=== PATIENT | male | born 1970 | race Caucasian/White ===

== ENCOUNTER 2016-11-06 16:02 | Emergency (ER) | payer SELFPAY ==
[2016-11-06 16:10] VITALS: BP 161/68
--- NOTE | 2016-11-06 16:13 | ER Document Report ---
ED Medical Screen (RME) - General Stated Complaint: EAR PAIN Time seen by provider: 16:07 Notes: Patient complains of congestion for 3 weeks. Ear pain since last week, but states right eardrum rupture on Monday producing yellowish, blood-tinged drainage. Now feels pain into right upper teeth, No fever. I have greeted and performed a rapid initial assessment of this patient. A comprehensive ED assessment and evaluation of the patient, analysis of test results and completion of the medical decision making process will be conducted by additional ED providers. TRAVEL OUTSIDE OF THE [place] IN LAST 30 DAYS: No - Related Data Allergies/Adverse Reactions: No Known Allergies Allergy (Verified 11/06/16 16:08) Past Medical History - Past Medical History Cardiac Medical History: Reports: Hx Hypertension, Hx Heart Murmur - Mitral regurgitation on recent echocardiogram Denies: Hx Congestive Heart Failure, Hx Coronary Artery Disease Pulmonary Medical History: Reports: Hx Pneumonia, Hx Respiratory Failure, Hx Sleep Apnea Psychiatric Medical History: Reports: Hx Depression Past Surgical History: Reports: Hx Abdominal Surgery, Hx Gastric Bypass Surgery , Hx Nose Surgery, Hx Orthopedic Surgery, Hx Tonsillectomy - Immunizations Immunizations up to date: Yes Hx Diphtheria, Pertussis, Tetanus Vaccination: No Physical Exam - HEENT Notes: No purulent drainage noted from the right ear. Patient does report some pain with movement of the auricle.
--- NOTE | 2016-11-06 17:14 | ER Document Report ---
ED ENT - General Chief Complaint: Ear Pain Stated Complaint: EAR PAIN Notes: 46 yo male c/o right ear pain and drainage x 2 days. reports cold s/s x 3 weeks. no fever TRAVEL OUTSIDE OF THE [place] IN LAST 30 DAYS: No - HPI Onset/Duration: Persistent Quality of pain: Sharp Pain Level: 3 Location of pain: Ears - right Associated symptoms: Dental pain, Ear pain, Face swelling Similar symptoms previously: No Recently seen / treated by doctor: No - Related Data Allergies/Adverse Reactions: No Known Allergies Allergy (Verified 11/06/16 16:08) Past Medical History - General Information source: Patient - Social History Smoking Status: Unknown if Ever Smoked Chew tobacco use (# tins/day): No Frequency of alcohol use: None Drug Abuse: None Lives with: Family Family History: Reviewed & Not Pertinent Patient has suicidal ideation: No Patient has homicidal ideation: No - Past Medical History Cardiac Medical History: Reports: Hx Hypertension, Hx Heart Murmur - Mitral regurgitation on recent echocardiogram Denies: Hx Congestive Heart Failure, Hx Coronary Artery Disease Pulmonary Medical History: Reports: Hx Pneumonia, Hx Respiratory Failure, Hx Sleep Apnea Renal/ Medical History: Denies: Hx Peritoneal Dialysis Psychiatric Medical History: Reports: Hx Depression Past Surgical History: Reports: Hx Abdominal Surgery, Hx Gastric Bypass Surgery , Hx Nose Surgery, Hx Orthopedic Surgery, Hx Tonsillectomy - Immunizations Immunizations up to date: Yes Hx Diphtheria, Pertussis, Tetanus Vaccination: No Review of Systems - Review of Systems Constitutional: No symptoms reported EENT: See HPI, Ear pain, Ear discharge Cardiovascular: No symptoms reported Respiratory: No symptoms reported Gastrointestinal: No symptoms reported Genitourinary: No symptoms reported Male Genitourinary: No symptoms reported Musculoskeletal: No symptoms reported Skin: No symptoms reported Hematologic/Lymphatic: No symptoms reported Neurological/Psychological: No symptoms reported Physical Exam - Vital signs Vitals: Temp Pulse Resp BP Pulse Ox 98.1 F 96 18 161/68 H 95 11/06/16 16:09 11/06/16 16:09 11/06/16 16:09 11/06/16 16:09 11/06/16 16:09 Interpretation: Normal - General General appearance: Appears well, Alert - HEENT Head: Normocephalic, Atraumatic Eyes: Normal Conjunctiva: Normal Pupils: PERRL External canal: Normal Tympanic membrane: Perforation - right TM with perf at 10 oclock. left TM normal Sinus: Normal Nasal: Normal Mouth/Lips: Normal Mucous membranes: Normal Neck: Normal, Supple - Respiratory Respiratory status: No respiratory distress Chest status: Nontender Breath sounds: Normal Chest palpation: Normal - Cardiovascular Rhythm: Regular Heart sounds: Normal auscultation Murmur: No - Abdominal Inspection: Normal Distension: No distension Bowel sounds: Normal Tenderness: Nontender Organomegaly: No organomegaly - Back Back: Normal, Nontender - Extremities General upper extremity: Normal inspection, Nontender, Normal color, Normal ROM , Normal temperature General lower extremity: Normal inspection, Nontender, Normal color, Normal ROM , Normal temperature, Normal weight bearing. No: Zev's sign - Neurological Neuro grossly intact: Yes Cognition: Normal Orientation: AAOx4 Sullivan Coma Scale Eye Opening: Spontaneous Sullivan Coma Scale Verbal: Oriented Ketty Coma Scale Motor: Obeys Commands Sullivan Coma Scale Total: 15 Speech: Normal Motor strength normal: LUE, RUE, LLE, RLE Sensory: Normal - Psychological Associated symptoms: Normal affect, Normal mood - Skin Skin Temperature: Warm Skin Moisture: Dry Skin Color: Normal Course - Vital Signs Vital signs: Temp Pulse Resp BP Pulse Ox 98.1 F 96 18 161/68 H 95 11/06/16 16:09 11/06/16 16:09 11/06/16 16:09 11/06/16 16:09 11/06/16 16:09 Discharge - Discharge Clinical Impression: Rupture of right tympanic membrane, Elevated blood pressure reading Condition: Stable Disposition: HOME, SELF-CARE Instructions: Antibiotic Therapy ([facility]), Oral Narcotic Medication ([facility]) Additional Instructions: please keep your ear completely dry x 10 days take medications as prescribed follow up with primary care if pain persists your blood pressure is elevated today please follow up with your primary care for further evaluation and treatment Prescriptions: Amoxicillin Trihydrate [Amoxil 875 mg Tablet] 1 tab PO BID #20 tablet Hydrocodone/Acetaminophen [[place] 5-325 Tablet] 1 each PO Q4H #15 tablet Forms: Elevated Blood Pressure
== END 2016-11-06 17:40 | disposition home or self-care (01) ==
LOC: ER 16:02
DX: H72.91 Unspecified perforation of tympanic membrane, right ear (principal); I10 Essential (primary) hypertension; H92.01 Otalgia, right ear; K08.89 Other specified disorders of teeth and supporting structures; R22.0 Localized swelling, mass and lump, head; Z98.84 Bariatric surgery status
CPT/HCPCS: 99282

== ENCOUNTER 2017-08-22 03:16 | Inpatient (IN) | payer SELFPAY ==
[2017-08-22] MEDS ORDERED: NORMAL SALINE 1000 ML 1,000 ML IV ONE (03:29)
--- NOTE | 2017-08-22 03:33 | ER Document Report ---
ED General - General Stated Complaint: DIFFICULTY BREATHING WITH HEART PROBLEMS Time Seen by Provider: 08/22/17 03:28 Notes: Patient is a 46-year-old male presents with complaint of difficulty breathing. He says been sick for approximately a week. He has a history of recurrent pneumonia. He has been hospitalized in the past. I saw him in May and was hospitalized at that time for pneumonia. Is unsure if she has had actual fevers at home. Patient says he has been vomiting last several days and has had a hard time keeping things down for the last 2-3 days. He says he feels dehydrated. Breathing got worse tonight and therefore called the ambulance. When he was arrived he was noted to be very tachycardic. They did an EKG which shows an A. fib with RVR. He has no previous history of A. fib with RVR. He was given 20 mg of Cardizem IV and placed on a Cardizem drip. He denies any chest pain. He denies any cardiac history other than a chronic heart murmur. He denies history of diabetes or high blood pressure. He denies a history of asthma. He is a non-smoker. TRAVEL OUTSIDE OF THE [place] IN LAST 30 DAYS: No - Related Data Allergies/Adverse Reactions: No Known Allergies Allergy (Verified 11/06/16 16:08) Past Medical History - Social History Smoking Status: Never Smoker Frequency of alcohol use: None Drug Abuse: None Family History: Reviewed & Not Pertinent - Past Medical History Cardiac Medical History: Reports: Hx Hypertension, Hx Heart Murmur - Mitral regurgitation on recent echocardiogram Denies: Hx Congestive Heart Failure, Hx Coronary Artery Disease Pulmonary Medical History: Reports: Hx Pneumonia, Hx Respiratory Failure, Hx Sleep Apnea Renal/ Medical History: Denies: Hx Peritoneal Dialysis Psychiatric Medical History: Reports: Hx Depression Past Surgical History: Reports: Hx Abdominal Surgery, Hx Gastric Bypass Surgery , Hx Nose Surgery, Hx Orthopedic Surgery, Hx Tonsillectomy - Immunizations Immunizations up to date: Yes Hx Diphtheria, Pertussis, Tetanus Vaccination: No Review of Systems - Review of Systems Notes: My Normal Review Basic REVIEW OF SYSTEMS: CONSTITUTIONAL : Unclear if has had fevers over last several days. EENT: Some congestion CARDIOVASCULAR: Denies chest pain. RESPIRATORY: Coughing and difficulty breathing GASTROINTESTINAL: Denies abdominal pain. Denies nausea, vomiting, or diarrhea. Denies constipation. Last BM: MUSCULOSKELETAL: Denies neck or back pain or joint pain or swelling. SKIN: Denies rash or skin lesions. NEUROLOGICAL: Denies altered mental status or loss of consciousness. Denies headache. Denies weakness or paralysis or loss of use of either side. Denies problems with gait or speech. Denies sensory or motor loss. ALL OTHER SYSTEMS REVIEWED AND NEGATIVE. Physical Exam - Vital signs Vitals: Pulse Ox 86 L 08/22/17 03:18 - Notes Notes: General Appearance: Well nourished, alert, cooperative, mild acute distress, no obvious discomfort. Vitals: reviewed, See vital signs table. Head: no swelling or tenderness to the head Eyes: PERRL, EOMI, Conjuctiva clear Mouth: No decreasd moisture Throat: No tonsillar inflammation, No airway obstruction Lungs: No wheezing, No rales, No rhonci, No accessory muscle use, good air exchange bilaterally. Heart: Tachycardic rate, irregular rythm, systolic murmur, no rub Abdomen: Normal BS, soft, No rigidity, No abdominal tenderness, No guarding, no rebound, no abdominal masses, no organomegaly Extremities: strength 5/5 in all extremities, good pulses in all extremities, no swelling or tenderness in the extremities, no edema. Skin: warm, dry, appropriate color, no rash Neuro: speech clear, oriented x 3, normal affect, responds appropriately to questions. Course - Re-evaluation Re-evalutation: 08/22/17 04:37 Cardizem drip has been started. I did order Lopressor X patient's heart rate is still fast. Lopressor is being given. My concern this patient has a elevated troponin without chest pain and has difficulty breathing with hypoxemia and tachycardia. I feel the CT angios necessary to rule out PE. CT angios been ordered. I did discuss this with the patient and he is agreeable to it. His lung katz remain clear. His chest x-ray does not show pneumonia. Shows possible small amount of edema. 08/22/17 06:01 CT angio is pending official read. I do not see obvious PE on my evaluation of it. He does have multiple infiltrative processes bilaterally. Suspect his elevated troponin is most likely is related to him being tachycardic with some hypoxemia for a long period of time as he says he has been feeling bad for at least 3 days. His heart rate is now improved. His heart rate is down to the upper 90s. This is much improved from the 140s and 150s he was when he first arrived. Concern is that he has his recurrent atypical pneumonias. I did discuss the case with the hospitalist, Dr. Niño, who recommends transfer because of the patient's elevated troponin because of these recurrent atypical pneumonias. I think this is appropriate. I did speak with the patient about this. Patient currently refuses transport. I did explain to him our reasoning for transport based on his elevated heart enzymes and the recurrent atypical infectious process he gets in his lungs. I informed him that it is hard to determine whether he has something more going on with his heart or if this is more of a typical infectious process that is being caused by something different. Patient says he understands this but says he still prefers to stay the hospital here. He says his insurance is not going effect till September. He says he wants to just to be treated at this facility and does not want be transferred due to the extra cost and said September comes around he will see the needed specialist as that is when his insurance kicks in. I informed him that he could potentially worsen. Patient says he does worsen he would will reconsider transfer at that time. I did discuss case with Dr. Niño informed her that the patient does refuse transport. She agrees with the patient here with the understanding that the patient does understand that transferred to a facility with different cardiology specialty and potential infectious disease would be of more benefit. Patient does understand this and does recognize this and still wants to stay at our facility. Dictation of this chart was performed using voice recognition software; therefore, there may be some unintended grammatical errors. - Vital Signs Vital signs: Temp Pulse Resp BP Pulse Ox 35 H 104/65 94 08/22/17 05:01 08/22/17 05:00 08/22/17 05:01 - Laboratory Result Diagrams: 08/22/17 03:30 08/22/17 03:30 Laboratory results interpreted by me: 08/22/17 08/22/17 03:30 03:30 WBC 11.8 H Hgb 9.9 L Hct 31.3 L MCV 70 L MCH 21.9 L MCHC 31.5 L RDW 17.6 H Seg Neutrophils % 85.3 H Lymphocytes % 6.2 L Absolute Neutrophils 10.1 H Sodium 136.8 L Carbon Dioxide 21 L BUN 39 H Creatinine 1.35 H Est GFR (Non-Af Amer) 57 L Calcium 8.3 L Creatine Kinase 210 H Total Protein 5.8 L - EKG Interpretation by Me Additional EKG results interpreted by me: 08/22/17 03:36 EKG is reviewed and interpreted by me. EKG shows atrial fibrillation with a rate of [address] segment elevation or depression. No ischemic T-wave inversions. QRS duration and QTc intervals are within normal range. No old EKG available for comparison. Discharge - Discharge Clinical Impression: Atrial fibrillation with rapid ventricular response Dyspnea Qualifiers: Dyspnea type: unspecified Qualified Code(s): R06.00 - Dyspnea, unspecified Pneumonia Qualifiers: Pneumonia type: due to unspecified organism Laterality: bilateral Lung location : unspecified part of lung Qualified Code(s): J18.9 - Pneumonia, unspecified organism Condition: Stable Disposition: ADMITTED INPATIENT
[2017-08-22 03:44] LABS: ABSOLUTE LYMPHOCYTES (AUTO) 0.7 10^3/uL (0.5-4.7); ABSOLUTE NEUT (AUTO) 10.1 10^3/uL (1.7-8.2); BASOPHILS % (AUTO) 0.1 % (0-2); HEMATOCRIT 31.3 % (37.9-51.0); HEMOGLOBIN 9.9 g/dL (13.5-17.0); HGB HCT DIFFERENCE -1.6; LYMPHOCYTES % (AUTO) 6.2 % (13-45); MEAN CORPUSCULAR HEMOGLOBIN 21.9 pg (27.0-33.4); MEAN CORPUSCULAR HGB CONC 31.5 g/dL (32.0-36.0); MEAN CORPUSCULAR VOLUME 70 fl (80-97); MONOCYTES % (AUTO) 8.4 % (3-13); RED CELL DISTRIBUTION WIDTH 17.6 % (11.5-14.0); SEGMENTED NEUTROPHILS % (AUTO) 85.3 % (42-78); WHITE BLOOD COUNT 11.8 10^3/uL (4.0-10.5)
--- NOTE | 2017-08-22 03:59 | RADIOLOGY REPORT (SQ) ---
EXAM DESCRIPTION: CHEST SINGLE VIEW CLINICAL HISTORY: 46 years, Male, dyspnea COMPARISON: None. NUMBER OF VIEWS: 1 FINDINGS: Pulmonary vascular congestion, normal cardiac silhouette, and intact bony thorax. IMPRESSION: Pulmonary vascular congestion. 2011 [employer]- All Rights Reserved
[2017-08-22 04:00] LABS: ALANINE AMINOTRANSFERASE 30 U/L (21-72); ALBUMIN 3.5 g/dL (3.5-5.0); ALKALINE PHOSPHATASE 73 U/L (38-126); ANION GAP 14 (5-19); ASPARTATE AMINO TRANSFERASE 25 U/L (17-59); BILIRUBIN,DIRECT 0.3 mg/dL (0.0-0.4); BILIRUBIN,TOTAL 0.9 mg/dL (0.2-1.3); BLOOD UREA NITROGEN 39 mg/dL (7-20); CALCIUM 8.3 mg/dL (8.4-10.2); CARBON DIOXIDE 21 mmol/L (22-30); CHLORIDE 102 mmol/L (98-107); CREATINE KINASE 210 U/L (55-170); CREATININE RESULT 1.35 mg/dL (0.52-1.25); GLUCOSE 106 mg/dL (75-110); MAGNESIUM 1.8 mg/dL (1.6-2.3); SODIUM 136.8 mmol/L (137-145); TOTAL PROTEIN 5.8 g/dL (6.3-8.2)
[2017-08-22 04:14] LABS: CREATINE KINASE MB 1.77 ng/mL (<4.55)
[2017-08-22 04:19] LABS: TROPONIN I 0.316 ng/mL
[2017-08-22] MEDS ORDERED: DILTIAZEM HCL/D5W 125 MG/125 ML RTUINJ IV PRN (04:19)
[2017-08-22] MEDS ORDERED: METOPROLOL TARTRATE PF/INJ 5 MG/5 ML SDV IV ONE (04:19)
[2017-08-22 04:34] LABS: THYROID STIMULATING HORMONE 1.36 uIU/mL (0.47-4.68)
[2017-08-22] MEDS ORDERED: DILTIAZEM HCL INJ 25 MG/5 ML VIAL IV ONE (05:40)
[2017-08-22] MEDS ORDERED: AZITHROMYCIN INJ 500 MG VIAL IV ONE (06:00)
[2017-08-22] MEDS ORDERED: CEFTRIAXONE INJ 1000 MG VIAL IV ONE (06:00)
--- NOTE | 2017-08-22 06:09 | RADIOLOGY REPORT (SQ) ---
EXAM DESCRIPTION: CTA CHEST CLINICAL HISTORY: 46 years Male, dyspnea COMPARISON: January 05, 2016, images only. TECHNIQUE: 100 mL Isovue-370, coronal and sagittal reformat. This exam was performed according to our departmental dose-optimization program, which includes automated exposure control, adjustment of the mA and/or kV according to patient size and/or use of iterative reconstruction technique. FINDINGS: Moderate scattered mixed groundglass and airspace opacities of both lung katz increased compared with prior exam from January 05, 2016. CTA of the pulmonary arterial system appears normal. No evidence of embolus. No right ventricular strain. Moderate left atrial enlargement. Gastric suture material. Minimal bilateral perinephric fat stranding. Likely benign exophytic cyst of the right kidney measures 1.5 cm. Cholecystectomy clips. Moderate to kyphosis at the thoracolumbar junctional levels with the [id number] anterior vertebral compression deformity, moderate bony demineralization, and moderate partially bridging anterior osteophytes without significant interval change compared with prior exam, January 05, 2016. Inferior neck, mediastinum, and upper abdomen appear otherwise grossly intact. IMPRESSION: Worsened/recurrent scattered groundglass and airspace opacities of both lung katz. Differential diagnosis includes pulmonary edema, multifocal pneumonia, and other infectious, inflammatory, and neoplastic processes.
[2017-08-22] MEDS ORDERED: ACETAMINOPHEN 325 MG TABLET PO PRN (06:22)
[2017-08-22] MEDS ORDERED: NORMAL SALINE 1000 ML 2,000 ML IV ONE (06:27)
[2017-08-22] MEDS ORDERED: HEPARIN SODIUM,PORCINE/D5W 25,000 UNIT/250 ML RTUINJ IV PRN (06:28)
[2017-08-22] MEDS ORDERED: HEPARIN SOD (PORCINE) 1,000 UNIT/ML 10 ML VIAL IV ONE (06:28)
[2017-08-22] MEDS ORDERED: VANCOMYCIN HCL 0 MG in DEXTROSE 5%-WATER 250 ML IV NR (06:30)
[2017-08-22] MEDS ORDERED: BENZONATATE 100 MG CAPSULE PO PRN (06:31)
[2017-08-22] MEDS: NORMAL SALINE 1000 ML 1,000 ML IV PRN ×2 (06:49→10:38)
[2017-08-22 06:53] LABS: APPEARANCE,URINE SLIGHTLY-CLOUDY; BILIRUBIN,URINE NEGATIVE (NEGATIVE); GLUCOSE, URINE NEGATIVE (NEGATIVE); KETONES,URINE NEGATIVE (NEGATIVE); LEUKOCYTE ESTERASE,URINE NEGATIVE (NEGATIVE); NITRITE,URINE NEGATIVE (NEGATIVE); PROTEIN,URINE 30 mg/dL (NEGATIVE); URINE SPECIFIC GRAVITY 1.036
[2017-08-22] MEDS ORDERED: METHYLPREDNISOLONE INJ 40 MG/1 ML SDV IV SCH (07:00)
[2017-08-22] MEDS ORDERED: POTASSIUM CHLORIDE 10 MEQ TABLET.SA PO ONE (07:01)
[2017-08-22 07:07] LABS: PROTHROMBIN TIME 14.1 SEC (11.4-15.4)
[2017-08-22 07:08] LABS: PARTIAL THROMBOPLASTIN TIME 40.8 SEC (23.5-35.8)
--- NOTE | 2017-08-22 07:24 | PDOC H&P ---
History of Present Illness Admission Date/PCP: 08/22/17 [facility] History of Present Illness: CHARY HUSTON is a 46 year old male with past medical history of heart murmur, hypertension, depression, anxiety, anemia who presents to the emergency department with complaints of shortness of breath. Patient reports that he was hospitalized in May for pneumonia in [place]. He reports that he started getting sick this past Monday when he was in [place]. He reports cough, subsequent wheezing and gurgling in his chest as well as inability to breathe while laying flat to sleep. He reports that his cough was productive of a bloody white gummy sputum, tightness in his chest, rhinorrhea, nausea, vomiting, fever, chills. Patient reports he was taking [place], Mucinex DM, and use his rescue inhaler 3 times. He reports when he took all of them together it did make him feel dizzy. Upon presentation to the emergency department patient is found to be in atrial fibrillation with rapid ventricular response and CTA of the chest reveals a multifocal multilobar pneumonia. He is referred to the hospital service for sepsis, pneumonia, and A. fib with RVR. Past Medical History Cardiac Medical History: Reports: Hypertension, Heart Murmur - Mitral regurgitation on recent echocardiogram Denies: Congestive Heart Failure, Coronary Artery Disease Pulmonary Medical History: Reports: Pneumonia, Respiratory Failure, Sleep Apnea Endocrine Medical History: Reports: Obesity Psychiatric Medical History: Reports: Depression Past Surgical History Past Surgical History: Reports: Gastric Bypass Surgery, Orthopedic Surgery, Tonsillectomy Social History Smoking Status: Never Smoker Frequency of Alcohol Use: None Hx Recreational Drug Use: No Drugs: None Hx Prescription Drug Abuse: No - Advance Directive Resuscitation Status: Full Code Surrogate healthcare decision maker:: Mariel De La Cruz, mother Family History Family History: DM, Hypertension, Malignancy Parental Family History Reviewed: Yes Children Family History Reviewed: Yes Sibling(s) Family History Reviewed.: Yes Medication/Allergy Home Medications: Aspirin [Aspirin 325 mg Tablet] 325 mg PO DAILY 08/22/17 Citalopram Hydrobromide [Celexa 40 mg Tablet] 1 tab PO DAILY 08/22/17 Lisinopril 40 mg PO DAILY 08/22/17 Allergies/Adverse Reactions: No Known Allergies Allergy (Verified 11/06/16 16:08) Review of Systems Constitutional: PRESENT: as per HPI, anorexia, chills, fatigue, fever(s). ABSENT: headache(s), weight gain, weight loss Eyes: ABSENT: visual disturbances Ears: ABSENT: hearing changes Cardiovascular: PRESENT: chest pain, orthropnea, palpitations. ABSENT: dyspnea on exertion, edema Respiratory: PRESENT: cough, dyspnea, hemoptysis, sputum Gastrointestinal: PRESENT: nausea, vomiting. ABSENT: abdominal pain, constipation, diarrhea, hematemesis, hematochezia, melena Genitourinary: ABSENT: dysuria, hematuria Musculoskeletal: ABSENT: joint swelling Integumentary: ABSENT: rash, wounds Neurological: ABSENT: abnormal gait, abnormal speech, confusion, dizziness, focal weakness, syncope Psychiatric: ABSENT: anxiety, depression, homidical ideation, suicidal ideation Endocrine: ABSENT: cold intolerance, heat intolerance, polydipsia, polyuria Hematologic/Lymphatic: ABSENT: easy bleeding, easy bruising Physical Exam Vital Signs: Temp Pulse Resp BP Pulse Ox 22 H 109/68 96 08/22/17 06:01 08/22/17 06:00 08/22/17 06:01 General appearance: PRESENT: mild distress, obese, well-developed, well- nourished Head exam: PRESENT: atraumatic, normocephalic Eye exam: PRESENT: conjunctiva pink, EOMI, PERRLA. ABSENT: scleral icterus Ear exam: PRESENT: normal external ear exam Mouth exam: PRESENT: dry mucosa, tongue midline Neck exam: PRESENT: lymphadenopathy. ABSENT: JVD, thyromegaly, tracheal deviation Respiratory exam: PRESENT: prolonged expiratory phas, rhonchi, symmetrical, tachypnea, unlabored, wheezes. ABSENT: accessory muscle use, rales Cardiovascular exam: PRESENT: irregular rhythm, +S1, +S2, systolic murmur. ABSENT: diastolic murmur, rubs Pulses: PRESENT: normal dorsalis pedis pul Vascular exam: PRESENT: normal capillary refill GI/Abdominal exam: PRESENT: normal bowel sounds, soft. ABSENT: distended, guarding, hernia, mass, organolmegaly, rebound, tenderness Rectal exam: PRESENT: deferred Extremities exam: PRESENT: full ROM. ABSENT: calf tenderness, clubbing, pedal edema Neurological exam: PRESENT: alert, awake, oriented to person, oriented to place , oriented to time, oriented to situation, CN II-XII grossly intact. ABSENT: motor sensory deficit Psychiatric exam: PRESENT: appropriate affect, normal mood. ABSENT: homicidal ideation, suicidal ideation Skin exam: PRESENT: dry, intact, warm. ABSENT: cyanosis, rash Results Laboratory Results: 08/22/17 03:30 08/22/17 03:30 08/22/17 08/22/17 08/22/17 03:30 03:30 03:30 WBC 11.8 H RBC 4.50 Hgb 9.9 L Hct 31.3 L MCV 70 L MCH 21.9 L MCHC 31.5 L RDW 17.6 H Plt Count 230 Seg Neutrophils % 85.3 H Lymphocytes % 6.2 L Monocytes % 8.4 Eosinophils % 0.0 Basophils % 0.1 Absolute Neutrophils 10.1 H Absolute Lymphocytes 0.7 Absolute Monocytes 1.0 Absolute Eosinophils 0.0 Absolute Basophils 0.0 Sodium 136.8 L Potassium 5.0 Chloride 102 Carbon Dioxide 21 L Anion Gap 14 BUN 39 H Creatinine 1.35 H Est GFR ( Amer) > 60 Est GFR (Non-Af Amer) 57 L Glucose 106 Calcium 8.3 L Magnesium 1.8 Total Bilirubin 0.9 AST 25 ALT 30 Alkaline Phosphatase 73 Total Protein 5.8 L Albumin 3.5 TSH 1.36 Free T4 1.86 08/22/17 08/22/17 03:30 03:30 Creatine Kinase 210 H CK-MB (CK-2) 1.77 Troponin I 0.316 Impressions: Chest X-Ray 08/22/17 03:28 IMPRESSION: Pulmonary vascular congestion. 2010 [employer]- All Rights Reserved Chest/Abdomen CTA 08/22/17 04:25 IMPRESSION: Worsened/recurrent scattered groundglass and airspace opacities of both lung katz. Differential diagnosis includes pulmonary edema, multifocal pneumonia, and other infectious, inflammatory, and neoplastic processes. Status: Imported from PACS Assessment & Plan - Diagnosis (1) Sepsis Qualifiers: Sepsis type: sepsis due to unspecified organism Qualified Code(s): A41.9 - Sepsis, unspecified organism Is this a current diagnosis for this admission?: Yes Plan: Will bolus patient and treat for pneumonia (2) Acute respiratory failure with hypoxemia Is this a current diagnosis for this admission?: Yes Plan: Oxygen as needed to maintain saturation greater than 95% (3) Elevated troponin I level Is this a current diagnosis for this admission?: Yes Plan: Continue to plot out troponins. The type II non-STEMI secondary to sepsis, A. fib with RVR, and mild renal insufficiency Have consulted cardiology (4) Atrial fibrillation with rapid ventricular response Is this a current diagnosis for this admission?: Yes Plan: Concerned that this is related to his underlying valvular dysfunction. Repeat echo On Cardizem drip For pulmonary embolus Likely secondary to his underlying sepsis and pneumonia (5) Pneumonia Qualifiers: Pneumonia type: due to unspecified organism Laterality: bilateral Lung location: unspecified part of lung Qualified Code(s): J18.9 - Pneumonia, unspecified organism Is this a current diagnosis for this admission?: Yes Plan: Concern that this is patient's fourth presentation for pneumonia in the last 12 months. Will obtain an HIV and LDH. Place patient on scheduled nebulized treatments and re-evaluate for improvement. PRN Xopenex Place patient on IV Solu-Medrol Place patient on vancomycin and Zosyn as patient has been hospitalized within the last 3 months. Obtain sputum culture (8) Kyphosis Qualifiers: Kyphosis type: unspecified Spinal region: thoracic Qualified Code(s): M40.204 - Unspecified kyphosis, thoracic region Is this a current diagnosis for this admission?: Yes (9) Hyponatremia Is this a current diagnosis for this admission?: Yes Plan: Secondary to intravascular volume depletion (10) Status post gastric bypass for obesity Is this a current diagnosis for this admission?: Yes
[2017-08-22 07:58] LABS: ADD HIVPANEL? NO; HIV (1 AND 2) ANTIBODY NEGATIVE (NEGATIVE)
--- NOTE | 2017-08-22 08:06 | EKG REPORT ---
SEVERITY:- ABNORMAL ECG - ATRIAL FIBRILLATION, V-RATE 108-[address]-T CHANGES LATERAL LEADS. : Confirmed by: Rashaun Negron MD 22-Aug-2017 08:06:07
[2017-08-22 08:21] LABS: ABSOLUTE MONOCYTES (AUTO) 0.7 10^3/uL (0.1-1.4); ABSOLUTE NEUT (AUTO) 9.9 10^3/uL (1.7-8.2); BASOPHILS % (AUTO) 0.1 % (0-2); HEMATOCRIT 27.9 % (37.9-51.0); HEMOGLOBIN 8.9 g/dL (13.5-17.0); HGB HCT DIFFERENCE -1.2; LYMPHOCYTES % (AUTO) 8.6 % (13-45); MEAN CORPUSCULAR HGB CONC 31.7 g/dL (32.0-36.0); MEAN CORPUSCULAR VOLUME 69 fl (80-97); RED BLOOD COUNT 4.04 10^6/uL (4.35-5.55); RED CELL DISTRIBUTION WIDTH 17.3 % (11.5-14.0); SEGMENTED NEUTROPHILS % (AUTO) 85.3 % (42-78); WHITE BLOOD COUNT 11.6 10^3/uL (4.0-10.5)
[2017-08-22] MEDS: LEVALBUTEROL HCL NEB 1.25 MG/3 ML AMPUL NEB SCH ×3 (08:25→19:45)
[2017-08-22] MEDS ORDERED: METHYLPREDNISOLONE INJ 125 MG/2 ML SDV IV ONE (08:30)
[2017-08-22] MEDS: CALCIUM CARBONATE 500 MG TAB.CHEW PO SCH ×4 (08:56→21:24)
[2017-08-22] MEDS: MAGNESIUM SULFATE/D5W 1 GM/100 ML RTUPB IV SCH ×2 (08:57→11:59)
[2017-08-22] MEDS ORDERED: HEPARIN SOD (PORCINE) 1,000 UNIT/ML 10 ML VIAL IV PRN (09:31)
[2017-08-22] MEDS ORDERED: INFLUENZA ADLT QUAD (36MOS+) 2017-18 VAC 0.5 ML SYR IM PRN (09:58)
[2017-08-22] MEDS ORDERED: (PENDING PHARMACY ID) (Citalopram Hydrobromide [Celexa 40 Mg Tablet] 1 TAB) PO SCH (10:00)
[2017-08-22] MEDS: VANCOMYCIN HCL 1,250 MG in DEXTROSE 5%-WATER 250 ML IV SCH ×2 (10:36→21:36)
[2017-08-22] MEDS ORDERED: DIGOXIN INJ 0.5 MG/2 ML AMPULE IV ONE ×2 (11:55→21:15)
[2017-08-22] MEDS: ASPIRIN 325 MG TABLET PO SCH (11:57)
[2017-08-22] MEDS: CITALOPRAM HYDROBROMIDE 20 MG TABLET PO SCH (11:58)
[2017-08-22] MEDS: GUAIFENESIN 600 MG TABLET.SA PO SCH ×2 (11:58→21:23)
[2017-08-22] MEDS ORDERED: PIPERACILLIN SODIUM/TAZOBACTAM 4.5 GM in NORMAL SALINE 100 ML IV ONE (12:00)
[2017-08-22] MEDS: BENZONATATE 100 MG CAPSULE PO PRN (14:34)
[2017-08-22] MEDS: METHYLPREDNISOLONE INJ 125 MG/2 ML SDV IV SCH ×2 (14:35→21:21)
[2017-08-22] MEDS: DILTIAZEM HCL/D5W 125 MG/125 ML RTUINJ IV PRN (14:39)
--- NOTE | 2017-08-22 16:33 | PDOC PROGRESS REPORT ---
Subjective Progress Note for:: 08/22/17 Subjective:: The patient is seen as a follow-up on sepsis secondary to pneumonia with atrial fibrillation with a rapid ventricular response. Is found resting in bed comfortably while wearing BiPAP. He reports that his pain has improved with the scheduled nebulizer treatments. He reports a continued productive cough of thick, gamino-yellow sputum. He states that, overall, he is feeling better He denies a history of A. fib, DE, and CHF. He has no new questions or concerns at this time. Reason For Visit: SEPSIS,PNEUMONIA Physical Exam Vital Signs: Temp Pulse Resp BP Pulse Ox 98.3 F 105 H 30 H 124/72 98 08/22/17 15:39 08/22/17 16:00 08/22/17 15:39 08/22/17 16:00 08/22/17 15:39 Intake & Output 08/21/17 08/22/17 08/23/17 06:59 06:59 06:59 Intake Total 504 Output Total 160 Balance 344 Weight 120 kg General appearance: PRESENT: no acute distress, morbidly obese, well-developed, well-nourished, other - Acutely ill-appearing Head exam: PRESENT: atraumatic, normocephalic Eye exam: PRESENT: conjunctiva pink, EOMI, PERRLA. ABSENT: scleral icterus Ear exam: PRESENT: normal external ear exam Mouth exam: PRESENT: moist, tongue midline Neck exam: ABSENT: carotid bruit, JVD, lymphadenopathy, thyromegaly Respiratory exam: PRESENT: crackles - Bibasilar, prolonged expiratory phas, rhonchi, tachypnea, other - Currently on BiPAP. ABSENT: rales, wheezes Cardiovascular exam: PRESENT: irregular rhythm, +S1, +S2, systolic murmur. ABSENT: diastolic murmur, rubs Pulses: PRESENT: normal dorsalis pedis pul Vascular exam: PRESENT: normal capillary refill GI/Abdominal exam: PRESENT: normal bowel sounds, soft. ABSENT: distended, guarding, mass, organolmegaly, rebound, tenderness Rectal exam: PRESENT: deferred Extremities exam: PRESENT: full ROM. ABSENT: calf tenderness, clubbing, pedal edema Neurological exam: PRESENT: alert, awake, oriented to person, oriented to place , oriented to time, oriented to situation, CN II-XII grossly intact. ABSENT: motor sensory deficit Psychiatric exam: PRESENT: appropriate affect, normal mood. ABSENT: homicidal ideation, suicidal ideation Skin exam: PRESENT: intact, warm. ABSENT: cyanosis, dry - Diaphoretic, rash Results Laboratory Results: 08/22/17 08:04 08/22/17 08/22/17 06:30 08:04 WBC 11.6 H RBC 4.04 L Hgb 8.9 L Hct 27.9 L MCV 69 L MCH 22.0 L MCHC 31.7 L RDW 17.3 H Plt Count 201 Seg Neutrophils % 85.3 H Lymphocytes % 8.6 L Monocytes % 6.0 Eosinophils % 0.0 Basophils % 0.1 Absolute Neutrophils 9.9 H Absolute Lymphocytes 1.0 Absolute Monocytes 0.7 Absolute Eosinophils 0.0 Absolute Basophils 0.0 Urine Color YELLOW Urine Appearance SLIGHTLY-CLOUDY Urine pH 5.0 Ur Specific [place] 1.036 Urine Protein 30 H Urine Glucose (UA) NEGATIVE Urine Ketones NEGATIVE Urine Blood NEGATIVE Urine Nitrite NEGATIVE Ur Leukocyte Esterase NEGATIVE Urine WBC (Auto) 7 Urine RBC (Auto) 1 08/22/17 08/22/17 08:04 12:18 Troponin I 0.284 0.203 Impressions: Chest X-Ray 08/22/17 03:28 IMPRESSION: Pulmonary vascular congestion. 2011 [employer]- All Rights Reserved Chest/Abdomen CTA 08/22/17 04:25 IMPRESSION: Worsened/recurrent scattered groundglass and airspace opacities of both lung katz. Differential diagnosis includes pulmonary edema, multifocal pneumonia, and other infectious, inflammatory, and neoplastic processes. Assessment & Plan - Diagnosis (1) Atrial fibrillation with rapid ventricular response Is this a current diagnosis for this admission?: Yes Plan: Likely secondary to his underlying sepsis with pneumonia. The patient is currently rate controlled on a Cardizem drip; we will transition to oral Cardizem. Echocardiogram is pending. Appreciate cardiology's consultation recommendations. (2) Sepsis Qualifiers: Sepsis type: sepsis due to unspecified organism Qualified Code(s): A41.9 - Sepsis, unspecified organism Is this a current diagnosis for this admission?: Yes Plan: Secondary to pneumonia. He has received IV fluid resuscitation has been placed on antibiotics for treatment of pneumonia. Blood cultures are pending; will narrow antibiotics as cultures result. (3) Elevated troponin I level Is this a current diagnosis for this admission?: Yes Plan: Troponins are trending down (0.316--> 0.284--> 0.203). This is a type II non-STEMI secondary to sepsis, A. fib with RVR, and mild renal insufficiency. The patient is on full dose Lovenox, full dose aspirin, and statin therapy. We will obtain lipid panel in the morning. (4) Hyponatremia Is this a current diagnosis for this admission?: Yes Plan: Secondary to intravascular volume depletion related to sepsis and pneumonia. The patient is currently receiving IV fluid replacement. We will continue to monitor with serial BMPs. (5) Pneumonia Qualifiers: Pneumonia type: due to unspecified organism Laterality: bilateral Lung location: unspecified part of lung Qualified Code(s): J18.9 - Pneumonia, unspecified organism Is this a current diagnosis for this admission?: Yes Plan: The patient is receiving vancomycin and Zosyn. Blood and sputum cultures are pending; will narrow antibiotic therapy as cultures result. Schedule Xopenex nebulizer treatments every 6 hours secondary to tachycardia related to his A. fib RVR. The patient is provided IV Solu-Medrol every 8 and Mucinex twice daily. HIV screening was negative. (6) REMEDIOS (acute kidney injury) Plan: Secondary to intra-vascular volume depletion related to sepsis. The patient is receiving IV fluid resuscitation. Vancomycin to be dosed by pharmacy. Will avoid all other nephrotoxic medications. Continue to trend creatinine with serial BMPs. (7) Acute respiratory failure with hypoxemia Is this a current diagnosis for this admission?: Yes Plan: Improved. Sepsis secondary to pneumonia. CTA was obtained and did rule out pulmonary embolus. The patient is being supported with supplemental oxygen and BiPAP nightly and as needed. Will obtain a proBNP to evaluate for CHF exacerbation with pulmonary edema. Remaining plan as above. - Time Time Spent with patient: 25-34 minutes Medications reviewed and adjusted accordingly: Yes
[2017-08-22] MEDS ORDERED: FUROSEMIDE INJ/PF 20 MG/2 ML SDV IV ONE (18:00)
[2017-08-22] MEDS: PIPERACILLIN SODIUM/TAZOBACTAM 4.5 GM in NORMAL SALINE 100 ML IV SCH (18:30)
[2017-08-22] MEDS: ENOXAPARIN SODIUM INJ 120 MG/0.8 ML DISP.SYRIN SUBCUT SCH (21:23)
[2017-08-22] MEDS: ATORVASTATIN CALCIUM 20 MG TABLET PO SCH (21:24)
[2017-08-22] MEDS ORDERED: FUROSEMIDE INJ/PF 20 MG/2 ML SDV IV SCH (22:00)
--- NOTE | 2017-08-22 22:48 | CONSULTATION REPORT E ---
Consultation Report NAME: CHARY HUSTON : 1970 AGE: 46Y DATE: 08/22/2017 302 A TO: CARLYN OSHEA M.D. FROM: TRESSA NOE M.D. Requesting Physician REASON FOR CONSULTATION: Atrial fibrillation with rapid ventricular response in a patient with acute respiratory failure with hypoxia due to pneumonia and also elevated Troponin I. HISTORY OF PRESENT ILLNESS: The patient is a 46-year-old male with a history of hypertension, depression, obstructive sleep apnea and recurrent pneumonia, who states that since the past 1 week has not felt well. He has been having rhinorrhea, fevers, chills and nausea, and also cough with intermittent wheezing. He also developed orthopnea. With the cough, the patient states that he coughs up some red-colored sputum and clots and clear sputum. The patient also complains of generalized chest tightness due to his breathing problem. Although he states that he noted that his heart rate was fast, he thought it was due to his breathing difficulty. He has no leg edema. There is no dizziness or syncope. The patient denies any chest pain. The patient was seen in the emergency room with acute hypoxic respiratory failure with an O2 sat of 86% on room air. Also, the patient was found to be in atrial fibrillation with rapid ventricular response. He was started on a Cardizem drip after a bolus of Cardizem, and is still in atrial fibrillation at a rate of 110 beats per minute, although he states his breathing is slightly better with antibiotics, steroids and respiratory treatments. He denies any leg edema, dizziness or near-syncope, but complains of generalized fatigue and weakness. PAST MEDICAL HISTORY: 1. Positive for history of hypertension. 2. He also has a history of depression. 3. He states that he has a history of obstructive sleep apnea, but does not use CPAP. 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 4. The patient has a past history of morbid obesity, status post gastric bypass surgery. 5. There is no prior history of atrial fibrillation. 6. There is no history of chronic kidney disease. 7. There is no history of diabetes mellitus or thyroid disease. 8. He denies any coronary artery disease, angina or PA, and no history of congestive heart failure. 9. He has a history of recurrent pneumonia. 10. He has no history of asthma or COPD. SOCIAL HISTORY: The patient does not smoke. He has no history of ETOH abuse. SURGICAL HISTORY: History of gastric bypass surgery. He had right knee AC ligament repair. He has had trigger finger releases x2 on the right hand. He has had umbilical hernia repair and ventral hernia repair. He has also had a tonsillectomy. ADVANCE DIRECTIVE: The patient is a FULL CODE. His mother is his surrogate healthcare decision-maker. FAMILY HISTORY: Positive for diabetes mellitus, hypertension, malignancy. No history of coronary artery disease. No history of cardiac arrhythmia. ALLERGIES: He has no known allergies. MEDICATIONS: 1. Tylenol 650 mg p.o. q.4 hours p.r.n. 2. Aspirin 325 p.o. daily. 3. Atorvastatin 20 mg p.o. at bedtime. 4. Zithromax 500 mg IV x1. 5. Tessalon Perles 100 mg p.o. q.8 hours p.r.n. 6. Calcium carbonate (Tums) 1000 mg p.o. meals and at bedtime. 7. Ceftriaxone 1 gram IV piggyback. 8. Celexa 40 mg p.o. daily. 9. Digoxin; he got 1 dose of 0.125 mg IV x1. 10. Lovenox 150 mg subcutaneously q.12 hours. 11. He did receive a bolus of Cardizem 10 mg and also he is on a Cardizem drip at 10 mg per hour. 12. He did get Lasix 20 mg IV q.12 hours. 13. Mucinex 1200 mg q.12 hours. 14. Piperacillin 4.5 grams IV x1. 15. He did get a bolus of normal saline, 1000 mL and 2000 mL IV bolus in the *------*. 16. Prevacid 15 mg p.o. q. a.m. 17. Xopenex 1.25 mg potassium treatment q.6 hours. 18. Methylprednisolone 80 mg IV q.8 hours. 19. Metoprolol *------* 20. Piperacillin 4.5 grams IV q.6 hours. 21. Vancomycin 1250 mg IV q.12 hours. Pharmacy will do the trough and peak and manage the dosing. 22. Potassium 40 mEq p.o. x1. REVIEW OF SYSTEMS: CONSTITUTIONAL: Complains of fever, chills and rigors, with generalized fatigue and weakness. HEAD: No history of headaches or head injury. EYES: No history of amblyopia or diplopia. No history of amaurosis fugax. EARS: No history of tinnitus. No history of hearing loss. No history of recurrent sore throats. NOSE: History of rhinorrhea, which started about a week ago, with symptoms of URI. He has no history of nosebleeds, no history of nasal polyps. MOUTH: No altered taste sensation. No ulcers in the mouth. No bleeding from the gums. THROAT: No lymphangitis. No cervical sore throat. SKIN: No history of skin rashes. No history of psoriasis. No history of pruritus. No history of skin cancer. No history of skin lesions. NECK: No neck pain. No swelling in the neck. No goiter. LUNGS: No history of asthma or COPD. History of recurrent pneumonia on the patient. Recent symptoms suggestive of pneumonia, as evidenced by CAT scan which shows multi-lobular bilateral pneumonia. He has wheezing. There is no history of pulmonary embolism. History of sleep apnea. Does not use CPAP, but states that he gets at least 10 hours of sleep every night. History of cough productive of blood clots and also white sputum. No pleuritic chest pain. History of orthopnea present. CARDIAC: First episode of atrial fibrillation. No history of congestive heart failure. No history of PA or angina symptoms. Note that the patient's Troponin I is elevated. There is no prior history of elevation of Troponin I or an PA. No history of congestive heart failure. No history of syncope. History of orthopnea present. No history of PND. No history of leg edema. The patient did have palpitations, but he thought it was due to his lung problem and not atrial fibrillation. This is the first episode of atrial fibrillation. GASTROINTESTINAL: He does have some symptoms of GI. No history of peptic ulcer disease. History of gastric bypass surgery in the past. No history of fatty food intolerance. No history of GI bleed. No history of abdominal pain. No history of cirrhosis. No history of hepatitis or jaundice. RENAL: No history of chronic kidney disease. No history of hematuria, pyuria or dysuria. No symptoms of enlarged prostate. MUSCULOSKELETAL: Denies any arthritis or collagenous vascular disease. ENDOCRINE: No history of diabetes mellitus. No history of hyper or hypothyroidism. No history of fatty food intolerance. No history of heat or cold intolerance. No history of polydipsia or polyuria. METABOLIC: History of morbid obesity present, in spite of his having had gastric bypass surgery. History of hyperlipidemia present. CENTRAL NERVOUS SYSTEM: No history of TIA or CVA. No history of headaches, migraines or seizures. No history of gait imbalance. PSYCHIATRIC: History of depression present. The patient does appear to be anxious. No history of suicidal ideation. No history of homicidal ideation. VASCULAR: No history of calf or buttock claudication. No history of DVT. HEMATOLOGIC: No history of bleeding diathesis. No history of clotting disorders. Past history of anemia present. PHYSICAL EXAMINATION: GENERAL: Patient is morbidly obese. He is in slight distress due to shortness of breath. VITAL SIGNS: His temperature is 98.2 degrees Fahrenheit. His pulse is 110 beats per minute, irregularly irregular. Blood pressure is 114/70. The respirations are 24 per minute. O2 sats are 90% on 4 liters nasal cannula. HEAD: Atraumatic, normocephalic. EYES: Pupils equal, round, regular, reactive to light and accommodation. Extraocular movements are normal. He has no conjunctival pallor. There is no scleral icterus. EARS: Tympanic membranes are intact. External auditory canals are clear. There are no lesions on the pinnae. NOSE: There is no deviated nasal septum. There is no inflammation of the nasal mucosal membranes. MOUTH: Mucous membranes of the mouth are moist. Tongue is moist. There are no ulcers. There is no bleeding from the gums. THROAT: There is no redness of the oropharynx. There is no exudate. SKIN: There are no skin rashes or skin lesions. There is no petechiae or ecchymosis. NECK: Supple. There is no JVD. Carotids are equal. There is no bruit. There is no goiter. There is no lymphadenopathy. Trachea is central. LUNGS: Show bilateral dry crackles and also rhonchi and wheezing bilaterally. No rales of CHF. HEART: S1, S2 heard. S1 is of variable intensity. There is no S3 gallop. There is no S4 gallop. There is a systolic murmur at the left sternal border, at the apex. There is no rub. ABDOMEN: Soft, obese, nontender. There is no hepatosplenomegaly. Bowel sounds are well-heard. EXTREMITIES: Femorals are slightly diminished. The femorals are deep. There are no femoral bruits. Leg pulses are well-felt. There is no pedal edema. There is no DVT or cellulitis. There is no cyanosis or clubbing. CENTRAL NERVOUS SYSTEM: The patient is conscious, awake, alert, oriented x3, with no focal deficit. PSYCHIATRIC: The patient's judgment and insight are intact. His affect is normal, but the patient does appear to be slightly anxious. DIAGNOSTICS: The patient's EKG shows atrial fibrillation with ventricular response of 148, nonspecific ST-T changes in lateral leads, most likely rate-related. The patient's chest x-ray was reported as pulmonary vascular congestion, but I think the patient has more of a pneumonia. The patient's CTA shows worsened recurrent scattered ground-glass and air space opacities in both lung katz. Differential diagnosis includes pulmonary edema, multifocal pneumonia and other infectious, inflammatory and neoplastic diseases/processes. I think the patient has multifocal pneumonia, in my opinion. I agree with the chest x-ray and the CAT scan as mentioned and also the EKG. The patient's 24-hour intake is 2004 mL, output is 1085 mL. The patient's white count is 11,600, hemoglobin is 8.9, hematocrit is 27.9, platelet count is 201,000. The patient's d-dimer is 0.87. Note that the CTA did not show pulmonary embolism. Pro time is 14.1, INR is 1.02, PTT is 40.8, and subsequently it was 30. The patient's influenza A and influenza B rapid were both negative. His HIV 1 and 2 antibodies are negative. The patient's Troponin I initially was 0.316, subsequently came down to 0.284 and subsequently has come down to 0.203. The patient's anti-proBNP is 3410. His LDH is 617. His CPK-MB is negative. His TSH is 1.36. Free T4 is 1.86. The patient's sodium is 136.8, potassium 5.0, chloride 102, CO2 is 21. The patient's BUN is 39, creatinine is 1.35. GFR is reduced at 57, which is stage 3A, most likely due to dehydration. Calcium is 8.3. The patient's total protein is 5.8 and albumin is 3.5. IMPRESSION: 1. Acute respiratory failure with hypoxemia. Oxygen saturations much better with treatment and nasal oxygen at 4 liters. 2. Elevated Troponin I level. This is a type 2 supply/demand mismatch, secondary to patient's hypoxia, atrial fibrillation with rapid ventricular response and pneumonia/sepsis. 3. Acute renal failure, mild, most likely secondary to over-diuresis. Would recommend holding the patient's Lasix. 4. Atrial fibrillation with rapid ventricular response. Will increase the patient's Cardizem drip at 10 mg per hour to 15 mg per hour. 5. Bilateral multifocal pneumonia. 6. Hypertension by history. 7. Depression. 8. Obstructive sleep apnea on continuous positive airway pressure. 9. History of hyperlipidemia. 10. Anemia. RECOMMENDATIONS: Note that the patient was seen at 9:00 a.m. and 45 minutes spent on this patient, with more than 50% of the time spent on direct patient care. His medications have been reviewed and adjusted. I have discussed the case with the care-giving providers on the case. Medical decision-making is of high complexity. Will repeat the patient's EKG in the morning. Will also get a Troponin I to make sure that it is trending down. Later, once the pneumonia subsides, the patient will be recommended to have an IV Lexiscan Cardiolite stress test. Once the heart rate is much improved, then would get an echocardiogram for LV ejection fraction. Note, in the past months, the patient's LV ejection fraction was normal and had trace mitral regurgitation only. Will follow with you. DICTATING PHYSICIAN: CARLYN OSHEA M.D. [id number] PHY#: [id number] ID: [id number] JOB#: [id number] ACCT: [id number] cc:CARLYN OSHEA M.D. >
[2017-08-23] MEDS: DILTIAZEM HCL/D5W 125 MG/125 ML RTUINJ IV PRN ×3 (00:06→16:58)
[2017-08-23] MEDS: PIPERACILLIN SODIUM/TAZOBACTAM 4.5 GM in NORMAL SALINE 100 ML IV SCH ×4 (00:13→18:41)
[2017-08-23] MEDS: LEVALBUTEROL HCL NEB 1.25 MG/3 ML AMPUL NEB SCH ×4 (01:58→19:50)
[2017-08-23] MEDS: METHYLPREDNISOLONE INJ 125 MG/2 ML SDV IV SCH ×3 (05:09→21:21)
[2017-08-23] MEDS: LANSOPRAZOLE 15 MG TAB.RAP.DR PO SCH (05:09)
[2017-08-23 05:13] LABS: HEMATOCRIT 29.7 % (37.9-51.0); HEMOGLOBIN 9.6 g/dL (13.5-17.0); HGB HCT DIFFERENCE -0.9; MEAN CORPUSCULAR HGB CONC 32.1 g/dL (32.0-36.0); MEAN CORPUSCULAR VOLUME 68 fl (80-97); RED BLOOD COUNT 4.35 10^6/uL (4.35-5.55); RED CELL DISTRIBUTION WIDTH 17.3 % (11.5-14.0); WHITE BLOOD COUNT 13.3 10^3/uL (4.0-10.5)
[2017-08-23 05:14] LABS: ANION GAP 9 (5-19); BLOOD UREA NITROGEN 26 mg/dL (7-20); CALCIUM 8.2 mg/dL (8.4-10.2); CARBON DIOXIDE 23 mmol/L (22-30); CHLORIDE 104 mmol/L (98-107); CHOLESTEROL 92.22 mg/dL (0-200); CREATININE RESULT 0.85 mg/dL (0.52-1.25); Direct HDL 14 mg/dL (>40); GLUCOSE 199 mg/dL (75-110); MAGNESIUM 2.5 mg/dL (1.6-2.3); SODIUM 135.6 mmol/L (137-145); TRIGLYCERIDES 105 mg/dL (<150)
[2017-08-23 05:24] LABS: DIRECT LDL 60 mg/dL (<100)
[2017-08-23] MEDS: CALCIUM CARBONATE 500 MG TAB.CHEW PO SCH ×4 (07:05→21:18)
--- NOTE | 2017-08-23 08:06 | EKG REPORT ---
SEVERITY:- ABNORMAL ECG - ATRIAL FIBRILLATION, V-RATE 60-101 PROLONGED QT INTERVAL NONSPECIFIC ANTEROLATERAL ST-T CHANGES : Confirmed by: Rashaun Negron MD 23-Aug-2017 08:05:34
[2017-08-23] MEDS: ENOXAPARIN SODIUM INJ 120 MG/0.8 ML DISP.SYRIN SUBCUT SCH ×2 (09:36→21:18)
[2017-08-23] MEDS: CITALOPRAM HYDROBROMIDE 20 MG TABLET PO SCH (09:37)
[2017-08-23] MEDS: GUAIFENESIN 600 MG TABLET.SA PO SCH ×2 (09:37→21:21)
[2017-08-23] MEDS: ASPIRIN 325 MG TABLET PO SCH (09:37)
[2017-08-23] MEDS: VANCOMYCIN HCL 1,250 MG in DEXTROSE 5%-WATER 250 ML IV SCH ×2 (09:38→21:56)
--- NOTE | 2017-08-23 12:25 | PDOC PROGRESS REPORT ---
Subjective Progress Note for:: 08/23/17 Subjective:: The patient is seen as a follow-up on sepsis secondary to pneumonia with atrial fibrillation with a rapid ventricular response. He ss found resting in bed comfortably while on supplemental oxygen via nasal cannula. He reports continued improvement in his breathing. He did use the CPAP overnight and feels that he has rested well. He has no new questions or concerns. He denies fever, chills, barnes, chest pain, palpitations, orthopnea, abdominal pain , nausea and vomiting. He does endorse continued dyspnea on exertion and a productive cough. He has no new questions or concerns at this time. Reason For Visit: SEPSIS,PNEUMONIA Physical Exam Vital Signs: Temp Pulse Resp BP Pulse Ox 98.5 F 94 26 H 112/59 L 96 08/23/17 11:35 08/23/17 12:00 08/23/17 11:35 08/23/17 12:00 08/23/17 12:00 Intake & Output 08/22/17 08/23/17 08/24/17 06:59 06:59 06:59 Intake Total 3834 Output Total 1835 Balance 1999 Weight 122.9 kg General appearance: PRESENT: no acute distress, morbidly obese, well-developed, well-nourished Head exam: PRESENT: atraumatic, normocephalic Eye exam: PRESENT: conjunctiva pink, EOMI, PERRLA. ABSENT: scleral icterus Ear exam: PRESENT: normal external ear exam Mouth exam: PRESENT: moist, tongue midline Neck exam: ABSENT: carotid bruit, JVD, lymphadenopathy, thyromegaly Respiratory exam: PRESENT: rhonchi, symmetrical, unlabored. ABSENT: accessory muscle use, prolonged expiratory phas, rales, tachypnea, wheezes Cardiovascular exam: PRESENT: irregular rhythm. ABSENT: diastolic murmur, rubs , systolic murmur, tachycardia Pulses: PRESENT: normal dorsalis pedis pul Vascular exam: PRESENT: normal capillary refill GI/Abdominal exam: PRESENT: normal bowel sounds, soft. ABSENT: distended, guarding, mass, organolmegaly, rebound, tenderness Rectal exam: PRESENT: deferred Extremities exam: PRESENT: full ROM. ABSENT: calf tenderness, clubbing, pedal edema Neurological exam: PRESENT: alert, awake, oriented to person, oriented to place , oriented to time, oriented to situation, CN II-XII grossly intact. ABSENT: motor sensory deficit Psychiatric exam: PRESENT: appropriate affect, normal mood. ABSENT: homicidal ideation, suicidal ideation Skin exam: PRESENT: intact, warm. ABSENT: cyanosis, dry - diaphoretic, rash Results Laboratory Results: 08/23/17 03:57 08/23/17 03:57 08/23/17 08/23/17 03:57 03:57 WBC 13.3 H RBC 4.35 Hgb 9.6 L Hct 29.7 L MCV 68 L MCH 22.0 L MCHC 32.1 RDW 17.3 H Plt Count 198 Sodium 135.6 L Potassium 5.0 Chloride 104 Carbon Dioxide 23 Anion Gap 9 BUN 26 H Creatinine 0.85 Est GFR ( Amer) > 60 Est GFR (Non-Af Amer) > 60 Glucose 199 H Calcium 8.2 L Magnesium 2.5 H Triglycerides 105 Cholesterol 92.22 LDL Cholesterol Direct 60 VLDL Cholesterol 21.0 HDL Cholesterol 14 L 08/22/17 08/22/17 08/22/17 08:04 12:18 12:18 Troponin I 0.284 0.203 NT-Pro-B Natriuret Pep 3410 H 08/22/17 08/23/17 18:55 03:57 Troponin I 0.150 0.094 NT-Pro-B Natriuret Pep Impressions: Chest X-Ray 08/22/17 03:28 IMPRESSION: Pulmonary vascular congestion. 2010 [employer]- All Rights Reserved Chest/Abdomen CTA 08/22/17 04:25 IMPRESSION: Worsened/recurrent scattered groundglass and airspace opacities of both lung katz. Differential diagnosis includes pulmonary edema, multifocal pneumonia, and other infectious, inflammatory, and neoplastic processes. Assessment & Plan - Diagnosis (1) Atrial fibrillation with rapid ventricular response Is this a current diagnosis for this admission?: Yes Plan: Likely secondary to his underlying sepsis with pneumonia. The patient is rate controlled on diltiazem drip; plans to transition to p.o. Cardizem today. Appreciate cardiology's consultation and recommendations. [id number] score of 1; indeterminate risk. Pt w/ elevated glucose secondary to steroid use; will obtain HgA1c to evaluate for underlying diabetes. If elevated; pt would be at high risk and therefore require chronic anticoagulation. (2) Sepsis Qualifiers: Sepsis type: sepsis due to unspecified organism Qualified Code(s): A41.9 - Sepsis, unspecified organism Is this a current diagnosis for this admission?: Yes Plan: Secondary to pneumonia. He has received IV fluid resuscitation and has been placed on antibiotics for treatment of pneumonia. Blood cultures: No growth at 24 hours. Sputum and Urine cultures are pending. Will narrow antibiotics as cultures result. (3) Elevated troponin I level Is this a current diagnosis for this admission?: Yes Plan: Troponins trended down (0.316--> 0.284--> 0.203--> 0.150--> 0.094). This is a type II non-STEMI secondary to sepsis, A. fib with RVR, and mild renal insufficiency. The patient is on full dose Lovenox, full dose aspirin, and statin therapy. Lipid panel: LDL 60, HDL 14, total cholesterol 92 (4) Hyponatremia Is this a current diagnosis for this admission?: Yes Plan: Secondary to intravascular volume depletion related to sepsis and pneumonia. The patient is currently receiving IV fluid replacement. We will continue to monitor with serial BMPs. (5) Pneumonia Qualifiers: Pneumonia type: due to unspecified organism Laterality: bilateral Lung location: unspecified part of lung Qualified Code(s): J18.9 - Pneumonia, unspecified organism Is this a current diagnosis for this admission?: Yes Plan: The patient is receiving vancomycin and Zosyn. Blood cultures: No growth at 24 hours. Currently on vancomycin and Zosyn; will narrow antibiotics as cultures result. Schedule Xopenex nebulizer treatments every 6 hours secondary to tachycardia related to his A. fib RVR. We will begin weaning IV Solu-Medrol today. Mucinex twice daily. (6) REMEDIOS (acute kidney injury) Plan: Resolved. Secondary to intra-vascular volume depletion related to sepsis. The patient is receiving IV fluid resuscitation. Vancomycin to be dosed by pharmacy. Will avoid all other nephrotoxic medications. Continue to monitor. (7) Acute respiratory failure with hypoxemia Is this a current diagnosis for this admission?: Yes Plan: Improved. Sepsis secondary to pneumonia. CTA was obtained and did rule out pulmonary embolus. The patient is being supported with supplemental oxygen and BiPAP nightly and as needed. Remaining plan as above. - Time Time Spent with patient: 25-34 minutes Medications reviewed and adjusted accordingly: Yes Anticipated discharge: Home Within: within 36 hours
[2017-08-23] MEDS ORDERED: DILTIAZEM HCL 180 MG CAPSULE.CR PO ONE (12:30)
[2017-08-23 14:40] LABS: APPEARANCE,URINE CLEAR; BILIRUBIN,URINE NEGATIVE (NEGATIVE); GLUCOSE, URINE 50 mg/dL (NEGATIVE); KETONES,URINE NEGATIVE (NEGATIVE); LEUKOCYTE ESTERASE,URINE NEGATIVE (NEGATIVE); NITRITE,URINE NEGATIVE (NEGATIVE); PROTEIN,URINE 30 mg/dL (NEGATIVE); URINE SPECIFIC GRAVITY 1.041
[2017-08-23] MEDS ORDERED: LISINOPRIL 10 MG TABLET PO ONE (14:45)
[2017-08-23] MEDS: DILTIAZEM HCL 180 MG CAPSULE.CR PO SCH (21:20)
[2017-08-23] MEDS: ATORVASTATIN CALCIUM 20 MG TABLET PO SCH (21:20)
--- NOTE | 2017-08-23 21:38 | PROGRESS NOTE E ---
Progress Note NAME: CHARY HUSTON : 1970 AGE: 46Y DATE: 08/23/2017 ROOM: 302 SUBJECTIVE: Note that the patient is feeling slightly better. He still shortness of breath but much less so. His cough has also improved but still he is coughing up some bloody sputum. He denies any chest pain or discomfort. He continues to be in atrial fibrillation. He denies any PND, but does have orthopnea. There is no leg edema. There is no ventricular arrhythmia seen. There are no TIA or CVA symptoms. There is no bleeding from the full dose Lovenox. Note that the patient wore CPAP last night and slept restfully. OBJECTIVE: GENERAL: On examination the patient is morbidly obese, at present in no acute distress but still has orthopnea. VITAL SIGNS: He is afebrile with a temperature of 97.7 degrees Fahrenheit, pulse is 73 beats per minute, blood pressure 126/70, respirations are 18 per minute, O2 saturations are 96% on 4L nasal cannula. HEENT: Head is atraumatic, normocephalic. Eyes: Pupils are equal, round and regular, reactive to light and accommodation. Extraocular movements are normal. There is no conjunctival pallor. There is no scleral icterus. Ears: Tympanic membranes are intact. External auditory canals are clear. Nose: There is no deviated nasal septum. There is no inflammation of the nasal mucous membrane. Mouth: Mucous membranes of the mouth are moist. Tongue is moist. There are no ulcers. There is no bleeding from the gums. Throat: There is no redness of the oropharynx. There are no exudates in the throat. SKIN: There are no skin rashes. There is no petechiae or ecchymosis. There are no skin lesions. NECK: Supple. There is no JVD. There is no lymphadenopathy. There is no goiter. Carotids are equal. There is no bruit. Trachea is central. LUNGS: Show a few scattered rhonchi and a few wheezing and a few dry crackles bilaterally. No rales of CHF. HEART: S1 and S2 is heard. There is a variable S1 in intensity. There is no S3 gallop. There is a systolic murmur in the left sternal border and the apex. There is no rub. ABDOMEN: Soft, obese, nontender. There is no hepatosplenomegaly. Bowel sounds are well heard. There are no tender areas or masses. EXTREMITIES: Femorals are deep. Femorals are slightly diminished. There are no femoral bruits. Leg pulses are well felt. There is no pedal edema. There is no cyanosis or clubbing. There is no DVT or cellulitis. CENTRAL NERVOUS SYSTEM: The patient is conscious, awake, alert and oriented x3 with no focal deficits. PSYCHIATRIC: The patient's judgment and insight are intact. His affect is normal but the patient today does not appear to be anxious. INTAKE/OUTPUT: The patient's 24 hour intake is 3835 mL, output is 1835 mL. DIAGNOSTIC DATA: The patient's white count is 13,300; hemoglobin is 9.6; hematocrit is 29.7; platelet count is 198,000. The patient's sodium s 135.6, potassium is 5, chloride is 104, CO2 is 23. The patient's BUN is 26, creatinine 0.85, GFR is greater than 60, glucose is 199, calcium is 8.2, magnesium is 2.5. The patient's troponin I has trended down to 0.094. His HDL level is very low at 14, his LDL level is good at 60, his triglycerides are good at 105. The patient's EKG shows atrial fibrillation, prolonged QT interval, nonspecific anterolateral ST-T changes which are minor. IMPRESSION: 1. ACUTE RESPIRATORY FAILURE WITH HYPOXIA, SLIGHT IMPROVEMENT BUT STILL REQUIRING 4 LITERS OF NASAL O2 TO KEEP HIS O2 SATS UP. 2. ELEVATED TROPONIN I, WHICH IS TRENDING DOWN. THIS IS TYPE 2 MYOCARDIAL INFARCTION WHICH IS DUE TO SUPPLY/DEMAND MISMATCH AND SHOULD NOT BE TREATED NON-ST ELEVATION OR ST ELEVATION PA (OR TYPE 1 PA). The supply/demand mismatch and elevated troponin I is secondary to the patient's hypoxia, atrial fibrillation with rapid ventricular response, and the patient's pneumonia and possible sepsis. 3. MULTI FOCAL PNEUMONIA. 4. ACUTE RENAL FAILURE, RESOLVED AFTER HYDRATION. Note that the patient's Lasix has been stopped. 5. ATRIAL FIBRILLATION AT PRESENT VENTRICULAR RESPONSE CONTROL. The patient is on 15 mg/hr of Cardizem. We will start the patient on p.o. Cardizem CD at 180 mg p.o. q.12 hours and try to wean the patient off the Cardizem. We will decrease it to 5 mg/hr after the patient started and 2 hours later if the heart rate is low then we will stop the patient's Cardizem. We will continue the patient on full dose Lovenox. The patient will need chronic anticoagulation. This has been discussed with the patient. I have discussed the option of placing the patient on Coumadin or the newer oral anticoagulation. I told him that with Coumadin if he should bleed then there is always an antidote in the form of fresh frozen plasma and vitamin K. Also I discussed that with Coumadin dietary intake should be steady since increase in green leafy vegetables can cause the blood to get thick and also the most of commonly used medication and antibiotics which can interfere and interact with the Coumadin and make the patient's INR unstable. Also discussed the newer oral anticoagulation agents which do not require any dietary restrictions and usually the commonly used medications do not have any interactions with them. But, I have also told him that they are a little more costlier and also that if he should bleed on this there is no antidote and we have to give supportive care. The patient will think and let us know. 5. BILATERAL MULTIFOCAL PNEUMONIA. Slightly getting better but the patient still has hemoptysis. Would recommend that the patient have a CT scan with contrast in 3 months to make sure that there is no malignancy. 6. HYPERTENSION, WELL-CONTROLLED. 7. DEPRESSION. 8. OBSTRUCTIVE SLEEP APNEA. The patient is on CPAP, would continue the patient on CPAP empirically since the patient feels much better. 9. HISTORY OF DYSLIPIDEMIA WITH GOOD LDL LEVELS AND VERY LOW HDL LEVELS. 10. ANEMIA. We will leave the anemia workup to the attending physician on the case. TIME SPENT: Note 30 minutes spent on this with more than 50% of the time spent on direct patient care. His medications have been reviewed and medications adjusted. Discussed with the patient at length about the oral anticoagulation agents, Coumadin versus the new agents. Note medical decision making is still highly complex. Will follow with you. We will recheck the patient's EKG in the morning and we will recheck the patient's troponin I that it does indeed is trending down. Will also recheck the patient's chest x-ray in the morning. DICTATING PHYSICIAN: CARLYN OSHEA M.D. [id number] PHY#: [id number] ID: [id number] JOB#: [id number] ACCT: [id number] cc: > MILADYS
[2017-08-24] MEDS: PIPERACILLIN SODIUM/TAZOBACTAM 4.5 GM in NORMAL SALINE 100 ML IV SCH ×5 (00:26→23:53)
[2017-08-24] MEDS: LEVALBUTEROL HCL NEB 1.25 MG/3 ML AMPUL NEB SCH ×4 (01:42→19:39)
[2017-08-24 05:13] LABS: HEMATOCRIT 29.7 % (37.9-51.0); HEMOGLOBIN 9.4 g/dL (13.5-17.0); HGB HCT DIFFERENCE -1.5; MEAN CORPUSCULAR HEMOGLOBIN 21.6 pg (27.0-33.4); MEAN CORPUSCULAR HGB CONC 31.5 g/dL (32.0-36.0); MEAN CORPUSCULAR VOLUME 69 fl (80-97); RED BLOOD COUNT 4.34 10^6/uL (4.35-5.55); RED CELL DISTRIBUTION WIDTH 17.5 % (11.5-14.0); WHITE BLOOD COUNT 21.6 10^3/uL (4.0-10.5)
[2017-08-24 05:29] LABS: ANION GAP 12 (5-19); BLOOD UREA NITROGEN 33 mg/dL (7-20); CALCIUM 8.8 mg/dL (8.4-10.2); CARBON DIOXIDE 20 mmol/L (22-30); CHLORIDE 103 mmol/L (98-107); GLUCOSE 149 mg/dL (75-110); SODIUM 134.7 mmol/L (137-145)
[2017-08-24] MEDS: METHYLPREDNISOLONE INJ 125 MG/2 ML SDV IV SCH (05:44)
[2017-08-24] MEDS: LANSOPRAZOLE 15 MG TAB.RAP.DR PO SCH (05:44)
--- NOTE | 2017-08-24 07:51 | EKG REPORT ---
SEVERITY:- ABNORMAL ECG - ATRIAL FIBRILLATION, V-RATE 63-114 PROLONGED QT INTERVAL : Confirmed by: Rashaun Negron MD 24-Aug-2017 07:50:02
[2017-08-24] MEDS: CALCIUM CARBONATE 500 MG TAB.CHEW PO SCH ×4 (08:29→21:08)
[2017-08-24] MEDS: CITALOPRAM HYDROBROMIDE 20 MG TABLET PO SCH (09:04)
[2017-08-24] MEDS: DILTIAZEM HCL 180 MG CAPSULE.CR PO SCH ×2 (09:04→21:08)
[2017-08-24] MEDS: ASPIRIN 325 MG TABLET PO SCH (09:04)
[2017-08-24] MEDS: GUAIFENESIN 600 MG TABLET.SA PO SCH ×2 (09:04→21:08)
[2017-08-24] MEDS: LISINOPRIL 10 MG TABLET PO SCH (09:05)
[2017-08-24] MEDS: ENOXAPARIN SODIUM INJ 120 MG/0.8 ML DISP.SYRIN SUBCUT SCH (09:05)
[2017-08-24] MEDS: VANCOMYCIN HCL 1,500 MG in DEXTROSE 5%-WATER 250 ML IV SCH ×2 (09:50→18:01)
[2017-08-24] MEDS ORDERED: NORMAL SALINE 1000 ML 1,000 ML IV PRN (11:10)
--- NOTE | 2017-08-24 11:26 | PDOC PROGRESS REPORT ---
Subjective Progress Note for:: 08/24/17 Subjective:: The patient is seen as a follow-up on sepsis secondary to pneumonia with atrial fibrillation with a rapid ventricular response. He is found resting in bed comfortably while on supplemental oxygen via nasal cannula. He reports continued improvement in his breathing. He did use the CPAP overnight. His also reports that his cough has improved. He denies fever, chills, barnes, chest pain, palpitations, orthopnea, abdominal pain , nausea and vomiting. He does endorse continued dyspnea on exertion and a productive cough. He has no new questions or concerns at this time. Reason For Visit: SEPSIS,PNEUMONIA Physical Exam Vital Signs: Temp Pulse Resp BP Pulse Ox 98.4 F 75 16 105/68 95 08/24/17 08:17 08/24/17 08:30 08/24/17 08:30 08/24/17 08:17 08/24/17 08:30 Intake & Output 08/23/17 08/24/17 08/25/17 06:59 06:59 06:59 Intake Total 3834 3064 Output Total 1835 950 Balance 1998 2113 Weight 122.9 kg 124.2 kg General appearance: PRESENT: no acute distress, morbidly obese, well-developed, well-nourished Head exam: PRESENT: atraumatic, normocephalic Eye exam: PRESENT: conjunctiva pink, EOMI, PERRLA. ABSENT: scleral icterus Ear exam: PRESENT: normal external ear exam Mouth exam: PRESENT: moist, tongue midline Neck exam: ABSENT: carotid bruit, JVD, lymphadenopathy, thyromegaly Respiratory exam: PRESENT: rhonchi, symmetrical, unlabored. ABSENT: rales, wheezes Cardiovascular exam: PRESENT: irregular rhythm, +S1, +S2. ABSENT: diastolic murmur, rubs, systolic murmur, tachycardia Pulses: PRESENT: normal dorsalis pedis pul Vascular exam: PRESENT: normal capillary refill GI/Abdominal exam: PRESENT: normal bowel sounds, soft. ABSENT: distended, guarding, mass, organolmegaly, rebound, tenderness Rectal exam: PRESENT: deferred Extremities exam: PRESENT: full ROM. ABSENT: calf tenderness, clubbing, pedal edema Neurological exam: PRESENT: alert, awake, oriented to person, oriented to place , oriented to time, oriented to situation, CN II-XII grossly intact. ABSENT: motor sensory deficit Psychiatric exam: PRESENT: appropriate affect, normal mood. ABSENT: homicidal ideation, suicidal ideation Skin exam: PRESENT: dry, intact, warm. ABSENT: cyanosis, rash Results Laboratory Results: 08/24/17 04:04 08/24/17 04:04 08/23/17 08/24/17 08/24/17 14:10 04:04 04:04 WBC 21.6 H RBC 4.34 L Hgb 9.4 L Hct 29.7 L MCV 69 L MCH 21.6 L MCHC 31.5 L RDW 17.5 H Plt Count 254 Sodium 134.7 L Potassium 5.0 Chloride 103 Carbon Dioxide 20 L Anion Gap 12 BUN 33 H Creatinine 0.90 Est GFR ( Amer) > 60 Est GFR (Non-Af Amer) > 60 Glucose 149 H Calcium 8.8 Urine Color YELLOW Urine Appearance CLEAR Urine pH 5.0 Ur Specific Woodruff 1.041 Urine Protein 30 H Urine Glucose (UA) 50 H Urine Ketones NEGATIVE Urine Blood NEGATIVE Urine Nitrite NEGATIVE Ur Leukocyte Esterase NEGATIVE Urine WBC (Auto) 1 Urine RBC (Auto) 0 Stool Occult Blood 08/24/17 10:00 WBC RBC Hgb Hct MCV MCH MCHC RDW Plt Count Sodium Potassium Chloride Carbon Dioxide Anion Gap BUN Creatinine Est GFR ( Amer) Est GFR (Non-Af Amer) Glucose Calcium Urine Color Urine Appearance Urine pH Ur Specific Woodruff Urine Protein Urine Glucose (UA) Urine Ketones Urine Blood Urine Nitrite Ur Leukocyte Esterase Urine WBC (Auto) Urine RBC (Auto) Stool Occult Blood POSITIVE 08/22/17 06:30 Clean Catch Midstream Urine Culture - Final Urogenital Vane 08/22/17 08/22/17 08/22/17 08:04 12:18 12:18 Troponin I 0.284 0.203 NT-Pro-B Natriuret Pep 3410 H 08/22/17 08/23/17 08/24/17 18:55 03:57 04:04 Troponin I 0.150 0.094 0.073 NT-Pro-B Natriuret Pep Impressions: Chest/Abdomen CTA 08/22/17 04:25 IMPRESSION: Worsened/recurrent scattered groundglass and airspace opacities of both lung katz. Differential diagnosis includes pulmonary edema, multifocal pneumonia, and other infectious, inflammatory, and neoplastic processes. Assessment & Plan - Diagnosis (1) Atrial fibrillation with rapid ventricular response Is this a current diagnosis for this admission?: Yes Plan: Likely secondary to his underlying sepsis with pneumonia. The patient has been transitioned to p.o. Cardizem and remains rate controlled. Appreciate cardiology's consultation and recommendations. [id number] score of 1; indeterminate risk. We discussed the risks and benefits of chronic anticoagulation in the setting of atrial fibrillation. At this time the patient declines to begin anticoagulant medications. He is strongly encouraged to make lifestyle modifications including weight loss, blood glucose control, and tobacco smoke avoidance. (2) Sepsis Qualifiers: Sepsis type: sepsis due to unspecified organism Qualified Code(s): A41.9 - Sepsis, unspecified organism Is this a current diagnosis for this admission?: Yes Plan: Secondary to pneumonia. He has received IV fluid resuscitation and has been placed on antibiotics for treatment of pneumonia. Blood cultures: No growth at 48 hours. Sputum culture: Few gram positive cocci Urine culture: normal vane The patient has an increased WBC count to 21.6 and so will continue Zosyn and vancomycin. Anticipate that he will be transitioned to Augmentin at discharge. (3) Elevated troponin I level Is this a current diagnosis for this admission?: Yes Plan: Troponins trended down (0.316--> 0.284--> 0.203--> 0.150--> 0.094). This is a type II non-STEMI secondary to sepsis, A. fib with RVR, and mild renal insufficiency. Will continue full dose aspirin and statin therapy. Lipid panel: LDL 60, HDL 14, total cholesterol 92 (4) Hyponatremia Is this a current diagnosis for this admission?: Yes Plan: Persistent, mild, hyponatremia. Secondary to intravascular volume depletion related to sepsis and pneumonia. We will continue IV fluid replacement. We will continue to monitor with serial BMPs. (5) Pneumonia Qualifiers: Pneumonia type: due to unspecified organism Laterality: bilateral Lung location: unspecified part of lung Qualified Code(s): J18.9 - Pneumonia, unspecified organism Is this a current diagnosis for this admission?: Yes Plan: Sputum culture: Few gram-positive cocci Blood cultures: No growth at 48 hours. Currently on vancomycin and Zosyn; will continue as the patient has an increased white count today. Anticipate transition to oral Augmentin at discharge. Schedule Xopenex nebulizer treatments every 6 hours secondary. Transition to p.o. prednisone today. Mucinex twice daily. (6) REMEDIOS (acute kidney injury) Plan: Resolved. Secondary to intra-vascular volume depletion related to sepsis. The patient is receiving IV fluid resuscitation. Vancomycin to be dosed by pharmacy. Will avoid all other nephrotoxic medications. Continue to monitor. (7) Acute respiratory failure with hypoxemia Is this a current diagnosis for this admission?: Yes Plan: Improved. Sepsis secondary to pneumonia. Bicarb is slightly elevated today; this is likely related to less frequent use of BiPAP in setting of pneumonia and morbid obesity. CTA was obtained and did rule out pulmonary embolus. The patient is being supported with supplemental oxygen and BiPAP nightly and as needed. Remaining plan as above. - Time Time Spent with patient: 25-34 minutes Medications reviewed and adjusted accordingly: Yes Anticipated discharge: Home Within: within 48 hours
--- NOTE | 2017-08-24 11:54 | RADIOLOGY REPORT (SQ) ---
EXAM DESCRIPTION: CHEST SINGLE VIEW COMPLETED DATE/TIME: 08/24/2017 10:34 am REASON FOR STUDY: Pneumonia COMPARISON: CT chest 01/05/2016, 08/22/2017 Chest films 02/04/2016, 08/22/2017 EXAM PARAMETERS: NUMBER OF VIEWS: One view. TECHNIQUE: Single frontal radiographic view of the chest acquired. RADIATION DOSE: NA LIMITATIONS: None. FINDINGS: LUNGS AND PLEURA: Patchy airspace disease is present in the bilateral upper lobes, and rig ht mid lung likely in the superior segment lower lobe. This is worrisome for edema versus multifocal pneumonia, and is slightly decreased compared to 08/12/2017. No gross pleural effusions. No pneumothorax. MEDIASTINUM AND HILAR STRUCTURES: No masses. Contour normal. HEART AND VASCULAR STRUCTURES: Mild cardiomegaly BONES: No acute findings. HARDWARE: None in the chest. OTHER: No other significant finding. IMPRESSION: Patchy bilateral airspace disease right greater than left, edema versus pneumonia. This is slightly less prominent than on CT chest 08/22/2017 TECHNICAL DOCUMENTATION: JOB ID: [id number]- All Rights Reserved
[2017-08-24] MEDS ORDERED: DILTIAZEM HCL/D5W 125 MG/125 ML RTUINJ IV PRN (12:38)
[2017-08-24] MEDS: BENZONATATE 100 MG CAPSULE PO PRN (12:59)
--- NOTE | 2017-08-24 13:34 | EKG REPORT ---
SEVERITY:- ABNORMAL ECG - ATRIAL FIBRILLATION, V-RATE 62-155 : Confirmed by: Rashaun Negron MD 24-Aug-2017 13:34:16
[2017-08-24] MEDS ORDERED: METHYLPREDNISOLONE INJ 40 MG/1 ML SDV IV SCH (14:00)
[2017-08-24] MEDS: PREDNISONE 20 MG TABLET PO SCH (17:06)
[2017-08-24] MEDS ORDERED: DIGOXIN INJ 0.5 MG/2 ML AMPULE IV ONE (20:40)
[2017-08-24] MEDS: ATORVASTATIN CALCIUM 20 MG TABLET PO SCH (21:08)
--- NOTE | 2017-08-24 21:13 | PROGRESS NOTE E ---
Progress Note NAME: CHARY HUSTON : 1970 AGE: 46Y DATE: 08/24/2017 ROOM: 302 SUBJECTIVE: The patient states his shortness of breath has improved but when he ambulates in the room, his saturations go down to 70. He denies any wheezing but does have a cough which is much improved. He is now producing some dark brown sputum with no hemoptysis. There is no chest pain or discomfort. He remains in atrial fibrillation. There is no bleeding on full dose Lovenox. There are no symptoms of TIA or CVA. The patient does have orthopnea but no PND. No chest pain or discomfort. There is no dizziness, near dizziness or syncope. OBJECTIVE: GENERAL: On examination, the patient is morbidly obese but well groomed. At present, he is on BiPAP without any distress. VITAL SIGNS: He is afebrile with a temperature of 97.5 degrees Fahrenheit; his pulse is 118 beats per minute, irregularly irregular, blood pressure 104/60, respirations are 22 per minute, O2 saturations are 99% on BiPAP with an FiO2 of 50%. HEAD: Atraumatic, normocephalic. EYES: Pupils are equal, round, regular, and reactive to light and accommodation. Extraocular movements are normal. There is no scleral icterus. There is no conjunctival pallor. EARS, NOSE, THROAT: Negative. NECK: Supple. There is no JVD. There is no lymphadenopathy. There is no goiter. Carotids are equal. There is no bruit. Trachea central. LUNGS: Few scattered rhonchi bilaterally with dry crackles bilaterally. There are no rales of CHF. There is a systolic murmur in the left sternal border on the apex. There is no wheezing today. HEART: S1 and S2 are heard. There is a variable S1 in intensity. There is no S3 gallop. There is no S4 gallop. There is a systolic murmur in the left sternal border on the apex. There is no rub. ABDOMEN: Soft, obese, nontender. There is no hepatosplenomegaly. Bowel sounds are well heard. There are no tender areas or masses. There is no rebound, guarding or rigidity. EXTREMITIES: Femorals are deep. Femorals are slightly diminished. There are no femoral bruits. Leg pulses are well felt. There is no pedal edema. There is no cyanosis or clubbing. There is no DVT or cellulitis. CENTRAL NERVOUS SYSTEM: The patient is conscious, awake, alert, and oriented x3 with no focal deficit. PSYCHIATRIC: The patient does appear to be slightly anxious but his judgment and insight are intact. INTAKE AND OUTPUT: The patient's 24-hour intake is 3064 mL. Output is 950 mL. DIAGNOSTIC STUDIES: The patient's EKG shows normal sinus rhythm. LABORATORY DATA: The patient's white count is 21,600; hemoglobin is 9.4; hematocrit is 29.7; platelet count is 254,000. The patient's sodium is 134.7, his potassium is 5, his chloride is 103, his CO2 is 20. The patient's BUN is 33, creatinine 0.90, and his GFR is greater than 60. His glucose is 109, calcium is 8.8. His troponin I has come down to 0.073. IMPRESSION: 1. Acute respiratory failure with hypoxemia with slight improvement. Still the patient has cough and had desaturations with O2 sats going to 70 with ambulation inside the room. Continue current respiratory treatments. Continue steroids. Continue antibiotics. Continue BiPAP. 2. Elevated troponin I which is trending down, secondary to atrial fibrillation and hypoxemia. No definite evidence of non-ST elevation VA. 3. Acute renal failure, resolved after hydration. At present, renal function is normal. 4. Atrial fibrillation, at present ventricular response still high. The patient is on a Cardizem drip at 5 mg. He is also on Cardizem at 180 mg p.o. q. 12 hours. We will add digoxin to the patient's regimen. We will give 1 dose now. After discussion, the patient wants to try the new anticoagulation agents. He said he will get his insurance next month. We will see in the office if I have samples and bring them for the patient to take. As mentioned earlier, would continue the patient's Lovenox at full dose at present until I get the samples of the newer oral anticoagulation agents. Note that the patient would be recommended to have a repeat CT scan in 3 months in view of the patient's coughing up blood which can be in bronchitis/pneumonia. 5. Hypertension. 6. Depression. 7. Pneumonia. 8. Obstructive sleep apnea. 9. History of dyslipidemia with good LDL levels and very low HDL levels. 10. Anemia. We will leave the anemia workup to the attending physician. RECOMMENDATION: 1. As mentioned earlier, continue antibiotics. 2. Continue with steroids. 3. Continue respiratory treatments. 4. We will continue Cardizem for now. 5. We will give the patient a dose of digoxin 0.125 mg IV push now and daily from tomorrow. 6. We will try to get samples of newer oral anticoagulation agents. 7. Also would continue the patient's Cardizem CD at 180 mg p.o. b.i.d. TIME SPENT: Thirty-five minutes spent on this patient with more than 50% of the time spent on direct patient care. His medications have been reviewed and medications have been adjusted. Medical decision making is still of high complexity. Discussed with other caregiving providers on the case. DICTATING PHYSICIAN: CARLYN OSHEA M.D. [id number] PHY#: [id number] ID: [id number] JOB#: [id number] ACCT: [id number] cc: >
[2017-08-25] MEDS: VANCOMYCIN HCL 1,500 MG in DEXTROSE 5%-WATER 250 ML IV SCH ×3 (01:17→18:49)
[2017-08-25] MEDS: LEVALBUTEROL HCL NEB 1.25 MG/3 ML AMPUL NEB SCH ×2 (01:56→08:21)
[2017-08-25 04:58] LABS: HEMATOCRIT 29.8 % (37.9-51.0); HEMOGLOBIN 9.2 g/dL (13.5-17.0); HGB HCT DIFFERENCE -2.2; MEAN CORPUSCULAR HEMOGLOBIN 21.2 pg (27.0-33.4); MEAN CORPUSCULAR HGB CONC 30.8 g/dL (32.0-36.0); MEAN CORPUSCULAR VOLUME 69 fl (80-97); RED BLOOD COUNT 4.33 10^6/uL (4.35-5.55); RED CELL DISTRIBUTION WIDTH 17.3 % (11.5-14.0); WHITE BLOOD COUNT 21.9 10^3/uL (4.0-10.5)
[2017-08-25 05:16] LABS: ANION GAP 8 (5-19); BLOOD UREA NITROGEN 37 mg/dL (7-20); CALCIUM 8.4 mg/dL (8.4-10.2); CARBON DIOXIDE 23 mmol/L (22-30); CHLORIDE 104 mmol/L (98-107); CREATININE RESULT 1.02 mg/dL (0.52-1.25); GLUCOSE 167 mg/dL (75-110); POTASSIUM 4.8 mmol/L (3.6-5.0); SODIUM 135.4 mmol/L (137-145)
[2017-08-25] MEDS: LANSOPRAZOLE 15 MG TAB.RAP.DR PO SCH (06:01)
[2017-08-25] MEDS: PIPERACILLIN SODIUM/TAZOBACTAM 4.5 GM in NORMAL SALINE 100 ML IV SCH ×4 (06:02→23:42)
[2017-08-25] MEDS: DILTIAZEM HCL 180 MG CAPSULE.CR PO SCH ×2 (09:15→22:41)
[2017-08-25] MEDS: LISINOPRIL 10 MG TABLET PO SCH (09:15)
[2017-08-25] MEDS: CALCIUM CARBONATE 500 MG TAB.CHEW PO SCH ×4 (09:15→22:41)
[2017-08-25] MEDS: ASPIRIN 325 MG TABLET PO SCH (09:15)
[2017-08-25] MEDS: PREDNISONE 20 MG TABLET PO SCH ×2 (09:16→18:48)
[2017-08-25] MEDS: GUAIFENESIN 600 MG TABLET.SA PO SCH ×2 (09:16→22:41)
[2017-08-25] MEDS: CITALOPRAM HYDROBROMIDE 20 MG TABLET PO SCH (09:16)
[2017-08-25] MEDS: AZITHROMYCIN 500 MG in DEXTROSE 5%-WATER 250 ML IV SCH (09:17)
[2017-08-25 10:33] LABS: CREATININE RESULT 1.01 mg/dL (0.52-1.25)
[2017-08-25] MEDS ORDERED: DIGOXIN INJ 0.5 MG/2 ML AMPULE IV ONE (11:59)
[2017-08-25] MEDS: HEPARIN SOD (PORCINE) 5,000 UNIT/ML 1 ML SYRINGE SUBCUT SCH ×2 (13:11→22:41)
[2017-08-25] MEDS ORDERED: LEVALBUTEROL HCL NEB 1.25 MG/3 ML AMPUL NEB PRN (13:24)
--- NOTE | 2017-08-25 13:26 | PDOC PROGRESS REPORT ---
Subjective Progress Note for:: 08/25/17 Subjective:: The patient is seen as a follow-up on sepsis secondary to pneumonia with atrial fibrillation with a rapid ventricular response. He is found resting in bed comfortably while on supplemental oxygen via nasal cannula. He reports that he continues to feel gradual improvement in his breathing. However, he continues to require supplemental oxygen while at rest. He was noted to be hypoxic to 70% on room air well ambulating to the restroom late last night. He denies fever, chills, barnes, chest pain, palpitations, orthopnea, abdominal pain , nausea and vomiting. He does continue to endorse continued dyspnea on exertion and a productive cough. He has no new questions or concerns at this time. Reason For Visit: SEPSIS,PNEUMONIA Physical Exam Vital Signs: Temp Pulse Resp BP Pulse Ox 97.4 F 63 24 H 105/60 98 08/25/17 03:24 08/25/17 08:00 08/25/17 08:00 08/25/17 12:00 08/25/17 12:00 Intake & Output 08/24/17 08/25/17 08/26/17 06:59 06:59 06:59 Intake Total 3064 3798 413 Output Total 950 2535 450 Balance 2114 1263 -37 Weight 124.2 kg 125.6 kg General appearance: PRESENT: no acute distress, morbidly obese, well-developed, well-nourished Head exam: PRESENT: atraumatic, normocephalic Eye exam: PRESENT: conjunctiva pink, EOMI, PERRLA. ABSENT: scleral icterus Ear exam: PRESENT: normal external ear exam Mouth exam: PRESENT: moist, tongue midline Neck exam: ABSENT: carotid bruit, JVD, lymphadenopathy, thyromegaly Respiratory exam: PRESENT: clear to auscultation soo, prolonged expiratory phas , rhonchi - throughout, other - productive cough. ABSENT: rales, wheezes Cardiovascular exam: PRESENT: irregular rhythm, +S1, +S2. ABSENT: diastolic murmur, rubs, systolic murmur, tachycardia Pulses: PRESENT: normal dorsalis pedis pul Vascular exam: PRESENT: normal capillary refill GI/Abdominal exam: PRESENT: normal bowel sounds, soft. ABSENT: distended, guarding, mass, organolmegaly, rebound, tenderness Rectal exam: PRESENT: deferred Extremities exam: PRESENT: full ROM. ABSENT: calf tenderness, clubbing, pedal edema Neurological exam: PRESENT: alert, awake, oriented to person, oriented to place , oriented to time, oriented to situation, CN II-XII grossly intact. ABSENT: motor sensory deficit Psychiatric exam: PRESENT: appropriate affect, normal mood. ABSENT: homicidal ideation, suicidal ideation Skin exam: PRESENT: dry, intact, warm. ABSENT: cyanosis, rash Results Laboratory Results: 08/25/17 04:02 08/25/17 09:41 08/25/17 08/25/17 08/25/17 04:02 04:02 09:41 WBC 21.9 H RBC 4.33 L Hgb 9.2 L Hct 29.8 L MCV 69 L MCH 21.2 L MCHC 30.8 L RDW 17.3 H Plt Count 300 Sodium 135.4 L Potassium 4.8 Chloride 104 Carbon Dioxide 23 Anion Gap 8 BUN 37 H Creatinine 1.02 1.01 Est GFR ( Amer) > 60 > 60 Est GFR (Non-Af Amer) > 60 > 60 Glucose 167 H Calcium 8.4 08/22/17 08/22/17 08/22/17 08:04 12:18 12:18 Troponin I 0.284 0.203 NT-Pro-B Natriuret Pep 3410 H 08/22/17 08/23/17 08/24/17 18:55 03:57 04:04 Troponin I 0.150 0.094 0.073 NT-Pro-B Natriuret Pep Impressions: Chest/Abdomen CTA 08/22/17 04:25 IMPRESSION: Worsened/recurrent scattered groundglass and airspace opacities of both lung katz. Differential diagnosis includes pulmonary edema, multifocal pneumonia, and other infectious, inflammatory, and neoplastic processes. Chest X-Ray 08/24/17 06:00 IMPRESSION: Patchy bilateral airspace disease right greater than left, edema versus pneumonia. This is slightly less prominent than on CT chest 08/22/2017 Assessment & Plan - Diagnosis (1) Atrial fibrillation with rapid ventricular response Is this a current diagnosis for this admission?: Yes Plan: Appreciate cardiology's consultation and recommendations. Primary plan per cardiology. The patient has been transitioned to p.o. Cardizem and Digoxin. He remains rate controlled. [id number] score of 1; indeterminate risk. He is considering chronic anticoagulation, and tells me that Dr. Ruano will be bringing him a sample from the office today. He is strongly encouraged to make lifestyle modifications including weight loss , blood glucose control, and tobacco smoke avoidance. (2) Sepsis Qualifiers: Sepsis type: sepsis due to unspecified organism Qualified Code(s): A41.9 - Sepsis, unspecified organism Is this a current diagnosis for this admission?: Yes Plan: Secondary to pneumonia. He has received IV fluid resuscitation and has been placed on antibiotics for treatment of pneumonia. Blood cultures: No growth at 72 hours. Sputum culture: Normal vane Urine culture: Normal vane WBCs remain elevated at 21.9 today. Will continue Zosyn and Vancomycin. Will add Azithromycin for atypical coverage. (3) Elevated troponin I level Is this a current diagnosis for this admission?: Yes Plan: Troponins trended down (0.316--> 0.284--> 0.203--> 0.150--> 0.094--> 0.073). This is a type II non-STEMI secondary to sepsis, A. fib with RVR, and mild renal insufficiency. Will continue full dose aspirin and statin therapy. Lipid panel: LDL 60, HDL 14, total cholesterol 92 (4) Hyponatremia Is this a current diagnosis for this admission?: Yes Plan: Persistent, mild, hyponatremia. Secondary to intravascular volume depletion related to sepsis and pneumonia. We will continue IV fluid replacement. We will continue to monitor with serial BMPs. (5) Pneumonia Qualifiers: Pneumonia type: due to unspecified organism Laterality: bilateral Lung location: unspecified part of lung Qualified Code(s): J18.9 - Pneumonia, unspecified organism Is this a current diagnosis for this admission?: Yes Plan: Sputum culture: Normal vane Blood cultures: No growth at 72 hours. Currently on vancomycin and Zosyn; will continue as the patient has an increased white count today. Additionally, will add azithromycin for atypical coverage is the patient has persistent dyspnea, hypoxia, and leukocytosis. As patient is now rate controlled, will trial Duonebs. Continue p.o. prednisone today. Mucinex twice daily. (6) REMEDIOS (acute kidney injury) Plan: Resolved. Secondary to intra-vascular volume depletion related to sepsis. The patient is receiving IV fluid resuscitation. Vancomycin to be dosed by pharmacy. Will avoid all other nephrotoxic medications. Continue to monitor. (7) Acute respiratory failure with hypoxemia Is this a current diagnosis for this admission?: Yes Plan: Slow improvements. Sepsis secondary to pneumonia. Bicarb remains elevated today; this is likely related to pneumonia in the setting of morbid obesity. CTA was obtained and did rule out pulmonary embolus. The patient is being supported with supplemental oxygen and BiPAP nightly and as needed. Remaining plan as above. - Time Time Spent with patient: 25-34 minutes Medications reviewed and adjusted accordingly: Yes
[2017-08-25] MEDS: IPRATROPIUM/ALBUTEROL 0.5-2.5 MG/3 ML AMPUL NEB SCH (15:52)
[2017-08-25 20:08] LABS: ARTERIAL BLOOD BASE EXCESS -3.5 mmol/L; ARTERIAL BLOOD O2 SATURATION 94.3 % (94-98)
[2017-08-25 20:49] LABS: CREATINE KINASE MB 2.42 ng/mL (<4.55); TROPONIN I 0.047 ng/mL
--- NOTE | 2017-08-25 22:38 | PROGRESS NOTE E ---
Progress Note NAME: CHARY HUSTON : 1970 AGE: 46Y DATE: 08/25/2017 ROOM: 302 SUBJECTIVE: The patient states his shortness of breath has much better. He states he walked to the bathroom and came back and did not feel that short of breath, although he had some shortness of breath. He continues to have orthopnea. There is no chest pain or discomfort. The patient's cough is minimal now and producing some white sputum which is scanty. There is no hemoptysis. The patient still desaturates when he ambulates and sats go down into 70s. He also appears to be anxious and does hyperventilate at times. There is no PND. There is no chest pain or discomfort. There is no bleeding on full dose Lovenox. There are no TIA or CVA symptoms. There is no dizziness, syncope or near syncope. Note that the patient is on BiPAP/CPAP at night. OBJECTIVE: GENERAL: On examination, the patient is morbidly at present in bed in no acute distress except for complaints of orthopnea. VITAL SIGNS: He is afebrile with a pulse of 87 beats per minute, irregularly irregular. Blood pressure is 123/64, respirations are 20 per minute, 02 sats are 94% on 5 L nasal cannula. HEAD: Atraumatic, normocephalic. EYES: Pupils are equal, round, regular, and reactive to light and accommodation. Extraocular movements are normal. There is no scleral icterus. There is no conjunctival pallor. EARS, NOSE, THROAT: Negative. NECK: Supple. There is no JVD. There is no lymphadenopathy. There is no goiter. Carotids are equal. There is no bruit. Trachea is central. LUNGS: Show a few scattered rhonchi bilaterally with some dry crackles bilaterally. There are no rales of CHF. There is no wheezing today. HEART: S1 and S2 are heard. The S1 is of variable intensity. There is no S3 gallop. There is no S4 gallop. There is a systolic murmur in the left sternal border and the apex. There is no rub. ABDOMEN: Soft, obese, nontender. There is no hepatosplenomegaly. Bowel sounds are well heard. There are no tender areas or masses. There is no rebound, guarding or rigidity. EXTREMITIES: Femorals are deep. Femorals are slightly diminished. There are no femoral bruits. Leg pulses are well felt. There is no pedal edema. There is no cyanosis or clubbing. There is no DVT or cellulitis. There is no calf tenderness. CENTRAL NERVOUS SYSTEM: The patient is conscious, awake, alert, and oriented x3 with no focal deficit. PSYCHIATRIC: The patient does appear to be slightly anxious but his judgment and insight are intact. DIAGNOSTIC STUDIES: The patient's EKG shows atrial fibrillation with ventricular response of 105 beats per minute. LABORATORY DATA: The patient's total intake is 3790 mL; output is 2535 mL. His sodium is 135.4, his potassium is 4.8, chloride 104, CO2 is 23, his BUN is 37, creatinine 1.02, GFR is greater than 60 and his glucose is 167. His calcium is 8.4. His troponin I has further come down to 0.047. His NT-proBNP is 2630. His white count is still high at 21,900, hemoglobin is 9.2, hematocrit is 29.8 and platelet count is 300,000. IMPRESSION: 1. ACUTE RESPIRATORY FAILURE WITH HYPOXEMIA WITH SLIGHT IMPROVEMENT. Still the patient desaturates when he ambulates. Continue respiratory treatments. Continue antibiotics. Continue nasal oxygen. Continue steroids. Continue BiPAP. 2. ELEVATED TROPONIN I SECONDARY TO PNEUMONIA AND ALSO ATRIAL FIBRILLATION WITH RAPID VENTRICULAR RESPONSE. No definite evidence of non-ST elevation GA. The patient's troponin is trending down and is now 0.047. 3. ACUTE RENAL FAILURE, MOST LIKELY SECONDARY TO SEPSIS, DEHYDRATION AND PNEUMONIA. At present, renal function is back to normal. 4. ATRIAL FIBRILLATION. Continues to be in atrial fibrillation. Ventricular response is anywhere from 87-100 beats per minute. We will stop the patient's Cardizem drip. We will give him a dose of digoxin IV 0.125 mg push now x1 and also will start the patient on digoxin 0.25 mg p.o. daily from tomorrow. We will stop the patient's Cardizem drip, continue the patient on Cardizem 180 mg CD q.12 h. Continue Lovenox for now. I will check in my office to see if I have any samples of the newer anticoagulation agents. Later would recommend once the pulmonary problem resolves and the patient goes back to baseline, would recommend that the patient have an IV Lexiscan Cardiolite stress test. This has been discussed with the patient. We will also get an echocardiogram to see the etiology of the patient's systolic murmur. 5. HYPERTENSION. Blood pressure well controlled. Continue TIFFANY inhibitors, continue Cardizem. 6. DEPRESSION. 7. PNEUMONIA. 8. OBSTRUCTIVE SLEEP APNEA. 9. HISTORY OF DYSLIPIDEMIA. Good LDL levels and very low HDL levels. RECOMMENDATION: As mentioned earlier, will stop the patient's Cardizem drip and start the patient on some digoxin. Will give 0.125 mg IV push now and from tomorrow will start the patient on 0.25 mg p.o. daily. Will recheck the patient's chest x-ray in the morning. Will order an echocardiogram to assess the etiology of the systolic murmur. Continue antibiotics. Continue nasal 02 and CPAP as needed and continue steroids and antibiotics and respiratory treatments. Note: Thirty minutes spent on this patient with more than 50% of the time spent on direct patient care. His medications have been reviewed and medications adjusted as mentioned earlier. Discussed with the other caregiving providers on the case. Would strongly recommend that the patient have a Pulmonary consult. Note: Medical decision making is still of high complexity in view of the patient not progressing to his basal state quickly. Thanking you. DICTATING PHYSICIAN: CARLYN OSHEA M.D. [id number] JEEVAN#: [id number] ID: [id number] JOB#: [id number] ACCT: [id number] cc: >
[2017-08-25] MEDS: ATORVASTATIN CALCIUM 20 MG TABLET PO SCH (22:41)
[2017-08-26] MEDS: IPRATROPIUM/ALBUTEROL 0.5-2.5 MG/3 ML AMPUL NEB SCH ×2 (00:05→08:57)
[2017-08-26] MEDS: VANCOMYCIN HCL 1,500 MG in DEXTROSE 5%-WATER 250 ML IV SCH ×2 (02:48→10:30)
[2017-08-26 03:01] LABS: CREATINE KINASE MB 2.51 ng/mL (<4.55); TROPONIN I 0.055 ng/mL
[2017-08-26] MEDS: PIPERACILLIN SODIUM/TAZOBACTAM 4.5 GM in NORMAL SALINE 100 ML IV SCH ×2 (05:57→10:48)
[2017-08-26] MEDS: LANSOPRAZOLE 15 MG TAB.RAP.DR PO SCH (05:57)
[2017-08-26] MEDS: HEPARIN SOD (PORCINE) 5,000 UNIT/ML 1 ML SYRINGE SUBCUT SCH (05:57)
--- NOTE | 2017-08-26 07:54 | EKG REPORT ---
SEVERITY:- ABNORMAL ECG - ATRIAL FIBRILLATION, V-RATE 75-149 : Confirmed by: Rashaun Negron MD 26-Aug-2017 07:53:41
[2017-08-26] MEDS: CITALOPRAM HYDROBROMIDE 20 MG TABLET PO SCH (08:07)
[2017-08-26] MEDS: CALCIUM CARBONATE 500 MG TAB.CHEW PO SCH ×2 (08:07→14:29)
[2017-08-26] MEDS: LISINOPRIL 10 MG TABLET PO SCH (08:08)
[2017-08-26] MEDS: DILTIAZEM HCL 180 MG CAPSULE.CR PO SCH (08:08)
[2017-08-26] MEDS: GUAIFENESIN 600 MG TABLET.SA PO SCH (08:08)
[2017-08-26] MEDS: ASPIRIN 325 MG TABLET PO SCH (08:09)
[2017-08-26] MEDS: PREDNISONE 20 MG TABLET PO SCH (08:09)
[2017-08-26] MEDS: AZITHROMYCIN 500 MG in DEXTROSE 5%-WATER 250 ML IV SCH (08:11)
--- NOTE | 2017-08-26 08:45 | RADIOLOGY REPORT (SQ) ---
EXAM DESCRIPTION: CHEST SINGLE VIEW COMPLETED DATE/TIME: 08/26/2017 8:35 am REASON FOR STUDY: Pneumonia / SOB COMPARISON: 08/24/2017 EXAM PARAMETERS: NUMBER OF VIEWS: One view. TECHNIQUE: Single frontal radiographic view of the chest acquired. RADIATION DOSE: NA LIMITATIONS: None. FINDINGS: LUNGS AND PLEURA: Low lung volumes. Increasing multifocal airspace disease. MEDIASTINUM AND HILAR STRUCTURES: No masses. Contour normal. HEART AND VASCULAR STRUCTURES: Heart normal in size. Normal vasculature. BONES: No acute findings. HARDWARE: None in the chest. OTHER: No other significant finding. IMPRESSION: INCREASING MULTIFOCAL AIRSPACE DISEASE. TECHNICAL DOCUMENTATION: JOB ID: [id number] [employer]- All Rights Reserved
[2017-08-26 09:25] LABS: ANION GAP 10 (5-19); BLOOD UREA NITROGEN 28 mg/dL (7-20); CALCIUM 8.5 mg/dL (8.4-10.2); CARBON DIOXIDE 23 mmol/L (22-30); CHLORIDE 103 mmol/L (98-107); CREATINE KINASE 55 U/L (55-170); CREATININE RESULT 0.82 mg/dL (0.52-1.25); GLUCOSE 179 mg/dL (75-110); POTASSIUM 5.1 mmol/L (3.6-5.0); SODIUM 136.4 mmol/L (137-145)
[2017-08-26 09:29] LABS: HEMATOCRIT 31.7 % (37.9-51.0); HEMOGLOBIN 9.8 g/dL (13.5-17.0); HGB HCT DIFFERENCE -2.3; MEAN CORPUSCULAR HEMOGLOBIN 21.5 pg (27.0-33.4); MEAN CORPUSCULAR HGB CONC 30.9 g/dL (32.0-36.0); MEAN CORPUSCULAR VOLUME 70 fl (80-97); RED BLOOD COUNT 4.56 10^6/uL (4.35-5.55); RED CELL DISTRIBUTION WIDTH 17.2 % (11.5-14.0); WHITE BLOOD COUNT 21.7 10^3/uL (4.0-10.5)
[2017-08-26 09:35] LABS: CREATINE KINASE MB 2.64 ng/mL (<4.55); TROPONIN I 0.045 ng/mL
[2017-08-26] MEDS ORDERED: DIGOXIN 0.25 MG TABLET PO SCH (10:00)
[2017-08-26] MEDS ORDERED: NORMAL SALINE 1000 ML 1,000 ML IV PRN (10:36)
[2017-08-26] MEDS ORDERED: LORAZEPAM INJ 2 MG/1 ML VIAL ONE ×3 (10:46→12:34)
[2017-08-26] MEDS ORDERED: METHYLPREDNISOLONE INJ 125 MG/2 ML SDV IV ONE (11:15)
[2017-08-26] MEDS ORDERED: LORAZEPAM INJ 2 MG/1 ML VIAL IV ONE ×2 (11:15→13:48)
[2017-08-26] MEDS ORDERED: PROPOFOL 100 ML IV ONE (11:50)
--- NOTE | 2017-08-26 11:54 | RADIOLOGY REPORT (SQ) ---
EXAM DESCRIPTION: CT CHEST WITHOUT COMPLETED DATE/TIME: 08/26/2017 11:28 am REASON FOR STUDY: dyspnea, hypoxia COMPARISON: Chest radiograph from 08/26/[address] from 08/22/2015 TECHNIQUE: CT scan performed of the chest without intravenous contrast. Images reviewed with lung, soft tissue and bone windows. Reconstructed coronal and sagittal MPR images reviewed. All images st ored on PACS. All CT scanners at this facility use dose modulation, iterative reconstruction, and/or weight based d osing when appropriate to reduce radiation dose to as low as reasonably achievable (ALARA). [facility]: Dose Right [facility]: CareDose [facility]: Dose Right [facility]: Teradose 4D [facility]: BiancaMed RADIATION DOSE: CT Rad equipment meets quality standard of care and radiation dose reduction techniq ues were employed. CTDIvol: 10.6 - 21.1 mGy. DLP: 1156 mGy-cm. mGy. LIMITATIONS: No technical limitations. FINDINGS: LUNGS AND PLEURA: Severe diffuse multifocal airspace disease is seen on chest radiograph w hich is but worsened compared to prior CTA chest. Moderate bilateral pleural effusions. HILAR AND MEDIASTINAL STRUCTURES: No identified masses or abnormal nodes. No obvious aneurysm. HEART AND VASCULAR STRUCTURES: No aneurysm. No pericardial effusion. UPPER ABDOMEN: No significant findings. Limited exam. THYROID AND OTHER SOFT TISSUES: No masses. No adenopathy. BONES: No significant finding. HARDWARE: None in the chest. OTHER: No other significant findings. IMPRESSION: SEVERE DIFFUSE MULTIFOCAL AIRSPACE DISEASE WITH MODERATE BILATERAL PLEURAL EFFUSIONS. D IFFERENTIAL INCLUDES ASYMMETRIC PULMONARY EDEMA, MULTIFOCAL PNEUMONIA, AND ARDS. TECHNICAL DOCUMENTATION: JOB ID: [id number] Quality ID # [id number]: Final reports with documentation of one or more dose reduction techniques (e.g., Au tomated exposure control, adjustment of the mA and/or kV according to patient size, use of iterative reconstruction technique) 2010 [employer]- All Rights Reserved
[2017-08-26] MEDS ORDERED: VERAPAMIL HCL INJ/PF 5 MG/2 ML SDV IV ONE (12:00)
[2017-08-26 12:06] LABS: ARTERIAL BLOOD BASE EXCESS 0.7 mmol/L; ARTERIAL BLOOD O2 SATURATION 97.6 % (94-98)
[2017-08-26] MEDS ORDERED: PROPOFOL 100 ML IV PRN (12:11)
[2017-08-26] MEDS ORDERED: LORAZEPAM 24 MG/240 ML BAG IV PRN (12:19)
[2017-08-26] MEDS ORDERED: DEXTROSE 5%-WATER 250 ML with NOREPINEPHRINE BITARTRATE 4 MG IV PRN ×2 (12:59)
[2017-08-26 13:28] LABS: ARTERIAL BLOOD O2 SATURATION 94.5 % (94-98)
--- NOTE | 2017-08-26 13:29 | RADIOLOGY REPORT (SQ) ---
EXAM DESCRIPTION: CHEST SINGLE VIEW COMPLETED DATE/TIME: 08/26/2017 1:05 pm REASON FOR STUDY: intubated COMPARISON: CT FROM 08/26/2017 EXAM PARAMETERS: NUMBER OF VIEWS: One view. TECHNIQUE: Single frontal radiographic view of the chest acquired. RADIATION DOSE: NA LIMITATIONS: None. FINDINGS: LUNGS AND PLEURA: Severe diffuse multifocal airspace disease with bilateral pleural effusi ons. MEDIASTINUM AND HILAR STRUCTURES: No masses. Contour normal. HEART AND VASCULAR STRUCTURES: Heart normal in size. Normal vasculature. BONES: No acute findings. HARDWARE: Endotracheal tube and nasogastric tube with endotracheal tube terminating approximately 14 mm above the praful. OTHER: No other significant finding. IMPRESSION: ESSENTIALLY STABLE DIFFUSE MULTIFOCAL AIRSPACE DISEASE WITH PLEURAL EFFUSIONS. ENDOTRACHEAL TUBE 14 MM ABOVE THE PRAFUL. CONSIDER PULLING BACK 1 TO 2 CM. TECHNICAL DOCUMENTATION: JOB ID: [id number] [employer]- All Rights Reserved
--- NOTE | 2017-08-26 13:30 | RADIOLOGY REPORT (SQ) ---
EXAM DESCRIPTION: KUB/ABDOMEN (SINGLE VIEW) COMPLETED DATE/TIME: 08/26/2017 1:05 pm REASON FOR STUDY: NG TUBE PLACEMENT COMPARISON: None. NUMBER OF VIEWS: One view. TECHNIQUE: Supine radiographic image of the abdomen acquired. LIMITATIONS: LIMITED FIELD OF VIEW. FINDINGS: BOWEL GAS PATTERN: Normal bowel gas pattern. No dilated loops. CALCIFICATIONS: No suspicious calcifications. SOFT TISSUES: No gross mass or suggestion of organomegaly. HARDWARE: Enteric tube appears to terminate within the upper abdomen. BONES: No acute fracture. No worrisome bone lesions. OTHER: No other significant finding. IMPRESSION: LIMITED ABDOMINAL RADIOGRAPH WITH ENTERIC TUBE TERMINATING IN THE UPPER ABDOMEN PRESUMAB LY WITHIN THE STOMACH. TECHNICAL DOCUMENTATION: JOB ID: [id number] [employer]- All Rights Reserved
[2017-08-26] MEDS ORDERED: SUCCINYLCHOLINE CHLORIDE INJ 200 MG/10 ML VIAL ONE (13:34)
--- NOTE | 2017-08-26 13:37 | PDOC CONSULTATION ---
Consultation Consult Date: 08/26/17 Attending physician:: ASHLEY JONES Consult reason:: acute resp failure History of Present Illness Admission Date/PCP: 08/22/17 06:22 History of Present Illness: CHARY HUSTON is a 46 year old male with past medical history of heart murmur, hypertension, depression, anxiety, anemia who presents to the emergency department with complaints of shortness of breath. Patient reports that he was hospitalized in May for pneumonia in [place]. He reports that he started getting sick this past Monday when he was in [place]. He reports cough, subsequent wheezing and gurgling in his chest as well as inability to breathe while laying flat to sleep. He reports that his cough was productive of a bloody white gummy sputum, tightness in his chest, rhinorrhea, nausea, vomiting, fever, chills. Patient reports he was taking [place], Mucinex DM, and use his rescue inhaler 3 times. He reports when he took all of them together it did make him feel dizzy. Upon presentation to the emergency department patient is found to be in atrial fibrillation with rapid ventricular response and CTA of the chest reveals a multifocal multilobar pneumonia. He is referred to the hospital service for sepsis, pneumonia, and A. fib with RVR. Past Medical History Cardiac Medical History: Reports: Hypertension, Heart Murmur - Mitral regurgitation on recent echocardiogram Denies: Congestive Heart Failure, Coronary Artery Disease Pulmonary Medical History: Reports: Pneumonia, Respiratory Failure, Sleep Apnea Endocrine Medical History: Reports: Obesity Psychiatric Medical History: Reports: Depression Past Surgical History Past Surgical History: Reports: Gastric Bypass Surgery, Orthopedic Surgery, Tonsillectomy Social History Information Source: [facility] Records Smoking Status: Never Smoker Frequency of Alcohol Use: None Hx Recreational Drug Use: No Drugs: None Hx Prescription Drug Abuse: No - Advance Directive Resuscitation Status: Full Code Family History Family History: DM, Hypertension, Malignancy Parental Family History Reviewed: No Children Family History Reviewed: No Sibling(s) Family History Reviewed.: No Medication/Allergy Home Medications: Aspirin [Aspirin 325 mg Tablet] 325 mg PO DAILY 08/22/17 Citalopram Hydrobromide [Celexa 40 mg Tablet] 1 tab PO DAILY 08/22/17 Lisinopril [Prinivil 40 mg Tablet] 40 mg PO DAILY 08/22/17 Allergies/Adverse Reactions: No Known Allergies Allergy (Verified 11/06/16 16:08) Review of Systems ROS unobtainable: Due to endotracheal tube Physical Exam Vital Signs: Temp Pulse Resp BP Pulse Ox 97.9 F 95 35 H 112/86 H 93 08/26/17 12:00 08/26/17 12:00 08/26/17 12:00 08/26/17 12:00 08/26/17 12:00 Intake & Output 08/25/17 08/26/17 08/27/17 06:59 06:59 06:59 Intake Total 3798 4863 Output Total 2535 3179 175 Balance 1263 1684 -175 Weight 125.6 kg 123.6 kg General appearance: PRESENT: no acute distress, disheveled, obese, well- developed. ABSENT: cooperative, hard of hearing, mild distress, morbidly obese , severe distress, thin Head exam: PRESENT: atraumatic, normocephalic Eye exam: PRESENT: conjunctiva pale, EOMI. ABSENT: conjunctival injection, conjunctiva pink, nystagmus, periorbital swelling, scleral icterus Mouth exam: PRESENT: dry mucosa, neck supple, tongue midline, other - ET tube. ABSENT: laceration, moist Neck exam: ABSENT: carotid bruit, JVD, lymphadenopathy, thyromegaly, tracheal deviation, tracheostomy Respiratory exam: PRESENT: decreased breath sounds, rales, rhonchi, symmetrical , tachypnea, wheezes. ABSENT: accessory muscle use, chest wall tenderness, clear to auscultation soo, crackles, prolonged expiratory phas, retraction, stridor, unlabored Cardiovascular exam: ABSENT: irregular rhythm Pulses: PRESENT: normal radial pulses GI/Abdominal exam: PRESENT: normal bowel sounds, soft. ABSENT: distended, guarding, mass, organolmegaly, rebound, tenderness Gentrourinary exam: PRESENT: indwelling catheter Extremities exam: ABSENT: clubbing, joint swelling, pedal edema Musculoskeletal exam: ABSENT: ambulatory, deformity, dislocation Neurological exam: ABSENT: alert, altered, awake Skin exam: PRESENT: dry, warm Results Laboratory Results: 08/26/17 08:22 08/26/17 08:22 08/25/17 08/26/17 08/26/17 19:50 08:22 08:22 WBC 21.7 H RBC 4.56 Hgb 9.8 L Hct 31.7 L MCV 70 L MCH 21.5 L MCHC 30.9 L RDW 17.2 H Plt Count 348 Carbonic Acid 1.16 HCO3/H2CO3 Ratio 18:1 ABG pH 7.36 ABG pCO2 38.6 ABG pO2 73.1 L ABG HCO3 21.5 ABG O2 Saturation 94.3 ABG Base Excess -3.5 FiO2 60% Sodium 136.4 L Potassium 5.1 H Chloride 103 Carbon Dioxide 23 Anion Gap 10 BUN 28 H Creatinine 0.82 Est GFR ( Amer) > 60 Est GFR (Non-Af Amer) > 60 Glucose 179 H Calcium 8.5 08/26/17 11:38 WBC RBC Hgb Hct MCV MCH MCHC RDW Plt Count Carbonic Acid 1.18 HCO3/H2CO3 Ratio 21:1 ABG pH 7.43 ABG pCO2 39.1 ABG pO2 98.2 ABG HCO3 25.1 ABG O2 Saturation 97.6 ABG Base Excess 0.7 FiO2 100% Sodium Potassium Chloride Carbon Dioxide Anion Gap BUN Creatinine Est GFR ( Amer) Est GFR (Non-Af Amer) Glucose Calcium 08/22/17 08/22/17 08/22/17 08:04 12:18 12:18 Creatine Kinase CK-MB (CK-2) Troponin I 0.284 0.203 NT-Pro-B Natriuret Pep 3410 H 08/22/17 08/23/17 08/24/17 18:55 03:57 04:04 Creatine Kinase CK-MB (CK-2) Troponin I 0.150 0.094 0.073 NT-Pro-B Natriuret Pep 08/25/17 08/25/17 08/26/17 20:00 20:00 02:22 Creatine Kinase 63 66 CK-MB (CK-2) 2.42 Troponin I 0.047 NT-Pro-B Natriuret Pep 2630 H 08/26/17 08/26/17 08/26/17 02:22 08:22 08:22 Creatine Kinase 55 CK-MB (CK-2) 2.51 2.64 Troponin I 0.055 0.045 NT-Pro-B Natriuret Pep Impressions: Chest/Abdomen CTA 08/22/17 04:25 IMPRESSION: Worsened/recurrent scattered groundglass and airspace opacities of both lung katz. Differential diagnosis includes pulmonary edema, multifocal pneumonia, and other infectious, inflammatory, and neoplastic processes. Chest CT 08/26/17 00:00 IMPRESSION: SEVERE DIFFUSE MULTIFOCAL AIRSPACE DISEASE WITH MODERATE BILATERAL PLEURAL EFFUSIONS. DIFFERENTIAL INCLUDES ASYMMETRIC PULMONARY EDEMA, MULTIFOCAL PNEUMONIA, AND ARDS. Assessment & Plan - Diagnosis (1) Atrial fibrillation with rapid ventricular response Is this a current diagnosis for this admission?: Yes Plan: afib tachycardia appropriate for clinical state discussed with cardiology may have an outflow obstruction (2) Dyspnea Qualifiers: Dyspnea type: unspecified Qualified Code(s): R06.00 - Dyspnea, unspecified Is this a current diagnosis for this admission?: Yes Plan: progressively worse last 72 hrs;ARDS PAO2/FIO2 = 98/1.00 (3) REMEDIOS (acute kidney injury) Is this a current diagnosis for this admission?: Yes Plan: pos fluid balance recorded (4) Acute respiratory failure with hypoxemia Is this a current diagnosis for this admission?: Yes Plan: Labs- All tests 24 hr 08/26/17 11:38 ABG pH 7.43 ABG pCO2 39.1 ABG pO2 98.2 ABG O2 Saturation 97.6 FiO2 100% - Time Total Critical Time (Minutes): 60 - Plan Summary Plan Summary: discussed with pcp and cardiology agree best patient care.
[2017-08-26] MEDS ORDERED: NORMAL SALINE 1000 ML 1,000 ML IV ONE (13:49)
[2017-08-26] MEDS ORDERED: IPRATROPIUM/ALBUTEROL 0.5-2.5 MG/3 ML AMPUL NEB SCH (14:00)
[2017-08-26] MEDS ORDERED: METHYLPREDNISOLONE INJ 125 MG/2 ML SDV IV SCH (14:00)
[2017-08-26 14:16] VITALS: BP 100/80
--- NOTE | 2017-08-26 14:19 | RADIOLOGY REPORT (SQ) ---
EXAM DESCRIPTION: CHEST SINGLE VIEW COMPLETED DATE/TIME: 08/26/2017 2:06 pm REASON FOR STUDY: CENTRAL LINE PLACEMENT COMPARISON: 08/26/2017 EXAM PARAMETERS: NUMBER OF VIEWS: One view. TECHNIQUE: Single frontal radiographic view of the chest acquired. RADIATION DOSE: NA LIMITATIONS: None. FINDINGS: LUNGS AND PLEURA: Stable multifocal airspace disease with bilateral pleural effusions. MEDIASTINUM AND HILAR STRUCTURES: No masses. Contour normal. HEART AND VASCULAR STRUCTURES: Stable. BONES: No acute findings. HARDWARE: No tracheal to approximately 19 mm above the praful. Nasogastric tube terminates within th e stomach. Interval placement of right IJ venous catheter terminating within the upper right atrium. OTHER: No other significant finding. IMPRESSION: INTERVAL PLACEMENT OF RIGHT IJ VENOUS CATHETER WHICH TERMINATES IN THE RIGHT UPPER ATRIU M. OTHERWISE STABLE APPEARANCE OF THE CHEST. TECHNICAL DOCUMENTATION: JOB ID: [id number] [employer]- All Rights Reserved
--- NOTE | 2017-08-26 14:26 | XCELERA REPORT ---
[address] [address] Transthoracic Echocardiogram Report Name: CHARY HUSTON Age: 46 yrs Gender: Male : 1970 Patient Status: Inpatient Patient Location: [address] [place], [place] [address] Study Date: 08/25/2017 06:17 PM Height: 65 in Weight: 276 lb BSA: 2.3 m2 Procedure: A two-dimensional transthoracic echocardiogram with color flow and Doppler was performed. Study Quality: Technically suboptimal. The study was technically difficult with many images being suboptimal in quality. Reason For Study: NEW ONSET AFIB/SOB History: NEW ONSET AFIB / SOB. Ordering Physician: RADHA OSHEA Performed By: Shavon Nuñez Interpretation Summary Recommend Antibiotics for SBE prophylaxis ,prior to GI,,and dental surgeries / procedures. RECOMMEND FRANCES. The left ventricle is normal in size. There is mild asymmetric left ventricular hypertrophy. LV EF is 65% The left ventricular wall motion is normal. There is no thrombus. The right ventricle is not well visualized secondary to technical limitations The right atrium is normal. The left atrium is severely dilated. There is no evidence of mitral valve prolapse. There is no vegetation seen on the mitral valve. There is no mitral valve stenosis. Perhaps moderate to severe MR.(Poor doppler interogation of all valves. There is no aortic valvular vegetation. Visually no .The AV jet velocity is actually LVOT velocity.There is a modrate restin LVOT gradient of 49 mm of Hg.There probably is 'WARD'.Hence with the SHIKHA and other findings there is IHSS .(HOCM).Needs FRANCES to be syre. There is moderate LVOT obstruction. No aortic regurgitation is present. There is no tricuspid stenosis. Proably trace TR.Unable to calculate RVSP due to insufficent TR jet. There is no pulmonic valvular stenosis. There is no pulmonic valvular regurgitation. There is no pericardial effusion. Recommend Antibiotics for SBE prophylaxis ,prior to GI,,and dental surgeries / procedures. RECOMMEND FRANCES. MMode/2D Measurements & Calculations RVDd: 3.1 cm LVIDd: 3.0 cm FS: 48.6 % Ao root diam: 2.7 cm IVSd: 1.4 cm LVIDs: 1.6 cm EDV(Teich): 36.0 ml LVPWd: 1.4 cm ESV(Teich): 6.7 ml Ao root area: 5.7 cm2 EF(Teich): 81.4 % LA dimension: 5.7 cm LVOT diam: 2.2 cm LVOT area: 4.0 cm2 Doppler Measurements & Calculations MV E max dieter: MV P1/2t max dieter: Ao V2 max: LV V1 max P.3 cm/sec 211.6 cm/sec 347.5 cm/sec 46.5 mmHg MV P1/2t: 52.9 msec Ao max PG: LV V1 mean PG: MVA(P1/2t): 4.2 cm2 48.3 mmHg 23.7 mmHg MV dec slope: Ao V2 mean: LV V1 max: 1171 cm/sec2 262.8 cm/sec 340.8 cm/sec Ao mean PG: LV V1 mean: 30.5 mmHg 211.2 cm/sec Ao V2 VTI: LV V1 VTI: 56.4 cm 50.6 cm RHIANNON(I,D): 3.5 cm2 RHIANNON(V,D): 3.9 cm2 SV(LVOT): 199.9 ml PA V2 max: 130.8 cm/sec PA max P.8 mmHg Left Ventricle The left ventricle is normal in size. There is mild asymmetric left ventricular hypertrophy. LV EF is 65%. Left ventricular systolic function is normal. LV diastolic function could not be adequately assessed due to atrial fibrilation. The left ventricular wall motion is normal. There is no thrombus. Right Ventricle The right ventricle is not well visualized secondary to technical limitations. Atria The right atrium is normal. The left atrium is severely dilated. Mitral Valve There is no evidence of mitral valve prolapse. There is no vegetation seen on the mitral valve. There is no mitral valve stenosis. Perhaps moderate to severe MR.(Poor doppler interogation of all valves. Aortic Valve There is no aortic valvular vegetation. Visually no .The AV jet velocity is actually LVOT velocity.There is a modrate restin LVOT gradient of 49 mm of Hg.There probably is 'WARD'.Hence with the SHIKHA and other findings there is IHSS .(HOCM).Needs FRANCES to be syre. There is moderate LVOT obstruction. No aortic regurgitation is present. Tricuspid Valve There is no tricuspid stenosis. Proably trace TR.Unable to calculate RVSP due to insufficent TR jet. Pulmonic Valve There is no pulmonic valvular stenosis. There is no pulmonic valvular regurgitation. Great Vessels The aortic root is normal size. Effusions There is no pericardial effusion. : RADHA OSHEA > Radha Oshea
[2017-08-26] MEDS ORDERED: PHARMACY COMMUNICATION ORDER MC NR (14:41)
[2017-08-26] MEDS ORDERED: ACETAMINOPHEN 325 MG TABLET NG PRN (15:00)
--- NOTE | 2017-08-26 15:11 | PDOC TRANSFER SUMMARY ---
General Admission Date/PCP: 08/22/17 06:22 Resuscitation Status: Full Code - Transfer Diagnosis (1) ARDS (adult respiratory distress syndrome) Is this a current diagnosis for this admission?: Yes (2) Atrial fibrillation with rapid ventricular response Is this a current diagnosis for this admission?: Yes (3) Sepsis Is this a current diagnosis for this admission?: Yes (4) Elevated troponin I level Is this a current diagnosis for this admission?: Yes (5) Hyponatremia Is this a current diagnosis for this admission?: Yes (6) Pneumonia Is this a current diagnosis for this admission?: Yes (7) REMEDIOS (acute kidney injury) Is this a current diagnosis for this admission?: Yes (8) Acute respiratory failure with hypoxemia Is this a current diagnosis for this admission?: Yes - Transfer Medications Home Medications: Aspirin [Aspirin 325 mg Tablet] 325 mg PO DAILY 08/22/17 Citalopram Hydrobromide [Celexa 40 mg Tablet] 1 tab PO DAILY 08/22/17 Lisinopril [Prinivil 40 mg Tablet] 40 mg PO DAILY 08/22/17 Transfer Medications: Current Medications Acetaminophen (Tylenol 325 Mg Tablet) 650 mg NG Q4HP PRN PRN Reason: pain or temp greater than 101F Stop: 09/21/17 06:21 Albuterol/Ipratropium (Duoneb 3 Ml Ampul) 3 ml NEB RTQ6 [facility] Stop: 09/25/17 13:59 Last Admin: 08/26/17 14:20 Dose: 3 ml Aspirin (Aspirin 325 Mg Tablet) 325 mg NG DAILY [facility] Stop: 09/21/17 09:59 Atorvastatin Calcium (Lipitor 20 Mg Tablet) 20 mg NG QHS [facility] Stop: 09/21/17 21:59 Citalopram Hydrobromide (Celexa 20 Mg Tablet) 40 mg NG DAILY [facility] Stop: 09/21/17 09:59 Heparin Sodium (Porcine) (Heparin Inj 5,000 Units/Ml 1 Ml Syringe) 5,000 unit SUBCUT Q8 [facility] Stop: 09/24/17 13:59 Last Admin: 08/26/17 05:57 Dose: 5,000 unit Piperacillin Sod/Tazobactam (Sod 4.5 gm/ Sodium Chloride) 100 mls @ 200 mls/hr IV Q6 [facility] Stop: 08/29/17 17:59 Last Admin: 08/26/17 10:48 Dose: 4.5 gm Azithromycin 500 mg/ Dextrose 250 mls @ 250 mls/hr IV DAILY [facility] Stop: 09/01/17 09:59 Last Admin: 08/26/17 08:11 Dose: 500 mg Sodium Chloride (Nacl 0.9% 1000 Ml Iv Soln) 1,000 mls @ 75 mls/hr IV CONTINUOUS PRN PRN Reason: THIS MED IS NOT "PRN" Stop: 09/23/17 11:09 Linezolid (Zyvox Rtu 600 Mg/300 Ml Premixed) 300 mls @ 300 mls/hr IV Q12 [facility] Stop: 09/02/17 21:59 Propofol (Diprivan Rtu 1000 Mg/100 Ml Inf.Bottle) 100 mls @ 0 mls/hr IV CONTINUOUS PRN; Protocol; Titrate PRN Reason: THIS MED IS NOT "PRN" Stop: 09/25/17 12:10 Lorazepam (Ativan Iv Infusion 24 Mg/240 Ml Bag) 24 mg in 240 mls @ 0 mls/hr IV CONTINUOUS PRN; Protocol; Titrate PRN Reason: THIS MED IS NOT "PRN" Stop: 09/02/17 12:18 Norepinephrine Bitartrate 4 mg (/ Dextrose) 250 mls @ 0 mls/hr IV CONTINUOUS PRN; Protocol; Titrate PRN Reason: THIS MED IS NOT "PRN" Stop: 09/25/17 12:58 Last Admin: 08/26/17 14:24 Dose: 4 mg Influenza Virus Vaccine Quadrival (Fluzone Adlt Quad [id number] Vac 0.5 Ml Syr) 0.5 ml IM .DISCHARGE PRN PRN Reason: THIS MED IS NOT "PRN" Stop: 09/21/17 09:57 Lansoprazole (Prevacid 15 Mg Odt Tablet) 15 mg NG Q6AM [facility] Stop: 09/22/17 05:59 Levalbuterol HCl (Xopenex Neb 1.25 Mg/3 Ml Ampul) 1.25 mg NEB RTQ3HP PRN PRN Reason: SHORTNESS OF BREATH Stop: 09/24/17 13:22 Lisinopril (Prinivil 10 Mg Tablet) 10 mg NG DAILY [facility] Stop: 09/23/17 09:59 Methylprednisolone Sodium Succinate (Solu-Medrol Inj/Pf 125 Mg/2 Ml Sdv) 60 mg IV Q8 [facility] Stop: 09/25/17 13:59 Pharmacy Profile Note (Medication Communication Order) 1 each MC .NOTICE NR Stop: 09/25/17 14:40 Sodium Chloride (Saline Flush 2.5 Ml Monoject Prefil Syrin) 2.5 ml IV Q8 [facility] Stop: 09/21/17 13:59 Last Admin: 08/26/17 05:10 Dose: Not Given - Allergies Allergies/Adverse Reactions: No Known Allergies Allergy (Verified 11/06/16 16:08) - Diet/Activity Discharge Diet: Other (Comments) - NPO Discharge Activity: Bedrest Hospital Course Hospital Course: The patient was admitted on 08/22/17 for sepsis and acute respiratory failure with hypoxemia secondary to pneumonia with atrial fibrillation and a rapid ventricular response. The patient presented with dyspnea, productive cough, and fatigue. He reports multiple admissions for pneumonia over the last [address] imaging of the chest demonstrated possible multifocal pneumonia versus pulmonary edema. CTA on admission did rule out PE. Blood cultures were obtained and he was empirically placed on vancomycin and Zosyn. He was further supported with IV Solu-Medrol, Mucinex, and BiPAP. The patient experienced very slight improvement in his respiratory comfort, however, became really hypoxic to 70% if off supplemental oxygen for even a short period of time. He progressed to only requiring 4lpm via NC while awake and use of BiPAP at night, however, remained persistently tachypneic with a WBC count stable at 21 over the last 3 days. IV azithromycin was added yesterday for coverage of atypical pneumonia. Unfortunately, his respiratory status worsened significantly overnight. This morning, despite max BiPAP support, his respiratory rate remained in the 40-50s and his oxygen saturations were in the mid-high 80s. Portable chest xray revealed worsening multifocal airspace disease and so follow up non-contrasted Chest CT was obtained. While in radiology, the patient acutely decompensated and required intubation. Pulmonology was consulted and has recommended that the patient be transferred to a tertiary care facility that has multispecialty support; specifically, the patient has a history of gastric bypass and may benefit from GI services to assess for chronic/silent aspiration. His a. fib was managed initially with a Cardizem drip. His initial troponins were elevated; determined to be a type II non-STEMI secondary to sepsis, a fib w / rvr and mild renal insufficiency. Cardiology was consulted who obtained an echocardiogram which demonstrated asymetric left ventricular hypertrophy with an LV EF of 65%. Cardiology has expressed concerns of a possible outflow obstruction r/t IHHS. Unfortunately, the patient decompensated prior to additional follow up imaging. Additionally, FRANCES to further evaluate for outflow obstruction is unavailable at our facility. Cardiology has recommended the patient be transferred to a tertiary facility where the services are available. At present, the patient is intubated and mechanically ventilated. He is receiving propofol and lorazepam drips for sedation. He is requiring Levophed for pressor support. Dr. Castillo at [facility] was contacted and has graciously agreed to accept the patient at their facility. Physical Exam Vital Signs: Temp Pulse Resp BP Pulse Ox 97.9 F 80 30 H 100/80 96 08/26/17 14:00 08/26/17 14:23 08/26/17 14:23 08/26/17 14:00 08/26/17 14:23 Intake & Output 08/25/17 08/26/17 08/27/17 06:59 06:59 06:59 Intake Total 3798 4863 Output Total 2535 3179 235 Balance 1263 1684 -235 Weight 125.6 kg 123.6 kg General appearance: PRESENT: morbidly obese, severe distress, well-developed, well-nourished Head exam: PRESENT: atraumatic, normocephalic Eye exam: PRESENT: conjunctiva pink, EOMI, PERRLA. ABSENT: scleral icterus Ear exam: PRESENT: normal external ear exam Mouth exam: PRESENT: moist, tongue midline Neck exam: ABSENT: carotid bruit, JVD, lymphadenopathy, thyromegaly Respiratory exam: PRESENT: accessory muscle use, decreased breath sounds, tachypnea, other - Currently intubated. ABSENT: rales, rhonchi, wheezes Cardiovascular exam: PRESENT: irregular rhythm, +S1, +S2. ABSENT: diastolic murmur, rubs, systolic murmur Pulses: PRESENT: normal dorsalis pedis pul Vascular exam: PRESENT: normal capillary refill GI/Abdominal exam: PRESENT: normal bowel sounds, soft. ABSENT: distended, guarding, mass, organolmegaly, rebound, tenderness Rectal exam: PRESENT: deferred Extremities exam: PRESENT: full ROM. ABSENT: calf tenderness, clubbing, pedal edema Neurological exam: PRESENT: other - Sedated for intubation/mechanical ventilation. ABSENT: motor sensory deficit Psychiatric exam: ABSENT: homicidal ideation, suicidal ideation Skin exam: PRESENT: dry, intact, warm. ABSENT: cyanosis, rash Results Laboratory Results: 08/26/17 08:22 08/26/17 08:22 08/25/17 08/26/17 08/26/17 19:50 08:22 08:22 WBC 21.7 H RBC 4.56 Hgb 9.8 L Hct 31.7 L MCV 70 L MCH 21.5 L MCHC 30.9 L RDW 17.2 H Plt Count 348 Carbonic Acid 1.16 HCO3/H2CO3 Ratio 18:1 ABG pH 7.36 ABG pCO2 38.6 ABG pO2 73.1 L ABG HCO3 21.5 ABG O2 Saturation 94.3 ABG Base Excess -3.5 FiO2 60% Sodium 136.4 L Potassium 5.1 H Chloride 103 Carbon Dioxide 23 Anion Gap 10 BUN 28 H Creatinine 0.82 Est GFR ( Amer) > 60 Est GFR (Non-Af Amer) > 60 Glucose 179 H Calcium 8.5 08/26/17 08/26/17 11:38 13:06 WBC RBC Hgb Hct MCV MCH MCHC RDW Plt Count Carbonic Acid 1.18 1.26 HCO3/H2CO3 Ratio 21:1 18:1 ABG pH 7.43 7.36 ABG pCO2 39.1 42.0 ABG pO2 98.2 74.4 L ABG HCO3 25.1 23.2 ABG O2 Saturation 97.6 94.5 ABG Base Excess 0.7 -2.0 FiO2 100% 50% Sodium Potassium Chloride Carbon Dioxide Anion Gap BUN Creatinine Est GFR ( Amer) Est GFR (Non-Af Amer) Glucose Calcium 08/22/17 08/22/17 08/22/17 08:04 12:18 12:18 Creatine Kinase CK-MB (CK-2) Troponin I 0.284 0.203 NT-Pro-B Natriuret Pep 3410 H 08/22/17 08/23/17 08/24/17 18:55 03:57 04:04 Creatine Kinase CK-MB (CK-2) Troponin I 0.150 0.094 0.073 NT-Pro-B Natriuret Pep 08/25/17 08/25/17 08/26/17 20:00 20:00 02:22 Creatine Kinase 63 66 CK-MB (CK-2) 2.42 Troponin I 0.047 NT-Pro-B Natriuret Pep 2630 H 08/26/17 08/26/17 08/26/17 02:22 08:22 08:22 Creatine Kinase 55 CK-MB (CK-2) 2.51 2.64 Troponin I 0.055 0.045 NT-Pro-B Natriuret Pep Impressions: Chest/Abdomen CTA 08/22/17 04:25 IMPRESSION: Worsened/recurrent scattered groundglass and airspace opacities of both lung katz. Differential diagnosis includes pulmonary edema, multifocal pneumonia, and other infectious, inflammatory, and neoplastic processes. Chest CT 08/26/17 00:00 IMPRESSION: SEVERE DIFFUSE MULTIFOCAL AIRSPACE DISEASE WITH MODERATE BILATERAL PLEURAL EFFUSIONS. DIFFERENTIAL INCLUDES ASYMMETRIC PULMONARY EDEMA, MULTIFOCAL PNEUMONIA, AND ARDS. KUB X-Ray 08/26/17 00:00 IMPRESSION: LIMITED ABDOMINAL RADIOGRAPH WITH ENTERIC TUBE TERMINATING IN THE UPPER ABDOMEN PRESUMABLY WITHIN THE STOMACH. Chest X-Ray 08/26/17 12:30 IMPRESSION: ESSENTIALLY STABLE DIFFUSE MULTIFOCAL AIRSPACE DISEASE WITH PLEURAL EFFUSIONS. ENDOTRACHEAL TUBE 14 MM ABOVE THE JOSE. CONSIDER PULLING BACK 1 TO 2 CM. Plan Discharge Plan: Transfer to [facility].
--- NOTE | 2017-08-26 15:28 | OPERATIVE REPORT E ---
Operative Report NAME: CHARY HUSTON : 1970 AGE: 46Y DATE OF SURGERY: 08/26/2017 ROOM: 605 PREOPERATIVE DIAGNOSES: 1. Respiratory failure. 2. Hypotension. 3. Need of central venous access for IV medication infusion, also monitoring by ICU team and consultation called for that. POSTOPERATIVE DIAGNOSES: 1. Respiratory failure. 2. Hypotension. 3. Need of central venous access for IV medication infusion, also monitoring by ICU team and consultation called for that. OPERATION: Insertion of triple lumen central venous catheter through the right internal jugular vein under ultrasound guidance. SURGEON: YUKO DUNN M.D. ANESTHESIA: Local. PROCEDURE: The procedure was done at the bedside after obtaining telephone consent from the family. The patient was placed in the Trendelenburg position. The area was cleaned and draped for a sterile field. The right internal jugular vein was accessed via using the Seldinger technique under ultrasound guidance. Then over through the needle, a guidewire was inserted into the superior vena cava and then over the guidewire, the tract was dilated. After that a triple-lumen central venous catheter was inserted into the superior vena cava. All 3 lumens had excellent venous flow, and all the 3 lumen were flushed with heparinized solution. The catheter was secured and dressings were applied. The patient tolerated the procedure well. DICTATING PHYSICIAN: YUKO DUNN M.D. [id number] PHY#: [id number] ID: [id number] JOB#: [id number] ACCT: [id number] cc:YUKO DUNN M.D. >
--- NOTE | 2017-08-26 21:38 | PROGRESS NOTE E ---
Progress Note NAME: CHARY HUSTON : 1970 AGE: 46Y DATE: 08/26/2017 ROOM: 605 SUBJECTIVE: Note that the patient was sent for a CT scan without contrast this morning, and the patient became acutely short of breath and in spite of being placed on the BiPAP. He continued to have respiratory distress and was intubated and is now in the ICU. He continues to be in atrial fibrillation with a ventricular response in the mid 90s. His blood pressure seems to be stable. Review of his echo from yesterday shows that it is not a very good study. There is probably asymmetric septal hypertrophy with a resting LV aortic gradient of 49; hence, the patient's digoxin was discontinued and the patient was supposed to have verapamil 180 mg p.o. q.12 h. and the Cardizem was supposed to be stopped, but the patient now is intubated. We will also stop the patient's lisinopril. The CT scan of the chest shows worsening of the bilateral infiltrates, question of bilateral pneumonia versus ARDS. Since the patient has not made any good progress in spite of antibiotics and the treatment given, I have requested the hospitalist to contact either [facility] or [facility] refrigeration operator to transfer the patient. There is no bed in [facility] and, finally, Dr. Castillo from [facility] refrigeration operator called and I spoke to him about the patient's possible IHSS and the gradient and the patient being in atrial fibrillation and also the patient not improving with antibiotics and his lung shows worsening. In view of this, he was accepted by [facility] and is awaiting a bed to be transferred. There is no obvious bleeding and there is no obvious TIA or CVA, although the patient is sedated at present after intubation. OBJECTIVE: GENERAL: On examination, the patient is morbidly obese. His monitor shows atrial fibrillation. There is no ventricular arrhythmia seen. He is well groomed. VITAL SIGNS: His temperature is 97.3 degrees Fahrenheit, pulse is 95 beats per minute, blood pressure 112/86, respirations are 35 on mechanical ventilator with an O2 sat of 93% on FiO2 of 100%. HEAD: Atraumatic, normocephalic. EYES: Pupils are reactive to light. ENT not examined since the patient is intubated and sedated. NECK: Supple. There is no JVD. Carotids are equal. There is no bruit. There is no lymphadenopathy. HEART: S1 and S2 are heard. There is a variable S1 in intensity. There is no S3 gallop. There is no S4 gallop. There is a short systolic murmur in the left sternal border. There is no murmur of aortic stenosis. There is a murmur of mitral regurgitation present. Unable to do Valsalva since the patient is on a mechanical ventilator. Also we had planned to repeat an echo for the LVOT gradient after the Valsalva maneuver, but at that time the patient was intubated and, hence, we could not do it. ABDOMEN: Soft, obese. There is no hepatosplenomegaly. Bowel sounds are well heard. EXTREMITIES: Femorals are deep. Femorals are slightly diminished. There are no femoral bruits. Leg pulses are well felt. There is no pedal edema. There is no cyanosis or clubbing. There is no DVT or cellulitis. There is no calf tenderness. CENTRAL NERVOUS SYSTEM/PSYCHIATRIC: Not examined since the patient is intubated and sedated. The patient's 24-hr intake is 4863 mL; output is 3179 mL. DIAGNOSTIC STUDIES: The patient's chest x-ray shows multifocal airspace disease with bilateral pleural effusions. Interval placement of right IJ venous catheter which terminates in the right upper atrium. Otherwise stable appearance of chest. The patient's chest CT without contrast shows severe diffuse multifocal airspace disease with moderate bilateral pleural effusion. Differential diagnoses include asymmetric pulmonary edema which I doubt versus multifocal pneumonia and ARDS. The patient's KUB x-ray shows that enteric tube terminating in the upper abdomen, presumably within the stomach. The patient's white count is 21,700, hemoglobin is 9.8, hematocrit is 31.7 and his platelet count 348,000. The patient's sodium is 136.4, potassium 5.1, chloride 102, CO2 is 23. The patient's BUN is 28, creatinine is 0.82, GFR is greater than 60, his glucose is 179 and his calcium is 8.5. His CPK and CPK-MB are negative. His troponin I has further come down to 0.045. His ABG showed a pH of 7.36, PCO2 is 42, PO2 is 74.4 on FiO2 of 50%, O2 sats are 94.5%. Earlier this ABGs done this morning shows a pH of 7.43, PCO2 is 39.1, PO2 is 98.2 and O2 sats are 97.6 on an FiO2 of 100%. IMPRESSION: 1. ACUTE RESPIRATORY FAILURE WITH HYPOXEMIA. At present, the patient intubated. Continue antibiotics. Continue ventilator treatments. Continue steroids. Continue breathing treatments. 2. BILATERAL WORSENING PNEUMONIA VERSUS ARDS. Continue ventilator support and current treatment. Recommend transfer to tertiary care center. 3. ELEVATED TROPONIN I SECONDARY TO PNEUMONIA AND ALSO ATRIAL FIBRILLATION WITH RAPID VENTRICULAR RESPONSE. The troponin I is trending down. This is not a non-ST elevation MD. 4. MOST LIKELY THE PATIENT HAS HYPERTROPHIC OBSTRUCTIVE CARDIOMYOPATHY. 5. MODERATE MITRAL REGURGITATION WITH SEVERELY DILATED LEFT ATRIUM. 6. ACUTE RENAL FAILURE, RESOLVED. Renal function back to normal. 7. ATRIAL FIBRILLATION. Continues to be in atrial fibrillation in spite of current medication. In view of the patient's possible hypertrophic obstructive cardiomyopathy, will stop the patient's digoxin, stop the patient's Cardizem and switch to verapamil. Will also stop the patient's lisinopril. 8. HYPERTENSION. Blood pressure is under control. 9. DEPRESSION. 10. BILATERAL PNEUMONIA VERSUS ARDS MENTIONED EARLIER. 11. OBSTRUCTIVE SLEEP APNEA. At present the patient is on the ventilator. The patient was on BiPAP/CPAP at night in the intermediate care unit. 12. HISTORY OF DYSLIPIDEMIA. Good LDL levels and very low HDL levels. Note: The patient's echocardiogram, which is not a very good study and has poor Doppler interrogation, shows that the left ventricular wall motion is normal. There is mild asymmetric left ventricular hypertrophy. The LV ejection fraction is 65%. The left ventricle is of normal size. The left atrium is severely dilated. There is no mitral valve stenosis. There is moderate to severe MR (poor Doppler interrogation of all valve). There is no aortic valvular vegetation. There is no aortic stenosis. The aortic jet velocity is actually LVOT velocity. There is moderate resting LVOT gradient of 49 mmHg. There probably is "*------*;" hence, with the asymmetric septal hypertrophy and other findings including LVOT obstruction and systolic anterior motion of the anterior mitral valve leaflet, the patient has hypertrophic obstructive cardiomyopathy, hence, would avoid anything that increases the contractility of the left ventricle such as digoxin and anything that would cause vasodilatation such as lisinopril. We will switch the patient to verapamil. There is no tricuspid stenosis, probably trace TR, unable to calculate RVSP due to insufficient TR jet. There is no pericardial effusion. RECOMMENDATION: Recommend antibiotics for SBE prophylaxis prior to GI, and dental surgery and procedures. After I saw the patient, I saw the patient's mother and I have explained the patient's clinical condition to the mother including the worsening of the pneumonia, respiratory failure requiring intubation, and also the other findings of HOCM and atrial fibrillation and stated that they were in the process of transferring the patient to [facility]. All questions were answered. Since the patient's mother is the patient's healthcare surrogate decision maker. Discussed with the hospitalist and the drag down. Note: 45 minutes spent on this patient with more than 50% of the time spent on direct patient care. Also, medications have been reviewed and adjusted. Note: Medical decision making is of high complexity. Since the patient being transferred to [facility], will sign off. The patient does have my cell phone number and he will call me to make an appointment after he is discharged from [facility] [place]. Thanking you for allowing me to participate in the care of this patient. DICTATING PHYSICIAN: CARLYN OSHEA M.D. [id number] PHY#: [id number] ID: [id number] JOB#: [id number] ACCT: [id number] cc: >
[2017-08-26] MEDS ORDERED: VERAPAMIL HCL 180 MG TABLET.SA PO SCH (22:00)
[2017-08-26] MEDS ORDERED: ATORVASTATIN CALCIUM 20 MG TABLET NG SCH (22:00)
[2017-08-26] MEDS ORDERED: LINEZOLID 300 ML IV SCH (22:00)
[2017-08-27] MEDS ORDERED: LANSOPRAZOLE 15 MG TAB.RAP.DR NG SCH (06:00)
[2017-08-27] MEDS ORDERED: CITALOPRAM HYDROBROMIDE 20 MG TABLET NG SCH (10:00)
[2017-08-27] MEDS ORDERED: LISINOPRIL 10 MG TABLET NG SCH (10:00)
[2017-08-27] MEDS ORDERED: ASPIRIN 325 MG TABLET NG SCH (10:00)
== END 2017-08-26 16:18 | disposition short-term general hospital (02) | DRG 871 ==
LOC: ER 03:16 → EH 06:22 → 3N 09:19 → ICU 08-26 11:34
PROVIDERS: ADMIT Family Medicine; ATTEND Family Medicine
PROC: 5A09457 Assistance with Respiratory Ventilation, 24-96 Consecutive Hours, Continuous Positive Airway Pressure (ICD-10-PCS; principal; 2017-08-22)
PROC: 3E0F73Z Introduction of Anti-inflammatory into Respiratory Tract, Via Natural or Artificial Opening (ICD-10-PCS; 2017-08-22)
PROC: 5A1935Z Respiratory Ventilation, Less than 24 Consecutive Hours (ICD-10-PCS; 2017-08-26)
PROC: 0BH17EZ Insertion of Endotracheal Airway into Trachea, Via Natural or Artificial Opening (ICD-10-PCS; 2017-08-26)
PROC: 02H633Z Insertion of Infusion Device into Right Atrium, Percutaneous Approach (ICD-10-PCS; 2017-08-26)
PROC: B244ZZZ Ultrasonography of Right Heart (ICD-10-PCS; 2017-08-26)
DX: A41.9 Sepsis, unspecified organism (principal); J18.9 Pneumonia, unspecified organism; J96.01 Acute respiratory failure with hypoxia; I21.A1 Myocardial infarction type 2; E87.1 Hypo-osmolality and hyponatremia; N17.9 Acute kidney failure, unspecified; Z68.42 Body mass index [BMI] 45.0-49.9, adult; I42.1 Obstructive hypertrophic cardiomyopathy; I48.91 Unspecified atrial fibrillation; E66.01 Morbid (severe) obesity due to excess calories; I10 Essential (primary) hypertension; I34.0 Nonrheumatic mitral (valve) insufficiency; F32.9 Major depressive disorder, single episode, unspecified; G47.33 Obstructive sleep apnea (adult) (pediatric); D64.9 Anemia, unspecified; F41.9 Anxiety disorder, unspecified; M40.204 Unspecified kyphosis, thoracic region; E86.0 Dehydration; Z78.1 Physical restraint status; Z79.82 Long term (current) use of aspirin; Z79.899 Other long term (current) drug therapy; Z98.84 Bariatric surgery status; Z83.3 Family history of diabetes mellitus; Z80.9 Family history of malignant neoplasm, unspecified; Z82.49 Family history of ischemic heart disease and other diseases of the circulatory system
CPT/HCPCS: 31500; 36415; 36600; 71010; 71250; 71275; 74000; 80048; 80053; 80061; 80202; 81001; 82272; 82550; 82553; 82565; 82803; 83036; 83615; 83735; 83880; 84439; 84443; 84484; 85025; 85027; 85379; 85610; 85730; 86701; 87040; 87070; 87086; 87205; 87804; 93005; 93010; 93306; 94002; 94640; 94660; 94799; 96361; 96374; 96375; 99285; C1751; J0330; J0456; J0696; J1160; J1644; J1650; J1940; J2060; J2543; J2704; J2930; J3370; J3475; J3490; J7030; J7060; J7512; J7620

== ENCOUNTER 2017-09-28 18:42 | Emergency (ER) | payer SELFPAY ==
--- NOTE | 2017-09-28 20:35 | ER Document Report ---
ED Medical Screen (RME) - General Chief Complaint: Bloody Stools Stated Complaint: BLOOD IN STOOL Time Seen by Provider: 09/28/17 20:27 Notes: Patient presents with concern of painless bright red rectal bleeding. Patient on Eliquis for A. fib. He states that he was just out of the hospital 2 weeks ago this past Monday for double pneumonia and ARDS. He denies any recent illnesses cough congestion fevers. He states he does feel weak but is been weeks since being out of the hospital in dealing with his illness. He states after having a bowel movement today when he wiped he noticed bright red blood. He denies any massive amounts of blood in the toilet it was only on the toilet paper. He also states that there is no pain in his abdomen or rectum. This has never happened before. He is concerned that he is on blood thinners that he may have a bleed. He denies any black or tarry stool and no recent hemoptysis cough or congestion or vomiting. TRAVEL OUTSIDE OF THE [place] IN LAST 30 DAYS: No - Related Data Allergies/Adverse Reactions: No Known Allergies Allergy (Verified 11/06/16 16:08) Past Medical History - Past Medical History Cardiac Medical History: Reports: Hx Hypertension, Hx Heart Murmur - Mitral regurgitation on recent echocardiogram Denies: Hx Congestive Heart Failure, Hx Coronary Artery Disease Pulmonary Medical History: Reports: Hx Pneumonia, Hx Respiratory Failure, Hx Sleep Apnea Renal/ Medical History: Denies: Hx Peritoneal Dialysis Psychiatric Medical History: Reports: Hx Depression Past Surgical History: Reports: Hx Abdominal Surgery, Hx Gastric Bypass Surgery , Hx Nose Surgery, Hx Orthopedic Surgery, Hx Tonsillectomy - Immunizations Immunizations up to date: Yes Hx Diphtheria, Pertussis, Tetanus Vaccination: No History of Influenza Vaccine for 06/2017 - 11/2017 Season: No Review of Systems - Review of Systems Constitutional: No symptoms reported, Malaise EENT: No symptoms reported Cardiovascular: No symptoms reported Respiratory: No symptoms reported Gastrointestinal: No symptoms reported, Rectal bleeding Genitourinary: No symptoms reported Male Genitourinary: No symptoms reported Musculoskeletal: No symptoms reported Skin: No symptoms reported Hematologic/Lymphatic: No symptoms reported Neurological/Psychological: No symptoms reported Physical Exam - Vital signs Vitals: Temp Pulse Resp BP Pulse Ox 99.0 F 98 18 157/84 H 97 09/28/17 19:59 09/28/17 19:59 09/28/17 19:59 09/28/17 19:59 09/28/17 19:59 - General General appearance: Appears well - HEENT Head: Normocephalic, Atraumatic - Respiratory Respiratory status: No respiratory distress - Cardiovascular Rhythm: Regular Course - Re-evaluation Re-evalutation: 09/28/17 20:33 Patient has history of bright red blood when wiping today after bowel movement and on Eliquis. Run hemoglobin and will need fecal occult testing. Rectal bleeding is painless and red not black ,likely internal hemorrhoids. Will be transferred to Main ED for further evaluation 09/28/17 20:35 - Vital Signs Vital signs: Temp Pulse Resp BP Pulse Ox 99.0 F 98 18 157/84 H 97 09/28/17 19:59 09/28/17 19:59 09/28/17 19:59 09/28/17 19:59 09/28/17 19:59
[2017-09-28 22:36] LABS: ABSOLUTE EOSINOPHILS # (AUTO) 0.1 10^3/uL (0.0-0.6); ABSOLUTE LYMPHOCYTES (AUTO) 0.7 10^3/uL (0.5-4.7); ABSOLUTE MONOCYTES (AUTO) 0.6 10^3/uL (0.1-1.4); ABSOLUTE NEUT (AUTO) 3.7 10^3/uL (1.7-8.2); BASOPHILS % (AUTO) 0.3 % (0-2); EOSINOPHILS % (AUTO) 1.2 % (0-6); HEMATOCRIT 30.4 % (37.9-51.0); HEMOGLOBIN 9.3 g/dL (13.5-17.0); LYMPHOCYTES % (AUTO) 13.5 % (13-45); MEAN CORPUSCULAR HEMOGLOBIN 20.5 pg (27.0-33.4); MEAN CORPUSCULAR HGB CONC 30.7 g/dL (32.0-36.0); MEAN CORPUSCULAR VOLUME 67 fl (80-97); MONOCYTES % (AUTO) 11.7 % (3-13); PLATELET COUNT 240 10^3/uL (150-450); RED BLOOD COUNT 4.55 10^6/uL (4.35-5.55); RED CELL DISTRIBUTION WIDTH 17.7 % (11.5-14.0); SEGMENTED NEUTROPHILS % (AUTO) 73.3 % (42-78); TOTAL CELLS COUNTED % (AUTO) 100 %; WHITE BLOOD COUNT 5.1 10^3/uL (4.0-10.5)
[2017-09-28 22:45] LABS: INTERNATIONAL RATION (INR) 1.02; PROTHROMBIN TIME 14.1 SEC (11.4-15.4)
--- NOTE | 2017-09-29 00:05 | ER Document Report ---
ED GI Bleed / Rectal Pain - General Mode of Arrival: Ambulatory Information source: Patient TRAVEL OUTSIDE OF THE [place] IN LAST 30 DAYS: No - HPI Patient complains to provider of: Bright red bld from rect.. No: Vomiting blood Onset: This afternoon Rectal bleeding: Bright red blood on paper Associated symptoms: Other - see notes above <DIMITRIS PERRY - Last Filed: 09/29/17 00:16> <BAIRON CARDOZA - Last Filed: 09/29/17 04:09> - General Chief Complaint: Bloody Stools Stated Complaint: BLOOD IN STOOL Time Seen by Provider: 09/28/17 20:27 Notes: 46 year old male with history of atrial fibrillation (medicated with Eliquis started 2 weeks ago) presents to the ED complaining of blood in his stool that he noticed earlier today. Patient reports that his last bowel movement was loose and without pain. Patient noticed a small amount of bright red blood on the toilet paper. Patient denies having bleeding like this in the past or any bleeding since his bowel movement earlier today. Patient denies vomiting. Patient had a recent EGD to check for leaks secondary to gastric bypass surgery , but nothing was found. (DIMITRIS PERRY) - Related Data Allergies/Adverse Reactions: No Known Allergies Allergy (Verified 11/06/16 16:08) Past Medical History - General Information source: Patient - Social History Smoking Status: Never Smoker Chew tobacco use (# tins/day): No Frequency of alcohol use: None Drug Abuse: None Family History: DM, Hypertension, Malignancy Patient has suicidal ideation: No Patient has homicidal ideation: No - Past Medical History Cardiac Medical History: Reports: Hx Atrial Fibrillation, Hx Hypercholesterolemia, Hx Hypertension, Hx Heart Murmur - Mitral regurgitation on recent echocardiogram, Other - Anemia Denies: Hx Congestive Heart Failure, Hx Coronary Artery Disease Pulmonary Medical History: Reports: Hx Pneumonia, Hx Respiratory Failure, Hx Sleep Apnea, Other - ARDS Renal/ Medical History: Denies: Hx Peritoneal Dialysis GI Medical History: Reports: Other - Gastric bypass Psychiatric Medical History: Reports: Hx Anxiety, Hx Depression, Hx Post Traumatic Stress Disorder Past Surgical History: Reports: Hx Abdominal Surgery, Hx Gastric Bypass Surgery , Hx Nose Surgery, Hx Orthopedic Surgery, Hx Tonsillectomy - Immunizations Immunizations up to date: Yes Hx Diphtheria, Pertussis, Tetanus Vaccination: No <DIMITRIS PERRY - Last Filed: 09/29/17 00:16> Review of Systems - Review of Systems Constitutional: No symptoms reported EENT: No symptoms reported Cardiovascular: No symptoms reported Respiratory: No symptoms reported Gastrointestinal: See HPI, Other - bright red blood on toilet paper. denies: Vomiting Genitourinary: No symptoms reported Male Genitourinary: No symptoms reported Musculoskeletal: No symptoms reported Skin: No symptoms reported Hematologic/Lymphatic: No symptoms reported Neurological/Psychological: No symptoms reported -: Yes All other systems reviewed and negative <DIMITRIS PERRY - Last Filed: 09/29/17 00:16> Physical Exam <DIMITRIS PERRY - Last Filed: 09/29/17 00:16> <BAIRON CARDOZA - Last Filed: 09/29/17 04:09> - Vital signs Vitals: Temp Pulse Resp BP Pulse Ox 99.0 F 98 18 157/84 H 97 09/28/17 19:59 09/28/17 19:59 09/28/17 19:59 09/28/17 19:59 09/28/17 19:59 - Notes Notes: GENERAL: Alert, interacts well. No acute distress. HEAD: Normocephalic, atraumatic. EYES: Pupils equal, round, and reactive to light. Extraocular movements intact. ENT: Oral mucosa moist, tongue midline. NECK: Full range of motion. Supple. Trachea midline. LUNGS: Clear to auscultation bilaterally, no wheezes, rales, or rhonchi. No respiratory distress. HEART: Regular rate and rhythm. No gallops, or rubs. 2/6 systolic murmur. ABDOMEN: Soft, non-tender. Non-distended. Bowel sounds present in all 4 quadrants. EXTREMITIES: Moves all 4 extremities spontaneously. No edema, radial pulses 2/4 bilaterally. No cyanosis. RECTAL: No bright red blood visualized. 2 areas of skin break down just above the rectum that are not actively bleeding. Rectal exam chaperoned by ADRIANNE Jeffers. NEUROLOGICAL: Alert and oriented x3. Normal speech. PSYCH: Normal affect, normal mood. SKIN: Warm, dry, normal turgor. No rashes or lesions noted. (DIMITRIS PERRY) Course - Laboratory Result Diagrams: 09/28/17 22:23 <DIMITRIS PERRY - Last Filed: 09/29/17 00:16> - Laboratory Result Diagrams: 09/28/17 22:23 <BAIRON CARDOZA - Last Filed: 09/29/17 04:09> - Re-evaluation Re-evalutation: 09/29/17 00:13 CBC shows anemia with hemoglobin 9.3, hemoglobin on discharge from the hospital was 9.8 on 08/26. No evidence of active bleeding at this time, patient had one episode of bright red blood on the toilet paper, no blood in the toilet, no melena. Rectal examination does not show any blood but there is a small skin tear just above the rectum. This may be what was causing the bright red blood. Patient is to follow-up with GI if this recurs. Discharged home. (BAIRON CARDOZA) - Vital Signs Vital signs: Temp Pulse Resp BP Pulse Ox 99.2 F 78 16 138/80 H 97 09/29/17 00:38 09/29/17 00:38 09/29/17 00:38 09/29/17 00:38 09/29/17 00:38 - Laboratory Laboratory results interpreted by me: 09/28/17 22:23 Hgb 9.3 L Hct 30.4 L MCV 67 L MCH 20.5 L MCHC 30.7 L RDW 17.7 H Discharge <DIMITRIS PERRY - Last Filed: 09/29/17 00:16> <BAIRON CARDOZA - Last Filed: 09/29/17 04:09> - Discharge Clinical Impression: Rectal bleeding Hypertension Qualifiers: Hypertension type: essential hypertension Qualified Code(s): I10 - Essential ( primary) hypertension Iron (Fe) deficiency anemia Qualifiers: Iron deficiency anemia type: unspecified iron deficiency Qualified Code(s): D50.9 - Iron deficiency anemia, unspecified Condition: Stable Disposition: HOME, SELF-CARE Additional Instructions: Rectal Bleeding, Unclear Cause No definite cause has been found for the rectal bleeding you have experienced. Among the possible causes are internal or external hemorrhoids ( internal hemorrhoids can't be felt on the outside), an anal fissure (a crack at the anal ring), infections or inflammatory diseases of the colon, tumors or polyps, or diverticula (diverticula are outpouchings from the colon wall). To establish a cause for your bleeding (or at least make certain there is no serious problem such as a tumor), further evaluation will be necessary. This may include special X-rays, or passage of a scope up into the colon. Be sure to keep your follow-up appointment. Should you develop brisk bleeding, abdominal pain, fever, lightheadedness, or fever, call the doctor or return at once. Referrals: TWYLA ECHOLS MD [ACTIVE STAFF] - Follow up in 1 week Scribe Attestation: 09/29/17 04:09 I personally performed the services described in the documentation, reviewed and edited the documentation which was dictated to the scribe in my presence, and it accurately records my words and actions. (BAIRON CARDOZA) Scribe Documentation - Scribe Written by Alexia:: Alexia Anderson, 09/29/2017 0023 acting as scribe for :: Marizol <DIMITRIS PERYR - Last Filed: 09/29/17 00:16>
[2017-09-29 00:39] VITALS: BP 138/80
== END 2017-09-29 00:37 | disposition home or self-care (01) ==
LOC: ER 18:42
DX: R19.5 Other fecal abnormalities (principal); D50.9 Iron deficiency anemia, unspecified; I10 Essential (primary) hypertension; R19.7 Diarrhea, unspecified; I48.91 Unspecified atrial fibrillation; Z79.01 Long term (current) use of anticoagulants
CPT/HCPCS: 36415; 85025; 85610; 99283

== ENCOUNTER 2017-10-13 14:12 | Emergency (ER) | payer SELFPAY ==
--- NOTE | 2017-10-13 16:02 | ER Document Report ---
ED General - General Chief Complaint: Shortness Of Breath Stated Complaint: SHORTNESS OF BREATH Time Seen by Provider: 10/13/17 15:45 Mode of Arrival: Ambulatory Information source: Patient Notes: 46-year-old male with recent history of aspiration pneumonia ARDS A. fib with intubated presents with complaints of mild cough. Patient notes he was told that if he coughs at any point they must be seen immediately for concerns of aspiration again. Patient denies any fevers denies any productivity to his cough at this time Patient denies any shortness of breath TRAVEL OUTSIDE OF THE [place] IN LAST 30 DAYS: No - HPI Onset: This morning Onset/Duration: Sudden Quality of pain: No pain Severity: Mild Pain Level: Denies Associated symptoms: Nonproductive cough Exacerbated by: Denies Relieved by: Denies Similar symptoms previously: Yes Recently seen / treated by doctor: Yes - Related Data Allergies/Adverse Reactions: No Known Allergies Allergy (Verified 11/06/16 16:08) Past Medical History - Social History Smoking Status: Never Smoker Cigarette use (# per day): No Chew tobacco use (# tins/day): No Smoking Education Provided: No Frequency of alcohol use: None Drug Abuse: None Family History: DM, Hypertension, Malignancy Patient has suicidal ideation: No Patient has homicidal ideation: No - Past Medical History Cardiac Medical History: Reports: Hx Atrial Fibrillation, Hx Hypercholesterolemia, Hx Hypertension, Hx Heart Murmur - Mitral regurgitation on recent echocardiogram Denies: Hx Congestive Heart Failure, Hx Coronary Artery Disease Pulmonary Medical History: Reports: Hx Pneumonia - aspiration, Hx Respiratory Failure, Hx Sleep Apnea Renal/ Medical History: Denies: Hx Peritoneal Dialysis Psychiatric Medical History: Reports: Hx Anxiety, Hx Depression, Hx Post Traumatic Stress Disorder Past Surgical History: Reports: Hx Abdominal Surgery, Hx Gastric Bypass Surgery , Hx Nose Surgery, Hx Orthopedic Surgery - ACL, Hx Tonsillectomy - Immunizations Immunizations up to date: Yes Hx Diphtheria, Pertussis, Tetanus Vaccination: No Review of Systems - Review of Systems Notes: REVIEW OF SYSTEMS: CONSTITUTIONAL : Denies fever, chills, or sweats. Denies recent illness. EENT: Denies eye, ear, throat, or mouth pain or symptoms. Denies nasal or sinus congestion or discharge. Denies throat, tongue, or mouth swelling or difficulty swallowing. CARDIOVASCULAR: Denies chest pain. Denies palpitations or racing or irregular heart beat. Denies ankle edema. RESPIRATORY: Admits to cough GASTROINTESTINAL: Denies abdominal pain or distention. Denies nausea, vomiting , or diarrhea. Denies blood in vomitus, stools, or per rectum. Denies black, tarry stools. Denies constipation. GENITOURINARY: Denies difficulty urinating, painful urination, burning, frequency, blood in urine, or discharge. MUSCULOSKELETAL: Denies back or neck pain or stiffness. Denies joint pain or swelling. SKIN: Denies rash, lesions or sores. HEMATOLOGIC : Denies easy bruising or bleeding. LYMPHATIC: Denies swollen, enlarged glands. NEUROLOGICAL: Denies confusion or altered mental status. Denies passing out or loss of consciousness. Denies dizziness or lightheadedness. Denies headache. Denies weakness or paralysis or loss of use of either side. Denies problems with gait or speech. Denies sensory loss, numbness, or tingling. Denies seizures. PSYCHIATRIC: Denies anxiety or stress. Denies depression, suicidal ideation, or homicidal ideation. ALL OTHER SYSTEMS REVIEWED AND NEGATIVE. Dictation was performed using [employer] voice recognition software PHYSICAL EXAMINATION: GENERAL: Well-appearing, well-nourished and in no acute distress. HEAD: Atraumatic, normocephalic. EYES: Pupils equal round and reactive to light, extraocular movements intact, sclera anicteric, conjunctiva are normal. ENT: Nares patent, oropharynx clear without exudates. Moist mucous membranes. NECK: Normal range of motion, supple without lymphadenopathy LUNGS: Breath sounds clear to auscultation bilaterally and equal. No wheezes rales or rhonchi. HEART: Regular rate and rhythm without murmurs ABDOMEN: Soft, nontender, nondistended abdomen. No guarding, no rebound. No masses appreciated. Musculoskeletal: Normal range of motion, no pitting or edema. No cyanosis. NEUROLOGICAL: Cranial nerves grossly intact. Normal speech, normal gait. Normal sensory, motor exams PSYCH: Normal mood, normal affect. SKIN: Warm, Dry, normal turgor, no rashes or lesions noted. Physical Exam - Vital signs Vitals: Temp Pulse Resp BP Pulse Ox 98.7 F 68 16 155/80 H 98 10/13/17 14:28 10/13/17 14:28 10/13/17 14:28 10/13/17 14:28 10/13/17 14:28 Course - Re-evaluation Re-evalutation: 10/13/17 16:02 Patient is afebrile satting well in no respiratory distress does not cough in the room, however given his history of aspiration I am more concerned about him 10/13/17 20:46 X-ray noted no sign of aspiration patient is afebrile looks well is in no distress I will discharge home with close follow-up After performing a Medical Screening Examination, I estimate there is LOW risk for ACUTE CORONARY SYNDROME, PULMONARY EMBOLI, RESPIRATORY FAILURE, SEPSIS OR MENINGITIS, thus I consider the discharge disposition reasonable. I have reevaluated this patient multiple times and no significant life threatening changes are noted. The patient and I have discussed the diagnosis and risks, and we agree with discharging home with close follow-up. We also discussed returning to the Emergency Department immediately if new or worsening symptoms occur. We have discussed the symptoms which are most concerning (e.g., changing or worsening pain, trouble swallowing or breathing, neck stiffness, fever) that necessitate immediate return. - Vital Signs Vital signs: Temp Pulse Resp BP Pulse Ox 98.9 F 69 18 146/80 H 98 10/13/17 16:44 10/13/17 16:44 10/13/17 16:44 10/13/17 16:44 10/13/17 16:44 - Diagnostic Test Radiology reviewed: Image reviewed, Reports reviewed - No acute abnormalities Discharge - Discharge Clinical Impression: concern for aspiration , Cough Condition: Stable Disposition: HOME, SELF-CARE Additional Instructions: Follow up with your physician tomorrow for further care or return to the ED IMMEDIATELY if symptoms worsen or new concerns occur. If you cannot afford to follow up with your primary care physician a list of low cost clinics have been provided at the end of your discharge papers as well.
--- NOTE | 2017-10-13 16:15 | RADIOLOGY REPORT (SQ) ---
EXAM DESCRIPTION: CHEST PA/LAT COMPLETED DATE/TIME: 10/13/2017 4:05 pm REASON FOR STUDY: cough concern for aspiration COMPARISON: 02/04/2016. EXAM PARAMETERS: NUMBER OF VIEWS: two views TECHNIQUE: Digital Frontal and Lateral radiographic views of the chest acquired. RADIATION DOSE: NA LIMITATIONS: none FINDINGS: LUNGS AND PLEURA: No opacities, masses or pneumothorax. No pleural effusion. MEDIASTINUM AND HILAR STRUCTURES: No masses or contour abnormalities. HEART AND VASCULAR STRUCTURES: Heart normal size. No evidence for failure. BONES: No acute findings. Chronic degenerative changes in the spine. HARDWARE: None in the chest. OTHER: No other significant finding. IMPRESSION: NO SIGNIFICANT RADIOGRAPHIC FINDING IN THE CHEST. TECHNICAL DOCUMENTATION: JOB ID: [id number] [employer]- All Rights Reserved
[2017-10-13 16:49] VITALS: BP 146/80
== END 2017-10-13 16:48 | disposition home or self-care (01) ==
LOC: ER 14:12
DX: R05 Cough (principal); I10 Essential (primary) hypertension; Z87.01 Personal history of pneumonia (recurrent)
CPT/HCPCS: 71046; 99284

== ENCOUNTER 2017-10-15 04:43 | Emergency (ER) | payer SELFPAY ==
--- NOTE | 2017-10-15 05:44 | RADIOLOGY REPORT (SQ) ---
EXAM DESCRIPTION: CHEST PA/LAT CLINICAL HISTORY: ongoing cough, hx aspiration pneumonia COMPARISON: 10/13/2017 FINDINGS: Frontal and lateral views of the chest. The cardiomediastinal silhouette has normal size and contour. No consolidation, pneumothorax, or pleural effusion. No displaced rib fractures identified. Upper abdominal soft tissues are unremarkable. Low lung volumes. IMPRESSION: 1. No acute pulmonary process identified.
--- NOTE | 2017-10-15 06:18 | ER Document Report ---
ED General - General Chief Complaint: Cough Stated Complaint: FLU SYMPTOMS Time Seen by Provider: 10/15/17 06:06 Mode of Arrival: Ambulatory Information source: Patient Notes: 47-year-old male history of aspiration pneumonia 4 who was seen by myself 2 days prior presents with complaints of a cough clear sputum. Patient denies any difficulty breathing states he is anxious that he may have pneumonia again, patient believes he aspirated overnight 3 days ago TRAVEL OUTSIDE OF THE [place] IN LAST 30 DAYS: No - HPI Onset: Other Onset/Duration: Persistent Quality of pain: No pain Severity: Mild Pain Level: Denies Associated symptoms: Productive cough - Clear sputum Exacerbated by: Denies Relieved by: Denies Similar symptoms previously: Yes Recently seen / treated by doctor: Yes - Related Data Allergies/Adverse Reactions: No Known Allergies Allergy (Verified 11/06/16 16:08) Past Medical History - Social History Smoking Status: Never Smoker Cigarette use (# per day): No Chew tobacco use (# tins/day): No Smoking Education Provided: No Family History: DM, Hypertension, Malignancy Patient has suicidal ideation: No Patient has homicidal ideation: No - Past Medical History Cardiac Medical History: Reports: Hx Atrial Fibrillation, Hx Hypercholesterolemia, Hx Hypertension, Hx Heart Murmur - Mitral regurgitation on recent echocardiogram Denies: Hx Congestive Heart Failure, Hx Coronary Artery Disease Pulmonary Medical History: Reports: Hx Pneumonia - aspiration, Hx Respiratory Failure, Hx Sleep Apnea Renal/ Medical History: Denies: Hx Peritoneal Dialysis Psychiatric Medical History: Reports: Hx Anxiety, Hx Depression, Hx Post Traumatic Stress Disorder Past Surgical History: Reports: Hx Abdominal Surgery, Hx Gastric Bypass Surgery , Hx Nose Surgery, Hx Orthopedic Surgery - ACL, Hx Tonsillectomy - Immunizations Immunizations up to date: Yes Hx Diphtheria, Pertussis, Tetanus Vaccination: No Review of Systems - Review of Systems Notes: REVIEW OF SYSTEMS: CONSTITUTIONAL : Denies fever, chills, or sweats. Denies recent illness. EENT: Denies eye, ear, throat, or mouth pain or symptoms. Denies nasal or sinus congestion or discharge. Denies throat, tongue, or mouth swelling or difficulty swallowing. CARDIOVASCULAR: Denies chest pain. Denies palpitations or racing or irregular heart beat. Denies ankle edema. RESPIRATORY: Admits to productive cough GASTROINTESTINAL: Denies abdominal pain or distention. Denies nausea, vomiting , or diarrhea. Denies blood in vomitus, stools, or per rectum. Denies black, tarry stools. Denies constipation. GENITOURINARY: Denies difficulty urinating, painful urination, burning, frequency, blood in urine, or discharge. MUSCULOSKELETAL: Denies back or neck pain or stiffness. Denies joint pain or swelling. SKIN: Denies rash, lesions or sores. HEMATOLOGIC : Denies easy bruising or bleeding. LYMPHATIC: Denies swollen, enlarged glands. NEUROLOGICAL: Denies confusion or altered mental status. Denies passing out or loss of consciousness. Denies dizziness or lightheadedness. Denies headache. Denies weakness or paralysis or loss of use of either side. Denies problems with gait or speech. Denies sensory loss, numbness, or tingling. Denies seizures. PSYCHIATRIC: Denies anxiety or stress. Denies depression, suicidal ideation, or homicidal ideation. ALL OTHER SYSTEMS REVIEWED AND NEGATIVE. Dictation was performed using [employer] voice recognition software PHYSICAL EXAMINATION: GENERAL: Well-appearing, well-nourished and in no acute distress. HEAD: Atraumatic, normocephalic. EYES: Pupils equal round and reactive to light, extraocular movements intact, sclera anicteric, conjunctiva are normal. ENT: Nares patent, oropharynx clear without exudates. Moist mucous membranes. NECK: Normal range of motion, supple without lymphadenopathy LUNGS: Breath sounds clear to auscultation bilaterally and equal. No wheezes rales or rhonchi. HEART: Regular rate and rhythm without murmurs ABDOMEN: Soft, nontender, nondistended abdomen. No guarding, no rebound. No masses appreciated. Musculoskeletal: Normal range of motion, no pitting or edema. No cyanosis. NEUROLOGICAL: Cranial nerves grossly intact. Normal speech, normal gait. Normal sensory, motor exams PSYCH: Normal mood, normal affect. SKIN: Warm, Dry, normal turgor, no rashes or lesions noted. Physical Exam - Vital signs Vitals: Temp Pulse Resp BP Pulse Ox 99.2 F 87 18 169/83 H 96 10/15/17 05:00 10/15/17 05:00 10/15/17 05:00 10/15/17 05:00 10/15/17 05:00 Course - Re-evaluation Re-evalutation: 10/15/17 06:17 Patient is resting comfortably vital signs are stable he is in absolutely no distress, he will be sent for CT at his request since he states previous x-rays did not catch his aspiration Today's x-ray was negative 10/15/17 06:45 CBC noted no elevation in white count, CT was performed which noted small bilateral effusions with no groundglass opacities concerning for aspiration, I will treat the patient with antibiotics Patient has been made aware of the iron deficiency anemia, he states he already is on iron tablets and encouraged him to follow-up with primary care physician regarding this as well After performing a Medical Screening Examination, I estimate there is LOW risk for ACUTE CORONARY SYNDROME, PULMONARY EMBOLI, RESPIRATORY FAILURE, SEPSIS OR MENINGITIS, thus I consider the discharge disposition reasonable. I have reevaluated this patient multiple times and no significant life threatening changes are noted. The patient and I have discussed the diagnosis and risks, and we agree with discharging home with close follow-up. We also discussed returning to the Emergency Department immediately if new or worsening symptoms occur. We have discussed the symptoms which are most concerning (e.g., changing or worsening pain, trouble swallowing or breathing, neck stiffness, fever) that necessitate immediate return. - Vital Signs Vital signs: Temp Pulse Resp BP Pulse Ox 99.2 F 87 18 169/83 H 96 10/15/17 05:00 10/15/17 05:00 10/15/17 05:00 10/15/17 05:00 10/15/17 05:00 - Laboratory Result Diagrams: 10/15/17 06:10 10/15/17 06:10 Laboratory results interpreted by me: 10/15/17 06:10 Hgb 9.8 L Hct 32.4 L MCV 70 L MCH 21.3 L MCHC 30.4 L RDW 23.2 H Lymphocytes % 9.8 L - Diagnostic Test Radiology reviewed: Image reviewed, Reports reviewed Discharge - Discharge Clinical Impression: Bilateral pleural effusion, Hx of aspiration pneumonitis Iron deficiency anemia Qualifiers: Iron deficiency anemia type: other iron deficiency Qualified Code(s): D50.8 - Other iron deficiency anemias HTN (hypertension) Qualifiers: Hypertension type: essential hypertension Qualified Code(s): I10 - Essential ( primary) hypertension Condition: Stable Disposition: HOME, SELF-CARE Instructions: Pleural Effusion ([facility]) Prescriptions: Azithromycin 250 mg PO ASDIR PRN #6 tablet PRN Reason: Referrals: CURSEEN,JAH, MD [ACTIVE STAFF] - Follow up tomorrow
[2017-10-15 06:24] LABS: ABSOLUTE EOSINOPHILS # (AUTO) 0.2 10^3/uL (0.0-0.6); ABSOLUTE LYMPHOCYTES (AUTO) 0.7 10^3/uL (0.5-4.7); ABSOLUTE MONOCYTES (AUTO) 0.9 10^3/uL (0.1-1.4); ABSOLUTE NEUT (AUTO) 5.1 10^3/uL (1.7-8.2); BASOPHILS % (AUTO) 0.6 % (0-2); EOSINOPHILS % (AUTO) 3.6 % (0-6); HEMATOCRIT 32.4 % (37.9-51.0); HEMOGLOBIN 9.8 g/dL (13.5-17.0); LYMPHOCYTES % (AUTO) 9.8 % (13-45); MEAN CORPUSCULAR HEMOGLOBIN 21.3 pg (27.0-33.4); MEAN CORPUSCULAR HGB CONC 30.4 g/dL (32.0-36.0); MEAN CORPUSCULAR VOLUME 70 fl (80-97); MONOCYTES % (AUTO) 12.7 % (3-13); PLATELET COUNT 238 10^3/uL (150-450); RED BLOOD COUNT 4.61 10^6/uL (4.35-5.55); RED CELL DISTRIBUTION WIDTH 23.2 % (11.5-14.0); SEGMENTED NEUTROPHILS % (AUTO) 73.3 % (42-78); TOTAL CELLS COUNTED % (AUTO) 100 %; WHITE BLOOD COUNT 6.9 10^3/uL (4.0-10.5)
[2017-10-15 06:38] LABS: ALANINE AMINOTRANSFERASE 37 U/L (21-72); ALBUMIN 3.3 g/dL (3.5-5.0); ALKALINE PHOSPHATASE 114 U/L (38-126); ANION GAP 9 (5-19); ASPARTATE AMINO TRANSFERASE 25 U/L (17-59); BILIRUBIN,DIRECT 0.1 mg/dL (0.0-0.4); BILIRUBIN,TOTAL 0.3 mg/dL (0.2-1.3); BLOOD UREA NITROGEN 9 mg/dL (7-20); CALCIUM 8.9 mg/dL (8.4-10.2); CARBON DIOXIDE 28 mmol/L (22-30); CHLORIDE 109 mmol/L (98-107); GLUCOSE 82 mg/dL (75-110); POTASSIUM 4.5 mmol/L (3.6-5.0); SODIUM 146.2 mmol/L (137-145)
--- NOTE | 2017-10-15 06:39 | RADIOLOGY REPORT (SQ) ---
EXAM DESCRIPTION: CT CHEST WITHOUT CONTRAST CLINICAL HISTORY: hx aspiratoin COMPARISON: 08/26/2017 TECHNIQUE: Axial CT images of the chest without IV contrast from the thoracic inlet through the diaphragm. FINDINGS: Chest: Visualized thyroid gland is unremarkable. No abnormalities visualized thoracic aorta. Great vessels have normal anatomic configuration. No mediastinal lymphadenopathy. Coronary artery atherosclerosis. No pericardial effusion or cardiomegaly. No abnormalities of the visualized esophagus. Lung windows demonstrate small bilateral pleural effusions, left greater than right with significant resolution of diffuse airspace opacities from comparison study. Punctate calcified right upper lobe granuloma. Upper abdominal soft tissues demonstrate no abnormalities in the visualized portions of the liver, spleen, pancreas, adrenal glands, or left kidney. Likely right renal cyst. Prior cholecystectomy. Prior gastric bypass. Degenerative change of the thoracic spine with accentuated thoracic kyphosis. DLP: 879.11 mGy-cm IMPRESSION: 1. Small bilateral pleural effusions, slightly greater on the left than the right. Significantly improved aeration of the lungs bilaterally with no definite groundglass opacities identified. 2. Coronary artery atherosclerosis. This exam was performed according to our departmental dose-optimization program, which includes automated exposure control, adjustment of the mA and/or kV according to patient size and/or use of iterative reconstruction technique.
[2017-10-15 07:00] VITALS: BP 165/77
== END 2017-10-15 07:01 | disposition home or self-care (01) ==
LOC: ER 04:43
DX: J90 Pleural effusion, not elsewhere classified (principal); R05 Cough; I10 Essential (primary) hypertension; D50.9 Iron deficiency anemia, unspecified; Z79.899 Other long term (current) drug therapy; Z87.01 Personal history of pneumonia (recurrent)
CPT/HCPCS: 36415; 71046; 71250; 80053; 85025; 99284

== ENCOUNTER 2017-10-30 10:55 | Emergency (ER) | payer SELFPAY ==
[2017-10-30 11:00] VITALS: BP 168/84
--- NOTE | 2017-10-30 11:27 | ER Document Report ---
ED Blood Pressure Problem - General Chief Complaint: High Blood Pressure Stated Complaint: BLOOD PRESSURE ISSUES Mode of Arrival: Ambulatory Information source: Patient Notes: Patient presents stating that he is having problems with his blood pressure and his heart rate. He states he is recently in the intensive care unit another hospital for pneumonia. He states he is now fully recovered and has been discharged and out of the hospital for several weeks. He states sometimes his heart rate will go up as high as 120. He states that he converted into A. fib while in the ICU but that he converted back to sinus before being discharged. He states this is the only time he was ever in atrial fibrillation that he knows of. He states he has never been in atrial fibrillation since being discharged that he knows of. He states he has taken Eliquis up until 2 days ago but no longer has the money to afford the prescription. 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 He states he is seen at the [facility] but is unable to get an appointment there. He denies any chest pain shortness breath or other significant symptoms. Symptoms are mild. They are constant. Nothing makes it better or worse other than having his appropriate medications. He states he does have a blood pressure medication which is lisinopril but it is not controlling his blood pressure to the degree that he needs to be controlled to pass his physical. There is no known radiation of the symptoms. TRAVEL OUTSIDE OF THE [place] IN LAST 30 DAYS: No - Related Data Allergies/Adverse Reactions: No Known Allergies Allergy (Verified 10/30/17 10:55) Past Medical History - General Information source: Patient - Social History Smoking Status: Never Smoker Chew tobacco use (# tins/day): No Frequency of alcohol use: None Drug Abuse: None Family History: DM, Hypertension, Malignancy Patient has suicidal ideation: No Patient has homicidal ideation: No - Past Medical History Cardiac Medical History: Reports: Hx Atrial Fibrillation, Hx Hypercholesterolemia, Hx Hypertension, Hx Heart Murmur - Mitral regurgitation on recent echocardiogram Denies: Hx Congestive Heart Failure, Hx Coronary Artery Disease Pulmonary Medical History: Reports: Hx Pneumonia - aspiration, Hx Respiratory Failure, Hx Sleep Apnea Renal/ Medical History: Denies: Hx Peritoneal Dialysis Psychiatric Medical History: Reports: Hx Anxiety, Hx Depression, Hx Post Traumatic Stress Disorder Past Surgical History: Reports: Hx Abdominal Surgery - GBP, Hx Cholecystectomy, Hx Gastric Bypass Surgery, Hx Nose Surgery, Hx Orthopedic Surgery - ACL, Hx Tonsillectomy - Immunizations Immunizations up to date: Yes Hx Diphtheria, Pertussis, Tetanus Vaccination: No Review of Systems - Review of Systems Constitutional: denies: Chills, Fever Cardiovascular: Heart racing. denies: Chest pain, Palpitations Respiratory: denies: Cough, Short of breath -: Yes All other systems reviewed and negative Physical Exam - Vital signs Vitals: Temp Pulse Resp BP Pulse Ox 98.7 F 89 16 168/84 H 97 10/30/17 10:58 10/30/17 10:58 10/30/17 10:58 10/30/17 10:58 10/30/17 10:58 Interpretation: Hypertensive - General General appearance: Appears well, Alert In distress: None - HEENT Head: Normocephalic, Atraumatic Eyes: Normal Pupils: PERRL - Respiratory Respiratory status: No respiratory distress Chest status: Nontender Breath sounds: Normal Chest palpation: Normal - Cardiovascular Rhythm: Regular Heart sounds: Normal auscultation Murmur: No - Abdominal Inspection: Normal Distension: No distension Bowel sounds: Normal Tenderness: Nontender Organomegaly: No organomegaly - Back Back: Normal, Nontender - Extremities General upper extremity: Normal inspection, Nontender, Normal color, Normal ROM , Normal temperature General lower extremity: Normal inspection, Nontender, Normal color, Normal ROM , Normal temperature, Normal weight bearing. No: Zev's sign - Neurological Neuro grossly intact: Yes Cognition: Normal Orientation: AAOx4 Ketty Coma Scale Eye Opening: Spontaneous [place] Coma Scale Verbal: Oriented [place] Coma Scale Motor: Obeys Commands [place] Coma Scale Total: 15 Speech: Normal Motor strength normal: LUE, RUE, LLE, RLE Sensory: Normal - Psychological Associated symptoms: Normal affect, Normal mood - Skin Skin Temperature: Warm Skin Moisture: Dry Skin Color: Normal Course - Vital Signs Vital signs: Temp Pulse Resp BP Pulse Ox 98.7 F 89 16 168/84 H 97 10/30/17 10:58 10/30/17 10:58 10/30/17 10:58 10/30/17 10:58 10/30/17 10:58 Discharge - Discharge Clinical Impression: Uncontrolled hypertension Condition: Stable Disposition: HOME, SELF-CARE Instructions: High Blood Pressure ([facility]), Beta Blockers ([facility]), High Blood Pressure, Requiring Treatment ([facility]) Additional Instructions: The [facility] is going to contact you to arrange for a follow up appointment. Please call them as soon as possible to check on this. Prescriptions: Metoprolol Tartrate 50 mg PO DAILY 30 Days #30 tablet Forms: Elevated Blood Pressure, Return to Work
== END 2017-10-30 11:30 | disposition home or self-care (01) ==
LOC: ER 10:55
DX: I10 Essential (primary) hypertension (principal); Z79.899 Other long term (current) drug therapy
CPT/HCPCS: 99283

== ENCOUNTER 2017-12-12 17:38 | Emergency (ER) | payer SELFPAY ==
[2017-12-12] MEDS ORDERED: METOPROLOL TARTRATE 25 MG TABLET PO ONE (18:37)
[2017-12-12] MEDS ORDERED: NORMAL SALINE 1000 ML 1,000 ML IV ONE (18:37)
[2017-12-12] MEDS ORDERED: METOPROLOL TARTRATE 50 MG TABLET PO ONE (18:38)
[2017-12-12 19:16] LABS: ABSOLUTE EOSINOPHILS # (AUTO) 0.1 10^3/uL (0.0-0.6); ABSOLUTE LYMPHOCYTES (AUTO) 0.6 10^3/uL (0.5-4.7); ABSOLUTE MONOCYTES (AUTO) 0.8 10^3/uL (0.1-1.4); ABSOLUTE NEUT (AUTO) 3.6 10^3/uL (1.7-8.2); BASOPHILS % (AUTO) 0.6 % (0-2); EOSINOPHILS % (AUTO) 1.7 % (0-6); HEMATOCRIT 39.1 % (37.9-51.0); HEMOGLOBIN 12.4 g/dL (13.5-17.0); MEAN CORPUSCULAR HEMOGLOBIN 24.5 pg (27.0-33.4); MEAN CORPUSCULAR HGB CONC 31.7 g/dL (32.0-36.0); MEAN CORPUSCULAR VOLUME 77 fl (80-97); MONOCYTES % (AUTO) 15.8 % (3-13); PLATELET COUNT 216 10^3/uL (150-450); RED BLOOD COUNT 5.07 10^6/uL (4.35-5.55); RED CELL DISTRIBUTION WIDTH 22.5 % (11.5-14.0); SEGMENTED NEUTROPHILS % (AUTO) 70.9 % (42-78); TOTAL CELLS COUNTED % (AUTO) 100 %; WHITE BLOOD COUNT 5.1 10^3/uL (4.0-10.5)
[2017-12-12 19:18] LABS: VENOUS BLOOD BASE EXCESS 3.1 mmol/L; VENOUS BLOOD HCO3 28.3 mmol/L (20-32); VENOUS BLOOD PCO2 45.8 mmHg (35-63); VENOUS BLOOD PH 7.41 (7.30-7.42)
[2017-12-12 19:29] LABS: INTERNATIONAL RATION (INR) 0.93
[2017-12-12 19:36] LABS: ALANINE AMINOTRANSFERASE 65 U/L (21-72); ALBUMIN 3.8 g/dL (3.5-5.0); ALKALINE PHOSPHATASE 109 U/L (38-126); ANION GAP 10 (5-19); ASPARTATE AMINO TRANSFERASE 38 U/L (17-59); BILIRUBIN,DIRECT 0.3 mg/dL (0.0-0.4); BILIRUBIN,TOTAL 0.3 mg/dL (0.2-1.3); BLOOD UREA NITROGEN 13 mg/dL (7-20); CALCIUM 9.1 mg/dL (8.4-10.2); CARBON DIOXIDE 29 mmol/L (22-30); CHLORIDE 101 mmol/L (98-107); CREATINE KINASE 105 U/L (55-170); GLUCOSE 132 mg/dL (75-110); POTASSIUM 4.3 mmol/L (3.6-5.0); SODIUM 140.4 mmol/L (137-145); TOTAL PROTEIN 6.1 g/dL (6.3-8.2)
[2017-12-12 19:39] LABS: ANISOCYTOSIS 2+; HYPOCHROMASIA SLIGHT; OVALOCYTES SLIGHT; PLATELET COMMENT ADEQUATE; POIKILOCYTOSIS 1+; SCHISTOCYTES SLIGHT; TOXIC GRANULATION SLIGHT
[2017-12-12 19:47] LABS: CREATINE KINASE MB 3.07 ng/mL (<4.55)
[2017-12-12 19:56] LABS: TROPONIN I 0.039 ng/mL
--- NOTE | 2017-12-12 20:49 | RADIOLOGY REPORT (SQ) ---
EXAM DESCRIPTION: CTA CHEST COMPLETED DATE/TIME: 12/12/2017 8:16 pm REASON FOR STUDY: tachy sob COMPARISON: 10/15/2017. TECHNIQUE: CT scan of the chest performed using helical scanning technique with dynamic intravenous contrast injection. Images reviewed with lung, soft tissue and bone windows. Reconstructed coronal and sagittal MPR images reviewed. Additional 3 dimensional post-processing performed to develop Maximal Intensity Projection images ([place] P). All images stored on PACS. All CT scanners at this facility use dose modulation, iterative reconstruction, and/or weight based d osing when appropriate to reduce radiation dose to as low as reasonably achievable (ALARA). [facility]: Dose Right [facility]: CareDose [facility]: Dose Right [facility]: Teradose 4D [facility]: [employer] CONTRAST TYPE AND DOSE: contrast/concentration: Isovue 370.00 mg/ml; Total Contrast Delivered: 78.0 ml; Total Saline Delivered: 70.0 ml Contrast bolus adequate for pulmonary arteries and aorta. RENAL FUNCTION: BUN 13 creatinine 0.73. RADIATION DOSE: CT Rad equipment meets quality standard of care and radiation dose reduction techniq ues were employed. CTDIvol: 9.9 - 39.2 mGy. DLP: 1462 mGy-cm. . LIMITATIONS: None. FINDINGS: LUNGS AND PLEURA: A few small faint ground-glass opacities in the left upper lobe and left lower lobe. No pleural effusions, calcifications. AORTA AND GREAT VESSELS: No aneurysm. No dissection. HEART: No pericardial effusion. No significant coronary artery calcifications. PULMONARY ARTERIES: No emboli visualized in the main pulmonary arteries or the segmental branches. HILAR AND MEDIASTINAL STRUCTURES: No identified masses or abnormal nodes. HARDWARE: None in the chest. UPPER ABDOMEN: No significant findings. Limited exam. THYROID AND OTHER SOFT TISSUES: No masses. No adenopathy. BONES: No acute or significant finding. Chronic changes in the spine with exaggerated kyphosis. 3D MIPS: Confirm above findings. OTHER: No other significant finding. IMPRESSION: NORMAL CTA OF THE CHEST. NO PULMONARY EMBOLI. A FEW SMALL FAINT GROUND-GLASS OPACITIES IN THE LEFT UPPER LOBE AND LEFT LOWER LOBE. NONSPECIFIC. M AY INDICATE INFLAMMATION OR INFECTION. COMMENT: Quality ID # [id number]: Final reports with documentation of one or more dose reduction techniques (e.g., Automated exposure control, adjustment of the mA and/or kV according to patient size, use of iterative reconstruction technique) TECHNICAL DOCUMENTATION: JOB ID: [id number] [employer]- All Rights Reserved Reading location - IP/workstation name: [email or web address]
[2017-12-12 21:10] LABS: A TYPE INFLUENZA AG NEGATIVE (NEGATIVE); B INFLUENZA AG NEGATIVE (NEGATIVE)
[2017-12-12] MEDS ORDERED: PREDNISONE 20 MG TABLET PO ONE (21:27)
[2017-12-12] MEDS ORDERED: LEVOFLOXACIN 500 MG TABLET PO ONE (21:27)
--- NOTE | 2017-12-12 21:34 | ER Document Report ---
ED General - General Chief Complaint: Shortness Of Breath Stated Complaint: COUGH, FEVER, VOMITING Time Seen by Provider: 12/12/17 18:26 TRAVEL OUTSIDE OF THE [place] IN LAST 30 DAYS: No - HPI Patient complains to provider of: Fever cough short of breath Notes: Patient coming in for fever cough short of breath. Patient states has a history of pneumonia requiring intubation in the past. Patient is concerned that he feels today similar to that admission. Patient denies any recent travel. Denies sputum production states feverno temperature taken at home. Denies any recent antibiotics. Denies chest pain abdominal pain. Patient is extremely tachycardic upon arrival here in ER. - Related Data Allergies/Adverse Reactions: No Known Allergies Allergy (Verified 12/12/17 17:38) Past Medical History - Social History Smoking Status: Never Smoker Family History: DM, Hypertension, Malignancy Patient has suicidal ideation: No Patient has homicidal ideation: No - Past Medical History Cardiac Medical History: Reports: Hx Atrial Fibrillation, Hx Hypercholesterolemia, Hx Hypertension, Hx Heart Murmur - Mitral regurgitation on recent echocardiogram Denies: Hx Congestive Heart Failure, Hx Coronary Artery Disease Pulmonary Medical History: Reports: Hx Pneumonia - aspiration, Hx Respiratory Failure, Hx Sleep Apnea Renal/ Medical History: Denies: Hx Peritoneal Dialysis Psychiatric Medical History: Reports: Hx Anxiety, Hx Depression, Hx Post Traumatic Stress Disorder Past Surgical History: Reports: Hx Abdominal Surgery - GBP, Hx Cholecystectomy, Hx Gastric Bypass Surgery, Hx Nose Surgery, Hx Orthopedic Surgery - ACL, Hx Tonsillectomy - Immunizations Immunizations up to date: Yes Hx Diphtheria, Pertussis, Tetanus Vaccination: No Review of Systems - Review of Systems Constitutional: Fever EENT: No symptoms reported Cardiovascular: No symptoms reported Respiratory: Cough, Short of breath Gastrointestinal: No symptoms reported Genitourinary: No symptoms reported Male Genitourinary: No symptoms reported Musculoskeletal: No symptoms reported Skin: No symptoms reported Hematologic/Lymphatic: No symptoms reported Neurological/Psychological: No symptoms reported -: Yes All other systems reviewed and negative Physical Exam - Vital signs Vitals: Temp Pulse Resp BP Pulse Ox 98.0 F 120 H 18 166/92 H 96 12/12/17 17:45 12/12/17 17:45 12/12/17 17:45 12/12/17 17:45 12/12/17 17:45 Interpretation: Tachycardic - General General appearance: Appears well, Alert - HEENT Head: Normocephalic, Atraumatic Eyes: Normal Pupils: PERRL - Respiratory Respiratory status: No respiratory distress Chest status: Nontender Breath sounds: Rhonchi Chest palpation: Normal - Cardiovascular Rhythm: Regular, Tachycardia Heart sounds: Normal auscultation Murmur: No - Abdominal Inspection: Normal Distension: No distension Bowel sounds: Normal Tenderness: Nontender Organomegaly: No organomegaly - Back Back: Normal, Nontender - Extremities General upper extremity: Normal inspection, Nontender, Normal color, Normal ROM , Normal temperature General lower extremity: Normal inspection, Nontender, Normal color, Normal ROM , Normal temperature, Normal weight bearing. No: Zev's sign - Neurological Neuro grossly intact: Yes Cognition: Normal Orientation: AAOx4 Ketty Coma Scale Eye Opening: Spontaneous Ketty Coma Scale Verbal: Oriented Ketty Coma Scale Motor: Obeys Commands Ketty Coma Scale Total: 15 Speech: Normal Motor strength normal: LUE, RUE, LLE, RLE Sensory: Normal - Psychological Associated symptoms: Normal affect, Normal mood - Skin Skin Temperature: Warm Skin Moisture: Dry Skin Color: Normal Course - Re-evaluation Re-evalutation: 12/12/17 22:52 Because of the tachycardia did decide to go ahead and perform a CTA. CTA showed left-sided groundglass opacities inflammation or infection. I did discuss with radiologist front end driver also in differential will be inflammatory disease such as sarcoidosis. No leukocytosis here however patient does state he is having fevers. Because patient feels similar to when he pneumonia past and poor follow-up decided to get the patient Levaquin and steroids. Explained to patient that I do believe he more likely has underlying inflammatory process in his lungs and that this will need to be further evaluated by a mine administrator supervisor. Did get the patient's information to her porter sample case to follow- up tomorrow. However because patient follows up with [facility] in his history of significant infection past medical history the patient on Levaquin and prednisone. Patient states understanding. - Vital Signs Vital signs: Temp Pulse Resp BP Pulse Ox 98.4 F 120 H 33 H 125/74 98 12/12/17 21:53 12/12/17 17:45 12/12/17 21:01 12/12/17 21:01 12/12/17 21:01 - Laboratory Result Diagrams: 12/12/17 18:55 12/12/17 19:07 Laboratory results interpreted by me: 12/12/17 12/12/17 18:55 19:07 Hgb 12.4 L MCV 77 L MCH 24.5 L MCHC 31.7 L RDW 22.5 H Lymphocytes % 11.0 L Monocytes % 15.8 H Glucose 132 H Total Protein 6.1 L Discharge - Discharge Clinical Impression: Pneumonia Qualifiers: Pneumonia type: due to unspecified organism Laterality: left Lung location: unspecified part of lung Qualified Code(s): J18.9 - Pneumonia, unspecified organism Condition: Good Disposition: HOME, SELF-CARE Instructions: Pneumonia ([facility]) Additional Instructions: Your laboratory studies are within normal limits today. Your CT scan of the chest does not show any signs of a blood clot within your lungs however does show areas of "ground glass opacities". This may be consistent with a infectious process such as pneumonia. With your history of fevers chills shortness of breath history of bad pneumonias in the past I will treat you with antibiotics at this time for Levaquin. Reviewing your previous studies showed that these groundglass opacities have appeared and disappeared over time. There may be another inflammatory process ongoing and he will need to see a mine administrator supervisor for. I will give you information to our high school social studies teacher to see if we can establish you a follow-up visit [facility] for possible referral to a mine administrator supervisor. I will also put you on steroids at this time to hopefully aid in a inflammatory process. Please take both medications as prescribed return to ER symptoms worsen Prescriptions: Levofloxacin 500 mg PO DAILY #7 tablet Prednisone [Deltasone] 60 mg PO DAILY #15 tablet
[2017-12-12 21:39] VITALS: BP 125/74
--- NOTE | 2017-12-13 07:33 | EKG REPORT ---
SEVERITY:- ABNORMAL ECG - SINUS TACHYCARDIA ABNRM R PROG, CONSIDER ASMI OR LEAD PLACEMENT BORDERLINE T ABNORMALITIES, INFERIOR LEADS : Confirmed by: Rashaun Negron MD 13-Dec-2017 07:32:28
== END 2017-12-12 21:54 | disposition home or self-care (01) ==
LOC: ER 17:38
DX: J18.9 Pneumonia, unspecified organism (principal); R11.10 Vomiting, unspecified; I48.91 Unspecified atrial fibrillation; E78.00 Pure hypercholesterolemia, unspecified; I10 Essential (primary) hypertension; Z90.49 Acquired absence of other specified parts of digestive tract; Z98.84 Bariatric surgery status
CPT/HCPCS: 93005; 99285; 96360; 36415; 82553; 82550; 85025; 85610; 80053; 84484; 82803; 87804; 71275; 93010; J7030

== ENCOUNTER 2017-12-14 18:31 | Emergency (ER) | payer SELFPAY ==
--- NOTE | 2017-12-14 20:30 | ER Document Report ---
ED Respiratory Problem - General Chief Complaint: Breathing Difficulty Stated Complaint: BREATHING PROBLEMS Time Seen by Provider: 12/14/17 20:01 Mode of Arrival: Ambulatory Information source: Patient Notes: Patient was recently seen 2 days ago and diagnosed with left-sided pneumonia. Patient states that at home he has had increased congestion and reports feeling weak and lightheaded. Patient states that his cough worsens when he is laying supine. Patient has a pulse ox at home and states that his oxygen saturation has been in the lower 90s and whenever he walks around his heart rate goes into the 120s. Patient reports vomiting one time yesterday. Patient denies any fever. Patient is currently taking Levaquin as well as steroids to manage his pneumonia. TRAVEL OUTSIDE OF THE [place] IN LAST 30 DAYS: No - HPI Patient complains to provider of: Cough, Short of breath. No: Chest pain Onset: Other - 2 days Duration: Worse/persistent Pain Level: Denies Context: denies: Recent surgery, Smoker Associated symptoms: Congestion, Cough, Short of breath. denies: Bloody cough Similar symptoms previously: Yes Recently seen / treated by doctor: Yes - Related Data Allergies/Adverse Reactions: No Known Allergies Allergy (Verified 12/14/17 18:31) Past Medical History - General Information source: Patient - Social History Smoking Status: Never Smoker Frequency of alcohol use: None Drug Abuse: None Occupation: None Family History: DM, Hypertension, Malignancy Patient has suicidal ideation: No Patient has homicidal ideation: No - Past Medical History Cardiac Medical History: Reports: Hx Atrial Fibrillation, Hx Hypercholesterolemia, Hx Hypertension, Hx Heart Murmur - Mitral regurgitation on recent echocardiogram Denies: Hx Congestive Heart Failure, Hx Coronary Artery Disease Pulmonary Medical History: Reports: Hx Pneumonia - aspiration, Hx Intubation, Hx Respiratory Failure, Hx Sleep Apnea, Other - ARDS Renal/ Medical History: Denies: Hx Peritoneal Dialysis Psychiatric Medical History: Reports: Hx Anxiety, Hx Depression, Hx Post Traumatic Stress Disorder Past Surgical History: Reports: Hx Abdominal Surgery - GBP, Hx Cholecystectomy, Hx Gastric Bypass Surgery, Hx Nose Surgery, Hx Orthopedic Surgery - ACL, Hx Tonsillectomy - Immunizations Immunizations up to date: Yes Hx Diphtheria, Pertussis, Tetanus Vaccination: No Review of Systems - Review of Systems Constitutional: Weakness, Recent illness - Recently diagnosed with pneumonia. denies: Fever EENT: Nose congestion, Nose discharge. denies: Throat pain Cardiovascular: Lightheaded. denies: Chest pain Respiratory: Cough, Short of breath Gastrointestinal: Vomiting. denies: Abdominal pain, Nausea Genitourinary: No symptoms reported Male Genitourinary: No symptoms reported Musculoskeletal: No symptoms reported. denies: Back pain Skin: No symptoms reported Hematologic/Lymphatic: No symptoms reported Neurological/Psychological: No symptoms reported. denies: Headaches Physical Exam - Vital signs Vitals: Temp Pulse Resp BP Pulse Ox 98.1 F 91 20 155/68 H 96 12/14/17 18:39 12/14/17 18:39 12/14/17 18:39 12/14/17 18:39 12/14/17 18:39 - General General appearance: Appears well, Alert In distress: None - HEENT Head: Normocephalic, Atraumatic Eyes: Normal Nasal: Normal Mouth/Lips: Normal Neck: Normal, Supple. No: Lymphadenopathy - Respiratory Respiratory status: No respiratory distress Chest status: Nontender Breath sounds: Nonproductive cough, Rhonchi Chest palpation: Normal - Cardiovascular Rhythm: Regular Heart sounds: S1 appreciated, S2 appreciated Murmur: Yes - Abdominal Inspection: Morbidly Obese Distension: No distension Bowel sounds: Normal Tenderness: Nontender - Back Back: Normal, Nontender. No: CVA tenderness - Extremities General upper extremity: Normal inspection, Normal ROM General lower extremity: Normal inspection, Normal ROM - Neurological Neuro grossly intact: Yes Cognition: Normal Ketty Coma Scale Eye Opening: Spontaneous Ketty Coma Scale Verbal: Oriented Belle Coma Scale Motor: Obeys Commands Ketty Coma Scale Total: 15 - Psychological Associated symptoms: Normal affect, Normal mood - Skin Skin Temperature: Warm Skin Moisture: Dry Skin Color: Normal Course - Re-evaluation Re-evalutation: 12/15/17 23:30 Patient vital signs stable, not tachycardic, respirations unlabored. Consult with Dr. Minaya regarding patient presentation, reviewed diagnostic test results. Agrees with planned discharge if patient is comfortable with this plan. Patient's IV fluids continue to infuse. Will plan to road test patient after IV fluid infusion is complete. 12/15/17 00:28 Patient's vital signs stable after being ambulated in the hallway, no hypoxia or tachycardia. Patient nontoxic in appearance. No concern for sepsis, worsening pneumonia, PE or pneumothorax. Patient encouraged to finish his antibiotics as previously prescribed and to follow-up with his primary doctor for recheck. Patient with a curb 61 score of 0, patient is low risk for complication therefore discharge seems reasonable at this time. 12/15/17 00:37 Patient advised of elevated blood sugar of 293 while he was here tonight. Patient advised that this is concerning for diabetes and that provider would like to place him on metformin. Patient states that his blood sugar is elevated due to taking oral steroids at this time and he does not feel that he is diabetic. Patient states that he previously had been prescribed metformin for borderline diabetes in the past but that his A1c in September was 6 and he does not want to be prescribed any diabetic medications at this time. Patient does have his father's glucometer at home and states that he does check his blood sugar periodically at home. Patient encouraged to maintain a diabetic diet and to check his blood sugar regularly and record a log to present his primary doctor. Discussed with patient concerned that he may in fact actually have diabetes at this time and that this could inhibit his ability to fight off infections as well as having complications from diabetes itself. - Vital Signs Vital signs: Temp Pulse Resp BP Pulse Ox 98.1 F 91 24 H 105/68 95 12/14/17 18:39 12/14/17 18:39 12/15/17 00:15 12/15/17 00:01 12/15/17 00:15 - Laboratory Result Diagrams: 12/14/17 20:40 12/14/17 20:40 Laboratory results interpreted by me: 12/14/17 12/14/17 12/14/17 20:40 20:40 20:40 WBC 11.6 H D Hgb 12.1 L Hct 37.6 L MCV 77 L MCH 24.8 L RDW 21.9 H Seg Neuts % (Manual) 87 H Lymphocytes % (Manual) 2 L Abs Neuts (Manual) 10.6 H Abs Lymphs (Manual) 0.3 L Glucose 293 H Total Protein 6.0 L Urine Glucose (UA) >=500 H Urine Ascorbic Acid 20 H Labs- Entire Visit 12/14/17 12/14/17 12/14/17 20:40 20:40 20:40 WBC 11.6 H D RBC 4.86 Hgb 12.1 L Hct 37.6 L MCV 77 L MCH 24.8 L MCHC 32.1 RDW 21.9 H Plt Count 229 Total Counted 100 Seg Neutrophils % Not Reportable Seg Neuts % (Manual) 87 H Band Neutrophils % 4 Lymphocytes % Not Reportable Lymphocytes % (Manual) 2 L Atypical Lymphs % 1 Monocytes % Not Reportable Monocytes % (Manual) 6 Eosinophils % Not Reportable Eosinophils % (Manual) 0 Basophils % Not Reportable Basophils % (Manual) 0 Absolute Neutrophils Not Reportable Abs Neuts (Manual) 10.6 H Absolute Lymphocytes Not Reportable Abs Lymphs (Manual) 0.3 L Absolute Monocytes Not Reportable Abs Monocytes (Manual) 0.7 Absolute Eosinophils Not Reportable Absolute Eos (Manual) 0.0 Absolute Basophils Not Reportable Abs Basophils (Manual) 0.0 Toxic Granulation SLIGHT Toxic Vacuolation PRESENT Platelet Comment ADEQUATE Polychromasia SLIGHT Poikilocytosis 1+ Anisocytosis 3+ Microcytosis SLIGHT Ovalocytes 1+ Sodium 137.1 Potassium 4.7 Chloride 100 Carbon Dioxide 27 Anion Gap 10 BUN 15 Creatinine 0.70 Est GFR ( Amer) > 60 Est GFR (Non-Af Amer) > 60 Glucose 293 H Calcium 9.2 Magnesium 2.1 Total Bilirubin 0.3 Direct Bilirubin 0.3 Neonat Total Bilirubin Not Reportable Neonat Direct Bilirubin Not Reportable Neonat Indirect Bili Not Reportable AST 25 ALT 48 Alkaline Phosphatase 91 Creatine Kinase 81 CK-MB (CK-2) 2.09 Troponin I < 0.012 Total Protein 6.0 L Albumin 3.7 Urine Color Urine Appearance Urine pH Ur Specific [place] Urine Protein Urine Glucose (UA) Urine Ketones Urine Blood Urine Nitrite Urine Bilirubin Urine Urobilinogen Ur Leukocyte Esterase Urine WBC (Auto) Urine RBC (Auto) Squamous Epi Cells Auto Urine Ascorbic Acid 12/14/17 20:40 WBC RBC Hgb Hct MCV MCH MCHC RDW Plt Count Total Counted Seg Neutrophils % Seg Neuts % (Manual) Band Neutrophils % Lymphocytes % Lymphocytes % (Manual) Atypical Lymphs % Monocytes % Monocytes % (Manual) Eosinophils % Eosinophils % (Manual) Basophils % Basophils % (Manual) Absolute Neutrophils Abs Neuts (Manual) Absolute Lymphocytes Abs Lymphs (Manual) Absolute Monocytes Abs Monocytes (Manual) Absolute Eosinophils Absolute Eos (Manual) Absolute Basophils Abs Basophils (Manual) Toxic Granulation Toxic Vacuolation Platelet Comment Polychromasia Poikilocytosis Anisocytosis Microcytosis Ovalocytes Sodium Potassium Chloride Carbon Dioxide Anion Gap BUN Creatinine Est GFR ( Amer) Est GFR (Non-Af Amer) Glucose Calcium Magnesium Total Bilirubin Direct Bilirubin Neonat Total Bilirubin Neonat Direct Bilirubin Neonat Indirect Bili AST ALT Alkaline Phosphatase Creatine Kinase CK-MB (CK-2) Troponin I Total Protein Albumin Urine Color YELLOW Urine Appearance CLEAR Urine pH 6.0 Ur Specific [place] 1.032 Urine Protein NEGATIVE Urine Glucose (UA) >=500 H Urine Ketones NEGATIVE Urine Blood NEGATIVE Urine Nitrite NEGATIVE Urine Bilirubin NEGATIVE Urine Urobilinogen NEGATIVE Ur Leukocyte Esterase NEGATIVE Urine WBC (Auto) 0 Urine RBC (Auto) 0 Squamous Epi Cells Auto <1 Urine Ascorbic Acid 20 H Reviewed labs from previous ER visit - Diagnostic Test Radiology reviewed: Reports reviewed - reviewed pt's report from previous er visit Discharge - Discharge Clinical Impression: Hyperglycemia, Nasal congestion Pneumonia Qualifiers: Pneumonia type: due to unspecified organism Laterality: left Lung location: unspecified part of lung Qualified Code(s): J18.9 - Pneumonia, unspecified organism Dyspnea Qualifiers: Dyspnea type: unspecified Qualified Code(s): R06.00 - Dyspnea, unspecified Condition: Stable Disposition: HOME, SELF-CARE Instructions: Dyspnea, Nonspecific ([facility]), Hyperglycemia ([facility]), Intravenous (IV ) Fluids ([facility]), Pneumonia ([facility]) Additional Instructions: Return immediately for any new or worsening symptoms Followup with your primary care provider, call tomorrow to make a followup appointment Eat a diabetic diet Check your blood sugar at least twice a day and keep a log to present to your primary doctor for follow-up. It is concerning that you likely have diabetes and may need medications to help manage this if diet and exercise do not help correct your elevated blood glucose level. You may take Coricidin HBP [id number] to help with your nasal congestion symptoms Referrals: [facility] [Provider Group] - Follow up tomorrow
--- NOTE | 2017-12-14 21:03 | RADIOLOGY REPORT (SQ) ---
EXAM DESCRIPTION: CHEST 2 VIEWS COMPLETED DATE/TIME: 12/14/2017 8:45 pm REASON FOR STUDY: cough, diff breathing, hx pneumonia COMPARISON: 10/15/2017 EXAM PARAMETERS: NUMBER OF VIEWS: two views TECHNIQUE: Digital Frontal and Lateral radiographic views of the chest acquired. RADIATION DOSE: NA LIMITATIONS: none FINDINGS: LUNGS AND PLEURA: No acute opacities, masses or pneumothorax. No pleural effusion. MEDIASTINUM AND HILAR STRUCTURES: No masses or contour abnormalities. HEART AND VASCULAR STRUCTURES: Heart normal size. No evidence for failure. BONES: No acute findings. HARDWARE: None in the chest. OTHER: No other significant finding. IMPRESSION: NO ACUTE RADIOGRAPHIC FINDING IN THE CHEST. TECHNICAL DOCUMENTATION: JOB ID: [id number] 2010 [employer]- All Rights Reserved Reading location - IP/workstation name: [email or web address]
[2017-12-14 21:05] LABS: APPEARANCE,URINE CLEAR; BILIRUBIN,URINE NEGATIVE (NEGATIVE); COLOR,URINE YELLOW; GLUCOSE, URINE >=500 mg/dL (NEGATIVE); HEMATOCRIT 37.6 % (37.9-51.0); HEMOGLOBIN 12.1 g/dL (13.5-17.0); KETONES,URINE NEGATIVE (NEGATIVE); LEUKOCYTE ESTERASE,URINE NEGATIVE (NEGATIVE); MEAN CORPUSCULAR HEMOGLOBIN 24.8 pg (27.0-33.4); MEAN CORPUSCULAR HGB CONC 32.1 g/dL (32.0-36.0); MEAN CORPUSCULAR VOLUME 77 fl (80-97); NITRITE,URINE NEGATIVE (NEGATIVE); PLATELET COUNT 229 10^3/uL (150-450); PROTEIN,URINE NEGATIVE (NEGATIVE); RED BLOOD COUNT 4.86 10^6/uL (4.35-5.55); RED CELL DISTRIBUTION WIDTH 21.9 % (11.5-14.0); URINE SPECIFIC GRAVITY 1.032; UROBILINOGEN,URINE NEGATIVE mg/dL (<2.0)
[2017-12-14 21:24] LABS: ALANINE AMINOTRANSFERASE 48 U/L (21-72); ALBUMIN 3.7 g/dL (3.5-5.0); ALKALINE PHOSPHATASE 91 U/L (38-126); ANION GAP 10 (5-19); ASPARTATE AMINO TRANSFERASE 25 U/L (17-59); BILIRUBIN,DIRECT 0.3 mg/dL (0.0-0.4); BILIRUBIN,TOTAL 0.3 mg/dL (0.2-1.3); BLOOD UREA NITROGEN 15 mg/dL (7-20); CALCIUM 9.2 mg/dL (8.4-10.2); CARBON DIOXIDE 27 mmol/L (22-30); CHLORIDE 100 mmol/L (98-107); CREATINE KINASE 81 U/L (55-170); GLUCOSE 293 mg/dL (75-110); POTASSIUM 4.7 mmol/L (3.6-5.0); SODIUM 137.1 mmol/L (137-145)
[2017-12-14 21:34] LABS: ABSOLUTE LYMPHOCYTES# (MANUAL) 0.3 10^3/uL (0.5-4.7); ABSOLUTE MONOCYTES # (MANUAL) 0.7 10^3/uL (0.1-1.4); ABSOLUTE NEUTROPHILS# (MANUAL) 10.6 10^3/uL (1.7-8.2); BAND NEUTROPHILS % (MANUAL) 4 % (3-5); BASOPHILS % (MANUAL) 0 % (0-2); EOSINOPHILS % (MANUAL) 0 % (0-6); LYMPHOCYTES % (MANUAL) 2 % (13-45); MONOCYTES % (MANUAL) 6 % (3-13); SEGMENTED NEUTROPHILS % (MAN) 87 % (42-78); TOTAL CELLS COUNTED 100
[2017-12-14 21:36] LABS: ANISOCYTOSIS 3+; CREATINE KINASE MB 2.09 ng/mL (<4.55); OVALOCYTES 1+; PLATELET COMMENT ADEQUATE; POIKILOCYTOSIS 1+; POLYCHROMASIA SLIGHT; TOXIC GRANULATION SLIGHT; TOXIC VACUOLATION PRESENT
[2017-12-14 21:37] LABS: WHITE BLOOD COUNT 11.6 10^3/uL (4.0-10.5)
[2017-12-14 21:38] LABS: TROPONIN I < 0.012 ng/mL
[2017-12-14] MEDS ORDERED: INSULIN REG, HUMAN 100 UNIT/ML 3 ML VIAL (PYX) SUBCUT ONE (21:54)
[2017-12-14] MEDS ORDERED: NORMAL SALINE 1000 ML 1,000 ML IV ONE (21:54)
[2017-12-15 00:16] VITALS: BP 105/68
--- NOTE | 2017-12-15 07:51 | EKG REPORT ---
SEVERITY:- BORDERLINE ECG - SINUS RHYTHM BORDERLINE T ABNORMALITIES, INFERIOR LEADS : Confirmed by: Rashaun Negron MD 15-Dec-2017 07:51:09
== END 2017-12-15 01:00 | disposition home or self-care (01) ==
LOC: ER 18:31
DX: J18.9 Pneumonia, unspecified organism (principal); R73.9 Hyperglycemia, unspecified; R06.00 Dyspnea, unspecified; R09.81 Nasal congestion; R53.1 Weakness; R42 Dizziness and giddiness; R11.10 Vomiting, unspecified; Z79.899 Other long term (current) drug therapy; I10 Essential (primary) hypertension
CPT/HCPCS: 93005; 99285; 36415; 87040; 87070; 87205; 82553; 82550; 83735; 85025; 80053; 81001; 84484; 71046; 93010; J1815; J7030; 96360

== ENCOUNTER 2017-12-21 20:35 | Emergency (ER) | payer SELFPAY ==
--- NOTE | 2017-12-21 22:20 | RADIOLOGY REPORT (SQ) ---
EXAM DESCRIPTION: CHEST SINGLE VIEW COMPLETED DATE/TIME: 12/21/2017 9:43 pm REASON FOR STUDY: shortness of breath COMPARISON: 12/14/2017 EXAM PARAMETERS: NUMBER OF VIEWS: One view. TECHNIQUE: Single frontal radiographic view of the chest acquired. RADIATION DOSE: NA LIMITATIONS: None. FINDINGS: LUNGS AND PLEURA: No acute opacities, masses or pneumothorax. No pleural effusion. MEDIASTINUM AND HILAR STRUCTURES: No masses. Contour normal. HEART AND VASCULAR STRUCTURES: Heart normal in size. Normal vasculature. BONES: No acute findings. HARDWARE: None in the chest. OTHER: No other significant finding. IMPRESSION: NO ACUTE RADIOGRAPHIC FINDING IN THE CHEST. TECHNICAL DOCUMENTATION: JOB ID: [id number] [id number] 2010 [employer]- All Rights Reserved Reading location - IP/workstation name: [email or web address]
--- NOTE | 2017-12-21 23:12 | EKG REPORT ---
SEVERITY:- NORMAL ECG - SINUS RHYTHM : Confirmed by: Beny Ko 21-Dec-2017 23:11:41
[2017-12-21 23:30] LABS: ABSOLUTE EOSINOPHILS # (AUTO) 0.2 10^3/uL (0.0-0.6); ABSOLUTE LYMPHOCYTES (AUTO) 1.1 10^3/uL (0.5-4.7); ABSOLUTE MONOCYTES (AUTO) 0.7 10^3/uL (0.1-1.4); ABSOLUTE NEUT (AUTO) 7.3 10^3/uL (1.7-8.2); BASOPHILS % (AUTO) 0.3 % (0-2); EOSINOPHILS % (AUTO) 2.4 % (0-6); HEMATOCRIT 34.7 % (37.9-51.0); HEMOGLOBIN 11.1 g/dL (13.5-17.0); LYMPHOCYTES % (AUTO) 11.7 % (13-45); MEAN CORPUSCULAR HEMOGLOBIN 24.9 pg (27.0-33.4); MEAN CORPUSCULAR HGB CONC 32.1 g/dL (32.0-36.0); MEAN CORPUSCULAR VOLUME 78 fl (80-97); MONOCYTES % (AUTO) 7.8 % (3-13); PLATELET COUNT 232 10^3/uL (150-450); RED BLOOD COUNT 4.46 10^6/uL (4.35-5.55); RED CELL DISTRIBUTION WIDTH 20.8 % (11.5-14.0); SEGMENTED NEUTROPHILS % (AUTO) 77.8 % (42-78); TOTAL CELLS COUNTED % (AUTO) 100 %; WHITE BLOOD COUNT 9.4 10^3/uL (4.0-10.5)
[2017-12-21 23:39] LABS: ALANINE AMINOTRANSFERASE 64 U/L (21-72); ALBUMIN 3.3 g/dL (3.5-5.0); ALKALINE PHOSPHATASE 93 U/L (38-126); ANION GAP 6 (5-19); ASPARTATE AMINO TRANSFERASE 30 U/L (17-59); BILIRUBIN,DIRECT 0.2 mg/dL (0.0-0.4); BILIRUBIN,TOTAL 0.2 mg/dL (0.2-1.3); BLOOD UREA NITROGEN 19 mg/dL (7-20); CARBON DIOXIDE 33 mmol/L (22-30); CHLORIDE 103 mmol/L (98-107); CREATINE KINASE 50 U/L (55-170); GLUCOSE 109 mg/dL (75-110); POTASSIUM 4.4 mmol/L (3.6-5.0); SODIUM 141.8 mmol/L (137-145); TOTAL PROTEIN 5.4 g/dL (6.3-8.2)
[2017-12-21 23:47] LABS: APPEARANCE,URINE SLIGHTLY-CLOUDY; BILIRUBIN,URINE NEGATIVE (NEGATIVE); COLOR,URINE YELLOW; GLUCOSE, URINE NEGATIVE (NEGATIVE); KETONES,URINE NEGATIVE (NEGATIVE); LEUKOCYTE ESTERASE,URINE NEGATIVE (NEGATIVE); NITRITE,URINE NEGATIVE (NEGATIVE); PROTEIN,URINE NEGATIVE (NEGATIVE); URINE SPECIFIC GRAVITY 1.021
[2017-12-21 23:51] LABS: NT PRO BNP 726 pg/mL (<125)
[2017-12-21 23:56] LABS: ANISOCYTOSIS 2+; POIKILOCYTOSIS 1+; TOXIC GRANULATION 1+
[2017-12-21 23:57] LABS: OVALOCYTES SLIGHT; PLATELET COMMENT ADEQUATE; PLATELET LARGE PRESENT; POLYCHROMASIA SLIGHT; SCHISTOCYTES 1+; TEAR DROP CELLS SLIGHT
[2017-12-21 23:58] LABS: TROPONIN I < 0.012 ng/mL
--- NOTE | 2017-12-22 00:01 | ER Document Report ---
ED Medical Screen (RME) - General Chief Complaint: Shortness Of Breath Stated Complaint: CHEST TIGHTNESS,SHORTNESS OF BREATH Time Seen by Provider: 12/21/17 23:59 Mode of Arrival: Ambulatory Information source: Patient TRAVEL OUTSIDE OF THE [place] IN LAST 30 DAYS: No - HPI Patient complains to provider of: sob Notes: 12/21/17 23:59 Patient is here with complaints of shortness of breath. He tells me that he has had pneumonia several times over the last 6 months. At one point he actually ended up in the ICU with origins. States that he was diagnosed with pneumonia by his doctor last week and was placed on Levaquin and prednisone. States that he was feeling better until today when he started to feel worse. His cough has returned and is now having some exertional shortness of breath. No fever. He does report some diarrhea and is concerned that he might be dehydrated. He denies any recent long trips or surgeries, leg pain, history of DVT or PE, known cancer. Physical exam: No distress, nontoxic appearance, vitals stable, lungs with some fine crackles in the bases. Plan: CBC, complete metabolic panel, BNP, troponin, CPK, chest x-ray, EKG. An initial examination was made on the patient as part of the triage process, and it was determined a more comprehensive evaluation was necessary. Initial labs were ordered and patient was transferred to another provider in the ED who assumed care and finished evaluation and plan. - Related Data Allergies/Adverse Reactions: No Known Allergies Allergy (Verified 12/14/17 18:31) Past Medical History - Social History Chew tobacco use (# tins/day): No Frequency of alcohol use: None Drug Abuse: None - Past Medical History Cardiac Medical History: Reports: Hx Atrial Fibrillation, Hx Hypercholesterolemia, Hx Hypertension, Hx Heart Murmur - Mitral regurgitation on recent echocardiogram Denies: Hx Congestive Heart Failure, Hx Coronary Artery Disease Pulmonary Medical History: Reports: Hx Pneumonia - aspiration, Hx Intubation, Hx Respiratory Failure, Hx Sleep Apnea Renal/ Medical History: Denies: Hx Peritoneal Dialysis Psychiatric Medical History: Reports: Hx Anxiety, Hx Depression, Hx Post Traumatic Stress Disorder Past Surgical History: Reports: Hx Abdominal Surgery - GBP, Hx Cholecystectomy, Hx Gastric Bypass Surgery, Hx Nose Surgery, Hx Orthopedic Surgery - ACL, Hx Tonsillectomy - Immunizations Immunizations up to date: Yes Hx Diphtheria, Pertussis, Tetanus Vaccination: No History of Influenza Vaccine for 06/2017 - 11/2017 Season: No Physical Exam - Vital signs Vitals: Temp Pulse BP Pulse Ox 98.1 F 77 147/76 H 97 12/21/17 21:21 12/21/17 21:21 12/21/17 21:21 12/21/17 21:21 Course - Vital Signs Vital signs: Temp Pulse Resp BP Pulse Ox 98.1 F 77 147/76 H 97 12/21/17 21:21 12/21/17 21:21 12/21/17 21:21 12/21/17 21:21 - Laboratory Result Diagrams: 12/21/17 23:15 12/21/17 23:15 Laboratory results interpreted by me: 12/21/17 12/21/17 12/21/17 22:20 23:15 23:15 Hgb 11.1 L Hct 34.7 L MCV 78 L MCH 24.9 L RDW 20.8 H Lymphocytes % 11.7 L Carbon Dioxide 33 H Creatine Kinase 50 L NT-Pro-B Natriuret Pep Total Protein 5.4 L Albumin 3.3 L Urine Urobilinogen 2.0 H 12/21/17 23:15 Hgb Hct MCV MCH RDW Lymphocytes % Carbon Dioxide Creatine Kinase NT-Pro-B Natriuret Pep 726 H Total Protein Albumin Urine Urobilinogen
--- NOTE | 2017-12-22 00:37 | ER Document Report ---
ED General - General Chief Complaint: Shortness Of Breath Stated Complaint: CHEST TIGHTNESS,SHORTNESS OF BREATH Time Seen by Provider: 12/21/17 23:59 Mode of Arrival: Ambulatory TRAVEL OUTSIDE OF THE [place] IN LAST 30 DAYS: No - HPI Notes: Patient is a 47-year-old male who presents to the ED complaining of a dry nonproductive cough, one episode of chest tightness and shortness of breath when he was at [facility] this afternoon. Patient states that he was placed on antibiotics and prednisone for a possible pneumonia about a week and half ago. Patient states that he believes his symptoms improved, but he started noticing symptoms again today. Patient states that he does have nasal congestion and discharge as well and occasional loose stool. Patient states that he is very cautious when it comes to his coughing symptoms as he had an aspiration pneumonia, ARDS requiring intubation, which also put him into A. fib in August. Patient states that he is comfortable at this time. He has been eating and drinking without difficulties. He is urinating normally and having normal bowel movements. He denies any drug allergies. Patient also has a medical history of hypertension. No other concerns or complaints at this time. Patient states that he was evaluated by his primary care doctor yesterday for routine visit without any issues. Denies any headache, fever, neck pain, sore throat, chest pain, palpitations, syncope, wheeze, abdominal pain, nausea/ vomiting/diarrhea, urinary retention, dysuria, hematuria, back pain, or rash. No cardiac history. - Related Data Allergies/Adverse Reactions: No Known Allergies Allergy (Verified 12/14/17 18:31) Past Medical History - General Information source: Patient - Social History Smoking Status: Never Smoker Chew tobacco use (# tins/day): No Frequency of alcohol use: None Drug Abuse: None Family History: DM, Hypertension, Malignancy Patient has suicidal ideation: No Patient has homicidal ideation: No - Past Medical History Cardiac Medical History: Reports: Hx Atrial Fibrillation, Hx Hypercholesterolemia, Hx Hypertension, Hx Heart Murmur - Mitral regurgitation on recent echocardiogram Denies: Hx Congestive Heart Failure, Hx Coronary Artery Disease Pulmonary Medical History: Reports: Hx Pneumonia - aspiration, Hx Intubation, Hx Respiratory Failure, Hx Sleep Apnea Renal/ Medical History: Denies: Hx Peritoneal Dialysis Psychiatric Medical History: Reports: Hx Anxiety, Hx Depression, Hx Post Traumatic Stress Disorder Past Surgical History: Reports: Hx Abdominal Surgery - GBP, Hx Cholecystectomy, Hx Gastric Bypass Surgery, Hx Nose Surgery, Hx Orthopedic Surgery - ACL, Hx Tonsillectomy - Immunizations Immunizations up to date: Yes Hx Diphtheria, Pertussis, Tetanus Vaccination: No Review of Systems - Review of Systems -: Yes All other systems reviewed and negative Physical Exam - Vital signs Vitals: Temp Pulse BP Pulse Ox 98.1 F 77 147/76 H 97 12/21/17 21:21 12/21/17 21:21 12/21/17 21:21 12/21/17 21:21 - Notes Notes: PHYSICAL EXAMINATION: GENERAL: Well-appearing, well-nourished and in no acute distress. HEAD: Atraumatic, normocephalic. EYES: Pupils equal round and reactive to light, extraocular movements intact, sclera anicteric, conjunctiva are normal. ENT: EAC clear b/l. TM's intact b/l without erythema, fluid, or perforation. Nares patent and without discharge. oropharynx clear without exudates. No tonsilar hypertrophy or erythema. Moist mucous membranes. No sinus tenderness. NECK: Normal range of motion, supple without lymphadenopathy LUNGS: Breath sounds clear to auscultation bilaterally and equal. No wheezes rales or rhonchi. HEART: Regular rate and rhythm without murmurs, rubs, gallops. ABDOMEN: Soft, nontender, nondistended abdomen. No guarding, no rebound. No masses appreciated. Normal bowel sounds present. No CVA tenderness bilaterally. Musculoskeletal: FROM to passive/active. Strength 5+/5. Zev neg. Extremities: Trace pitting edema b/l. Peripheral pulses 2+. Capillary refill less than 3 seconds. NEUROLOGICAL: Normal speech, normal gait. Normal sensory, motor exams PSYCH: Normal mood, normal affect. SKIN: Warm, Dry, normal turgor, no rashes or lesions noted. Course - Re-evaluation Re-evalutation: 12/22/17 03:45 Patient is an afebrile, well-hydrated, 47-year-old male who presents to the ED with an acute URI, suspect viral at this time. Vitals are acceptable. PE is otherwise unremarkable. CBC, CMP, cardiac enzymes 2/EKG, BNP, UA, chest x-ray were unremarkable for any acute pathology. Patient was ambulated and maintain oxygen saturation greater than 96% and a pulse that did not exceed 88 bpm. Patient is otherwise currently asymptomatic for any chest pain or shortness of breath that he experienced on a brief occasion yesterday afternoon. PERC 0. Wells 0. Heart score of 2. Patient is tolerating p.o. without any difficulties. Patient states that he feels well. No other labs or imaging warranted at this time based on H&P. Low suspicion for any ACS, PE, pneumothorax, pericarditis, dissection, respiratory compromise, severe dehydration, sepsis, meningitis, or other systemic emergent condition at this time. Patient is aware that his condition can change from initial presentation and he needs to monitor symptoms closely and seek medical attention for any acute changes. I will send him home with a prescription for Tessalon. Recommend conservative measures for symptoms. Recheck with your PCM in 3-5 days. Return to the ED with any worsening/concerning symptoms otherwise as reviewed in discharge. Patient is in agreement. - Vital Signs Vital signs: Temp Pulse Resp BP Pulse Ox 98.5 F 89 18 144/79 H 97 12/22/17 03:34 12/22/17 03:34 12/22/17 03:34 12/22/17 03:34 12/22/17 03:34 - Laboratory Result Diagrams: 12/21/17 23:15 12/21/17 23:15 Laboratory results interpreted by me: 12/21/17 12/21/17 12/21/17 22:20 23:15 23:15 Hgb 11.1 L Hct 34.7 L MCV 78 L MCH 24.9 L RDW 20.8 H Lymphocytes % 11.7 L Carbon Dioxide 33 H Creatine Kinase 50 L NT-Pro-B Natriuret Pep Total Protein 5.4 L Albumin 3.3 L Urine Urobilinogen 2.0 H 12/21/17 23:15 Hgb Hct MCV MCH RDW Lymphocytes % Carbon Dioxide Creatine Kinase NT-Pro-B Natriuret Pep 726 H Total Protein Albumin Urine Urobilinogen Discharge - Discharge Clinical Impression: Acute URI Condition: Stable Disposition: HOME, SELF-CARE Instructions: Upper Respiratory Illness ([facility]) Additional Instructions: Maintain adequate fluid intake Take meds as directed tylenol/ibuprofen as needed over the counter cold medication as needed for symptoms Humidified air may help Wash your hands regularly Wear a mask when coughing F/u: with your PCM in 3-5 days for a recheck Return to the ED with any fever, worsening pain, chest pain, palpitations, syncope, worsening DICK[place], neck pain/stiffness, shortness of breath, wheezing, drooling, trouble swallowing/breathing, abdominal pain, n/v/d, rash, or worsening/concerning symptoms otherwise. Prescriptions: Benzonatate [Tessalon Perle 100 mg Capsule] 100 mg PO Q8HP PRN #15 cap PRN Reason: Forms: Elevated Blood Pressure Referrals: [facility] [Provider Group] - Follow up as needed [facility] [Provider Group] - Follow up as needed
[2017-12-22 04:32] VITALS: BP 129/69
== END 2017-12-22 04:31 | disposition home or self-care (01) ==
LOC: ER 20:35
DX: J06.9 Acute upper respiratory infection, unspecified (principal); R06.02 Shortness of breath; R07.9 Chest pain, unspecified; I48.91 Unspecified atrial fibrillation; E78.00 Pure hypercholesterolemia, unspecified; I10 Essential (primary) hypertension; Z90.49 Acquired absence of other specified parts of digestive tract; Z98.84 Bariatric surgery status
CPT/HCPCS: 36415; 71045; 80053; 81001; 82550; 82553; 83880; 84484; 85025; 93005; 93010; 99284

== ENCOUNTER 2018-01-10 18:30 | Inpatient (IN) | payer OTHER ==
--- NOTE | 2018-01-10 19:08 | ER Document Report ---
ED Medical Screen (RME) - General Chief Complaint: Headache Stated Complaint: HEADACHES,FEVER,DIARRHEA,NAUSEA Time Seen by Provider: 01/10/18 19:02 TRAVEL OUTSIDE OF THE [place] IN LAST 30 DAYS: No - HPI Notes: 01/10/18 19:07 Fever tacky ongoing for the last few days associated with intermittent headaches. Patient recently was seen by myself groundglass opacities concerning for recurrent pneumonia placed on Levaquin patient also states having diarrhea. - Related Data Allergies/Adverse Reactions: No Known Allergies Allergy (Verified 01/10/18 19:04) Past Medical History - Social History Chew tobacco use (# tins/day): No Frequency of alcohol use: None Drug Abuse: None - Past Medical History Cardiac Medical History: Reports: Hx Atrial Fibrillation, Hx Hypercholesterolemia, Hx Hypertension, Hx Heart Murmur - Mitral regurgitation on recent echocardiogram Denies: Hx Congestive Heart Failure, Hx Coronary Artery Disease Pulmonary Medical History: Reports: Hx Pneumonia - aspiration, Hx Intubation, Hx Respiratory Failure, Hx Sleep Apnea Renal/ Medical History: Denies: Hx Peritoneal Dialysis Psychiatric Medical History: Reports: Hx Anxiety, Hx Depression, Hx Post Traumatic Stress Disorder Past Surgical History: Reports: Hx Abdominal Surgery - GBP, Hx Cholecystectomy, Hx Gastric Bypass Surgery, Hx Nose Surgery, Hx Orthopedic Surgery - ACL, Hx Tonsillectomy - Immunizations Immunizations up to date: Yes Hx Diphtheria, Pertussis, Tetanus Vaccination: No History of Influenza Vaccine for 06/2017 - 11/2017 Season: No Review of Systems - Review of Systems Constitutional: Fever Physical Exam - Vital signs Vitals: Temp Pulse Resp BP Pulse Ox 103.0 F H 115 H 22 H 168/87 H 97 01/10/18 18:41 01/10/18 18:41 01/10/18 18:41 01/10/18 18:41 01/10/18 18:41 - Cardiovascular Rhythm: Regular, Tachycardia Heart sounds: Normal auscultation Course - Vital Signs Vital signs: Temp Pulse Resp BP Pulse Ox 103.0 F H 115 H 22 H 168/87 H 97 01/10/18 18:41 01/10/18 18:41 01/10/18 18:41 01/10/18 18:41 01/10/18 18:41
[2018-01-10 19:47] LABS: INTERNATIONAL RATION (INR) 0.96; PROTHROMBIN TIME 13.3 SEC (11.4-15.4)
[2018-01-10 19:48] LABS: HEMATOCRIT 36.5 % (37.9-51.0); HEMOGLOBIN 11.7 g/dL (13.5-17.0); MEAN CORPUSCULAR HEMOGLOBIN 25.3 pg (27.0-33.4); MEAN CORPUSCULAR VOLUME 79 fl (80-97); PLATELET COUNT 275 10^3/uL (150-450); RED CELL DISTRIBUTION WIDTH 17.2 % (11.5-14.0); WHITE BLOOD COUNT 10.3 10^3/uL (4.0-10.5)
--- NOTE | 2018-01-10 19:49 | RADIOLOGY REPORT (SQ) ---
EXAM DESCRIPTION: CT HEAD WITHOUT COMPLETED DATE/TIME: 01/10/2018 7:33 pm REASON FOR STUDY: headache COMPARISON: None. TECHNIQUE: Axial images acquired through the brain without intravenous contrast. Images reviewed wi th bone, brain and subdural windows. Additional sagittal and coronal reconstructions were generated. Images stored on PACS. All CT scanners at this facility use dose modulation, iterative reconstruction, and/or weight based d osing when appropriate to reduce radiation dose to as low as reasonably achievable (ALARA). [facility]: Dose Right [facility]: CareDose [facility]: Dose Right [facility]: Teradose 4D [facility]: SIM Digital RADIATION DOSE: CT Rad equipment meets quality standard of care and radiation dose reduction techniq ues were employed. CTDIvol: 53.2 mGy. DLP: 1177 mGy-cm. mGy. LIMITATIONS: None. FINDINGS: VENTRICLES: Normal size and contour. CEREBRUM: No masses. No hemorrhage. No midline shift. No evidence for acute infarction. Normal gra y/white matter differentiation. No areas of low density in the white matter. CEREBELLUM: No masses. No hemorrhage. No alteration of density. No evidence for acute infarction. EXTRAAXIAL SPACES: No fluid collections. No masses. ORBITS AND GLOBE: No intra- or extraconal masses. Normal contour of globe without masses. CALVARIUM: No fracture. PARANASAL SINUSES: No fluid or mucosal thickening. SOFT TISSUES: No mass or hematoma. OTHER: No other significant finding. IMPRESSION: NORMAL BRAIN CT WITHOUT CONTRAST. EVIDENCE OF ACUTE STROKE: NO. COMMENT: Quality ID # [id number]: Final reports with documentation of one or more dose reduction techniques (e.g., Automated exposure control, adjustment of the mA and/or kV according to patient size, use of iterative reconstruction technique) TECHNICAL DOCUMENTATION: JOB ID: [id number] [employer]- All Rights Reserved Reading location - IP/workstation name: [email or web address]
[2018-01-10 19:53] LABS: VENOUS BLOOD BASE EXCESS 2.6 mmol/L; VENOUS BLOOD HCO3 28.9 mmol/L (20-32); VENOUS BLOOD PCO2 52.1 mmHg (35-63); VENOUS BLOOD PH 7.36 (7.30-7.42)
[2018-01-10] MEDS: NORMAL SALINE 1000 ML 1,000 ML IV PRN ×2 (19:53→22:34)
--- NOTE | 2018-01-10 20:02 | RADIOLOGY REPORT (SQ) ---
EXAM DESCRIPTION: CHEST 2 VIEWS COMPLETED DATE/TIME: 01/10/2018 7:51 pm REASON FOR STUDY: fever COMPARISON: 12/21/2017 EXAM PARAMETERS: NUMBER OF VIEWS: two views TECHNIQUE: Digital Frontal and Lateral radiographic views of the chest acquired. RADIATION DOSE: NA LIMITATIONS: none FINDINGS: LUNGS AND PLEURA: No opacities, masses or pneumothorax. No pleural effusion. MEDIASTINUM AND HILAR STRUCTURES: No masses or contour abnormalities. HEART AND VASCULAR STRUCTURES: Heart normal size. No evidence for failure. BONES: No acute findings. HARDWARE: None in the chest. OTHER: No other significant finding. IMPRESSION: NO ACUTE RADIOGRAPHIC FINDING IN THE CHEST. TECHNICAL DOCUMENTATION: JOB ID: [id number] [employer]- All Rights Reserved Reading location - IP/workstation name: [email or web address]
[2018-01-10 20:06] LABS: ALANINE AMINOTRANSFERASE 115 U/L (21-72); ALBUMIN 3.8 g/dL (3.5-5.0); ALKALINE PHOSPHATASE 210 U/L (38-126); ANION GAP 13 (5-19); ASPARTATE AMINO TRANSFERASE 141 U/L (17-59); BILIRUBIN,DIRECT 0.3 mg/dL (0.0-0.4); BILIRUBIN,TOTAL 0.5 mg/dL (0.2-1.3); BLOOD UREA NITROGEN 14 mg/dL (7-20); CALCIUM 9.4 mg/dL (8.4-10.2); CARBON DIOXIDE 28 mmol/L (22-30); CHLORIDE 102 mmol/L (98-107); GLUCOSE 105 mg/dL (75-110); POTASSIUM 4.9 mmol/L (3.6-5.0); SODIUM 142.5 mmol/L (137-145); TOTAL PROTEIN 6.2 g/dL (6.3-8.2)
--- NOTE | 2018-01-10 20:06 | ER Document Report ---
ED General - General Chief Complaint: Headache Stated Complaint: HEADACHES,FEVER,DIARRHEA,NAUSEA Time Seen by Provider: 01/10/18 19:02 Mode of Arrival: Ambulatory Information source: Patient Notes: Patient is a 47-year-old male who presents with chief complaint of nausea, diarrhea, headaches and fevers. Patient reports he has had a headache intermittently for the last 10 days with accompanying fever. Patient states that every day for about the last 10 days his fevers have been as high as 101. Patient states he started having diarrhea approximately 3 days ago states that he is having 10-15 episodes per day. Patient reports that he took 4 tablets of Imodium today which has made the diarrhea ease off. Currently patient reports a headache 6 out of 10 and states it is throbbing all over. Patient denies any neck pain. Patient states that he decided to come to the emergency department today because his fever got as high as 102. He also reports that he was seen earlier today here also for a pulmonary function test and states that at that time he was feeling okay. Patient reports past medical history of A. fib, HLD, hypertension, heart murmur, pneumonia, intubations, and respiratory failure. Patient reports past surgical history of cholecystectomy and gastric bypass. TRAVEL OUTSIDE OF THE [place] IN LAST 30 DAYS: No - Related Data Allergies/Adverse Reactions: No Known Allergies Allergy (Verified 01/10/18 19:04) Past Medical History - General Information source: Patient - Social History Smoking Status: Never Smoker Chew tobacco use (# tins/day): No Frequency of alcohol use: None Drug Abuse: None Family History: DM, Hypertension, Malignancy Patient has suicidal ideation: No Patient has homicidal ideation: No - Past Medical History Cardiac Medical History: Reports: Hx Atrial Fibrillation, Hx Hypercholesterolemia, Hx Hypertension, Hx Heart Murmur - Mitral regurgitation on recent echocardiogram Denies: Hx Congestive Heart Failure, Hx Coronary Artery Disease Pulmonary Medical History: Reports: Hx Pneumonia - aspiration, Hx Intubation, Hx Respiratory Failure, Hx Sleep Apnea Renal/ Medical History: Denies: Hx Peritoneal Dialysis Psychiatric Medical History: Reports: Hx Anxiety, Hx Depression, Hx Post Traumatic Stress Disorder Past Surgical History: Reports: Hx Abdominal Surgery - GBP, Hx Cholecystectomy, Hx Gastric Bypass Surgery, Hx Nose Surgery, Hx Orthopedic Surgery - ACL, Hx Tonsillectomy - Immunizations Immunizations up to date: Yes Hx Diphtheria, Pertussis, Tetanus Vaccination: No Review of Systems - Review of Systems Constitutional: See HPI EENT: No symptoms reported Cardiovascular: No symptoms reported Respiratory: Cough Gastrointestinal: See HPI Genitourinary: No symptoms reported Male Genitourinary: No symptoms reported Musculoskeletal: No symptoms reported Skin: No symptoms reported Hematologic/Lymphatic: No symptoms reported Neurological/Psychological: No symptoms reported Physical Exam - Vital signs Vitals: Temp Pulse Resp BP Pulse Ox 103.0 F H 115 H 22 H 168/87 H 97 01/10/18 18:41 01/10/18 18:41 01/10/18 18:41 01/10/18 18:41 01/10/18 18:41 - Notes Notes: PHYSICAL EXAMINATION: GENERAL: Well-appearing, well-nourished and in no acute distress. HEAD: Atraumatic, normocephalic. EYES: Pupils equal round and reactive to light, extraocular movements intact, conjunctiva are normal. ENT: Nares patent, oropharynx clear without exudates. Moist mucous membranes. NECK: Normal range of motion, supple without lymphadenopathy LUNGS: Breath sounds clear to auscultation bilaterally and equal. No wheezes rales or rhonchi. HEART: Regular rate and rhythm. ABDOMEN: Soft, nontender, nondistended abdomen. No guarding, no rebound. No masses appreciated. Musculoskeletal: Normal range of motion, no pitting or edema. No cyanosis. NEUROLOGICAL: Cranial nerves grossly intact. Normal speech, normal gait. Normal sensory, motor exams PSYCH: Normal mood, normal affect. SKIN: Warm, Dry, normal turgor, no rashes or lesions noted. Course - Re-evaluation Re-evalutation: 47-year-old male presents with complaints of headache and fevers 10 days. Patient reports that the headache does go away at home with Tylenol or Motrin. And that the fevers have reached 101 every day for 10 days. Patient reports that the last 3 days he has had diarrhea at least 10-15 episodes per day. Patient reports that this morning he came to also for a pulmonary function test. When patient got home he had a fever of 102 which is what prompted him to present to the emergency department. Patient has had recurrent aspiration pneumonia that is not evident on x-ray, patient states that he typically shows up on his CAT scans. Patient most recently treated for pneumonia approximately 1 month ago with outpatient p.oAmalia Dennison. Initial workup reveals an EKG with a sinus tachycardia [address] segment elevations or depressions are noted. CBC with 12% bands, normal white count. AST/ALT/alk phos are mildly elevated. Lactic acid is not elevated. Chest x- ray is unremarkable, head CT is unremarkable. Patient remains tachycardic during stay with heart rate resting in the 120s. Patient denies any respiratory symptoms. Patient does report that earlier in the day he did have a cough but he attributed that to his pulmonary function tests and possibly overexerting himself. Patient has been and able to provide us with a stool sample at this point. This patient took 4 tablets of Imodium earlier in the day. Consult to Dr. Morejon regarding patient's care, patient remains febrile, tachycardic with bandemia yet we have been unable to narrow down a source. Dr. Morejon recommends to obtain the stool sample as he suspects there may be a GI source. Patient has attempted multiple times to have a bowel movement on the bedside commode however no results. Rectal exam performed to attempt to remove some stool however there is none in the rectum however a enlarged prostate was noted. Consulted Dr. Macdonald, hospitalist who recommends to get a CT of abdomen pelvis to rule out a GI obstruction or fecalith. Patient is updated on the plan of care and agrees to same. Patient's heart rate currently approximately 110 resting patient does remain afebrile this time. Patient has received a total of 3 L of normal saline as well as 1 g of Rocephin for broad- spectrum coverage. CT abdomen pelvis with IV and oral contrast shows bilateral lower lung opacities suggestive of a atypical pneumonia. This is consistent with patient' s history of recurrent aspiration pneumonias. Dr. contreras updated on patient's CT scan results. Dr. Macdonald will come to evaluate the patient. Patient currently normotensive, heart rate 104, respiratory rate 24 and pulse ox ranging between 93-95%. - Vital Signs Vital signs: Temp Pulse Resp BP Pulse Ox 98.5 F 115 H 30 H 120/72 92 01/10/18 22:00 01/10/18 18:41 01/11/18 02:00 01/11/18 01:00 01/11/18 02:00 - Laboratory Result Diagrams: 01/10/18 19:15 01/10/18 19:15 Laboratory results interpreted by me: 01/10/18 01/10/18 01/10/18 19:15 19:15 19:51 Hgb 11.7 L Hct 36.5 L MCV 79 L MCH 25.3 L RDW 17.2 H Seg Neuts % (Manual) 79 H Band Neutrophils % 12 H Lymphocytes % (Manual) 1 L Abs Neuts (Manual) 9.4 H Abs Lymphs (Manual) 0.2 L POC Glucose 115 H AST 141 H ALT 115 H Alkaline Phosphatase 210 H Total Protein 6.2 L Urine Protein Urine Urobilinogen Urine Ascorbic Acid 01/10/18 21:06 Hgb Hct MCV MCH RDW Seg Neuts % (Manual) Band Neutrophils % Lymphocytes % (Manual) Abs Neuts (Manual) Abs Lymphs (Manual) POC Glucose AST ALT Alkaline Phosphatase Total Protein Urine Protein 30 H Urine Urobilinogen 4.0 H Urine Ascorbic Acid 40 H Discharge - Discharge Clinical Impression: Bandemia Fever Qualifiers: Fever type: unspecified Qualified Code(s): R50.9 - Fever, unspecified Pneumonia Qualifiers: Pneumonia type: due to unspecified organism Laterality: bilateral Lung location : lower lobe of lung Qualified Code(s): J18.1 - Lobar pneumonia, unspecified organism Condition: Good Disposition: ADMITTED INPATIENT Admitting Provider: Hospitalist Unit Admitted: Telemetry
[2018-01-10 20:10] LABS: ABSOLUTE LYMPHOCYTES# (MANUAL) 0.2 10^3/uL (0.5-4.7); ABSOLUTE MONOCYTES # (MANUAL) 0.6 10^3/uL (0.1-1.4); ABSOLUTE NEUTROPHILS# (MANUAL) 9.4 10^3/uL (1.7-8.2); BASOPHILS % (MANUAL) 0 % (0-2); EOSINOPHILS % (MANUAL) 1 % (0-6); LYMPHOCYTES % (MANUAL) 1 % (13-45); MONOCYTES % (MANUAL) 6 % (3-13); SEGMENTED NEUTROPHILS % (MAN) 79 % (42-78); TOTAL CELLS COUNTED 100
[2018-01-10 20:12] LABS: TOXIC GRANULATION 1+
[2018-01-10 20:13] LABS: ANISOCYTOSIS 1+; OVALOCYTES 1+; PLATELET COMMENT ADEQUATE; POIKILOCYTOSIS 1+; POLYCHROMASIA SLIGHT
[2018-01-10 20:14] LABS: BAND NEUTROPHILS % (MANUAL) 12 % (3-5)
[2018-01-10] MEDS ORDERED: CEFTRIAXONE INJ 1000 MG VIAL IV ONE (20:52)
[2018-01-10] MEDS ORDERED: ACETAMINOPHEN 325 MG TABLET PO ONE (20:53)
[2018-01-10 21:38] LABS: APPEARANCE,URINE SLIGHTLY-CLOUDY; BILIRUBIN,URINE NEGATIVE (NEGATIVE); GLUCOSE, URINE NEGATIVE (NEGATIVE); KETONES,URINE NEGATIVE (NEGATIVE); LEUKOCYTE ESTERASE,URINE NEGATIVE (NEGATIVE); NITRITE,URINE NEGATIVE (NEGATIVE); PROTEIN,URINE 30 mg/dL (NEGATIVE); URINE SPECIFIC GRAVITY 1.027
[2018-01-10 21:39] LABS: COLOR,URINE YELLOW
[2018-01-11] MEDS ORDERED: NORMAL SALINE 1000 ML 1,000 ML IV ONE (00:35)
--- NOTE | 2018-01-11 02:44 | RADIOLOGY REPORT (SQ) ---
EXAM DESCRIPTION: CT abdomen pelvis with IV contrast CLINICAL HISTORY: 47 years Male, fever, bandemia, abd pain COMPARISON: CR, January 10, 2018. TECHNIQUE: IV contrast. Coronal and sagittal reformat. This exam was performed according to our departmental dose-optimization program, which includes automated exposure control, adjustment of the mA and/or kV according to patient size and/or use of iterative reconstruction technique. FINDINGS: Mild scattered reticular nodularity of the visualized lower lung katz. Gastric suture, mild perinephric fat stranding, likely benign bilateral renal cysts, cholecystectomy clips, [id number] anterior vertebral compression deformity between the T8 and T11 levels with moderate diffuse kyphosis at the lower thoracic levels. Liver, pancreas, spleen, adrenals, renal system, gastrointestinal tract, pelvic organs, lymphatics, vasculature, and musculoskeleton appear otherwise unremarkable. IMPRESSION: 1. Mild scattered reticulonodular opacity of lower lung katz suggest atypical pneumonitis and/or chronic interstitial lung disease. 2. No acute abdominal or pelvic findings.
[2018-01-11] MEDS ORDERED: LACTULOSE SYRUP 20 GM/30 ML UDCUP PO ONE (02:53)
[2018-01-11] MEDS ORDERED: SODIUM POLYSTYRENE SULFONATE 15 GM/60 ML PO ONE (02:58)
[2018-01-11] MEDS ORDERED: VANCOMYCIN HCL 1,500 MG in DEXTROSE 5%-WATER 250 ML IV ONE (03:02)
[2018-01-11] MEDS ORDERED: IPRATROPIUM/ALBUTEROL 0.5-2.5 MG/3 ML AMPUL NEB PRN (03:03)
[2018-01-11] MEDS ORDERED: PIPERACILLIN SODIUM/TAZOBACTAM 4.5 GM in NORMAL SALINE 100 ML IV ONE (03:15)
[2018-01-11] MEDS ORDERED: PIPERACILLIN SODIUM/TAZOBACTAM 4.5 GM in NORMAL SALINE 100 ML IV SCH (03:15)
[2018-01-11] MEDS ORDERED: VANCOMYCIN HCL 0 MG in DEXTROSE 5%-WATER 250 ML IV NR (03:15)
[2018-01-11] MEDS ORDERED: METOPROLOL TARTRATE PF/INJ 5 MG/5 ML SDV IV ONE (03:16)
--- NOTE | 2018-01-11 03:27 | PDOC H&P ---
History of Present Illness Patient complains of: Shortness of breath and fever History of Present Illness: CHARY HUSTON is a 47 year old male with a past medical history of major depression, diabetes, recurrent pneumonia, previously responsive to empiric Zosyn, azithromycin and vancomycin. Admission of August 2017 for pneumonia evolved to ARDS requiring intubation and transfer to tertiary care. Patient presents with 10 days of low-grade fever, shortness of breath nonproductive cough and diarrhea. Patient denies sore throat, rhinorrhea, acid reflux or recent antibiotics or infectious contacts. 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 Otherwise denies recent change in medications. In the emergency room is found to have bandemia and bilateral lower lobe infiltrate on CT. He is referred to the hospitalist for admission. Past Medical History Cardiac Medical History: Reports: Atrial Fibrillation, Hyperlipidema, Hypertension, Heart Murmur - Mitral regurgitation on recent echocardiogram Denies: Congestive Heart Failure, Coronary Artery Disease Pulmonary Medical History: Reports: Intubation, Pneumonia - Atypical, Respiratory Failure, Sleep Apnea, Other - ARDS Psychiatric Medical History: Reports: Depression, Post Traumatic Stress Disorder Past Surgical History Past Surgical History: Reports: Cholecystectomy, Gastric Bypass Surgery, Orthopedic Surgery - ACL, Tonsillectomy Social History Information Source: Patient, H Records Smoking Status: Never Smoker Frequency of Alcohol Use: None Hx Recreational Drug Use: No Drugs: None Hx Prescription Drug Abuse: No - Advance Directive Resuscitation Status: Full Code Family History Family History: DM, Hypertension, Malignancy Parental Family History Reviewed: Yes Children Family History Reviewed: Yes Sibling(s) Family History Reviewed.: Yes Medication/Allergy Home Medications: Aspirin [Aspirin 325 mg Tablet] 325 mg PO DAILY 08/22/17 Citalopram Hydrobromide [Celexa 40 mg Tablet] 1 tab PO DAILY 08/22/17 Lisinopril [Prinivil 40 mg Tablet] 40 mg PO DAILY 08/22/17 Azithromycin 250 mg PO ASDIR PRN #6 tablet 10/15/17 Metoprolol Tartrate 50 mg PO DAILY 30 Days #30 tablet 10/30/17 Levofloxacin 500 mg PO DAILY #7 tablet 12/12/17 Prednisone [Deltasone] 60 mg PO DAILY #15 tablet 12/12/17 Benzonatate [Tessalon Perle 100 mg Capsule] 100 mg PO Q8HP PRN #15 cap 12/22/17 Allergies/Adverse Reactions: No Known Allergies Allergy (Verified 01/10/18 19:04) Review of Systems Constitutional: ABSENT: chills, fever(s), headache(s), weight gain, weight loss Eyes: ABSENT: visual disturbances Ears: ABSENT: hearing changes Cardiovascular: ABSENT: chest pain, dyspnea on exertion, edema, orthropnea, palpitations Respiratory: ABSENT: cough, hemoptysis Gastrointestinal: ABSENT: abdominal pain, constipation, diarrhea, hematemesis, hematochezia, nausea, vomiting Genitourinary: ABSENT: dysuria, hematuria Musculoskeletal: ABSENT: joint swelling Integumentary: ABSENT: rash, wounds Neurological: ABSENT: abnormal gait, abnormal speech, confusion, dizziness, focal weakness, syncope Psychiatric: ABSENT: anxiety, depression, homidical ideation, suicidal ideation Endocrine: ABSENT: cold intolerance, heat intolerance, polydipsia, polyuria Hematologic/Lymphatic: ABSENT: easy bleeding, easy bruising Physical Exam Vital Signs: Temp Pulse Resp BP Pulse Ox 98.5 F 115 H 30 H 120/72 92 01/10/18 22:00 01/10/18 18:41 01/11/18 02:00 01/11/18 01:00 01/11/18 02:00 Intake & Output 01/09/18 01/10/18 01/11/18 11:59 11:59 11:59 Weight 121 kg General appearance: PRESENT: cooperative, mild distress, morbidly obese Head exam: PRESENT: atraumatic, normocephalic Eye exam: PRESENT: conjunctiva pink, EOMI, PERRLA. ABSENT: scleral icterus Ear exam: PRESENT: normal external ear exam Mouth exam: PRESENT: moist, tongue midline Neck exam: ABSENT: carotid bruit, JVD, lymphadenopathy, thyromegaly Respiratory exam: PRESENT: crackles, rales, retraction, tachypnea. ABSENT: rhonchi, wheezes Cardiovascular exam: PRESENT: gallop, RRR. ABSENT: diastolic murmur, rubs, systolic murmur Pulses: PRESENT: normal dorsalis pedis pul Vascular exam: PRESENT: normal capillary refill GI/Abdominal exam: PRESENT: normal bowel sounds, soft. ABSENT: distended, guarding, mass, organolmegaly, rebound, tenderness Rectal exam: PRESENT: deferred Extremities exam: PRESENT: full ROM. ABSENT: calf tenderness, clubbing, pedal edema Neurological exam: PRESENT: alert, awake, oriented to person, oriented to place , oriented to time, oriented to situation, CN II-XII grossly intact. ABSENT: motor sensory deficit Psychiatric exam: PRESENT: appropriate affect, normal mood. ABSENT: homicidal ideation, suicidal ideation Skin exam: PRESENT: dry, intact, warm. ABSENT: cyanosis, rash Results Laboratory Results: 01/10/18 19:15 01/10/18 19:15 01/10/18 01/10/18 01/10/18 19:15 19:15 19:15 WBC 10.3 RBC 4.60 Hgb 11.7 L Hct 36.5 L MCV 79 L MCH 25.3 L MCHC 32.0 RDW 17.2 H Plt Count 275 Seg Neutrophils % Not Reportable Lymphocytes % Not Reportable Monocytes % Not Reportable Eosinophils % Not Reportable Basophils % Not Reportable Absolute Neutrophils Not Reportable Absolute Lymphocytes Not Reportable Absolute Monocytes Not Reportable Absolute Eosinophils Not Reportable Absolute Basophils Not Reportable VBG pH VBG pCO2 VBG HCO3 VBG Base Excess Sodium 142.5 Potassium 4.9 Chloride 102 Carbon Dioxide 28 Anion Gap 13 BUN 14 Creatinine 0.96 Est GFR ( Amer) > 60 Est GFR (Non-Af Amer) > 60 Glucose 105 Lactic Acid 1.5 Calcium 9.4 Total Bilirubin 0.5 AST 141 H ALT 115 H Alkaline Phosphatase 210 H Total Protein 6.2 L Albumin 3.8 Urine Color Urine Appearance Urine pH Ur Specific Hunt Urine Protein Urine Glucose (UA) Urine Ketones Urine Blood Urine Nitrite Ur Leukocyte Esterase Urine WBC (Auto) Urine RBC (Auto) 01/10/18 01/10/18 19:15 21:06 WBC RBC Hgb Hct MCV MCH MCHC RDW Plt Count Seg Neutrophils % Lymphocytes % Monocytes % Eosinophils % Basophils % Absolute Neutrophils Absolute Lymphocytes Absolute Monocytes Absolute Eosinophils Absolute Basophils VBG pH 7.36 VBG pCO2 52.1 VBG HCO3 28.9 VBG Base Excess 2.6 Sodium Potassium Chloride Carbon Dioxide Anion Gap BUN Creatinine Est GFR ( Amer) Est GFR (Non-Af Amer) Glucose Lactic Acid Calcium Total Bilirubin AST ALT Alkaline Phosphatase Total Protein Albumin Urine Color YELLOW Urine Appearance SLIGHTLY-CLOUDY Urine pH 5.0 Ur Specific Hunt 1.027 Urine Protein 30 H Urine Glucose (UA) NEGATIVE Urine Ketones NEGATIVE Urine Blood NEGATIVE Urine Nitrite NEGATIVE Ur Leukocyte Esterase NEGATIVE Urine WBC (Auto) 3 Urine RBC (Auto) 2 01/10/18 19:15 Troponin I < 0.012 Impressions: Chest X-Ray 01/10/18 19:07 IMPRESSION: NO ACUTE RADIOGRAPHIC FINDING IN THE CHEST. Head CT 01/10/18 19:07 IMPRESSION: NORMAL BRAIN CT WITHOUT CONTRAST. EVIDENCE OF ACUTE STROKE: NO. Abdomen/Pelvis CT 01/11/18 00:00 IMPRESSION: 1. Mild scattered reticulonodular opacity of lower lung katz suggest atypical pneumonitis and/or chronic interstitial lung disease. 2. No acute abdominal or pelvic findings. Assessment & Plan - Diagnosis (1) Pneumonia Qualifiers: Pneumonia type: due to unspecified organism Laterality: bilateral Lung location: lower lobe of lung Qualified Code(s): J18.1 - Lobar pneumonia, unspecified organism Is this a current diagnosis for this admission?: Yes Plan: Recurrent pneumonia of unknown etiology. Formally responsive to empiric vancomycin, azithromycin and Zosyn. Pulmonology consult. Follow-up CBC and blood culture (2) Sepsis Qualifiers: Sepsis type: sepsis due to unspecified organism Qualified Code(s): A41.9 - Sepsis, unspecified organism Is this a current diagnosis for this admission?: Yes Plan: Correction of #1, IV fluid challenge, consider steroids and pressors. (3) Tachycardia Is this a current diagnosis for this admission?: Yes Plan: Lopressor p.o. and IV given history of paroxysmal A. fib - Time Time Spent: 50 to 70 Minutes - Inpatient Certification Medical Necessity: Need Close Monitoring Due to Risk of Patient Decompensation
[2018-01-11] MEDS ORDERED: PIPERACILLIN/TAZOBACTAM 3.375 GM VIAL IV ONE (03:29)
[2018-01-11] MEDS ORDERED: PIPERACILLIN/TAZOBACTAM 4.5 GM VIAL IV ONE (03:36)
[2018-01-11] MEDS ORDERED: AZITHROMYCIN 500 MG in DEXTROSE 5%-WATER 250 ML IV SCH (04:00)
[2018-01-11] MEDS ORDERED: AZITHROMYCIN 500 MG in DEXTROSE 5%-WATER 250 ML IV ONE (04:00)
[2018-01-11 04:52] LABS: ALANINE AMINOTRANSFERASE 86 U/L (21-72); ALBUMIN 3.1 g/dL (3.5-5.0); ALKALINE PHOSPHATASE 173 U/L (38-126); ANION GAP 12 (5-19); ASPARTATE AMINO TRANSFERASE 71 U/L (17-59); BILIRUBIN,DIRECT 0.3 mg/dL (0.0-0.4); BILIRUBIN,TOTAL 0.7 mg/dL (0.2-1.3); BLOOD UREA NITROGEN 13 mg/dL (7-20); CALCIUM 8.3 mg/dL (8.4-10.2); CARBON DIOXIDE 23 mmol/L (22-30); CHLORIDE 107 mmol/L (98-107); GLUCOSE 121 mg/dL (75-110); SODIUM 141.6 mmol/L (137-145); TOTAL PROTEIN 5.4 g/dL (6.3-8.2)
[2018-01-11] MEDS: HEPARIN SOD (PORCINE) 5,000 UNIT/ML 1 ML SYRINGE SUBCUT SCH ×3 (07:06→21:43)
--- NOTE | 2018-01-11 07:30 | EKG REPORT ---
SEVERITY:- BORDERLINE ECG - SINUS TACHYCARDIA BORDERLINE T ABNORMALITIES, INFERIOR LEADS : Confirmed by: Rashaun Negron MD 11-Jan-2018 07:29:25
[2018-01-11] MEDS: LEVALBUTEROL HCL NEB 1.25 MG/3 ML AMPUL NEB SCH ×3 (08:07→19:26)
[2018-01-11] MEDS: CITALOPRAM HYDROBROMIDE 20 MG TABLET PO SCH (09:43)
[2018-01-11] MEDS: METOPROLOL TARTRATE 50 MG TABLET PO SCH (09:43)
[2018-01-11] MEDS: ASPIRIN 325 MG TABLET PO SCH (09:43)
[2018-01-11] MEDS: AZITHROMYCIN 500 MG in DEXTROSE 5%-WATER 250 ML IV SCH (09:43)
[2018-01-11 09:52] LABS: PATH REVIEW PATHOLOGIST REVIEWED
[2018-01-11] MEDS ORDERED: (PENDING PHARMACY ID) (Citalopram Hydrobromide [Celexa 40 Mg Tablet] 1 TAB) PO SCH (10:00)
[2018-01-11] MEDS: PIPERACILLIN SODIUM/TAZOBACTAM 4.5 GM in NORMAL SALINE 100 ML IV SCH ×3 (11:38→23:19)
[2018-01-11] MEDS: VANCOMYCIN HCL 1,250 MG in DEXTROSE 5%-WATER 250 ML IV SCH (15:08)
--- NOTE | 2018-01-11 17:33 | PDOC PROGRESS REPORT ---
Subjective Progress Note for:: 01/11/18 Subjective:: The patient is a 47-year-old male with past medical history of major depression , diabetes, recurrent pneumonia, with ARDS requiring intubation and transfer to tertiary care facility in August 2017 who was admitted on 01/11/18 for bilateral lower lobe pneumonia. The patient is seen on morning rounds. He is found resting in bed comfortably on supplemental oxygen via nasal cannula. He states that he is feeling much better today. He does report continued dyspnea on exertion and a productive cough. He reports intermittent chest pain associated with cough. He denies further occurrences of abdominal pain; stating that his pain is improved following large bowel movements overnight. He has no new questions or concerns at this time. Reason For Visit: PNEUMONIA Physical Exam Vital Signs: Temp Pulse Resp BP Pulse Ox 98.1 F 83 16 102/60 97 01/11/18 15:49 01/11/18 15:49 01/11/18 15:49 01/11/18 15:49 01/11/18 15:49 Intake & Output 01/10/18 01/11/18 01/12/18 06:59 06:59 06:59 Intake Total 350 Balance 350 General appearance: PRESENT: no acute distress, obese, well-developed, well- nourished Head exam: PRESENT: atraumatic, normocephalic Eye exam: PRESENT: conjunctiva pink, EOMI, PERRLA. ABSENT: scleral icterus Ear exam: PRESENT: normal external ear exam Mouth exam: PRESENT: moist, tongue midline Neck exam: ABSENT: carotid bruit, JVD, lymphadenopathy, thyromegaly Respiratory exam: PRESENT: rhonchi, symmetrical, tachypnea. ABSENT: rales, wheezes Cardiovascular exam: PRESENT: RRR, +S1, +S2. ABSENT: diastolic murmur, rubs, systolic murmur, tachycardia Pulses: PRESENT: normal dorsalis pedis pul Vascular exam: PRESENT: normal capillary refill GI/Abdominal exam: PRESENT: normal bowel sounds, soft. ABSENT: distended, guarding, mass, organolmegaly, rebound, tenderness Rectal exam: PRESENT: deferred Extremities exam: PRESENT: full ROM. ABSENT: calf tenderness, clubbing, pedal edema Neurological exam: PRESENT: alert, awake, oriented to person, oriented to place , oriented to time, oriented to situation, CN II-XII grossly intact. ABSENT: motor sensory deficit Psychiatric exam: PRESENT: appropriate affect, normal mood. ABSENT: homicidal ideation, suicidal ideation Skin exam: PRESENT: dry, intact, warm. ABSENT: cyanosis, rash Results Laboratory Results: 01/11/18 04:15 01/11/18 04:15 Sodium 141.6 Potassium 4.0 Chloride 107 Carbon Dioxide 23 Anion Gap 12 BUN 13 Creatinine 0.81 Est GFR ( Amer) > 60 Est GFR (Non-Af Amer) > 60 Glucose 121 H Calcium 8.3 L Total Bilirubin 0.7 AST 71 H ALT 86 H Alkaline Phosphatase 173 H Total Protein 5.4 L Albumin 3.1 L Impressions: Chest X-Ray 01/10/18 19:07 IMPRESSION: NO ACUTE RADIOGRAPHIC FINDING IN THE CHEST. Head CT 01/10/18 19:07 IMPRESSION: NORMAL BRAIN CT WITHOUT CONTRAST. EVIDENCE OF ACUTE STROKE: NO. Abdomen/Pelvis CT 01/11/18 00:00 IMPRESSION: 1. Mild scattered reticulonodular opacity of lower lung katz suggest atypical pneumonitis and/or chronic interstitial lung disease. 2. No acute abdominal or pelvic findings. Assessment & Plan - Diagnosis (1) Pneumonia Qualifiers: Pneumonia type: due to unspecified organism Laterality: bilateral Lung location: lower lobe of lung Qualified Code(s): J18.1 - Lobar pneumonia, unspecified organism Is this a current diagnosis for this admission?: Yes Plan: Improved; the patient is no longer tachycardic, however, he does continue to require supplemental oxygen to maintain oxygen saturations. Bilateral lower lobe infiltrates noted by CT of the abdomen. Chest x-ray was negative for acute cardiopulmonary findings. Blood cultures: Gram-positive cocci. The patient has been admitted to the medical floor on continuous cardiac telemetry. He is provided supplemental oxygen as needed to maintain oxygen saturations greater than 90%. He has been empirically placed on vancomycin, Zosyn and azithromycin. We will adjust antibiotics as sensitivities result. He is provided scheduled and as needed nebulizer treatments. Pulmonology has been consulted; appreciate Dr. Cali evaluation and recommendations. (2) Sepsis Qualifiers: Sepsis type: sepsis due to unspecified organism Qualified Code(s): A41.9 - Sepsis, unspecified organism Is this a current diagnosis for this admission?: Yes Plan: Sepsis due to unspecified organism, present on admission, evidenced by tachycardia, tachypnea, hypotension, hypoxia on room air, and evidence of pneumonia by CT imaging. Secondary to bilateral pneumonia. Blood cultures and antibiotics as above. Continue IV fluids. (3) Tachycardia Is this a current diagnosis for this admission?: Yes Plan: Resolved with IV fluids and resumption of the patient's home medication metoprolol. Secondary to sepsis and pneumonia. (4) Hypertension Is this a current diagnosis for this admission?: Yes Plan: The patient has actually been hypotensive since admission. Metoprolol was continued secondary to tachycardia with history of PAF. He is receiving IV fluids. Holding lisinopril; will reinitiate if blood pressures require. - Time Time Spent with patient: 15-24 minutes Medications reviewed and adjusted accordingly: Yes
[2018-01-11] MEDS: ATORVASTATIN CALCIUM 40 MG TABLET PO SCH (21:43)
[2018-01-12] MEDS: VANCOMYCIN HCL 1,250 MG in DEXTROSE 5%-WATER 250 ML IV SCH ×4 (00:01→23:56)
[2018-01-12] MEDS: LEVALBUTEROL HCL NEB 1.25 MG/3 ML AMPUL NEB SCH ×4 (01:52→19:46)
[2018-01-12] MEDS: HEPARIN SOD (PORCINE) 5,000 UNIT/ML 1 ML SYRINGE SUBCUT SCH ×3 (05:53→21:43)
[2018-01-12] MEDS: PIPERACILLIN SODIUM/TAZOBACTAM 4.5 GM in NORMAL SALINE 100 ML IV SCH ×4 (05:53→23:56)
[2018-01-12] MEDS: CITALOPRAM HYDROBROMIDE 20 MG TABLET PO SCH (09:03)
[2018-01-12] MEDS: FERROUS SULFATE 325 MG TABLET PO SCH (09:03)
[2018-01-12] MEDS: ASPIRIN 325 MG TABLET PO SCH (09:03)
[2018-01-12] MEDS: AZITHROMYCIN 500 MG in DEXTROSE 5%-WATER 250 ML IV SCH (09:04)
[2018-01-12] MEDS: METOPROLOL TARTRATE 50 MG TABLET PO SCH (09:04)
--- NOTE | 2018-01-12 15:15 | PDOC PROGRESS REPORT ---
Subjective Progress Note for:: 01/12/18 Subjective:: The patient is a 47-year-old male with past medical history of major depression , diabetes, recurrent pneumonia, with ARDS requiring intubation and transfer to tertiary care facility in August 2017 who was admitted on 01/11/18 for bilateral lower lobe pneumonia. The patient is seen on morning rounds. He is found resting in bed comfortably on supplemental oxygen via nasal cannula. He states that he feels even better today; however, he remains dyspneic with minimal exertion. He continues to have a productive cough but denies wheezing. He denies further occurrences of abdominal pain. He has no new questions or concerns at this time. Reason For Visit: PNEUMONIA Physical Exam Vital Signs: Temp Pulse Resp BP Pulse Ox 97.3 F 84 14 119/66 97 01/12/18 12:00 01/12/18 13:50 01/12/18 13:50 01/12/18 12:00 01/12/18 13:50 Intake & Output 01/11/18 01/12/18 01/13/18 06:59 06:59 06:59 Intake Total 4180 Output Total 1800 Balance 2380 Weight 120.9 kg General appearance: PRESENT: no acute distress, cooperative, morbidly obese, well-developed, well-nourished Head exam: PRESENT: atraumatic, normocephalic Eye exam: PRESENT: conjunctiva pink, EOMI, PERRLA. ABSENT: scleral icterus Ear exam: PRESENT: normal external ear exam Mouth exam: PRESENT: moist, tongue midline Neck exam: ABSENT: carotid bruit, JVD, lymphadenopathy, thyromegaly Respiratory exam: PRESENT: rhonchi, symmetrical, unlabored, other - Supplemental oxygen at 2 L/min. ABSENT: rales, wheezes Cardiovascular exam: PRESENT: RRR, +S1, +S2. ABSENT: diastolic murmur, rubs, systolic murmur Pulses: PRESENT: normal dorsalis pedis pul Vascular exam: PRESENT: normal capillary refill GI/Abdominal exam: PRESENT: normal bowel sounds, soft. ABSENT: distended, guarding, mass, organolmegaly, rebound, tenderness Rectal exam: PRESENT: deferred Extremities exam: PRESENT: full ROM. ABSENT: calf tenderness, clubbing, pedal edema Neurological exam: PRESENT: alert, awake, oriented to person, oriented to place , oriented to time, oriented to situation, CN II-XII grossly intact. ABSENT: motor sensory deficit Psychiatric exam: PRESENT: appropriate affect, normal mood. ABSENT: homicidal ideation, suicidal ideation Skin exam: PRESENT: dry, intact, warm. ABSENT: cyanosis, rash Results Laboratory Results: 01/11/18 04:15 Impressions: Chest X-Ray 01/10/18 19:07 IMPRESSION: NO ACUTE RADIOGRAPHIC FINDING IN THE CHEST. Head CT 01/10/18 19:07 IMPRESSION: NORMAL BRAIN CT WITHOUT CONTRAST. EVIDENCE OF ACUTE STROKE: NO. Abdomen/Pelvis CT 01/11/18 00:00 IMPRESSION: 1. Mild scattered reticulonodular opacity of lower lung katz suggest atypical pneumonitis and/or chronic interstitial lung disease. 2. No acute abdominal or pelvic findings. Assessment & Plan - Diagnosis (1) Pneumonia Qualifiers: Pneumonia type: due to unspecified organism Laterality: bilateral Lung location: lower lobe of lung Qualified Code(s): J18.1 - Lobar pneumonia, unspecified organism Is this a current diagnosis for this admission?: Yes Plan: Continued improvements; the patient is no longer tachycardic, however, he does continue to require supplemental oxygen to maintain oxygen saturations. Bilateral lower lobe infiltrates noted by CT of the abdomen. Chest x-ray was negative for acute cardiopulmonary findings. Blood cultures (1 set): Gram-positive cocci. Sputum culture: No growth at 1 day (obtained after initiation of antibiotics). The patient has been admitted to the medical floor on continuous cardiac telemetry. He is provided supplemental oxygen as needed to maintain oxygen saturations greater than 90%. He has been empirically placed on vancomycin, Zosyn and azithromycin. We will adjust antibiotics as sensitivities result. He is provided scheduled and as needed nebulizer treatments. Mucinex twice daily. Incentive spirometry at bedside. Pulmonology has been consulted; appreciate Dr. Cali evaluation and recommendations. (2) Sepsis Qualifiers: Sepsis type: sepsis due to unspecified organism Qualified Code(s): A41.9 - Sepsis, unspecified organism Is this a current diagnosis for this admission?: Yes Plan: Improved; the patient is no longer tachycardic, tachypneic, or hypotensive. Secondary to bilateral pneumonia. Blood cultures and antibiotics as above. Continue IV fluids. (3) Tachycardia Is this a current diagnosis for this admission?: Yes Plan: Resolved with IV fluids and resumption of the patient's home medication metoprolol. Secondary to sepsis and pneumonia. (4) Hypertension Is this a current diagnosis for this admission?: Yes Plan: The patient has actually been hypotensive since admission. Metoprolol was continued secondary to tachycardia with history of PAF. He is receiving IV fluids. Holding lisinopril; will reinitiate if blood pressures require. (5) Salmonella Is this a current diagnosis for this admission?: Yes Plan: The patient was admitted with abdominal pain and report of loose stools; now resolved. CT of the abdomen was negative for acute abdominal or pelvic findings. Preliminary stool culture is positive for Salmonella species. The patient is receiving IV azithromycin; will adjust as culture for the results. (6) Abdominal pain Qualifiers: Abdominal location: generalized Qualified Code(s): R10.84 - Generalized abdominal pain Is this a current diagnosis for this admission?: Yes Plan: Resolved; patient presented to the emergency department with complaint abdominal pain and loose stools. CT of the abdomen was benign. Stool culture and antibiotics as above. - Time Time Spent with patient: 15-24 minutes Medications reviewed and adjusted accordingly: Yes Anticipated discharge: Home Within: within 48 hours - Inpatient Certification Based on my medical assessment, after consideration of the patient's comorbidities, presenting symptoms, or acuity I expect that the services needed warrant INPATIENT care.: Yes I certify that my determination is in accordance with my understanding of Medicare's requirements for reasonable and necessary INPATIENT services [42 CFR 412.3e].: Yes Medical Necessity: Need For IV Fluids, Need for IV Antibiotics
[2018-01-12] MEDS: GUAIFENESIN 600 MG TABLET.SA PO SCH (21:43)
[2018-01-12] MEDS: ATORVASTATIN CALCIUM 40 MG TABLET PO SCH (21:43)
[2018-01-12] MEDS: ACETAMINOPHEN 325 MG TABLET PO PRN (23:56)
[2018-01-13] MEDS: LEVALBUTEROL HCL NEB 1.25 MG/3 ML AMPUL NEB SCH ×4 (02:13→20:25)
[2018-01-13] MEDS: ACETAMINOPHEN 325 MG TABLET PO PRN (03:56)
[2018-01-13] MEDS: HEPARIN SOD (PORCINE) 5,000 UNIT/ML 1 ML SYRINGE SUBCUT SCH ×3 (06:29→22:00)
[2018-01-13] MEDS: PIPERACILLIN SODIUM/TAZOBACTAM 4.5 GM in NORMAL SALINE 100 ML IV SCH ×4 (06:29→23:21)
[2018-01-13 08:23] LABS: ABSOLUTE EOSINOPHILS # (AUTO) 0.4 10^3/uL (0.0-0.6); ABSOLUTE LYMPHOCYTES (AUTO) 0.6 10^3/uL (0.5-4.7); ABSOLUTE MONOCYTES (AUTO) 0.4 10^3/uL (0.1-1.4); ABSOLUTE NEUT (AUTO) 3.8 10^3/uL (1.7-8.2); BASOPHILS % (AUTO) 0.4 % (0-2); EOSINOPHILS % (AUTO) 6.9 % (0-6); HEMATOCRIT 30.1 % (37.9-51.0); LYMPHOCYTES % (AUTO) 11.4 % (13-45); MEAN CORPUSCULAR HEMOGLOBIN 25.3 pg (27.0-33.4); MEAN CORPUSCULAR HGB CONC 31.9 g/dL (32.0-36.0); MEAN CORPUSCULAR VOLUME 79 fl (80-97); PLATELET COUNT 204 10^3/uL (150-450); RED BLOOD COUNT 3.79 10^6/uL (4.35-5.55); RED CELL DISTRIBUTION WIDTH 16.6 % (11.5-14.0); SEGMENTED NEUTROPHILS % (AUTO) 73.3 % (42-78); TOTAL CELLS COUNTED % (AUTO) 100 %; WHITE BLOOD COUNT 5.2 10^3/uL (4.0-10.5)
[2018-01-13 08:37] LABS: ALANINE AMINOTRANSFERASE 44 U/L (21-72); ALBUMIN 2.7 g/dL (3.5-5.0); ALKALINE PHOSPHATASE 105 U/L (38-126); ANION GAP 9 (5-19); ASPARTATE AMINO TRANSFERASE 23 U/L (17-59); BILIRUBIN,DIRECT 0.2 mg/dL (0.0-0.4); BILIRUBIN,TOTAL 0.4 mg/dL (0.2-1.3); BLOOD UREA NITROGEN 11 mg/dL (7-20); CALCIUM 8.6 mg/dL (8.4-10.2); CARBON DIOXIDE 28 mmol/L (22-30); CHLORIDE 105 mmol/L (98-107); GLUCOSE 104 mg/dL (75-110); POTASSIUM 4.4 mmol/L (3.6-5.0); SODIUM 142.3 mmol/L (137-145); TOTAL PROTEIN 4.9 g/dL (6.3-8.2)
[2018-01-13] MEDS: ASPIRIN 325 MG TABLET PO SCH (08:42)
[2018-01-13] MEDS: VANCOMYCIN HCL 1,250 MG in DEXTROSE 5%-WATER 250 ML IV SCH ×3 (08:42→23:21)
[2018-01-13] MEDS: GUAIFENESIN 600 MG TABLET.SA PO SCH ×2 (08:43→22:00)
[2018-01-13] MEDS: FERROUS SULFATE 325 MG TABLET PO SCH (08:43)
[2018-01-13] MEDS: CITALOPRAM HYDROBROMIDE 20 MG TABLET PO SCH (08:43)
[2018-01-13] MEDS: METOPROLOL TARTRATE 50 MG TABLET PO SCH (08:44)
[2018-01-13 08:47] LABS: HEMOGLOBIN 9.6 g/dL (13.5-17.0)
[2018-01-13 08:49] LABS: ANISOCYTOSIS 1+; HYPOCHROMASIA SLIGHT; OVALOCYTES 1+; PLATELET COMMENT ADEQUATE; POIKILOCYTOSIS 1+; POLYCHROMASIA SLIGHT
[2018-01-13 08:51] LABS: VANCOMYCIN,TROUGH 12.2 ug/mL (5.0-20.0)
[2018-01-13] MEDS ORDERED: AZITHROMYCIN 250 MG TABLET PO SCH (10:00)
--- NOTE | 2018-01-13 12:50 | PDOC PROGRESS REPORT ---
Subjective Progress Note for:: 01/13/18 Subjective:: The patient is a 47-year-old male with past medical history of major depression , diabetes, recurrent pneumonia, with ARDS requiring intubation and transfer to tertiary care facility in August 2017 who was admitted on 01/11/18 for bilateral lower lobe pneumonia. The patient is seen on morning rounds. He is found resting in bed comfortably on supplemental oxygen via nasal cannula at 1.5 lpm. He states that he is feeling fine today. He denies dyspnea while at rest. He does endorse a nonproductive cough which is improved from yesterday. He he admits that he has not yet been ambulatory. Overall, he reports that he is feeling better. He denies further occurrences of abdominal pain and loose stools. He is aware that his stool culture was positive for Salmonella and does believe that he may have eaten eggs approximately 10 days ago that were from [employer] and may be a part of the current recall. He has no new questions or concerns at this time. Reason For Visit: PNEUMONIA Physical Exam Vital Signs: Temp Pulse Resp BP Pulse Ox 97.3 F 59 L 16 114/60 98 01/13/18 11:13 01/13/18 11:13 01/13/18 11:13 01/13/18 11:13 01/13/18 11:13 Intake & Output 01/12/18 01/13/18 01/14/18 06:59 06:59 06:59 Intake Total 4180 3570 Output Total 1800 2975 Balance 2380 595 Weight 120.9 kg 120.9 kg General appearance: PRESENT: no acute distress, cooperative, obese, well- developed, well-nourished Head exam: PRESENT: atraumatic, normocephalic Eye exam: PRESENT: conjunctiva pink, EOMI, PERRLA. ABSENT: scleral icterus Ear exam: PRESENT: normal external ear exam Mouth exam: PRESENT: moist, tongue midline Neck exam: ABSENT: carotid bruit, JVD, lymphadenopathy, thyromegaly Respiratory exam: PRESENT: clear to auscultation soo, prolonged expiratory phas , symmetrical, unlabored, other - Supplemental oxygen via nasal cannula. ABSENT : rales, rhonchi, wheezes Cardiovascular exam: PRESENT: RRR, +S1, +S2. ABSENT: diastolic murmur, rubs, systolic murmur Pulses: PRESENT: normal dorsalis pedis pul Vascular exam: PRESENT: normal capillary refill GI/Abdominal exam: PRESENT: normal bowel sounds, soft. ABSENT: distended, guarding, mass, organolmegaly, rebound, tenderness Rectal exam: PRESENT: deferred Extremities exam: PRESENT: full ROM. ABSENT: calf tenderness, clubbing, pedal edema Neurological exam: PRESENT: alert, awake, oriented to person, oriented to place , oriented to time, oriented to situation, CN II-XII grossly intact. ABSENT: motor sensory deficit Psychiatric exam: PRESENT: appropriate affect, normal mood. ABSENT: homicidal ideation, suicidal ideation Skin exam: PRESENT: dry, intact, warm. ABSENT: cyanosis, rash Results Laboratory Results: 01/13/18 07:54 01/13/18 07:54 01/13/18 01/13/18 01/13/18 07:54 07:54 07:54 WBC 5.2 RBC 3.79 L Hgb 9.6 L D Hct 30.1 L MCV 79 L MCH 25.3 L MCHC 31.9 L RDW 16.6 H Plt Count 204 Seg Neutrophils % 73.3 Lymphocytes % 11.4 L Monocytes % 8.0 Eosinophils % 6.9 H Basophils % 0.4 Absolute Neutrophils 3.8 Absolute Lymphocytes 0.6 Absolute Monocytes 0.4 Absolute Eosinophils 0.4 Absolute Basophils 0.0 Sodium 142.3 Potassium 4.4 Chloride 105 Carbon Dioxide 28 Anion Gap 9 BUN 11 Creatinine Cancelled 0.73 Est GFR ( Amer) Cancelled > 60 Est GFR (Non-Af Amer) Cancelled > 60 Glucose 104 Calcium 8.6 Total Bilirubin 0.4 AST 23 ALT 44 Alkaline Phosphatase 105 Total Protein 4.9 L Albumin 2.7 L 01/11/18 06:00 Stool - Stool - Final Impressions: Chest X-Ray 01/10/18 19:07 IMPRESSION: NO ACUTE RADIOGRAPHIC FINDING IN THE CHEST. Head CT 01/10/18 19:07 IMPRESSION: NORMAL BRAIN CT WITHOUT CONTRAST. EVIDENCE OF ACUTE STROKE: NO. Abdomen/Pelvis CT 01/11/18 00:00 IMPRESSION: 1. Mild scattered reticulonodular opacity of lower lung katz suggest atypical pneumonitis and/or chronic interstitial lung disease. 2. No acute abdominal or pelvic findings. Assessment & Plan - Diagnosis (1) Pneumonia Qualifiers: Pneumonia type: due to unspecified organism Laterality: bilateral Lung location: lower lobe of lung Qualified Code(s): J18.1 - Lobar pneumonia, unspecified organism Is this a current diagnosis for this admission?: Yes Plan: Steady improvements. Bilateral lower lobe infiltrates noted by CT of the abdomen. Chest x-ray was negative for acute cardiopulmonary findings. Blood cultures (1 set): Streptococcus mitis Sputum culture: Pending The patient has been admitted to the medical floor on continuous cardiac telemetry. He is provided supplemental oxygen as needed to maintain oxygen saturations greater than 90%; currently weaning oxygen and tolerating well. He has been empirically placed on vancomycin, Zosyn and azithromycin. We will adjust antibiotics as sensitivities result. He is provided scheduled and as needed nebulizer treatments. Mucinex twice daily. Incentive spirometry at bedside. Pulmonology has been consulted; appreciate Dr. Cali evaluation and recommendations. (2) Sepsis Qualifiers: Sepsis type: sepsis due to unspecified organism Qualified Code(s): A41.9 - Sepsis, unspecified organism Is this a current diagnosis for this admission?: Yes Plan: Resolved; the patient is no longer tachycardic, tachypneic, or hypotensive. The patient has been afebrile for greater than 48 hours and his WBCs are normal. Secondary to bilateral pneumonia. Blood cultures and antibiotics as above. He received adequate IV fluid resuscitation; discontinuing IV fluids as he is tolerating p.o. well. (3) Tachycardia Is this a current diagnosis for this admission?: Yes Plan: Resolved with IV fluids and resumption of the patient's home medication metoprolol. Secondary to sepsis and pneumonia. (4) Hypertension Is this a current diagnosis for this admission?: Yes Plan: Normotensive at present. Metoprolol was continued secondary to tachycardia with history of PAF. Holding lisinopril; will reinitiate if blood pressures require. (5) Salmonella Is this a current diagnosis for this admission?: Yes Plan: The patient was admitted with abdominal pain and report of loose stools; now resolved. CT of the abdomen was negative for acute abdominal or pelvic findings. Stool culture is positive for Salmonella; sensitive to ampicillin The patient is receiving IV Zosyn; currently day #3 of 7. (6) Abdominal pain Qualifiers: Abdominal location: generalized Qualified Code(s): R10.84 - Generalized abdominal pain Is this a current diagnosis for this admission?: Yes Plan: Resolved; patient presented to the emergency department with complaint abdominal pain and loose stools. CT of the abdomen was benign. Stool culture and antibiotics as above. - Time Time Spent with patient: 25-34 minutes Medications reviewed and adjusted accordingly: Yes Anticipated discharge: Home Within: within 48 hours
[2018-01-13] MEDS: ATORVASTATIN CALCIUM 40 MG TABLET PO SCH (22:00)
[2018-01-14] MEDS: LEVALBUTEROL HCL NEB 1.25 MG/3 ML AMPUL NEB SCH ×2 (02:09→07:59)
[2018-01-14] MEDS: HEPARIN SOD (PORCINE) 5,000 UNIT/ML 1 ML SYRINGE SUBCUT SCH (06:44)
[2018-01-14] MEDS: PIPERACILLIN SODIUM/TAZOBACTAM 4.5 GM in NORMAL SALINE 100 ML IV SCH (06:45)
[2018-01-14 06:49] LABS: ANION GAP 11 (5-19); BLOOD UREA NITROGEN 11 mg/dL (7-20); CALCIUM 8.5 mg/dL (8.4-10.2); CARBON DIOXIDE 26 mmol/L (22-30); CHLORIDE 106 mmol/L (98-107); GLUCOSE 87 mg/dL (75-110); POTASSIUM 4.6 mmol/L (3.6-5.0); SODIUM 142.7 mmol/L (137-145)
[2018-01-14 07:53] LABS: ABSOLUTE EOSINOPHILS # (AUTO) 0.5 10^3/uL (0.0-0.6); ABSOLUTE LYMPHOCYTES (AUTO) 0.6 10^3/uL (0.5-4.7); ABSOLUTE MONOCYTES (AUTO) 0.5 10^3/uL (0.1-1.4); BASOPHILS % (AUTO) 0.5 % (0-2); EOSINOPHILS % (AUTO) 6.7 % (0-6); HEMATOCRIT 32.1 % (37.9-51.0); HEMOGLOBIN 10.4 g/dL (13.5-17.0); LYMPHOCYTES % (AUTO) 9.7 % (13-45); MEAN CORPUSCULAR HEMOGLOBIN 25.3 pg (27.0-33.4); MEAN CORPUSCULAR HGB CONC 32.3 g/dL (32.0-36.0); MEAN CORPUSCULAR VOLUME 78 fl (80-97); MONOCYTES % (AUTO) 7.9 % (3-13); PLATELET COUNT 266 10^3/uL (150-450); RED CELL DISTRIBUTION WIDTH 16.3 % (11.5-14.0); SEGMENTED NEUTROPHILS % (AUTO) 75.2 % (42-78); TOTAL CELLS COUNTED % (AUTO) 100 %; WHITE BLOOD COUNT 6.7 10^3/uL (4.0-10.5)
[2018-01-14 08:10] LABS: ANISOCYTOSIS 1+; HYPOCHROMASIA 1+; OVALOCYTES 1+; PLATELET COMMENT ADEQUATE; POIKILOCYTOSIS 1+; POLYCHROMASIA SLIGHT
[2018-01-14] MEDS: ASPIRIN 325 MG TABLET PO SCH (09:37)
[2018-01-14] MEDS: FERROUS SULFATE 325 MG TABLET PO SCH (09:38)
[2018-01-14] MEDS: GUAIFENESIN 600 MG TABLET.SA PO SCH (09:38)
[2018-01-14] MEDS: METOPROLOL TARTRATE 50 MG TABLET PO SCH (09:38)
[2018-01-14] MEDS: CITALOPRAM HYDROBROMIDE 20 MG TABLET PO SCH (09:38)
[2018-01-14] MEDS ORDERED: LEVOFLOXACIN 750 MG TABLET PO SCH (10:00)
[2018-01-14] MEDS ORDERED: LISINOPRIL 5 MG TABLET PO ONE (12:00)
[2018-01-14 12:22] VITALS: BP 116/43
--- NOTE | 2018-01-14 16:29 | PDOC DISCHARGE SUMMARY ---
General - Admit/Disc Date/PCP Admission Date/Primary Care Provider: 01/11/18 03:13 Discharge Date: 01/14/18 - Discharge Diagnosis (1) Pneumonia Is this a current diagnosis for this admission?: Yes Summary: The patient was admitted with fever, dyspnea and productive cough x10 days. On admission, he was febrile (103.0), tachycardic (115), tachypneic (20), and hypoxic on room air. Chest x-ray was negative for acute cardiopulmonary findings. Bilateral lower lobe infiltrates noted by CT of the abdomen. Blood cultures (1 set): Streptococcus mitis Sputum culture: Normal vane The patient was admitted to the medical floor on continuous cardiac telemetry. He received IV fluid resuscitation and was empirically placed on vancomycin, Zosyn, and azithromycin. He is provided scheduled and as needed nebulizer treatments. The patient steadily improved and oxygen was weaned. Today, the patient was maintaining room air oxygen saturations at rest of 97% or greater. While ambulatory, he desaturated to 88% with a heart rate of 95. The patient denied sensation of dyspnea while ambulating on room air. The patient requested to be discharged to home without orders for supplemental oxygen. He was recommended to stay for another day of supportive care, however, patient stated that he had a nebulizer machine at home and nearly three boxes of Duonebs. He felt that he would be able to care for himself adequately despite his low oxygen saturation while ambulatory today. At time of discharge, the patient is in stable condition. He maintains oxygen saturations while at rest, but continues to desat when ambulatory. He is strongly advised to rest and not over exert himself. He is encouraged to use his home nebulizer and Duoneb medications three times daily (scheduled) for the next 48 hours and an addition three times daily as needed for shortness of breath. He is instructed to return to the emergency department if he is needing more frequent nebulizer treatments or develops chest pain, palpitations , dizziness, weakness, or fever. He is provided prescriptions for Levaquin, Mucinex, and Lisnopril. He is instructed to follow up with his primary care provider within 1 week and with his Oncology Rep as scheduled. (2) Sepsis Is this a current diagnosis for this admission?: Yes Summary: Resolved; secondary to bilateral lower lobe pneumonias and salmonella enteritis. The patient received 4 days of IV Vancomycin, Zosyn, and Vancomycin. He is discharged on p.o. Levaquin based upon culture and sensitivity results. (3) Tachycardia Is this a current diagnosis for this admission?: Yes Summary: Secondary to sepsis; resolved with IV fluid resuscitation and resumption of his home medications. (4) Hypertension Is this a current diagnosis for this admission?: Yes Summary: Normotensive throughout admission. His metoprolol was continued; lisinopril was held throughout admission. His blood pressures for the previous 48 hours have been 112/58 - 134/55. Therefore, he was discharged with a prescription for lower dosed lisinopril. He was advised on a low sodium diet and instructed to follow up with his primary care provider. (5) Salmonella enteritis Is this a current diagnosis for this admission?: Yes Summary: On admission, the patient reported that he had been having 10-15 episodes of diarrhea daily for the previous 3 days associated with generalized abdominal pain. Prior to arrival, he had taken 4 tablets of Immodium with reduction in stool frequency. CT of the Abdomen and Pelvis was negative for acute findings. Stool culture was positive for Salmonella. The patient recalled having eggs approximately 1.5 weeks prior to onset of symptoms; he reports that they were purchased at a store currently under the advised recall. He does not recall any other possible exposures. He had one further episode of loose stool the day following admission. Otherwise, his abdominal discomfort and diarrhea have resolved. He is discharged home with a prescription for Levaquin. He is advised to throw away any remaining eggs at home and to follow up with his primary care doctor within 1 week. (6) Abdominal pain Is this a current diagnosis for this admission?: Yes Summary: Resolved; secondary to salmonella enteritis. - Additional Information Resuscitation Status: Full Code Discharge Diet: Cardiac Discharge Activity: Activity As Tolerated, Balance Activity w/Rest, Slowly Increase Activity Prescriptions: Guaifenesin [Mucinex Sr 600 mg Tablet.sa] 600 mg PO Q12 #30 tablet.sa Levofloxacin [Levaquin 750 mg Tablet] 750 mg PO DAILY #9 tablet Lisinopril [Prinivil 5 mg Tablet] 5 mg PO DAILY #30 tablet Home Medications: Citalopram Hydrobromide [Celexa 40 mg Tablet] 1 tab PO DAILY 08/22/17 Ascorbate Calcium [Ashley-C 500 mg Tablet] 500 mg PO DAILY 01/11/18 Aspirin [Aspirin EC] 81 mg PO DAILY 01/11/18 Atorvastatin Calcium [Lipitor 40 mg Tablet] 40 mg PO QHS 01/11/18 Cyanocobalamin (Vitamin B-12) [Vitamin B-12 1000 mcg Tablet] 1,000 mcg PO DAILY 01/11/18 Ferrous Sulfate [Feosol 325 mg Tablet] 325 mg PO DAILY 01/11/18 Metoprolol Tartrate [Lopressor 25 mg Tablet] 25 mg PO Q12 01/11/18 Multivitamin [Tab-A-Jonathan (Multiple Vitamin) Tablet] 1 tab PO DAILY 01/11/18 Zinc Gluconate [Zinc] 30 mg PO DAILY 01/11/18 Aspirin [Aspirin 325 mg Tablet] 325 mg PO DAILY tablet 01/14/18 Guaifenesin [Mucinex Sr 600 mg Tablet.sa] 600 mg PO Q12 #30 tablet.sa 01/14/18 Levofloxacin [Levaquin 750 mg Tablet] 750 mg PO DAILY #9 tablet 01/14/18 Lisinopril [Prinivil 5 mg Tablet] 5 mg PO DAILY #30 tablet 01/14/18 Metoprolol Tartrate [Lopressor 50 mg Tablet] 50 mg PO DAILY tablet 01/14/18 History of Present Illness History of Present Illness: Per H&P by Dr. Macdonald: CHARY HUSTON is a 47 year old male with a past medical history of major depression, diabetes, recurrent pneumonia, previously responsive to empiric Zosyn, azithromycin and vancomycin. Admission of August 2017 for pneumonia evolved to ARDS requiring intubation and transfer to tertiary care. Patient presents with 10 days of low-grade fever, shortness of breath nonproductive cough and diarrhea. Patient denies sore throat, rhinorrhea, acid reflux or recent antibiotics or infectious contacts. Patient has not seen armature repairer in follow-up. Otherwise denies recent change in medications. In the emergency room is found to have bandemia and bilateral lower lobe infiltrate on CT. He is referred to the hospitalist for admission. Physical Exam Vital Signs: Temp Pulse Resp BP Pulse Ox 98.2 F 66 16 116/43 L 94 01/14/18 11:18 01/14/18 11:18 01/14/18 11:18 01/14/18 11:18 01/14/18 11:18 Intake & Output 01/13/18 01/14/18 01/15/18 06:59 06:59 06:59 Intake Total 3570 2777 Output Total 2975 1750 Balance 595 1027 Weight 120.9 kg 119.8 kg General appearance: PRESENT: no acute distress, cooperative, obese, well- developed, well-nourished Head exam: PRESENT: atraumatic, normocephalic Eye exam: PRESENT: conjunctiva pink, EOMI, PERRLA. ABSENT: scleral icterus Ear exam: PRESENT: normal external ear exam Mouth exam: PRESENT: moist, tongue midline Neck exam: ABSENT: carotid bruit, JVD, lymphadenopathy, thyromegaly Respiratory exam: PRESENT: clear to auscultation soo, symmetrical, unlabored. ABSENT: rales, rhonchi, wheezes Cardiovascular exam: PRESENT: RRR, +S1, +S2. ABSENT: diastolic murmur, rubs, systolic murmur Pulses: PRESENT: normal dorsalis pedis pul Vascular exam: PRESENT: normal capillary refill GI/Abdominal exam: PRESENT: normal bowel sounds, soft. ABSENT: distended, guarding, mass, organolmegaly, rebound, tenderness Rectal exam: PRESENT: deferred Extremities exam: PRESENT: full ROM. ABSENT: calf tenderness, clubbing, pedal edema Neurological exam: PRESENT: alert, awake, oriented to person, oriented to place , oriented to time, oriented to situation, CN II-XII grossly intact. ABSENT: motor sensory deficit Psychiatric exam: PRESENT: appropriate affect, normal mood. ABSENT: homicidal ideation, suicidal ideation Skin exam: PRESENT: dry, intact, warm. ABSENT: cyanosis, rash Results Laboratory Results: 01/14/18 05:23 01/14/18 05:23 01/14/18 01/14/18 05:23 05:23 WBC 6.7 RBC 4.10 L Hgb 10.4 L Hct 32.1 L MCV 78 L MCH 25.3 L MCHC 32.3 RDW 16.3 H Plt Count 266 Seg Neutrophils % 75.2 Lymphocytes % 9.7 L Monocytes % 7.9 Eosinophils % 6.7 H Basophils % 0.5 Absolute Neutrophils 5.0 Absolute Lymphocytes 0.6 Absolute Monocytes 0.5 Absolute Eosinophils 0.5 Absolute Basophils 0.0 Sodium 142.7 Potassium 4.6 Chloride 106 Carbon Dioxide 26 Anion Gap 11 BUN 11 Creatinine 0.75 Est GFR ( Amer) > 60 Est GFR (Non-Af Amer) > 60 Glucose 87 Calcium 8.5 01/11/18 20:20 Sputum Gram Stain - Final 01/11/18 20:20 Sputum Sputum Culture - Final NORMAL VANE 01/11/18 06:00 Stool - Stool - Final Impressions: Chest X-Ray 01/10/18 19:07 IMPRESSION: NO ACUTE RADIOGRAPHIC FINDING IN THE CHEST. Head CT 01/10/18 19:07 IMPRESSION: NORMAL BRAIN CT WITHOUT CONTRAST. EVIDENCE OF ACUTE STROKE: NO. Abdomen/Pelvis CT 01/11/18 00:00 IMPRESSION: 1. Mild scattered reticulonodular opacity of lower lung katz suggest atypical pneumonitis and/or chronic interstitial lung disease. 2. No acute abdominal or pelvic findings. Qualifiers - * PATIENT BEING DISCHARGED WITH ANY OF THE FOLLOWING DIAGNOSIS: No Plan Discharge Plan: Discharge to home. Follow up with primary care provider within 1 week. Follow up with Oncology Rep as scheduled.
[2018-01-15] MEDS ORDERED: LISINOPRIL 5 MG TABLET PO SCH (10:00)
== END 2018-01-14 13:31 | disposition home or self-care (01) | DRG 871 ==
LOC: ER 18:30 → EH 01-11 03:13 → 5 01-11 04:45
PROVIDERS: ADMIT Internal Medicine; ATTEND Internal Medicine
PROC: 3E0F73Z Introduction of Anti-inflammatory into Respiratory Tract, Via Natural or Artificial Opening (ICD-10-PCS; principal; 2018-01-11)
DX: A41.9 Sepsis, unspecified organism (principal); J18.1 Lobar pneumonia, unspecified organism; A02.0 Salmonella enteritis; Z68.41 Body mass index [BMI] 40.0-44.9, adult; B95.1 Streptococcus, group B, as the cause of diseases classified elsewhere; I10 Essential (primary) hypertension; F32.9 Major depressive disorder, single episode, unspecified; E11.9 Type 2 diabetes mellitus without complications; E78.00 Pure hypercholesterolemia, unspecified; I48.91 Unspecified atrial fibrillation; I34.0 Nonrheumatic mitral (valve) insufficiency; G47.30 Sleep apnea, unspecified; F43.10 Post-traumatic stress disorder, unspecified; E66.9 Obesity, unspecified; F41.9 Anxiety disorder, unspecified; Z79.82 Long term (current) use of aspirin; Z79.52 Long term (current) use of systemic steroids; Z79.899 Other long term (current) drug therapy; Z90.49 Acquired absence of other specified parts of digestive tract; Z98.84 Bariatric surgery status; Z83.3 Family history of diabetes mellitus; Z82.49 Family history of ischemic heart disease and other diseases of the circulatory system; Z80.9 Family history of malignant neoplasm, unspecified
CPT/HCPCS: 36415; 70450; 71046; 74177; 80048; 80053; 80202; 81001; 82803; 82962; 83605; 84484; 85025; 85610; 87040; 87045; 87070; 87077; 87086; 87186; 87205; 87493; 93005; 93010; 94799; 96361; 96365; 99285; J0456; J0696; J1644; J2543; J3370; J3490; J7030; J7060

== ENCOUNTER → 2018-01-10 | Outpatient (CLI) | payer OTHER ==
[~2018-01-10] MED LIST: ALBUTEROL SULFATE 0.083% NEB 2.5 MG/3 ML AMPUL NEB ONE
[2018-01-10 08:14] LABS: ARTERIAL BLOOD BASE EXCESS 0.2 mmol/L; ARTERIAL BLOOD H2CO3 1.17 mmol/L (1.05-1.35); ARTERIAL BLOOD HCO3 24.6 mmol/L (20-26); ARTERIAL BLOOD O2 SATURATION 96.7 % (94-98); ARTERIAL BLOOD PH 7.42 (7.35-7.45); ARTERIAL BLOOD PO2 85.7 mmHg (80-100); ARTERIAL BLOOD TOTAL CO2 25.8 mmol/L (23-27)
[2018-01-10 08:16] LABS: ARTERIAL BLOOD FIO2 ROOM AIR
--- NOTE | 2018-01-11 10:23 | PULMONARY FUNCTION TEST ---
DATE OF SERVICE: 01/10/2018 THE VITAL CAPACITY IS NORMAL. THE EXPIRATORY FLOW RATES ARE SLIGHTLY DECREASED. THE FEV1/VC IS 76%, PREDICTED: 83% LUNG VOLUMES BY NITROGEN WASH OUT METHOD SHOW: TLC IS 88% OF PREDICTED FRC IS 83% OF PREDICTED RV IS 80% OF PREDICTED THE DLCO IS 17.3, 57% OF PREDICTED. THE RV/TLC RATIO IS 28% PREDICTED 32% AFTER BRONCHODILATOR, EXPIRATORY FLOW RATES SHOW NO SIGNIFICANT CHANGE. IMPRESSION: GOOD PATIENT EFFORT SLIGHT RESTRICTIVE DEFECT. LUNG VOLUMES ARE SLIGHTLY DECREASED; DIFFUSING CAPACITY IS MODERATELY DECREASED. THE INSPIRATORY LIMB OF THE F-V LOOP WAS POORLY PERFORMED. CC: DAVID SCHROEDER MD > [facility]
== END ==
LOC: RT 07:00
PROVIDERS: ATTEND Family Medicine
DX: J69.0 Pneumonitis due to inhalation of food and vomit (principal)
CPT/HCPCS: 36600; 82803; 94060; 94727; 94729; 94760; 94761

== ENCOUNTER → 2018-01-29 | Outpatient (CLI) | payer OTHER ==
[2018-01-29 10:38] LABS: ABSOLUTE BASOPHILS # (AUTO) 0.1 10^3/uL (0.0-0.2); ABSOLUTE EOSINOPHILS # (AUTO) 0.2 10^3/uL (0.0-0.6); ABSOLUTE LYMPHOCYTES (AUTO) 0.6 10^3/uL (0.5-4.7); ABSOLUTE MONOCYTES (AUTO) 0.5 10^3/uL (0.1-1.4); ABSOLUTE NEUT (AUTO) 3.6 10^3/uL (1.7-8.2); BASOPHILS % (AUTO) 1.1 % (0-2); EOSINOPHILS % (AUTO) 3.6 % (0-6); HEMATOCRIT 36.7 % (37.9-51.0); HEMOGLOBIN 11.8 g/dL (13.5-17.0); LYMPHOCYTES % (AUTO) 12.3 % (13-45); MEAN CORPUSCULAR HEMOGLOBIN 25.7 pg (27.0-33.4); MEAN CORPUSCULAR VOLUME 80 fl (80-97); MONOCYTES % (AUTO) 10.6 % (3-13); PLATELET COUNT 223 10^3/uL (150-450); RED BLOOD COUNT 4.59 10^6/uL (4.35-5.55); SEGMENTED NEUTROPHILS % (AUTO) 72.4 % (42-78); TOTAL CELLS COUNTED % (AUTO) 100 %
[2018-01-29 11:04] LABS: CHOLESTEROL 123.07 mg/dL (0-200); TRIGLYCERIDES 69 mg/dL (<150)
[2018-01-29 11:15] LABS: DIRECT LDL 84 mg/dL (<100)
== END ==
LOC: CCC 09:58
DX: E78.5 Hyperlipidemia, unspecified (principal); R73.09 Other abnormal glucose
CPT/HCPCS: 36415; 80061; 83036; 85025

== ENCOUNTER → 2018-02-01 | Outpatient (CLI) | payer OTHER ==
--- NOTE | 2018-02-01 16:49 | RADIOLOGY REPORT (SQ) ---
EXAM DESCRIPTION: [employer] COMPLETED DATE/TIME: 02/01/2018 4:37 pm REASON FOR STUDY: FAMILY HISTORY OF POLYCYSTIC KIDNEY Z82.71 FAMILY HISTORY OF POLYCYSTIC KIDNEY COMPARISON: None. TECHNIQUE: Dynamic and static grayscale images acquired of the kidneys and bladder and recorded on P ACS. Additional selected color Doppler and spectral images recorded. LIMITATIONS: Body habitus and overlying bowel gas. FINDINGS: RIGHT KIDNEY: 11.7 cm. Cortical thinning. 2 cm cyst interpolar region. No hydronephrosi s. LEFT KIDNEY: 12.0 cm. Cortical thinning. 8 mm cyst interpolar region. No hydronephrosis. BLADDER: No masses. OTHER FINDINGS: No other significant finding. IMPRESSION: Medical renal disease. Small cysts. No hydronephrosis. TECHNICAL DOCUMENTATION: JOB ID: [id number] [employer]- All Rights Reserved Reading location - IP/workstation name: [email or web address]
== END ==
LOC: RAD 15:11
DX: Z82.71 Family history of polycystic kidney (principal)
CPT/HCPCS: 76775

== ENCOUNTER 2018-03-06 22:50 | Emergency (ER) | payer OTHER ==
[2018-03-06 23:18] VITALS: BP 132/78
== END 2018-03-07 01:04 | disposition left against medical advice (07) ==
LOC: ER 22:50
DX: Z53.21 Procedure and treatment not carried out due to patient leaving prior to being seen by health care provider (principal)

== ENCOUNTER 2018-03-08 09:41 | Emergency (ER) | payer OTHER ==
--- NOTE | 2018-03-08 09:52 | ER Document Report ---
ED Extremity Problem, Lower - General Chief Complaint: Knee Pain Stated Complaint: KNEE PAIN Time Seen by Provider: 03/08/18 09:50 Mode of Arrival: Ambulatory Information source: Patient Notes: 47-year-old male presented ED for complaint of bilateral knee pain for the last 2 weeks. He states he fell 2 weeks ago and the knees have remained painful. He states he has not been evaluated for the fall but would like to be evaluated today. He is alert and oriented respirations regular and unlabored walks with a even steady gait. Patient states he falls when going upstairs if he leads on his right leg. He states he had a previous tibial plateau fracture on the right. He states both knees are hurting but the left one is hurting worse at this time. TRAVEL OUTSIDE OF THE [place] IN LAST 30 DAYS: No - HPI Patient complains to provider of: Injury, Pain. No: Swelling Location: Knee Occurred: Other - 2 weeks ago Where: Outdoors Onset/Duration: Gradual, Persistent Quality of pain: Achy, Sharp Severity: Moderate Pain Level: 3 Context: Fell Recent injury: Yes Associated symptoms: Painful ambulation Exacerbated by: Hanging down, Movement, Walking Relieved by: Nothing - Related Data Allergies/Adverse Reactions: No Known Allergies Allergy (Verified 01/10/18 19:04) Past Medical History - General Information source: Patient - Social History Smoking Status: Never Smoker Cigarette use (# per day): No Chew tobacco use (# tins/day): No Smoking Education Provided: No Frequency of alcohol use: None Drug Abuse: None Occupation: delivery crew worker Lives with: Parents Family History: DM, Hypertension, Malignancy Patient has suicidal ideation: No Patient has homicidal ideation: No - Past Medical History Cardiac Medical History: Reports: Hx Atrial Fibrillation, Hx Hypercholesterolemia, Hx Hypertension, Hx Heart Murmur - Mitral regurgitation on recent echocardiogram Pulmonary Medical History: Reports: Hx Pneumonia - Atypical, Hx Intubation, Hx Respiratory Failure, Hx Sleep Apnea EENT Medical History: Reports: None Neurological Medical History: Reports: None Endocrine Medical History: Reports: None Renal/ Medical History: Reports: None. Denies: Hx End Stage Renal Disease, Hx Peritoneal Dialysis Malignancy Medical History: Reports None GI Medical History: Reports: None Musculoskeltal Medical History: Reports Hx Musculoskeletal Deformity, Reports Hx Musculoskeletal Trauma Skin Medical History: Reports None Psychiatric Medical History: Reports: Hx Anxiety, Hx Depression, Hx Post Traumatic Stress Disorder Traumatic Medical History: Reports: Hx Fractures Infectious Medical History: Reports: None Past Surgical History: Reports: Hx Abdominal Surgery - GBP, Hx Cholecystectomy, Hx Gastric Bypass Surgery, Hx Nose Surgery, Hx Orthopedic Surgery - ACL, Hx Tonsillectomy - Immunizations Immunizations up to date: Yes Hx Diphtheria, Pertussis, Tetanus Vaccination: No Review of Systems - Review of Systems Constitutional: No symptoms reported EENT: No symptoms reported Cardiovascular: No symptoms reported Respiratory: No symptoms reported Gastrointestinal: No symptoms reported Genitourinary: No symptoms reported Male Genitourinary: No symptoms reported Musculoskeletal: Joint pain - Bilateral knees Skin: No symptoms reported Hematologic/Lymphatic: No symptoms reported Neurological/Psychological: No symptoms reported -: Yes All other systems reviewed and negative Physical Exam - Vital signs Vitals: Temp Pulse Resp BP Pulse Ox 98.5 F 63 16 131/74 H 98 03/08/18 09:52 03/08/18 09:52 03/08/18 09:52 03/08/18 09:52 03/08/18 09:52 Interpretation: Normal - General General appearance: Appears well, Alert - HEENT Head: Normocephalic, Atraumatic Eyes: Normal Pupils: PERRL - Respiratory Respiratory status: No respiratory distress Chest status: Nontender Breath sounds: Normal Chest palpation: Normal - Cardiovascular Rhythm: Regular Heart sounds: Normal auscultation Murmur: No - Abdominal Inspection: Normal Distension: No distension Bowel sounds: Normal Tenderness: Nontender Organomegaly: No organomegaly - Back Back: Normal, Nontender - Extremities General upper extremity: Normal inspection, Nontender, Normal color, Normal ROM , Normal temperature General lower extremity: Normal inspection, Normal color, Normal ROM, Normal temperature, Normal weight bearing. No: Zev's sign Knee: Tender, Pain with ROM, Patellar tendon intact. No: Abrasion, Deformity, Dislocation, Drawer's test instability, Ecchymosis, Instability, Joint effusion , Laceration, Laxity with valgus stress, Laxity with varus stress, Popliteal fossa tender, Tender joint line, Unable to bear weight - Neurological Neuro grossly intact: Yes Cognition: Normal Orientation: AAOx4 [place] Coma Scale Eye Opening: Spontaneous [place] Coma Scale Verbal: Oriented [place] Coma Scale Motor: Obeys Commands [place] Coma Scale Total: 15 Speech: Normal Motor strength normal: LUE, RUE, LLE, RLE Sensory: Normal - Psychological Associated symptoms: Normal affect, Normal mood - Skin Skin Temperature: Warm Skin Moisture: Dry Skin Color: Normal Course - Re-evaluation Re-evalutation: 03/09/18 00:02 X-rays were discussed with patient and written reports of x-rays given to patient. Patient was instructed to follow-up with orthopedics for his pain. She is encouraged to use elevation ice and ibuprofen for his pain and to follow- up with his primary care doctor and a orthopedic doctor. - Vital Signs Vital signs: Temp Pulse Resp BP Pulse Ox 98.6 F 61 16 129/78 H 97 03/08/18 11:53 03/08/18 11:53 03/08/18 11:53 03/08/18 11:53 03/08/18 11:53 - Diagnostic Test Radiology reviewed: Image reviewed, Reports reviewed Discharge - Discharge Clinical Impression: Chronic pain of right knee Left knee pain Qualifiers: Chronicity: acute Qualified Code(s): M25.562 - Pain in left knee Condition: Stable Disposition: HOME, SELF-CARE Instructions: Knee Exercise Program ([facility]) Additional Instructions: CONTUSION: Your injury has resulted in a contusion -- a crushing of the deep tissues. No injury to important structures was detected during the physician's exam. Contusions vary in the amount of pain they cause, and in the length of time required for healing. Typically, the area will become bruised, and will remain painful to touch for two or three weeks. However, most patients are back to working and playing within a few days. After the initial period of rest and cold-packs, your symptoms (together with the doctor's recommendations) will determine how rapidly you can get back to full activity. Usually this means "do what feels okay, but don't do things that hurt." If re-examination was recommended, it's important to follow up as instructed. Call the doctor or return any time if pain increases, if swelling becomes severe, if you develop numbness or weakness in an injured extremity, or if any other alarming symptoms occur. USE OF TYLENOL (ACETAMINOPHEN): Acetaminophen may be taken for pain relief or fever control. It's much safer than aspirin, offering a wider range of "safe" dosages. It is safe during . Some brand names are Tylenol, Panadol, Datril, Anacin 3, Tempra, and Liquiprin. Acetaminophen can be repeated every four hours. The following are maximum recommended dosages: WEIGHT Dose Drops Elixir Chewable( 80mg) (LBS.) drprs=droppers tsp=teaspoon 6 40 mg 0.4 ml (1/2) 6-11 80 mg 0.8 ml (full) tsp 1 tab 12-16 120 mg 1 1/2 drprs 3/4 tsp 1 1/2 tabs 17-23 160 mg 2 drprs 1 tsp 2 tabs 24-30 240 mg 3 drprs 1 1/2 tsp 3 tabs 30-35 320 mg 2 tsp 4 tabs 36-41 360 mg 2 1/4 tsp 4 1/2 tabs 42-47 400 mg 2 1/2 tsp 5 tabs 48-53 480 mg 3 tsp 6 tabs 54-59 520 mg 3 1/4 tsp 6 1/2 tabs 60-64 560 mg 3 1/2 tsp 7 tabs 65-70 600 mg 3 3/4 tsp 7 1/2 tabs 71-76 640 mg 4 tsp 8 tabs 77-82 720 mg 4 1/2 tsp 9 tabs 83-88 800 mg 5 tsp 10 tabs >89 pounds or adults 650 mg to 900 mg Acetaminophen can be repeated every four hours. Maximum dose not to exceed 4000 mg a day. These maximum recommended dosages are slightly higher than the dosages written on the product container, but these dosages are very safe and below the toxic dosage for acetaminophen. ICE & ELEVATION: Apply ice packs frequently against the painful area. Many different schedules are recommended, such as "20 minutes on, 20 minutes off" or "one hour ice, two hours rest." If you need to work, you may need to go longer between ice treatments. You should plan to have the area ice packed AT LEAST one- fourth of the time. The ice should be applied over the wrap, tape, or splint, or over a layer of cloth -- not directly against the skin. Some ice bags have a built-in cloth and can be put directly on the skin. Your injured part should be elevated as much as possible over the next 48 hours. Try to keep the injury above the level of the heart. Avoid use of the injured area. Elevation and rest will decrease the swelling. USE OF HNQW-ANL-OBWABKN IBUPROFEN: Ibuprofen (Advil, Nuprin, Medipren, Motrin IB) is a medication for fever and pain control. In addition, it has anti- inflammatory effects which may be beneficial, especially in the treatment of injuries. It's best to take ibuprofen with food. Persons with ulcer disease or allergy to aspirin should notify their physician of this before taking ibuprofen. Ibuprofen can be given every four to six hours, for a total of four doses daily. Age Pain or fever dose Antiinflammatory dose 6-8 yr 200 mg (1 tab) 200 mg (1 tab) 9-11 yr 200 mg (1 tab) 200-400 mg (1-2 tab) 11-14 yr 200-400 mg (1-2 tab) 400 mg (2 tab) 15-adult 400 mg (2 tab) 600 mg (3 tab) FOLLOW-UP CARE: If you have been referred to a physician for follow-up care, call the physician s office for an appointment as you were instructed or within the next two days. If you experience worsening or a significant change in your symptoms, notify the physician immediately or return to the Emergency Department at any time for re-evaluation. Forms: Elevated Blood Pressure Referrals: [facility] [Primary Care Provider] - Follow up as needed DEONNA AYERS MD [ACTIVE STAFF] - Follow up as needed
--- NOTE | 2018-03-08 11:07 | RADIOLOGY REPORT (SQ) ---
EXAM DESCRIPTION: KNEE RIGHT 4 VIEWS; KNEE LEFT 4 VIEW COMPLETED DATE/TIME: 03/08/2018 10:53 am REASON FOR STUDY: pain after fall 2 weeks ago not getting better COMPARISON: None. NUMBER OF VIEWS: Four views right knee, four views left knee. TECHNIQUE: AP, lateral, and both oblique radiographic images acquired of the right and left knee. LIMITATIONS: None. FINDINGS: RIGHT KNEE MINERALIZATION: Normal. BONES: No acute fracture or dislocation. No worrisome bone lesions. Old postsurgical change with tu nneling in the distal femur and proximal tibia from remote prior ACL repair. JOINT: No suprapatellar knee joint effusion. Mild patellofemoral joint space narrowing. No signific ant medial or lateral compartment joint space narrowing. SOFT TISSUES: No soft tissue swelling. No soft tissue radio-opaque foreign body. Surgical anchor al penny the right distal femoral metaphysis for the ACL graft. OTHER: No other significant finding. LEFT KNEE MINERALIZATION: Normal. 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 BONES: No acute fracture or dislocation. No worrisome bone lesions. JOINT: No suprapatellar knee joint effusion. Mild patellofemoral and lateral compartment joint space narrowing SOFT TISSUES: No soft tissue swelling. No radio-opaque foreign body. OTHER: No other significant finding. IMPRESSION: No acute fracture or malalignment. TECHNICAL DOCUMENTATION: JOB ID: [id number]- All Rights Reserved Reading location - IP/workstation name: [email or web address]
--- NOTE | 2018-03-08 11:07 | RADIOLOGY REPORT (SQ) ---
EXAM DESCRIPTION: KNEE RIGHT 4 VIEWS; KNEE LEFT 4 VIEW COMPLETED DATE/TIME: 03/08/2018 10:53 am REASON FOR STUDY: pain after fall 2 weeks ago not getting better COMPARISON: None. NUMBER OF VIEWS: Four views right knee, four views left knee. TECHNIQUE: AP, lateral, and both oblique radiographic images acquired of the right and left knee. LIMITATIONS: None. FINDINGS: RIGHT KNEE MINERALIZATION: Normal. BONES: No acute fracture or dislocation. No worrisome bone lesions. Old postsurgical change with tu nneling in the distal femur and proximal tibia from remote prior ACL repair. JOINT: No suprapatellar knee joint effusion. Mild patellofemoral joint space narrowing. No signific ant medial or lateral compartment joint space narrowing. SOFT TISSUES: No soft tissue swelling. No soft tissue radio-opaque foreign body. Surgical anchor al penny the right distal femoral metaphysis for the ACL graft. OTHER: No other significant finding. LEFT KNEE MINERALIZATION: Normal. 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 BONES: No acute fracture or dislocation. No worrisome bone lesions. JOINT: No suprapatellar knee joint effusion. Mild patellofemoral and lateral compartment joint space narrowing SOFT TISSUES: No soft tissue swelling. No radio-opaque foreign body. OTHER: No other significant finding. IMPRESSION: No acute fracture or malalignment. TECHNICAL DOCUMENTATION: JOB ID: [id number]- All Rights Reserved Reading location - IP/workstation name: [email or web address]
[2018-03-08 11:54] VITALS: BP 129/78
== END 2018-03-08 11:54 | disposition home or self-care (01) ==
LOC: ER 09:41
DX: M25.561 Pain in right knee (principal); M25.562 Pain in left knee; G89.29 Other chronic pain; W19.XXXA Unspecified fall, initial encounter; I10 Essential (primary) hypertension
CPT/HCPCS: 99283

== ENCOUNTER 2018-03-13 17:00 | Emergency (ER) | payer OTHER ==
--- NOTE | 2018-03-13 18:05 | ER Document Report ---
ED Medical Screen (RME) - General Chief Complaint: Cough Stated Complaint: COUGH Time Seen by Provider: 03/13/18 17:49 Notes: Patient is a 47-year-old male, past medical history recurrent pneumonias, presents with 1 day of a cough. 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 He was intubated for over a week this past . Denies fevers, hemoptysis. PE: No respiratory distress. Lungs clear to auscultation bilaterally. I have greeted and performed a rapid initial assessment of this patient. A comprehensive ED assessment and evaluation of the patient, analysis of test results and completion of the medical decision making process will be conducted by additional ED providers. TRAVEL OUTSIDE OF THE [place] IN LAST 30 DAYS: No - Related Data Allergies/Adverse Reactions: No Known Allergies Allergy (Verified 03/13/18 17:03) Past Medical History - Social History Chew tobacco use (# tins/day): No Frequency of alcohol use: None Drug Abuse: None - Past Medical History Cardiac Medical History: Reports: Hx Atrial Fibrillation, Hx Hypercholesterolemia, Hx Hypertension, Hx Heart Murmur - Mitral regurgitation on recent echocardiogram Denies: Hx Congestive Heart Failure, Hx Coronary Artery Disease Pulmonary Medical History: Reports: Hx Pneumonia - Atypical, Hx Intubation, Hx Respiratory Failure, Hx Sleep Apnea Neurological Medical History: Denies: Hx Seizures Endocrine Medical History: Denies: Hx Diabetes Mellitus Type 1, Hx Hyperthyroidism, Hx Hypothyroidism Renal/ Medical History: Denies: Hx End Stage Renal Disease, Hx Peritoneal Dialysis GI Medical History: Denies: Hx Cirrhosis, Hx Crohn's Disease, Hx Ulcerative Colitis Musculoskeltal Medical History: Denies Hx Fibromyalgia, Reports Hx Musculoskeletal Deformity, Reports Hx Musculoskeletal Trauma Skin Medical History: Denies Hx Psoriasis Psychiatric Medical History: Reports: Hx Anxiety, Hx Depression, Hx Post Traumatic Stress Disorder Traumatic Medical History: Reports: Hx Fractures. Denies: Hx Pneumothorax, Hx Traumatic Brain Injury Infectious Medical History: Denies: Hx C-Diff Past Surgical History: Reports: Hx Abdominal Surgery - GBP, Hx Cholecystectomy, Hx Gastric Bypass Surgery, Hx Nose Surgery, Hx Orthopedic Surgery - ACL, fingers , Hx Tonsillectomy - Immunizations Immunizations up to date: Yes Hx Diphtheria, Pertussis, Tetanus Vaccination: No History of Influenza Vaccine for 06/2017 - 11/2017 Season: No Physical Exam - Vital signs Vitals: Temp Pulse Resp BP Pulse Ox 98.9 F 94 18 152/75 H 97 03/13/18 17:13 03/13/18 17:13 03/13/18 17:13 03/13/18 17:13 03/13/18 17:13 Course - Vital Signs Vital signs: Temp Pulse Resp BP Pulse Ox 98.9 F 94 18 152/75 H 97 03/13/18 17:13 03/13/18 17:13 03/13/18 17:13 03/13/18 17:13 03/13/18 17:13 Doctor's Discharge - Discharge Referrals: [facility] [Primary Care Provider] - Follow up as needed
--- NOTE | 2018-03-13 18:14 | RADIOLOGY REPORT (SQ) ---
EXAM DESCRIPTION: CHEST 2 VIEWS COMPLETED DATE/TIME: 03/13/2018 6:06 pm REASON FOR STUDY: cough COMPARISON: 01/10/2018 EXAM PARAMETERS: NUMBER OF VIEWS: two views TECHNIQUE: Digital Frontal and Lateral radiographic views of the chest acquired. RADIATION DOSE: NA LIMITATIONS: none FINDINGS: LUNGS AND PLEURA: No opacities, masses or pneumothorax. No pleural effusion. MEDIASTINUM AND HILAR STRUCTURES: No masses or contour abnormalities. HEART AND VASCULAR STRUCTURES: Heart normal size. No evidence for failure. BONES: No acute findings. HARDWARE: None in the chest. OTHER: No other significant finding. IMPRESSION: NO ACUTE RADIOGRAPHIC FINDING IN THE CHEST. TECHNICAL DOCUMENTATION: JOB ID: [id number] [employer]- All Rights Reserved Reading location - IP/workstation name: [email or web address]
[2018-03-13] MEDS ORDERED: AZITHROMYCIN 250 MG TABLET PO ONE (18:43)
[2018-03-13] MEDS ORDERED: CEFTRIAXONE 1 GM/D5W RTU 1 GM/50 ML RTUPB IV ONE (18:43)
--- NOTE | 2018-03-13 18:44 | ER Document Report ---
ED General - General Chief Complaint: Cough Stated Complaint: COUGH Time Seen by Provider: 03/13/18 17:49 Mode of Arrival: Ambulatory Information source: Patient, PENDING SALE TO [facility] Records Notes: 47-year-old male with atrial fibrillation, anemia, hypertension, hyperlipidemia , PTSD, recent history of respiratory failure secondary to ARDS presents with 1 day of cough. Patient describes the cough as constant, productive. He denies any associated fever, chills, chest pain, shortness of breath, abdominal pain. Patient was last hospitalized for pneumonia in January 2018. He states in August 2017 he was hospitalized for several weeks and intubated because of ARDS. Patient states that his pneumonia is never seen on chest x-ray and usually requires CAT scan. Patient has had sick contacts with a mom with a cough. He is concerned because he does not want to wind up back in the hospital. TRAVEL OUTSIDE OF THE [place] IN LAST 30 DAYS: No - HPI Onset: Yesterday Onset/Duration: Constant Quality of pain: No pain Associated symptoms: Productive cough. denies: Allergy/hay fever, Body/muscle aches, Chest pain, Fever, Headache, Hoarseness, Nausea, Vomiting, Shortness of breath Exacerbated by: Denies Relieved by: Denies Similar symptoms previously: Yes Recently seen / treated by doctor: Yes - Related Data Allergies/Adverse Reactions: No Known Allergies Allergy (Verified 03/13/18 17:03) Past Medical History - General Information source: Patient, PENDING SALE TO [facility] Records - Social History Smoking Status: Never Smoker Chew tobacco use (# tins/day): No Frequency of alcohol use: None Drug Abuse: None Lives with: Family Family History: DM, Hypertension, Malignancy Patient has suicidal ideation: No Patient has homicidal ideation: No - Past Medical History Cardiac Medical History: Reports: Hx Atrial Fibrillation, Hx Hypercholesterolemia, Hx Hypertension, Hx Heart Murmur - Mitral regurgitation on recent echocardiogram Denies: Hx Congestive Heart Failure, Hx Coronary Artery Disease Pulmonary Medical History: Reports: Hx Pneumonia - Atypical, Hx Intubation, Hx Respiratory Failure, Hx Sleep Apnea Neurological Medical History: Denies: Hx Seizures Endocrine Medical History: Denies: Hx Diabetes Mellitus Type 1, Hx Hyperthyroidism, Hx Hypothyroidism Renal/ Medical History: Denies: Hx End Stage Renal Disease, Hx Peritoneal Dialysis GI Medical History: Denies: Hx Cirrhosis, Hx Crohn's Disease, Hx Ulcerative Colitis Musculoskeltal Medical History: Denies Hx Fibromyalgia, Reports Hx Musculoskeletal Deformity, Reports Hx Musculoskeletal Trauma Skin Medical History: Denies Hx Psoriasis Psychiatric Medical History: Reports: Hx Anxiety, Hx Depression, Hx Post Traumatic Stress Disorder Traumatic Medical History: Reports: Hx Fractures. Denies: Hx Pneumothorax, Hx Traumatic Brain Injury Infectious Medical History: Denies: Hx C-Diff Past Surgical History: Reports: Hx Abdominal Surgery - GBP, Hx Cholecystectomy, Hx Gastric Bypass Surgery, Hx Nose Surgery, Hx Orthopedic Surgery - ACL, fingers , Hx Tonsillectomy - Immunizations Immunizations up to date: Yes Hx Diphtheria, Pertussis, Tetanus Vaccination: No Review of Systems - Review of Systems Notes: REVIEW OF SYSTEMS: CONSTITUTIONAL : Denies fever, chills, or sweats. Denies recent illness. Denies weight loss, recent hospitalizations. EENT: Denies visual changes, eye pain. Denies nasal or sinus congestion or discharge. Denies sore throat, oral lesions, difficulty swallowing. CARDIOVASCULAR: Denies chest pain. Denies palpitations. Denies lower extremity edema. RESPIRATORY: Denies shortness of breath, wheezing. GASTROINTESTINAL: Denies abdominal pain or distention. Denies nausea, vomiting , or diarrhea. Denies blood in vomitus, stools, or per rectum. Denies black, tarry stools. Denies constipation. GENITOURINARY: Denies difficulty urinating, painful urination, frequency, blood in urine, or vaginal discharge. MUSCULOSKELETAL: Denies back or neck pain or stiffness. Denies joint pain or swelling. SKIN: Denies rash, lesions or sores. HEMATOLOGIC : Denies easy bruising or bleeding. LYMPHATIC: Denies swollen glands. NEUROLOGICAL: Denies confusion or altered mental status. Denies passing out or loss of consciousness. Denies dizziness or lightheadedness. Denies headache. Denies weakness or paralysis. Denies problems difficulty with ambulation, slurred speech. Denies sensory loss, numbness, or tingling. Denies seizures. PSYCHIATRIC: Denies anxiety or stress. Denies depression, suicidal ideation, or homicidal ideation. Denies visual or auditory hallucinations. Physical Exam - Vital signs Vitals: Temp Pulse Resp BP Pulse Ox 98.9 F 94 18 152/75 H 97 03/13/18 17:13 03/13/18 17:13 03/13/18 17:13 03/13/18 17:13 03/13/18 17:13 - Notes Notes: PHYSICAL EXAMINATION: GENERAL: Well-appearing, well-nourished and in no acute distress. HEAD: Atraumatic, normocephalic. EYES: Pupils equal round and reactive to light, extraocular movements intact, sclera anicteric, conjunctiva are normal. ENT: Nares patent, oropharynx clear without exudates. Moist mucous membranes. NECK: Normal range of motion, supple without lymphadenopathy LUNGS: Breath sounds clear to auscultation bilaterally and equal. No wheezes rales or rhonchi. HEART: Regular rate and rhythm without murmurs ABDOMEN: Soft, nontender, nondistended abdomen. No guarding, no rebound. No masses appreciated. Musculoskeletal: Normal range of motion, no pitting or edema. No cyanosis. NEUROLOGICAL: Cranial nerves grossly intact. Normal speech, normal gait. Normal sensory, motor exams PSYCH: Normal mood, normal affect. SKIN: Warm, Dry, normal turgor, no rashes or lesions noted. Course - Re-evaluation Re-evalutation: Laboratory 03/13/18 03/13/18 19:20 19:20 WBC 9.3 RBC 4.80 Hgb 12.1 L Hct 37.5 L MCV 78 L MCH 25.3 L MCHC 32.4 RDW 15.8 H Plt Count 210 Seg Neutrophils % 83.3 H Lymphocytes % 5.9 L Monocytes % 7.1 Eosinophils % 3.4 Basophils % 0.3 Absolute Neutrophils 7.8 Absolute Lymphocytes 0.6 Absolute Monocytes 0.7 Absolute Eosinophils 0.3 Absolute Basophils 0.0 Sodium 142.1 Potassium 4.3 Chloride 107 Carbon Dioxide 26 Anion Gap 9 BUN 17 Creatinine 0.66 Est GFR ( Amer) > 60 Est GFR (Non-Af Amer) > 60 Glucose 132 H Calcium 8.8 Total Bilirubin 0.3 Direct Bilirubin 0.3 Neonat Total Bilirubin Not Reportable Neonat Direct Bilirubin Not Reportable Neonat Indirect Bili Not Reportable AST 36 ALT 58 Alkaline Phosphatase 122 Total Protein 5.9 L Albumin 3.5 Chest X-Ray 03/13/18 17:49 IMPRESSION: NO ACUTE RADIOGRAPHIC FINDING IN THE CHEST. 47-year-old male with atrial fibrillation, anemia, hypertension, hyperlipidemia , PTSD, recent history of respiratory failure secondary to ARDS presents with 1 day of cough. Patient describes the cough as constant, productive. He denies any associated fever, chills, chest pain, shortness of breath, abdominal pain. Patient was last hospitalized for pneumonia in January 2018. He states in August 2017 he was hospitalized for several weeks and intubated because of ARDS. Patient states that his pneumonia is never seen on chest x-ray and usually requires CAT scan. Patient has had sick contacts with a mom with a cough. He is concerned because he does not want to wind up back in the hospital. Patient was seen by myself upon arrival. Vital signs were reviewed. Patient is afebrile , normotensive and not hypoxic. Patient does not appear toxic or dehydrated. They are in no acute distress. Previous medical records and nursing notes reviewed. She is without any significant laboratory findings. Chest x-ray shows no evidence of pneumonia. Because of the patient's history, anxiety he will be started on doxycycline. Patient provided the opportunity to ask questions, and express concerns. Discharge instructions discussed. Patient is agreeable with discharge home. Return indications explained and discussed with the patient who displays understanding. Patient encouraged to return to the emergency department immediately with any concerns. 03/13/18 20:36 On reevaluation patient is resting comfortably. 03/14/18 02:56 03/14/18 02:57 - Vital Signs Vital signs: Temp Pulse Resp BP Pulse Ox 98.6 F 94 20 132/72 H 97 03/13/18 20:50 03/13/18 17:13 03/13/18 20:50 03/13/18 20:50 03/13/18 20:50 - Laboratory Result Diagrams: 03/13/18 19:20 03/13/18 19:20 Laboratory results interpreted by me: 03/13/18 03/13/18 19:20 19:20 Hgb 12.1 L Hct 37.5 L MCV 78 L MCH 25.3 L RDW 15.8 H Seg Neutrophils % 83.3 H Lymphocytes % 5.9 L Glucose 132 H Total Protein 5.9 L - Diagnostic Test Radiology reviewed: Image reviewed, Reports reviewed Discharge - Discharge Clinical Impression: Cough URI (upper respiratory infection) Qualifiers: URI type: unspecified URI Qualified Code(s): J06.9 - Acute upper respiratory infection, unspecified Condition: Good Disposition: HOME, SELF-CARE Instructions: Upper Respiratory Illness ([facility]), Viral Syndrome ([facility]) Additional Instructions: Please follow-up with your primary care physician tomorrow as already scheduled. Your chest x-ray did not show any evidence of pneumonia. Your lab work today is unremarkable. Prescriptions: Doxycycline Hyclate 100 mg PO BID #14 capsule Referrals: [facility] [NO LOCAL MD] - Follow up tomorrow
[2018-03-13] MEDS ORDERED: CEFTRIAXONE INJ 1000 MG VIAL ONE (18:47)
[2018-03-13 19:35] LABS: ABSOLUTE EOSINOPHILS # (AUTO) 0.3 10^3/uL (0.0-0.6); ABSOLUTE LYMPHOCYTES (AUTO) 0.6 10^3/uL (0.5-4.7); ABSOLUTE MONOCYTES (AUTO) 0.7 10^3/uL (0.1-1.4); ABSOLUTE NEUT (AUTO) 7.8 10^3/uL (1.7-8.2); BASOPHILS % (AUTO) 0.3 % (0-2); EOSINOPHILS % (AUTO) 3.4 % (0-6); HEMATOCRIT 37.5 % (37.9-51.0); HEMOGLOBIN 12.1 g/dL (13.5-17.0); LYMPHOCYTES % (AUTO) 5.9 % (13-45); MEAN CORPUSCULAR HEMOGLOBIN 25.3 pg (27.0-33.4); MEAN CORPUSCULAR HGB CONC 32.4 g/dL (32.0-36.0); MEAN CORPUSCULAR VOLUME 78 fl (80-97); MONOCYTES % (AUTO) 7.1 % (3-13); PLATELET COUNT 210 10^3/uL (150-450); RED CELL DISTRIBUTION WIDTH 15.8 % (11.5-14.0); SEGMENTED NEUTROPHILS % (AUTO) 83.3 % (42-78); TOTAL CELLS COUNTED % (AUTO) 100 %; WHITE BLOOD COUNT 9.3 10^3/uL (4.0-10.5)
[2018-03-13 20:02] LABS: ALANINE AMINOTRANSFERASE 58 U/L (21-72); ALBUMIN 3.5 g/dL (3.5-5.0); ALKALINE PHOSPHATASE 122 U/L (38-126); ANION GAP 9 (5-19); ASPARTATE AMINO TRANSFERASE 36 U/L (17-59); BILIRUBIN,DIRECT 0.3 mg/dL (0.0-0.4); BILIRUBIN,TOTAL 0.3 mg/dL (0.2-1.3); BLOOD UREA NITROGEN 17 mg/dL (7-20); CALCIUM 8.8 mg/dL (8.4-10.2); CARBON DIOXIDE 26 mmol/L (22-30); CHLORIDE 107 mmol/L (98-107); GLUCOSE 132 mg/dL (75-110); POTASSIUM 4.3 mmol/L (3.6-5.0); SODIUM 142.1 mmol/L (137-145); TOTAL PROTEIN 5.9 g/dL (6.3-8.2)
[2018-03-13 20:55] VITALS: BP 132/72
== END 2018-03-13 20:56 | disposition home or self-care (01) ==
LOC: ER 17:00
DX: J06.9 Acute upper respiratory infection, unspecified (principal); R05 Cough; I10 Essential (primary) hypertension; F41.9 Anxiety disorder, unspecified; Z87.01 Personal history of pneumonia (recurrent); Z98.84 Bariatric surgery status
CPT/HCPCS: 99284; 96365; 36415; 85025; 80053; 71046; J0696

== ENCOUNTER 2018-06-15 19:53 | Emergency (ER) | payer MEDICAID, OTHER ==
--- NOTE | 2018-06-15 20:19 | ER Document Report ---
ED Medical Screen (RME) - General Chief Complaint: Palpitations Stated Complaint: LIGHT HEADED, DIFFICULTY BREATHING Time Seen by Provider: 06/15/18 20:17 Mode of Arrival: Ambulatory Information source: Patient TRAVEL OUTSIDE OF THE [place] IN LAST 30 DAYS: No - HPI Patient complains to provider of: sob, light=headed, rapid HR Onset: This morning - pt with c/o difficulty breathing, rapid HR, and light- headedness since early this am - Related Data Allergies/Adverse Reactions: No Known Allergies Allergy (Verified 06/15/18 19:55) Past Medical History - Past Medical History Cardiac Medical History: Reports: Hx Atrial Fibrillation, Hx Hypercholesterolemia, Hx Hypertension, Hx Heart Murmur - Mitral regurgitation on recent echocardiogram Denies: Hx Congestive Heart Failure, Hx Coronary Artery Disease Pulmonary Medical History: Reports: Hx Pneumonia - Atypical, Hx Intubation, Hx Respiratory Failure, Hx Sleep Apnea Neurological Medical History: Denies: Hx Seizures Endocrine Medical History: Denies: Hx Diabetes Mellitus Type 1, Hx Hyperthyroidism, Hx Hypothyroidism Renal/ Medical History: Denies: Hx End Stage Renal Disease, Hx Peritoneal Dialysis GI Medical History: Denies: Hx Cirrhosis, Hx Crohn's Disease, Hx Ulcerative Colitis Musculoskeltal Medical History: Denies Hx Fibromyalgia, Reports Hx Musculoskeletal Deformity, Reports Hx Musculoskeletal Trauma Skin Medical History: Denies Hx Psoriasis Psychiatric Medical History: Reports: Hx Anxiety, Hx Depression, Hx Post Traumatic Stress Disorder Traumatic Medical History: Reports: Hx Fractures. Denies: Hx Pneumothorax, Hx Traumatic Brain Injury Infectious Medical History: Denies: Hx C-Diff Past Surgical History: Reports: Hx Abdominal Surgery - GBP, Hx Cholecystectomy, Hx Gastric Bypass Surgery, Hx Nose Surgery, Hx Orthopedic Surgery - ACL, fingers , Hx Tonsillectomy - Immunizations Immunizations up to date: Yes Hx Diphtheria, Pertussis, Tetanus Vaccination: No History of Influenza Vaccine for 06/2017 - 11/2017 Season: No Physical Exam - Vital signs Vitals: Temp Pulse Resp BP Pulse Ox 98.9 F 81 20 131/68 H 97 06/15/18 20:11 06/15/18 20:11 06/15/18 20:11 06/15/18 20:11 06/15/18 20:11 Course - Vital Signs Vital signs: Temp Pulse Resp BP Pulse Ox 98.9 F 81 20 131/68 H 97 06/15/18 20:11 06/15/18 20:11 06/15/18 20:11 06/15/18 20:11 06/15/18 20:11
[2018-06-15 20:43] LABS: ABSOLUTE EOSINOPHILS # (AUTO) 0.1 10^3/uL (0.0-0.6); ABSOLUTE LYMPHOCYTES (AUTO) 0.9 10^3/uL (0.5-4.7); ABSOLUTE MONOCYTES (AUTO) 0.7 10^3/uL (0.1-1.4); ABSOLUTE NEUT (AUTO) 5.7 10^3/uL (1.7-8.2); BASOPHILS % (AUTO) 0.4 % (0-2); EOSINOPHILS % (AUTO) 1.8 % (0-6); HEMATOCRIT 37.7 % (37.9-51.0); LYMPHOCYTES % (AUTO) 11.6 % (13-45); MEAN CORPUSCULAR HEMOGLOBIN 24.5 pg (27.0-33.4); MEAN CORPUSCULAR HGB CONC 31.8 g/dL (32.0-36.0); MEAN CORPUSCULAR VOLUME 77 fl (80-97); MONOCYTES % (AUTO) 9.3 % (3-13); PLATELET COUNT 261 10^3/uL (150-450); RED CELL DISTRIBUTION WIDTH 16.3 % (11.5-14.0); SEGMENTED NEUTROPHILS % (AUTO) 76.9 % (42-78); TOTAL CELLS COUNTED % (AUTO) 100 %; WHITE BLOOD COUNT 7.4 10^3/uL (4.0-10.5)
[2018-06-15 21:03] LABS: ALANINE AMINOTRANSFERASE 45 U/L (21-72); ALBUMIN 3.5 g/dL (3.5-5.0); ALKALINE PHOSPHATASE 107 U/L (38-126); ANION GAP 9 (5-19); ASPARTATE AMINO TRANSFERASE 28 U/L (17-59); BILIRUBIN,DIRECT 0.1 mg/dL (0.0-0.4); BILIRUBIN,TOTAL 0.3 mg/dL (0.2-1.3); BLOOD UREA NITROGEN 18 mg/dL (7-20); CALCIUM 9.2 mg/dL (8.4-10.2); CARBON DIOXIDE 28 mmol/L (22-30); CHLORIDE 105 mmol/L (98-107); CREATINE KINASE 130 U/L (55-170); GLUCOSE 130 mg/dL (75-110); POTASSIUM 4.7 mmol/L (3.6-5.0); SODIUM 141.7 mmol/L (137-145); TOTAL PROTEIN 6.1 g/dL (6.3-8.2)
[2018-06-15 21:14] LABS: CREATINE KINASE MB 4.87 ng/mL (<4.55); TROPONIN I 0.023 ng/mL
--- NOTE | 2018-06-15 21:34 | RADIOLOGY REPORT (SQ) ---
EXAM DESCRIPTION: XR CHEST 2 VIEWS COMPLETED DATE/TME: 06/15/2018 20:17 CLINICAL HISTORY: 47 years, Male, sob COMPARISON: None. EXAM DESCRIPTION: CLINICAL HISTORY: sob COMPARISON: None. FINDINGS: Two views of the chest are submitted. Cardiac silhouette appears normal. No focal parenchymal or pleural disease. There is exaggerated thoracic kyphosis. There is no significant pulmonary vascular engorgement. IMPRESSION: No evidence of acute cardiopulmonary disease.
--- NOTE | 2018-06-15 22:23 | ER Document Report ---
ED General - General Chief Complaint: Palpitations Stated Complaint: LIGHT HEADED, DIFFICULTY BREATHING Time Seen by Provider: 06/15/18 20:17 Mode of Arrival: Ambulatory Notes: Patient is a 47-year-old male who presents with chief complaint of shortness of breath and heart racing. Patient reports he has a history of A. fib and was taken off of his medications approximately 3 months ago. Patient reports that at that time he had converted to a sinus rhythm which is why they discontinued his medication. Patient states that today while he was at work his heart rate went up to 140 and then came back down. Patient reports some associated shortness of breath. Denies any chest pain. TRAVEL OUTSIDE OF THE [place] IN LAST 30 DAYS: No - Related Data Allergies/Adverse Reactions: No Known Allergies Allergy (Verified 06/15/18 19:55) Past Medical History - General Information source: Patient - Social History Smoking Status: Never Smoker Chew tobacco use (# tins/day): No Frequency of alcohol use: None Drug Abuse: None Family History: DM, Hypertension, Malignancy Patient has suicidal ideation: No Patient has homicidal ideation: No - Past Medical History Cardiac Medical History: Reports: Hx Atrial Fibrillation, Hx Hypercholesterolemia, Hx Hypertension, Hx Heart Murmur - Mitral regurgitation on recent echocardiogram Denies: Hx Congestive Heart Failure, Hx Coronary Artery Disease Pulmonary Medical History: Reports: Hx Pneumonia - Atypical, Hx Intubation, Hx Respiratory Failure, Hx Sleep Apnea Neurological Medical History: Denies: Hx Seizures Endocrine Medical History: Denies: Hx Diabetes Mellitus Type 1, Hx Hyperthyroidism, Hx Hypothyroidism Renal/ Medical History: Denies: Hx End Stage Renal Disease, Hx Peritoneal Dialysis GI Medical History: Denies: Hx Cirrhosis, Hx Crohn's Disease, Hx Ulcerative Colitis Musculoskeletal Medical History: Denies Hx Fibromyalgia, Reports Hx Musculoskeletal Deformity, Reports Hx Musculoskeletal Trauma Skin Medical History: Denies Hx Psoriasis Psychiatric Medical History: Reports: Hx Anxiety, Hx Depression, Hx Post Traumatic Stress Disorder Traumatic Medical History: Reports: Hx Fractures. Denies: Hx Pneumothorax, Hx Traumatic Brain Injury Infectious Medical History: Denies: Hx C-Diff Past Surgical History: Reports: Hx Abdominal Surgery - GBP, Hx Cholecystectomy, Hx Gastric Bypass Surgery, Hx Nose Surgery, Hx Orthopedic Surgery - ACL, fingers , Hx Tonsillectomy - Immunizations Immunizations up to date: Yes Hx Diphtheria, Pertussis, Tetanus Vaccination: No Physical Exam - Vital signs Vitals: Temp Pulse Resp BP Pulse Ox 98.9 F 81 20 131/68 H 97 06/15/18 20:11 06/15/18 20:11 06/15/18 20:11 06/15/18 20:11 06/15/18 20:11 Course - Re-evaluation Re-evalutation: CBC and comprehensive metabolic panel are unremarkable. CK is normal, CK-MB is elevated at 4.87. Troponin is negative. Chest x-ray is unchanged from previous with no acute findings. EKG sinus rhythm, rate of 88 with PACs, no ST segment elevations or depressions. Patient reports that he has no complaints at this time, his shortness of breath is resolved. Vital signs are stable. Patient does not have a nursing staffing coordinator but he does see pulmonology at [facility]. Patient reports he has a follow-up appointment scheduled with his primary care provider at [facility] on Monday. Repeat cardiac enzymes are negative. Patient's vital signs have been stable throughout his emergency room stay. Patient denies any chest pain. Patient will be discharged home in stable condition with plans to follow-up with his primary care on Monday. - Vital Signs Vital signs: Temp Pulse Resp BP Pulse Ox 98.9 F 81 20 94/50 L 97 06/15/18 20:11 06/15/18 20:11 06/16/18 01:03 06/16/18 01:03 06/16/18 01:03 - Laboratory Result Diagrams: 06/15/18 20:32 06/15/18 20:32 Laboratory results interpreted by me: 06/15/18 06/15/18 06/15/18 20:32 20:32 20:32 Hgb 12.0 L Hct 37.7 L MCV 77 L MCH 24.5 L MCHC 31.8 L RDW 16.3 H Lymphocytes % 11.6 L Glucose 130 H CK-MB (CK-2) 4.87 H Total Protein 6.1 L Discharge - Discharge Clinical Impression: Palpitations, Shortness of breath Condition: Stable Disposition: HOME, SELF-CARE Additional Instructions: Your workup today was unremarkable. Your EKG, chest x-ray and blood work were all reassuring. Please keep the appointment you have with your primary care provider for Monday. You need to get into see cardiology to follow-up on your history of A. fib. Please return to the emergency department should you develop chest pain, worsening shortness of breath, palpitations, you pass out or you develop any other symptom that is concerning to you. Referrals: [facility] [Provider Group] - Follow up as needed
--- NOTE | 2018-06-15 22:39 | EKG REPORT ---
SEVERITY:- ABNORMAL ECG - SINUS RHYTHM MULTIPLE ATRIAL PREMATURE COMPLEXES : Confirmed by: Radha Krause MD 15-Jun-2018 22:38:49
[2018-06-16 00:24] LABS: CREATINE KINASE MB 3.93 ng/mL (<4.55); TROPONIN I 0.014 ng/mL
[2018-06-16 01:12] VITALS: BP 94/50
== END 2018-06-16 01:22 | disposition home or self-care (01) ==
LOC: ER 19:53
DX: R00.2 Palpitations (principal); I49.1 Atrial premature depolarization; R06.02 Shortness of breath; R42 Dizziness and giddiness; I10 Essential (primary) hypertension; Z98.84 Bariatric surgery status
CPT/HCPCS: 36415; 71046; 80053; 82550; 82553; 84484; 85025; 93005; 93010; 99285

== ENCOUNTER → 2018-07-12 | Outpatient (CLI) | payer MEDICAID, OTHER ==
[2018-07-12 10:34] LABS: ALANINE AMINOTRANSFERASE 38 U/L (21-72); ALBUMIN 3.5 g/dL (3.5-5.0); ALKALINE PHOSPHATASE 107 U/L (38-126); ANION GAP 12 (5-19); ASPARTATE AMINO TRANSFERASE 36 U/L (17-59); BILIRUBIN,DIRECT 0.1 mg/dL (0.0-0.4); BILIRUBIN,TOTAL 0.4 mg/dL (0.2-1.3); BLOOD UREA NITROGEN 16 mg/dL (7-20); CALCIUM 8.8 mg/dL (8.4-10.2); CARBON DIOXIDE 26 mmol/L (22-30); CHLORIDE 105 mmol/L (98-107); CHOLESTEROL 98.93 mg/dL (0-200); GLUCOSE 117 mg/dL (75-110); POTASSIUM 4.5 mmol/L (3.6-5.0); SODIUM 143.3 mmol/L (137-145); TOTAL PROTEIN 6.1 g/dL (6.3-8.2); TRIGLYCERIDES 64 mg/dL (<150)
[2018-07-12 10:38] LABS: ABSOLUTE LYMPHOCYTES (AUTO) 0.6 10^3/uL (0.5-4.7); ABSOLUTE NEUT (AUTO) 4.5 10^3/uL (1.7-8.2); BASOPHILS % (AUTO) 0.2 % (0-2); EOSINOPHILS % (AUTO) 4.6 % (0-6); HEMATOCRIT 35.9 % (37.9-51.0); HEMOGLOBIN 11.4 g/dL (13.5-17.0); LYMPHOCYTES % (AUTO) 10.4 % (13-45); MEAN CORPUSCULAR HEMOGLOBIN 24.3 pg (27.0-33.4); MEAN CORPUSCULAR HGB CONC 31.8 g/dL (32.0-36.0); MEAN CORPUSCULAR VOLUME 76 fl (80-97); MONOCYTES % (AUTO) 9.5 % (3-13); PLATELET COUNT 266 10^3/uL (150-450); RED CELL DISTRIBUTION WIDTH 16.3 % (11.5-14.0); SEGMENTED NEUTROPHILS % (AUTO) 75.3 % (42-78); TOTAL CELLS COUNTED % (AUTO) 100 %
[2018-07-12 10:39] LABS: ABSOLUTE EOSINOPHILS # (AUTO) 0.3 10^3/uL (0.0-0.6); ABSOLUTE MONOCYTES (AUTO) 0.6 10^3/uL (0.1-1.4)
[2018-07-12 10:45] LABS: DIRECT LDL 83 mg/dL (<100)
== END ==
LOC: OD 09:21
PROVIDERS: ATTEND Family Medicine Geriatric Medicine
DX: I10 Essential (primary) hypertension (principal); E78.5 Hyperlipidemia, unspecified; N40.0 Benign prostatic hyperplasia without lower urinary tract symptoms; Z79.899 Other long term (current) drug therapy
CPT/HCPCS: 36415; 80053; 80061; 84153; 84443; 85025

== ENCOUNTER 2018-07-22 11:30 | Emergency (ER) | payer MEDICAID, OTHER ==
[2018-07-22 11:36] VITALS: BP 148/80
[2018-07-22] MEDS ORDERED: CIPROFLOXACIN HCL/DEXAMETH OTIC DROP 7.5 ML AD STA (11:54)
--- NOTE | 2018-07-22 11:58 | ER Document Report ---
ED ENT - General Chief Complaint: Ear Pain Stated Complaint: LEFT EAR PAIN, COUGH Time Seen by Provider: 07/22/18 11:43 Mode of Arrival: Ambulatory Information source: Patient Notes: Patient is a 47-year-old male comes emergency room complaint right ear pain. Patient states that he started with the discomfort and pain on night he went to see his primary care provider on Monday who told him it looked like he was getting an early external ear infection wrote him for an antibiotic when he went to pick it up it is in limbo because it has to have a preauthorization and they cannot get hold of the primary care provider over the weekend. Patient states that he could not sleep last night the pain got too expensive so he is here in the emergency room today. He complains of having the pain in the right ear increasing over the 24 hours to where he can stand it. TRAVEL OUTSIDE OF THE [place] IN LAST 30 DAYS: No - HPI Patient complains to provider of: Ear problem Onset: Other - 3 days ago Onset/Duration: Gradual, Worse Quality of pain: Achy, Sharp Severity: Severe Pain Level: 4 Location of pain: Ears Associated symptoms: Ear pain Similar symptoms previously: Yes Recently seen / treated by doctor: Yes - Related Data Allergies/Adverse Reactions: No Known Allergies Allergy (Verified 07/22/18 11:31) Past Medical History - General Information source: Patient - Social History Smoking Status: Former Smoker Cigarette use (# per day): No Chew tobacco use (# tins/day): No Smoking Education Provided: No Frequency of alcohol use: Rare Drug Abuse: None Family History: Reviewed & Not Pertinent, DM, Hypertension, Malignancy - Past Medical History Cardiac Medical History: Reports: Hx Atrial Fibrillation, Hx Hypercholesterolemia, Hx Hypertension, Hx Heart Murmur - Mitral regurgitation on recent echocardiogram Denies: Hx Congestive Heart Failure, Hx Coronary Artery Disease Pulmonary Medical History: Reports: Hx Pneumonia - Atypical, Hx Intubation, Hx Respiratory Failure, Hx Sleep Apnea Neurological Medical History: Denies: Hx Seizures Endocrine Medical History: Denies: Hx Diabetes Mellitus Type 1, Hx Hyperthyroidism, Hx Hypothyroidism Renal/ Medical History: Denies: Hx End Stage Renal Disease, Hx Peritoneal Dialysis GI Medical History: Denies: Hx Cirrhosis, Hx Crohn's Disease, Hx Ulcerative Colitis Musculoskeletal Medical History: Denies Hx Fibromyalgia, Reports Hx Musculoskeletal Deformity, Reports Hx Musculoskeletal Trauma Skin Medical History: Denies Hx Psoriasis Psychiatric Medical History: Reports: Hx Anxiety, Hx Depression, Hx Post Traumatic Stress Disorder Traumatic Medical History: Reports: Hx Fractures. Denies: Hx Pneumothorax, Hx Traumatic Brain Injury Infectious Medical History: Denies: Hx C-Diff Past Surgical History: Reports: Hx Abdominal Surgery - GBP, Hx Cholecystectomy, Hx Gastric Bypass Surgery, Hx Nose Surgery, Hx Orthopedic Surgery - ACL, fingers , Hx Tonsillectomy - Immunizations Immunizations up to date: Yes Hx Diphtheria, Pertussis, Tetanus Vaccination: No Review of Systems - Review of Systems Constitutional: No symptoms reported EENT: Ear pain. denies: Ear discharge Cardiovascular: No symptoms reported Respiratory: No symptoms reported Gastrointestinal: No symptoms reported Genitourinary: No symptoms reported Male Genitourinary: No symptoms reported Musculoskeletal: No symptoms reported Skin: No symptoms reported Hematologic/Lymphatic: No symptoms reported Neurological/Psychological: No symptoms reported -: Yes All other systems reviewed and negative Physical Exam - Vital signs Vitals: Temp Pulse Resp BP Pulse Ox 98.2 F 72 16 148/80 H 97 07/22/18 11:35 07/22/18 11:35 07/22/18 11:35 07/22/18 11:35 07/22/18 11:35 Interpretation: Hypertensive - Notes Notes: PHYSICAL EXAMINATION: GENERAL: Well-appearing, well-nourished and in no acute distress. Uncomfortable appearing HEAD: Atraumatic, normocephalic. EYES: Pupils equal round and reactive to light, extraocular movements intact, sclera anicteric, conjunctiva are normal. ENT: Examination patient's right ear shows that his external canal has some erythema some minimal amount of swelling so there is no need for any type of week at this time. There does not appear to be any discharge. And the area does not appear to be very raw. I am unable to find an area which may have caused the infection to start. There is no sign of break in the skin at least from what I can see with my autoscope. But there is moderate amount of erythema. NECK: Normal range of motion, supple without lymphadenopathy LUNGS: Breath sounds clear to auscultation bilaterally and equal. No wheezes rales or rhonchi. HEART: Regular rate and rhythm without murmurs ABDOMEN: Soft, nontender, nondistended abdomen. No guarding, no rebound. No masses appreciated. Musculoskeletal: Normal range of motion, no pitting or edema. No cyanosis. NEUROLOGICAL Normal speech, normal gait. Normal sensory, motor exams PSYCH: Normal mood, normal affect. SKIN: Warm, Dry, normal turgor, no rashes or lesions noted. Course - Re-evaluation Re-evalutation: 07/22/18 22:30 I have explained to patient that I really do not see a source of the infection but given the fact that a year canals can be seen all the way through we will will be treated with the Ciprodex that I believe that his primary had ordered that he needed a preauthorization. Informed patient to return to ER if he has any concerns or problems. - Vital Signs Vital signs: Temp Pulse Resp BP Pulse Ox 98.2 F 72 16 148/80 H 97 07/22/18 11:35 07/22/18 11:35 07/22/18 11:35 07/22/18 11:35 07/22/18 11:35 Discharge - Discharge Clinical Impression: Otitis externa Qualifiers: Otitis externa type: unspecified type Chronicity: acute Laterality: right Qualified Code(s): H60.501 - Unspecified acute noninfective otitis externa, right ear Condition: Stable Disposition: HOME, SELF-CARE Instructions: Use of Ear Drops ([facility]), Otitis Externa ([facility]) Additional Instructions: Home and use eardrops as directed. Also he may take ibuprofen 800 mg 3 times a day with food which will help with inflammation. It will not hurt to take since you do have a history of high blood pressure for a couple of days only this will help actually with inflammation worse Tylenol just helps to block the pain receptors. Use the drops as directed and follow-up with your primary care sometime the first of the week. Should you have any concerns or problems return to ER for recheck. Forms: Elevated Blood Pressure Referrals: SORAIDA ORNELAS MD [Primary Care Provider] - Follow up as needed
== END 2018-07-22 12:21 | disposition home or self-care (01) ==
LOC: ER 11:30
DX: H60.501 Unspecified acute noninfective otitis externa, right ear (principal); T36.96XA Underdosing of unspecified systemic antibiotic, initial encounter; Z91.128 Patient's intentional underdosing of medication regimen for other reason; Z91.14 Patient's other noncompliance with medication regimen; I10 Essential (primary) hypertension; Z98.84 Bariatric surgery status
CPT/HCPCS: 99282; J3490

== ENCOUNTER → 2018-08-09 | Outpatient (CLI) | payer MEDICAID, OTHER ==
[2018-08-09 09:02] LABS: THYROXINE T4 8.68 ug/dL (5.53-11.0)
[2018-08-09 09:16] LABS: TOTAL T3 1.44 ng/mL (0.970-1.69)
== END ==
LOC: OD 07:04
PROVIDERS: ATTEND Family Medicine Geriatric Medicine
DX: N40.1 Benign prostatic hyperplasia with lower urinary tract symptoms (principal); R79.89 Other specified abnormal findings of blood chemistry; Z79.899 Other long term (current) drug therapy
CPT/HCPCS: 36415; 82947; 82950; 83036; 84436; 84443; 84480

== ENCOUNTER 2018-09-17 10:26 | Emergency (ER) | payer MEDICAID, OTHER ==
[2018-09-17 10:38] VITALS: BP 135/73
--- NOTE | 2018-09-17 11:26 | ER Document Report ---
ED Respiratory Problem - General Chief Complaint: Shortness Of Breath Stated Complaint: COLD SYMPTOMS Time Seen by Provider: 09/17/18 11:16 Mode of Arrival: Ambulatory Information source: Patient, [facility] Records Notes: 47-year-old male patient complains of shortness of breath with cough and fever that started 2 days ago. He also has a scratchy throat. He states he gets frequent pneumonias. He has been in the intensive care unit intubated about a year ago. He is a former smoker. TRAVEL OUTSIDE OF THE [place] IN LAST 30 DAYS: No - Related Data Allergies/Adverse Reactions: No Known Allergies Allergy (Verified 09/17/18 10:27) Past Medical History - General Information source: Patient, [facility] Records - Social History Smoking Status: Former Smoker Cigarette use (# per day): No Chew tobacco use (# tins/day): No Frequency of alcohol use: None Drug Abuse: None Occupation: [employer] man Lives with: Family Family History: Reviewed & Not Pertinent, DM, Hypertension, Malignancy Patient has suicidal ideation: No Patient has homicidal ideation: No - Past Medical History Cardiac Medical History: Reports: Hx Atrial Fibrillation, Hx Hyperchole sterolemia, Hx Hypertension, Hx Heart Murmur - Mitral regurgitation on recent echocardiogram Pulmonary Medical History: Reports: Hx Pneumonia - Atypical, Hx Intubation, Hx Respiratory Failure, Hx Sleep Apnea Musculoskeletal Medical History: Reports Hx Musculoskeletal Deformity, Reports Hx Musculoskeletal Trauma Psychiatric Medical History: Reports: Hx Anxiety, Hx Depression, Hx Post Traumatic Stress Disorder Traumatic Medical History: Reports: Hx Fractures Past Surgical History: Reports: Hx Abdominal Surgery - GBP, Hx Cholecystectomy, Hx Gastric Bypass Surgery, Hx Nose Surgery, Hx Orthopedic Surgery - ACL, fingers, Hx Tonsillectomy - Immunizations Immunizations up to date: Yes Hx Diphtheria, Pertussis, Tetanus Vaccination: No Review of Systems - Review of Systems Constitutional: Fever EENT: No symptoms reported Cardiovascular: No symptoms reported Respiratory: Cough, Short of breath. denies: Wheezing Gastrointestinal: No symptoms reported Genitourinary: No symptoms reported Musculoskeletal: No symptoms reported Skin: No symptoms reported Hematologic/Lymphatic: No symptoms reported Neurological/Psychological: No symptoms reported Physical Exam - Vital signs Vitals: Temp Pulse Resp BP Pulse Ox 98.3 F 63 16 135/73 H 97 09/17/18 10:37 09/17/18 10:37 09/17/18 10:37 09/17/18 10:37 09/17/18 10:37 Interpretation: Normal - Notes Notes: PHYSICAL EXAMINATION: GENERAL: Well-appearing, well-nourished and in no acute distress. HEAD: Atraumatic, normocephalic. EYES: Pupils equal round and reactive to light, extraocular movements intact, sclera anicteric, conjunctiva are normal. ENT: nares patent, oropharynx clear without exudates. Moist mucous membranes. NECK: Normal range of motion, supple without lymphadenopathy LUNGS: Breath sounds are mostly clear, however there is a coarseness to the right sounds when the patient coughs. There is some rhonchi with forced cough, however is mostly a dry cough. HEART: Regular rate and rhythm without murmurs ABDOMEN: Soft, nontender, normoactive bowel sounds. No guarding, no rebound. No masses appreciated. EXTREMITIES: Normal range of motion, no pitting or edema. No cyanosis. NEUROLOGICAL: Cranial nerves grossly intact. Normal speech, normal gait. Normal sensory, motor, and reflex exams. PSYCH: Normal mood, normal affect. SKIN: Warm, Dry, normal turgor, no rashes or lesions noted. Course - Re-evaluation Re-evalutation: 09/17/18 12:19 This patient has a history of episodes of pneumonia including one last year r equiring intubation and a prolonged intensive care unit stay. Chest x-ray today does not show infiltrates. Patient is not tachypneic, has a pulse ox of 97% on room air and a pulse of 63 with respiratory rate of 16. Due to the patient's history, and concerned about getting pneumonia again, he will be covered with antibiotics for his bronchitis. - Vital Signs Vital signs: Temp Pulse Resp BP Pulse Ox 98.3 F 63 16 135/73 H 97 09/17/18 10:37 09/17/18 10:37 09/17/18 10:37 09/17/18 10:37 09/17/18 10:37 - Laboratory Result Diagrams: 09/17/18 11:30 09/17/18 11:30 Laboratory results interpreted by me: 09/17/18 09/17/18 11:30 11:30 Hgb 11.7 L MCV 74 L MCH 22.8 L MCHC 30.9 L RDW 17.4 H Lymphocytes % 9.9 L Glucose 152 H Total Protein 5.6 L Albumin 3.4 L - Diagnostic Test Radiology reviewed: Image reviewed, Reports reviewed - Chest x-ray shows enlarged heart without failure. There are no pulmonary infiltrates. Discharge - Discharge Clinical Impression: Bronchitis Condition: Stable Disposition: HOME, SELF-CARE Additional Instructions: Bronchitis You have acute bronchitis. This disease is an infection or inflammation of the air passageways in your lungs. Symptoms usually include cough, low grade fever, shortness of breath, and wheezing. The cough usually persists for a couple of weeks. Most cases of bronchitis get better without antibiotics. We prescribe antibiotics when we believe bacteria are damaging your airways, or if there's high risk the bronchitis will worsen into pneumonia. Increase your fluid intake. A cool mist humidifier may make your lungs more comfortable. An expectorant (cough medicine that loosens phlegm) can help. If you smoke, STOP!!! Recovery from bronchitis can be somewhat slow, but you should see improvement within a day or two. Repeated episodes of bronchitis may result in lung damage -- for example, chronic bronchitis, recurrent pneumonias, or emphysema. Call the doctor if you develop increasing fever, shortness of breath, chest pain, bloody sputum, or otherwise worsen. If you have not improved at all after several days, contact the physician. Take the medications as prescribed. You may add something like Robitussin-DM or Delsym cough syrup to help suppress your cough if needed. Drink plenty of fluids and get plenty of rest. Follow-up with your primary care provider this week if not improving. I have greeted and performed a rapid initial assessment of this patient. A comprehensive ED assessment and evaluation of the patient, analysis of test results and completion of the medical decision making process will be conducted by additional ED providers. Prescriptions: Benzonatate [Tessalon Perles 100 mg Capsule] 100 mg PO Q8HP PRN #30 capsule PRN Reason: Doxycycline Hyclate 100 mg PO BID #14 tablet.dr Forms: Return to Work Referrals: SORAIDA ORNELAS MD [Primary Care Provider] - Follow up as needed
[2018-09-17 11:48] LABS: ABSOLUTE EOSINOPHILS # (AUTO) 0.2 10^3/uL (0.0-0.6); ABSOLUTE LYMPHOCYTES (AUTO) 0.6 10^3/uL (0.5-4.7); ABSOLUTE MONOCYTES (AUTO) 0.5 10^3/uL (0.1-1.4); ABSOLUTE NEUT (AUTO) 4.6 10^3/uL (1.7-8.2); BASOPHILS % (AUTO) 0.5 % (0-2); HEMATOCRIT 37.9 % (37.9-51.0); HEMOGLOBIN 11.7 g/dL (13.5-17.0); LYMPHOCYTES % (AUTO) 9.9 % (13-45); MEAN CORPUSCULAR HEMOGLOBIN 22.8 pg (27.0-33.4); MEAN CORPUSCULAR HGB CONC 30.9 g/dL (32.0-36.0); MEAN CORPUSCULAR VOLUME 74 fl (80-97); MONOCYTES % (AUTO) 9.1 % (3-13); PLATELET COUNT 220 10^3/uL (150-450); RED BLOOD COUNT 5.14 10^6/uL (4.35-5.55); RED CELL DISTRIBUTION WIDTH 17.4 % (11.5-14.0); SEGMENTED NEUTROPHILS % (AUTO) 77.5 % (42-78); TOTAL CELLS COUNTED % (AUTO) 100 %; WHITE BLOOD COUNT 5.9 10^3/uL (4.0-10.5)
[2018-09-17 12:08] LABS: ALANINE AMINOTRANSFERASE 48 U/L (21-72); ALBUMIN 3.4 g/dL (3.5-5.0); ALKALINE PHOSPHATASE 119 U/L (38-126); ANION GAP 6 (5-19); ASPARTATE AMINO TRANSFERASE 39 U/L (17-59); BILIRUBIN,DIRECT 0.2 mg/dL (0.0-0.4); BILIRUBIN,TOTAL 0.3 mg/dL (0.2-1.3); BLOOD UREA NITROGEN 11 mg/dL (7-20); CALCIUM 8.4 mg/dL (8.4-10.2); CARBON DIOXIDE 26 mmol/L (22-30); CHLORIDE 107 mmol/L (98-107); GLUCOSE 152 mg/dL (75-110); POTASSIUM 4.6 mmol/L (3.6-5.0); SODIUM 139.2 mmol/L (137-145); TOTAL PROTEIN 5.6 g/dL (6.3-8.2)
--- NOTE | 2018-09-17 12:11 | RADIOLOGY REPORT (SQ) ---
EXAM DESCRIPTION: CHEST 2 VIEWS COMPLETED DATE/TIME: 09/17/2018 12:01 pm REASON FOR STUDY: Cough, short of breath, fever COMPARISON: 06/15/2018 NUMBER OF VIEWS: Two view. TECHNIQUE: Frontal and lateral radiographic views of the chest acquired. LIMITATIONS: None. FINDINGS: LUNGS AND PLEURA: No opacities, masses or pneumothorax. No pleural effusion. MEDIASTINUM AND HILAR STRUCTURES: No masses. No contour abnormalities. HEART AND VASCULAR STRUCTURES: Heart enlarged without failure. Aorta normal for age. BONES: No acute findings. HARDWARE: None in the chest. OTHER: No other significant finding. IMPRESSION: CARDIAC ENLARGEMENT WITHOUT FAILURE. TECHNICAL DOCUMENTATION: JOB ID: [id number] [employer]- All Rights Reserved Reading location - IP/workstation name: [email or web address]
== END 2018-09-17 12:51 | disposition home or self-care (01) ==
LOC: ER 10:26
DX: J40 Bronchitis, not specified as acute or chronic (principal); R06.02 Shortness of breath; R05 Cough; R50.9 Fever, unspecified; Z87.891 Personal history of nicotine dependence
CPT/HCPCS: 36415; 71046; 80053; 85025; 99283

== ENCOUNTER 2018-09-20 10:57 | Emergency (ER) | payer MEDICAID, OTHER ==
--- NOTE | 2018-09-20 11:46 | ER Document Report ---
ED Medical Screen (RME) - General Chief Complaint: Breathing Difficulty Stated Complaint: BREATHING PROBLEMS Time Seen by Provider: 09/20/18 11:44 Mode of Arrival: Ambulatory Information source: Patient Notes: This is a 47-year-old man with a history of multiple pneumonias, as per Mera failure, ARDS who presents to the emergency room with cough, dyspnea on exertion and wheezing over the past several days. The patient was seen a few days ago and started on doxycycline and states that his symptoms are worse. Patient also states that he has right wrist pain. He states he fell at a alliance party 3 weeks ago and has had persistent pain. 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 TRAVEL OUTSIDE OF THE [place] IN LAST 30 DAYS: No - Related Data Allergies/Adverse Reactions: No Known Allergies Allergy (Verified 09/20/18 11:00) Past Medical History - Social History Frequency of alcohol use: None Drug Abuse: None - Past Medical History Cardiac Medical History: Reports: Hx Atrial Fibrillation - 2018, Hx Hypercholesterolemia, Hx Hypertension, Hx Heart Murmur - Mitral regurgitation on recent echocardiogram Denies: Hx Congestive Heart Failure, Hx Coronary Artery Disease Pulmonary Medical History: Reports: Hx Pneumonia - Atypical, ARDS, Hx Intubation, Hx Respiratory Failure, Hx Sleep Apnea Neurological Medical History: Denies: Hx Seizures Endocrine Medical History: Denies: Hx Diabetes Mellitus Type 1, Hx Hyperthyroidism, Hx Hypothyroidism Renal/ Medical History: Denies: Hx End Stage Renal Disease, Hx Peritoneal Dialysis GI Medical History: Denies: Hx Cirrhosis, Hx Crohn's Disease, Hx Ulcerative Colitis Musculoskeltal Medical History: Denies Hx Fibromyalgia, Reports Hx Musculoskeletal Deformity, Reports Hx Musculoskeletal Trauma Skin Medical History: Denies Hx Psoriasis Psychiatric Medical History: Reports: Hx Anxiety, Hx Depression, Hx Post Traumatic Stress Disorder Traumatic Medical History: Reports: Hx Fractures. Denies: Hx Pneumothorax, Hx Traumatic Brain Injury Infectious Medical History: Denies: Hx C-Diff Past Surgical History: Reports: Hx Abdominal Surgery - GBP, Hx Cholecystectomy, Hx Gastric Bypass Surgery, Hx Nose Surgery, Hx Orthopedic Surgery - ACL, fingers, Hx Tonsillectomy - Immunizations Immunizations up to date: Yes Hx Diphtheria, Pertussis, Tetanus Vaccination: No History of Influenza Vaccine for 06/2017 - 11/2017 Season: No Physical Exam - Vital signs Vitals: Temp Pulse Resp BP Pulse Ox 98.5 F 81 17 144/77 H 97 09/20/18 11:07 09/20/18 11:07 09/20/18 11:07 09/20/18 11:07 09/20/18 11:07 Course - Vital Signs Vital signs: Temp Pulse Resp BP Pulse Ox 98.5 F 81 17 144/77 H 97 09/20/18 11:07 09/20/18 11:07 09/20/18 11:07 09/20/18 11:07 09/20/18 11:07 Doctor's Discharge - Discharge Referrals: SORAIDA ORNELAS MD [Primary Care Provider] - Follow up as needed
--- NOTE | 2018-09-20 12:32 | RADIOLOGY REPORT (SQ) ---
EXAM DESCRIPTION: WRIST RIGHT 3 VIEWS COMPLETED DATE/TIME: 09/20/2018 12:23 pm REASON FOR STUDY: right wrist pain COMPARISON: None. NUMBER OF VIEWS: Four views. TECHNIQUE: AP, lateral, oblique, and scaphoid radiographic images acquired of the right wrist. LIMITATIONS: None. FINDINGS: MINERALIZATION: Normal. BONES: No acute fracture or dislocation. Irregular appearance of the styloid process of the distal r adius. No worrisome bone lesions. Normal alignment. SOFT TISSUES: No soft tissue swelling. No foreign body. OTHER: No other significant finding. IMPRESSION: IRREGULAR APPEARANCE OF THE STYLOID PROCESS OF THE DISTAL RADIUS, PRESUMABLY RELATED TO OLD TRAUMA. NO OTHER ACUTE OR SIGNIFICANT FINDINGS. TECHNICAL DOCUMENTATION: JOB ID: [id number] [employer]- All Rights Reserved Reading location - IP/workstation name: [email or web address]
--- NOTE | 2018-09-20 12:34 | RADIOLOGY REPORT (SQ) ---
EXAM DESCRIPTION: CHEST 2 VIEWS COMPLETED DATE/TIME: 09/20/2018 12:23 pm REASON FOR STUDY: cough, sob COMPARISON: 09/17/2018. EXAM PARAMETERS: NUMBER OF VIEWS: two views TECHNIQUE: Digital Frontal and Lateral radiographic views of the chest acquired. RADIATION DOSE: NA LIMITATIONS: none FINDINGS: LUNGS AND PLEURA: No opacities, masses or pneumothorax. No pleural effusion. MEDIASTINUM AND HILAR STRUCTURES: No masses or contour abnormalities. HEART AND VASCULAR STRUCTURES: Heart upper limits of normal size. No evidence for failure. BONES: No acute findings. Chronic changes in the spine with exaggerated kyphotic curvature. HARDWARE: None in the chest. OTHER: No other significant finding. IMPRESSION: NO ACUTE RADIOGRAPHIC FINDING IN THE CHEST. TECHNICAL DOCUMENTATION: JOB ID: [id number] [employer]- All Rights Reserved Reading location - IP/workstation name: [email or web address]
--- NOTE | 2018-09-20 12:47 | ER Document Report ---
ED General - General Chief Complaint: Breathing Difficulty Stated Complaint: BREATHING PROBLEMS Time Seen by Provider: 09/20/18 11:44 Mode of Arrival: Ambulatory TRAVEL OUTSIDE OF THE [place] IN LAST 30 DAYS: No - HPI Notes: With complaints of persistent cough, was concerned about pneumonia as well as right wrist pain for the last 3 weeks. Patient was placed on doxycycline times 4 days ago by ED provider, states he has been feeling somewhat better but is concerned about persistent cough. Has been taking antibiotics as directed. Non-smoker. Denies any history of asthma or allergies. 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 Is not tried any ice or heat, is not tried any A's bandaging. Has not seen a primary care for this complaint. He started seeing Dr. Bull approximately a month ago. Denies fevers, chills, chest pain,palpitations, shortness of breath, dyspnea, nausea, vomiting, diarrhea, abdominal pain, hematuria,blurred vision, double vision, loss of vision, speech changes, LH, dizziness, syncope, headaches, wheezing, ST, URI, neck pain. - Related Data Allergies/Adverse Reactions: No Known Allergies Allergy (Verified 09/20/18 11:00) Past Medical History - General Information source: Patient - Social History Smoking Status: Never Smoker Frequency of alcohol use: None Drug Abuse: None Family History: Reviewed & Not Pertinent, DM, Hypertension, Malignancy Patient has suicidal ideation: No Patient has homicidal ideation: No - Past Medical History Cardiac Medical History: Reports: Hx Atrial Fibrillation - 2018, Hx Hypercholesterolemia, Hx Hypertension, Hx Heart Murmur - Mitral regurgitation on recent echocardiogram Denies: Hx Congestive Heart Failure, Hx Coronary Artery Disease Pulmonary Medical History: Reports: Hx Pneumonia - Atypical, ARDS, Hx Intubation, Hx Respiratory Failure, Hx Sleep Apnea Neurological Medical History: Denies: Hx Seizures Endocrine Medical History: Denies: Hx Diabetes Mellitus Type 1, Hx Hyp erthyroidism, Hx Hypothyroidism Renal/ Medical History: Denies: Hx End Stage Renal Disease, Hx Peritoneal Dialysis GI Medical History: Denies: Hx Cirrhosis, Hx Crohn's Disease, Hx Ulcerative Colitis Musculoskeletal Medical History: Denies Hx Fibromyalgia, Reports Hx Musculoskeletal Deformity, Reports Hx Musculoskeletal Trauma Skin Medical History: Denies Hx Psoriasis Psychiatric Medical History: Reports: Hx Anxiety, Hx Depression, Hx Post Traumatic Stress Disorder Traumatic Medical History: Reports: Hx Fractures. Denies: Hx Pneumothorax, Hx Traumatic Brain Injury Infectious Medical History: Denies: Hx C-Diff Past Surgical History: Reports: Hx Abdominal Surgery - GBP, Hx Cholecystectomy, Hx Gastric Bypass Surgery, Hx Nose Surgery, Hx Orthopedic Surgery - ACL, fingers, Hx Tonsillectomy - Immunizations Immunizations up to date: Yes Hx Diphtheria, Pertussis, Tetanus Vaccination: No Review of Systems - Review of Systems Constitutional: No symptoms reported EENT: No symptoms reported Cardiovascular: No symptoms reported Respiratory: See HPI Gastrointestinal: No symptoms reported Genitourinary: No symptoms reported Male Genitourinary: No symptoms reported Musculoskeletal: See HPI Skin: No symptoms reported Hematologic/Lymphatic: No symptoms reported Neurological/Psychological: No symptoms reported Physical Exam - Vital signs Vitals: Temp Pulse Resp BP Pulse Ox 98.5 F 81 17 144/77 H 97 09/20/18 11:07 09/20/18 11:07 09/20/18 11:07 09/20/18 11:07 09/20/18 11:07 - Notes Notes: PHYSICAL EXAMINATION: GENERAL: Well-appearing, well-nourished and in no acute distress. HEAD: Atraumatic, normocephalic. EYES: Pupils equal round and reactive to light, extraocular movements intact, sclera anicteric, conjunctiva are normal. ENT: Nares patent, oropharynx clear without exudates. Moist mucous membranes. NECK: Normal range of motion, supple without lymphadenopathy LUNGS: Breath sounds clear to auscultation bilaterally and equal. No wheezes rales or rhonchi. HEART: Regular rate and rhythm without murmurs ABDOMEN: Soft, nontender, nondistended abdomen. No guarding, no rebound. No masses appreciated. Musculoskeletal: Normal range of motion, no pitting or edema. No cyanosis. NEUROLOGICAL: Cranial nerves grossly intact. Normal speech, normal gait. Normal sensory, motor exams. Noted right wrist pain with flexion, extension, inversion, eversion of wrist. digits in right and left with full aprom.. Reports Analyst + 2 BUE equally. Snuffbox tenderness negative on right. radial pulses + 2 BUE equally. Negative kanavels sign. No open wounds or drainage from wrist. No vascular compromise.No body crepitus or focal area of TTP. Limited ROM with flexion, extension, ulnar/radial deviation . Motor and sensory function of ulnar, radial, medial nerves intact bilaterally and equally. PSYCH: Normal mood, normal affect. SKIN: Warm, Dry, normal turgor, no rashes or lesions noted. Course - Re-evaluation Re-evalutation: 09/20/18 13:03 47 male afebrile vitals stable and in no distress. placed on doxycycline approximately 4 days ago by ED provider, patient was concerned about pneumonia because he still has cough but is feeling slightly better. A negative for any acute findings per radiology. Patient complains of right wrist pain for the last 3 weeks, x-ray of right wrist shows irregular appearance of the styloid process of the distal radius which appears to be an old trauma no other acute f indings seen by radiology for fracture dislocation. I have reevaluated this patient multiple times and no significant life threatening changes, no signs of toxicity, sepsis or peritonitis are noted. The patient and I have discussed the diagnosis and risks, and we agree with discharging home and close follow-up. We also discussed returning to the Emergency Department immediately if new or worsening symptoms occur with the understanding that symptoms and presentations can change. At this time will discharge with return precautions and follow-up recommendations. Start Prednisone and Tessalon Perles Perles as well as continue doxycycline and Ventolin inhaler for cough placed patient in a cockup splint, advised to apply rice therapy, follow-up with orthopedic nurse practitioner. Take [id number] Tylenol and meloxicam, do not take any other NSAIDs. Verbal discharge instructions given a the bedside and opportunity for questions given. We have discussed the symptoms which are most concerning (e.g., as of breath, chest pain, fever, worsening cough, numbness or tingling down her arms, worsening pain) that necessitate immediate return. Medication warnings reviewed. All questions and concerns answered by this provider. Patient is in agreement with this plan and has verbalized understanding of return precautions and the need for primary care follow-up in the next 24-72 hours. Patient verbalized understanding of plan of care and agree with plan of care. - Vital Signs Vital signs: Temp Pulse Resp BP Pulse Ox 98.5 F 81 17 144/77 H 97 09/20/18 11:07 09/20/18 11:07 09/20/18 11:07 09/20/18 11:07 09/20/18 11:07 Discharge - Discharge Clinical Impression: Cough, Right wrist sprain Condition: Stable Disposition: HOME, SELF-CARE Instructions: Wrist Sprain ([facility]), Cough Suppressant & Expectorant Medications, Doxycycline ([facility]) Additional Instructions: You were seen for symptoms most consistent with bronchitis. This can take up to 12 weeks to fully resolve. This is generally due to a viral infection. Please follow-up with your primary doctor in the next 2-3 days. Return if you develop worsening cough, vomiting, fever >100.4, pass out, begin coughing blood, or have any other symptoms that are concerning to you. Please use the medications prescribed today as directed.Sprain Your injury is a sprain. A sprain results from stretching or tearing of the ligaments, usually from a twisting injury. The ligaments will require time and protection in order to heal properly. Many sprains are quite disabling and should be taken seriously. The usual initial treatment of sprains is cold packs, elevation, and rest of the injured area. Your physician has assessed the seriousness of your ligament injury, and has outlined a treatment plan. Understand that this treatment may change, depending on how you progress. If a re-examination was recommended, it is important that you follow up as instructed. Call the doctor any time if there is severe pain, numbness, or loss of function in the injured area. Return immediately for any new or worsening symptoms. Follow up with primary care provider, call tomorrow to make followup appoi ntment. Prescriptions: Benzonatate [Tessalon Perles 100 mg Capsule] 100 mg PO Q8HP PRN #20 capsule PRN Reason: Meloxicam [Mobic] 7.5 mg PO DAILY #7 tablet Prednisone [Deltasone 20 mg Tablet] 3 tab PO DAILY 5 Days #15 tablet Forms: Return to Work Referrals: SORAIDA BULL MD [Primary Care Provider] - Follow up in 3-5 days DEONNA AYERS MD [ACTIVE STAFF] - Follow up in 3-5 days
[2018-09-20 13:29] VITALS: BP 115/67
== END 2018-09-20 13:31 | disposition home or self-care (01) ==
LOC: ER 10:57
DX: S63.501A Unspecified sprain of right wrist, initial encounter (principal); R06.00 Dyspnea, unspecified; R05 Cough; X58.XXXA Exposure to other specified factors, initial encounter; I48.91 Unspecified atrial fibrillation; E78.00 Pure hypercholesterolemia, unspecified; I10 Essential (primary) hypertension; F41.9 Anxiety disorder, unspecified; Z90.49 Acquired absence of other specified parts of digestive tract; Z98.84 Bariatric surgery status
CPT/HCPCS: 99284; 71046; 73110; L3908

== ENCOUNTER 2018-10-08 18:34 | Emergency (ER) | payer MEDICAID, OTHER ==
[2018-10-08 18:56] VITALS: BP 129/65
--- NOTE | 2018-10-08 19:33 | ER Document Report ---
ED Respiratory Problem - General Chief Complaint: Productive Cough Stated Complaint: SHORT OF BREATH Time Seen by Provider: 10/08/18 19:09 Primary Care Provider: SORAIDA ORNELAS MD [Primary Care Provider] - Follow up in 3-5 days Mode of Arrival: Ambulatory Information source: Patient Notes: 47-year-old male presented to ED for complaint of shortness of breath that is productive in the morning when he wakes up. He states he has a history of A. fib and are not infrequently he comes in the emergency room is a chest x-ray that is negative and they get sent home and he within a couple days developed pneumonia. He states he is getting cataract surgery in 2 weeks and he needs to make sure that he is fine to have his surgery. When I informed patient that I was going to assess him and get the x-ray and then make a decision whether he was to get antibiotics he stated no he needed antibiotics and he needed a CAT scan because the chest x-rays are negative all the time. He states that I was not going to do a CAT scan or antibiotics, that I needed to find somebody else to come and see him. I did consult Dr. Morocho who came and saw the patient. He stated that we should get a EKG and x-ray and then discuss antibiotics. TRAVEL OUTSIDE OF THE [place] IN LAST 30 DAYS: No - HPI Patient complains to provider of: Cough, Short of breath Onset: Other Duration: Intermittent episodes - 2-3 days Initiating Event: URI Quality of pain: No pain Severity: None Pain Level: Denies Chest pain/discomfort: Tightness Cough: Productive - Clear Sputum amount: Small Sputum color: Clear At home treatment: Bronchodilators Associated symptoms: Congestion, Cough, PND, Runny nose Similar symptoms previously: Yes Recently seen / treated by doctor: Yes - Related Data Allergies/Adverse Reactions: No Known Allergies Allergy (Verified 09/20/18 11:00) Past Medical History - General Information source: Patient - Social History Smoking Status: Never Smoker Frequency of alcohol use: None Drug Abuse: None Family History: Reviewed & Not Pertinent, DM, Hypertension, Malignancy - Past Medical History Cardiac Medical History: Reports: Hx Atrial Fibrillation - 2018, Hx Hypercholesterolemia, Hx Hypertension, Hx Heart Murmur - Mitral regurgitation on recent echocardiogram Pulmonary Medical History: Reports: Hx Pneumonia - Atypical, ARDS, Hx Intubation, Hx Respiratory Failure, Hx Sleep Apnea EENT Medical History: Reports: None Neurological Medical History: Reports: None Endocrine Medical History: Reports: None Renal/ Medical History: Reports: None Malignancy Medical History: Reports None GI Medical History: Reports: None Musculoskeletal Medical History: Reports Hx Musculoskeletal Deformity, Reports Hx Musculoskeletal Trauma Skin Medical History: Reports None, Denies Hx Psoriasis Psychiatric Medical History: Reports: Hx Anxiety, Hx Depression, Hx Post Traumatic Stress Disorder Traumatic Medical History: Reports: Hx Fractures Infectious Medical History: Reports: None Past Surgical History: Reports: Hx Abdominal Surgery - GBP, Hx Cholecystectomy, Hx Gastric Bypass Surgery, Hx Nose Surgery, Hx Orthopedic Surgery - ACL, fingers, Hx Tonsillectomy - Immunizations Immunizations up to date: Yes Hx Diphtheria, Pertussis, Tetanus Vaccination: No Review of Systems - Review of Systems Constitutional: Recent illness EENT: Nose congestion, Nose discharge, Sinus pressure, Sinus discharge Cardiovascular: No symptoms reported Respiratory: Cough, Short of breath Gastrointestinal: No symptoms reported Genitourinary: No symptoms reported Male Genitourinary: No symptoms reported Musculoskeletal: No symptoms reported Skin: No symptoms reported Hematologic/Lymphatic: No symptoms reported Neurological/Psychological: No symptoms reported Physical Exam - Vital signs Vitals: Temp Pulse Resp BP Pulse Ox 99.3 F 92 18 129/65 H 97 10/08/18 18:54 10/08/18 18:54 10/08/18 18:54 10/08/18 18:54 10/08/18 18:54 Interpretation: Normal - General General appearance: Appears well, Alert - HEENT Head: Normocephalic, Atraumatic Eyes: Normal Pupils: PERRL Ears: Normal External canal: Normal Tympanic membrane: Normal Sinus: Normal Nasal: Purulent discharge, Swelling Mouth/Lips: Normal Mucous membranes: Normal Pharynx: Post nasal drainage Neck: Normal - Respiratory Respiratory status: No respiratory distress Chest status: Nontender Breath sounds: Productive cough Chest palpation: Normal - Cardiovascular Rhythm: Regular Heart sounds: Normal auscultation Murmur: No - Abdominal Inspection: Normal Distension: No distension Bowel sounds: Normal Tenderness: Nontender Organomegaly: No organomegaly - Back Back: Normal, Nontender - Extremities General upper extremity: Normal inspection, Nontender, Normal color, Normal ROM, Normal temperature General lower extremity: Normal inspection, Nontender, Normal color, Normal ROM, Normal temperature, Normal weight bearing. No: Zev's sign - Neurological Neuro grossly intact: Yes Cognition: Normal Orientation: AAOx4 Ketty Coma Scale Eye Opening: Spontaneous Ketty Coma Scale Verbal: Oriented Ketty Coma Scale Motor: Obeys Commands Hatch Coma Scale Total: 15 Speech: Normal Motor strength normal: LUE, RUE, LLE, RLE Sensory: Normal - Psychological Associated symptoms: Normal affect, Normal mood - Skin Skin Temperature: Warm Skin Moisture: Dry Skin Color: Normal Course - Re-evaluation Re-evalutation: 10/09/18 02:37 X-ray was discussed with patient and written prescription for azithromycin was written. Nurse states patient left before he received his discharge instructions and prescription. - Vital Signs Vital signs: Temp Pulse Resp BP Pulse Ox 99.3 F 92 18 129/65 H 97 10/08/18 18:54 10/08/18 18:54 10/08/18 18:54 10/08/18 18:54 10/08/18 18:54 - Diagnostic Test Radiology reviewed: Image reviewed, Reports reviewed Discharge - Discharge Clinical Impression: URI (upper respiratory infection) Qualifiers: URI type: unspecified URI Qualified Code(s): J06.9 - Acute upper respiratory infection, unspecified Condition: Stable Disposition: HOME, SELF-CARE Additional Instructions: UPPER RESPIRATORY ILLNESS: You have a viral infection of the respiratory passages -- a "cold." This common infection causes nasal congestion, drainage, and often sore throat and cough. It is highly contagious. The disease usually lasts about 10 to 14 days. There is no "cure" for the viral infection -- it must run its course. If there is a complication, such as bacterial infection in the nose, sinuses, middle ear, or bronchial tubes, antibiotics may be required. The antibiotics won't affect the virus. Drink plenty of fluids. A humidifier may help. An expectorant medication or decongestant may make you more comfortable. Use acetaminophen or ibuprofen for fever or aches. See the doctor if fever persists over two days, if there is any significant worsening of your symptoms, or if you simply fail to improve as expected. Your EKG was negative for atrial fib. Your chest x-ray was clear with no signs of infection. You have been treated with azithromycin per your request. You did speak with Dr. Morocho who has agreed that you could get the azithromycin as you state that she frequently gets pneumonia when you come in for upper respiratory infections and are sent home. You have been given information on the risk of antibiotics frequently to include C. difficile and resistance to antibiotics. You have also been given instructions concerning the risk of nausea vomiting and diarrhea with frequent antibiotics. You have elected to have the prescription for azithromycin at this time. USE OF ACETAMINOPHEN (Tylenol): Acetaminophen may be taken for pain relief or fever control. It's much safer than aspirin, offering a wider range of "safe" dosages. It is safe during . Some brand names are Tylenol, Panadol, Datril, Anacin 3, Tempra, and Liquiprin. Acetaminophen can be repeated every four hours. The following are maximum recommended dosages: >89 pounds or adults 650 mg to 900 mg Acetaminophen can be repeated every four hours. Maximum dose not to exceed 4000 mg a day. FOLLOW-UP CARE: If you have been referred to a physician for follow-up care, call the physicians office for an appointment as you were instructed or within the next two days. If you experience worsening or a significant change in your symptoms, notify the physician immediately or return to the Emergency Department at any time for re-evaluation. Prescriptions: Azithromycin [Zithromax 250 mg Tablet] 250 mg PO ASDIR PRN #6 tablet PRN Reason: Forms: Elevated Blood Pressure Referrals: SORAIDA ORNELAS MD [Primary Care Provider] - Follow up in 3-5 days
--- NOTE | 2018-10-08 19:54 | RADIOLOGY REPORT (SQ) ---
EXAM DESCRIPTION: CHEST 2 VIEWS COMPLETED DATE/TIME: 10/08/2018 7:43 pm REASON FOR STUDY: cough congestion COMPARISON: 09/20/2018. EXAM PARAMETERS: NUMBER OF VIEWS: two views TECHNIQUE: Digital Frontal and Lateral radiographic views of the chest acquired. RADIATION DOSE: NA LIMITATIONS: none FINDINGS: LUNGS AND PLEURA: No opacities, masses or pneumothorax. No pleural effusion. MEDIASTINUM AND HILAR STRUCTURES: No masses or contour abnormalities. HEART AND VASCULAR STRUCTURES: Heart normal size. No evidence for failure. BONES: No acute findings. Degenerative changes in the spine. HARDWARE: None in the chest. OTHER: No other significant finding. IMPRESSION: NO ACUTE RADIOGRAPHIC FINDING IN THE CHEST. TECHNICAL DOCUMENTATION: JOB ID: [id number] [employer]- All Rights Reserved Reading location - IP/workstation name: [email or web address]
--- NOTE | 2018-10-09 21:43 | EKG REPORT ---
SEVERITY:- NORMAL ECG - SINUS RHYTHM : Confirmed by: Beny Ko 09-Oct-2018 21:42:58
== END 2018-10-08 20:33 | disposition home or self-care (01) ==
LOC: ER 18:34
DX: J06.9 Acute upper respiratory infection, unspecified (principal); R06.02 Shortness of breath; I48.91 Unspecified atrial fibrillation; E78.00 Pure hypercholesterolemia, unspecified; I10 Essential (primary) hypertension; Z90.49 Acquired absence of other specified parts of digestive tract; Z98.84 Bariatric surgery status
CPT/HCPCS: 71046; 93005; 93010; 99283

== ENCOUNTER 2018-10-15 17:35 | Emergency (ER) | payer MEDICAID, OTHER ==
[2018-10-15] MEDS ORDERED: PREDNISONE 20 MG TABLET PO ONE (19:58)
[2018-10-15] MEDS ORDERED: IPRATROPIUM/ALBUTEROL 0.5-2.5 MG/3 ML AMPUL NEB ONE (19:58)
--- NOTE | 2018-10-15 20:00 | ER Document Report ---
ED Medical Screen (RME) - General Chief Complaint: Flu Symptoms Stated Complaint: COLD/FLU SYMPTOMS Time Seen by Provider: 10/15/18 19:57 Primary Care Provider: SORAIDA ORNELAS MD [Primary Care Provider] - Follow up as needed Notes: 48-year-old male with chief complaint of sick symptoms for 10 days, states he has cough and shortness of breath that will not go away. Seen 1 week ago, diagnosed with a viral illness. He has had the influenza vaccine. States he had terrible pneumonia that almost killed him once, has had pneumonia vaccine as well as a result. Denies smoking, asthma, COPD. TRAVEL OUTSIDE OF THE [place] IN LAST 30 DAYS: No - Related Data Allergies/Adverse Reactions: No Known Allergies Allergy (Verified 09/20/18 11:00) Past Medical History - Social History Chew tobacco use (# tins/day): No Frequency of alcohol use: None Drug Abuse: None - Past Medical History Cardiac Medical History: Reports: Hx Atrial Fibrillation - 2018, Hx Hypercholesterolemia, Hx Hypertension, Hx Heart Murmur - Mitral regurgitation on recent echocardiogram Denies: Hx Congestive Heart Failure, Hx Coronary Artery Disease Pulmonary Medical History: Reports: Hx Pneumonia - Atypical, ARDS, Hx Intubation, Hx Respiratory Failure, Hx Sleep Apnea Neurological Medical History: Denies: Hx Seizures Endocrine Medical History: Denies: Hx Diabetes Mellitus Type 1, Hx Hyperthyroidism, Hx Hypothyroidism Renal/ Medical History: Denies: Hx End Stage Renal Disease, Hx Peritoneal Dialysis GI Medical History: Denies: Hx Cirrhosis, Hx Crohn's Disease, Hx Ulcerative Colitis Musculoskeltal Medical History: Denies Hx Fibromyalgia, Reports Hx Musculoskeletal Deformity, Reports Hx Musculoskeletal Trauma Skin Medical History: Denies Hx Psoriasis Psychiatric Medical History: Reports: Hx Anxiety, Hx Depression, Hx Post Traumatic Stress Disorder Traumatic Medical History: Reports: Hx Fractures. Denies: Hx Pneumothorax, Hx Traumatic Brain Injury Infectious Medical History: Denies: Hx C-Diff Past Surgical History: Reports: Hx Abdominal Surgery - GBP, Hx Cholecystectomy, Hx Gastric Bypass Surgery, Hx Nose Surgery, Hx Orthopedic Surgery - ACL, fingers, Hx Tonsillectomy - Immunizations Immunizations up to date: Yes Hx Diphtheria, Pertussis, Tetanus Vaccination: No History of Influenza Vaccine for 06/2017 - 11/2017 Season: No Physical Exam - Vital signs Vitals: Temp Pulse Resp BP Pulse Ox 98.2 F 89 18 159/70 H 97 02/11/19 17:44 10/15/18 17:44 10/15/18 17:44 10/15/18 17:44 10/15/18 17:44 - Respiratory Respiratory status: No respiratory distress. No: Labored, Tachypnea Breath sounds: Decreased air movement, Nonproductive cough, Wheezing Course - Re-evaluation Re-evalutation: Patient does have expiratory wheezing, worse on the right, nonproductive coughing episodes, however he is not in respiratory distress, not hypoxic, unremarkable vital signs. I have greeted and performed a rapid initial assessment of this patient. A comprehensive ED assessment and evaluation of the patient, analysis of test results and completion of the medical decision making process will be conducted by additional ED providers. - Vital Signs Vital signs: Temp Pulse Resp BP Pulse Ox 97.9 F 81 20 125/86 H 98 10/15/18 19:54 10/15/18 19:54 10/15/18 19:54 10/15/18 19:54 10/15/18 19:54 Doctor's Discharge - Discharge Referrals: SORAIDA ORNEALS MD [Primary Care Provider] - Follow up as needed
--- NOTE | 2018-10-15 20:34 | RADIOLOGY REPORT (SQ) ---
XR CHEST 2 VIEWS HISTORY: cough, shortness of breath, hx pneumonia. COMPARISON: 01/10/2018 FINDINGS: The heart size is normal. The lungs are clear. No pleural effusions or pneumothorax is seen. No acute bony findings. Exaggerated thoracic kyphosis is present. IMPRESSION: No evidence of acute cardiopulmonary disease.
[2018-10-15 20:52] LABS: A TYPE INFLUENZA AG NEGATIVE (NEGATIVE)
[2018-10-15 20:53] LABS: B INFLUENZA AG NEGATIVE (NEGATIVE)
[2018-10-15 20:55] LABS: ANION GAP 7 (5-19); BLOOD UREA NITROGEN 12 mg/dL (7-20); CALCIUM 8.8 mg/dL (8.4-10.2); CARBON DIOXIDE 26 mmol/L (22-30); CHLORIDE 106 mmol/L (98-107); GLUCOSE 170 mg/dL (75-110); POTASSIUM 4.1 mmol/L (3.6-5.0); SODIUM 138.6 mmol/L (137-145)
[2018-10-15 21:38] LABS: ABSOLUTE EOSINOPHILS # (AUTO) 0.2 10^3/uL (0.0-0.6); ABSOLUTE LYMPHOCYTES (AUTO) 0.8 10^3/uL (0.5-4.7); ABSOLUTE MONOCYTES (AUTO) 0.6 10^3/uL (0.1-1.4); ABSOLUTE NEUT (AUTO) 2.7 10^3/uL (1.7-8.2); BASOPHILS % (AUTO) 0.2 % (0-2); EOSINOPHILS % (AUTO) 5.5 % (0-6); HEMATOCRIT 34.7 % (37.9-51.0); HEMOGLOBIN 11.3 g/dL (13.5-17.0); LYMPHOCYTES % (AUTO) 18.7 % (13-45); MEAN CORPUSCULAR HEMOGLOBIN 25.5 pg (27.0-33.4); MEAN CORPUSCULAR HGB CONC 32.6 g/dL (32.0-36.0); MONOCYTES % (AUTO) 13.8 % (3-13); PLATELET COUNT 225 10^3/uL (150-450); RED BLOOD COUNT 4.44 10^6/uL (4.35-5.55); SEGMENTED NEUTROPHILS % (AUTO) 61.8 % (42-78); TOTAL CELLS COUNTED % (AUTO) 100 %; WHITE BLOOD COUNT 4.4 10^3/uL (4.0-10.5)
[2018-10-15 21:46] LABS: MEAN CORPUSCULAR VOLUME 78 fl (80-97)
--- NOTE | 2018-10-15 22:54 | ER Document Report ---
ED General - General Chief Complaint: Flu Symptoms Stated Complaint: COLD/FLU SYMPTOMS Time Seen by Provider: 10/15/18 19:57 Primary Care Provider: SORAIDA ORNELAS MD [Primary Care Provider] - Follow up as needed TRAVEL OUTSIDE OF THE [place] IN LAST 30 DAYS: No - HPI Notes: Patient presents emergency department for evaluation. He is concerned that he may have a pneumonia. He has had a cough and some associated shortness of breath for about 10 days. It has not seemed to get any better. He does have swelling in his legs but this is not new. He denies any fever or chills. He has been using her albuterol at home with some improvement. Has had severe pneumonias in the past. - Related Data Allergies/Adverse Reactions: No Known Allergies Allergy (Verified 09/20/18 11:00) Past Medical History - General Information source: Patient - Social History Smoking Status: Never Smoker Chew tobacco use (# tins/day): No Frequency of alcohol use: None Drug Abuse: None Family History: Reviewed & Not Pertinent, DM, Hypertension, Malignancy Patient has suicidal ideation: No Patient has homicidal ideation: No - Past Medical History Cardiac Medical History: Reports: Hx Atrial Fibrillation - 2018, Hx Hypercholesterolemia, Hx Hypertension, Hx Heart Murmur - Mitral regurgitation on recent echocardiogram Denies: Hx Congestive Heart Failure, Hx Coronary Artery Disease Pulmonary Medical History: Reports: Hx Pneumonia - Atypical, ARDS, Hx Intubation, Hx Respiratory Failure, Hx Sleep Apnea Neurological Medical History: Denies: Hx Seizures Endocrine Medical History: Denies: Hx Diabetes Mellitus Type 1, Hx Hyperthyroidism, Hx Hypothyroidism Renal/ Medical History: Denies: Hx End Stage Renal Disease, Hx Peritoneal Dialysis GI Medical History: Denies: Hx Cirrhosis, Hx Crohn's Disease, Hx Ulcerative Colitis Musculoskeletal Medical History: Denies Hx Fibromyalgia, Reports Hx Musculoskele shankar Deformity, Reports Hx Musculoskeletal Trauma Skin Medical History: Denies Hx Psoriasis Psychiatric Medical History: Reports: Hx Anxiety, Hx Depression, Hx Post Traumatic Stress Disorder Traumatic Medical History: Reports: Hx Fractures. Denies: Hx Pneumothorax, Hx Traumatic Brain Injury Infectious Medical History: Denies: Hx C-Diff Past Surgical History: Reports: Hx Abdominal Surgery - GBP, Hx Cholecystectomy, Hx Gastric Bypass Surgery, Hx Nose Surgery, Hx Orthopedic Surgery - ACL, fingers, Hx Tonsillectomy - Immunizations Immunizations up to date: Yes Hx Diphtheria, Pertussis, Tetanus Vaccination: No Review of Systems - Review of Systems Constitutional: Malaise EENT: No symptoms reported Cardiovascular: No symptoms reported Respiratory: Cough, Short of breath Gastrointestinal: No symptoms reported Musculoskeletal: No symptoms reported Skin: No symptoms reported Neurological/Psychological: No symptoms reported Physical Exam - Vital signs Vitals: Temp Pulse Resp BP Pulse Ox 98.2 F 89 18 159/70 H 97 10/15/18 17:44 10/15/18 17:44 10/15/18 17:44 10/15/18 17:44 10/15/18 17:44 Interpretation: Hypertensive - Notes Notes: Vital signs reviewed, please refer to chart. Patient is normocephalic, at raumatic. Pupils equal round, reactive to light. Neck is supple without meningismus. Heart is regular rate and rhythm. Lungs are clear to auscultation bilaterally. Abdomen is soft, nontender, normoactive bowel sounds throughout. Extremities without cyanosis, clubbing, 2+ pretibial edema noted bilaterally. Calves nontender. Peripheral pulses are equal. Skin is warm and dry. Patient is awake, alert, neurological exam is nonfocal. Course - Re-evaluation Re-evalutation: 10/15/18 22:53 Patient presents emerge department for evaluation. He was seen and examined. At the time of my exam his lungs are clear. He is oxygenating well. He in fact did not cough in any way while I was there. His chest x-ray is unremarkable. He has no leukocytosis. At this point he is to continue supportive care at home. Follow-up with his primary care physician. Return to the ED with worsening or new concerning symptoms of any sort. - Vital Signs Vital signs: Temp Pulse Resp BP Pulse Ox 97.9 F 80 20 140/64 H 98 10/15/18 19:57 10/15/18 19:57 10/15/18 20:29 10/15/18 22:02 10/15/18 22:06 - Laboratory Result Diagrams: 10/15/18 21:27 10/15/18 20:21 Laboratory results interpreted by me: 10/15/18 10/15/18 20:21 21:27 Hgb 11.3 L Hct 34.7 L MCV 78 L D MCH 25.5 L RDW 17.0 H Monocytes % 13.8 H Glucose 170 H - Diagnostic Test Radiology reviewed: Reports reviewed Discharge - Discharge Clinical Impression: Bronchitis, Dyspnea Condition: Good Disposition: HOME, SELF-CARE Instructions: Bronchitis (OM) Additional Instructions: Follow-up with your doctor this week. Return to the emergency department with worsening or new concerning symptoms. Referrals: SORAIDA ORNELAS MD [Primary Care Provider] - Follow up as needed
[2018-10-15 23:05] VITALS: BP 131/66
== END 2018-10-15 23:10 | disposition home or self-care (01) ==
LOC: ER 17:35
DX: J40 Bronchitis, not specified as acute or chronic (principal); R06.00 Dyspnea, unspecified; R05 Cough; I10 Essential (primary) hypertension; R53.81 Other malaise
CPT/HCPCS: 94640; 99284; 36415; 85025; 80048; 87804; 71046; J7512; J7620

== ENCOUNTER 2018-10-23 06:17 | Day surgery (SDC) | payer MEDICAID, OTHER ==
[~2018-10-23 06:17] MED LIST changes: -ALBUTEROL SULFATE 0.083% NEB 2.5 MG/3 ML AMPUL NEB ONE; +BUPIVACAINE HCL 0.75% INJ/PF (7.5 MG/1 ML) 10 ML SDV OS PRN; +KETOROLAC TROMETHAMINE 0.45% 4 DROP/0.4 ML DROPERETTE OS PRN; +LIDOCAINE 4% INJ/PF (40 MG/ML) 5 ML AMPUL OS PRN
[2018-10-23] MEDS: TROPICAMIDE 1% OPH SOLN 3 ML OS PRN ×3 (07:02→07:22)
[2018-10-23] MEDS: CYCLOPENTOLATE 0.2%/PHENYLEPHRINE 1% OPH SOLN 2 ML OS PRN ×3 (07:02→07:22)
[2018-10-23] MEDS: BESIFLOXACIN HCL 0.6% OPH SUSP 5 ML BOTTLE OS PRN ×4 (07:02→08:05)
[2018-10-23] MEDS: TETRACAINE HCL 0.5% OPH SOLN 0.6 ML DROPERETTE OS PRN ×2 (07:03→07:22)
[2018-10-23] MEDS ORDERED: EPINEPHRINE INJ/PF 1 MG/1 ML AMPULE ONE (07:12)
[2018-10-23] MEDS ORDERED: CHONDR SU A NA/HYALUR INTRAOC KIT (SURGICARE) ONE (07:12)
[2018-10-23] MEDS ORDERED: LIDOCAINE 1% INJ-PF (10 MG/ML) 30 ML SDV ONE (07:12)
[2018-10-23] MEDS ORDERED: FENTANYL CITRATE INJ/PF 100 MCG/2 ML AMPUL ONE (07:27)
[2018-10-23] MEDS ORDERED: MIDAZOLAM 2 MG/2 ML INJ ONE (07:27)
[2018-10-23] MEDS: DORZOLAMIDE HCL 2%/TIMOLOL MALEAT 0.5% OPH SOLN 10 ML OS PRN ×2 (08:05)
[2018-10-23] MEDS ORDERED: LIDOCAINE 1%/PHENYLEPHRINE 1.5% 1 ML VIAL ONE (08:12)
--- NOTE | 2018-10-23 08:43 | [facility] OPERATIVE REPORT E ---
[facility] Operative Report NAME: CHARY HUSTON AGE: 48Y DATE OF SURGERY: 10/23/2018 ROOM: PREOPERATIVE DIAGNOSIS: Cataract, left eye. POSTOPERATIVE DIAGNOSIS: Cataract, left eye. PROCEDURE PERFORMED: Phacoemulsification with posterior chamber intraocular lens, left eye. SURGEON: KG LAWRENCE M.D. ANESTHESIA: Topical with MAC. INDICATIONS FOR SURGERY: Difficulty reading road signs. Best corrected visual acuity 20/400. PROCEDURE: The patient was brought to the operating room and placed on the operative table. Following tetracaine drops, topical anesthesia was administered. This consisted of instrument wipe pledgets soaked in a solution of 4% Xylocaine mixed with 0.75% Marcaine in a 1:2 ratio. A 2 x 1 cm pledget was placed in the superior fornix. A 1 x 1 cm pledget was placed in the inferior fornix. The eye was patched shut for 5 minutes. The patch was removed. The eye was sterilely prepped and draped in the usual manner. Lid speculum was placed in the eye. The pledgets were removed and 4-0 black silk sutures were placed around the superior and the inferior rectus muscles to be used as traction. A conjunctival peritomy was made at the 10 o'clock position. Hemostasis was obtained with bipolar cautery. A posterior limbal groove was created using a crescent knife and dissected anteriorly towards the cornea. A sharp point blade was used to create a paracentesis site at the 2 o'clock position. A 2.4 mm keratome was used to enter the anterior chamber through the groove. Viscoelastic was injected into the anterior chamber. An anterior capsulotomy was performed using Utrata forceps in a capsulorrhexis fashion. Hydrodissection and hydrodelineation were performed. Phacoemulsification was performed in [id number]-[id number] technique. Total phaco time was 7.10 CDE. Following this, the I/A unit was used to remove residual cortex. Viscoelastic was injected into the capsular bag. Intraocular lens model ZCB00, 22.0 diopters, serial number [id number], was placed in the capsular bag. The I/A unit was used to remove residual viscoelastic. The wound was seen to be watertight under high and low pressure, and no sutures were placed. The intraocular lens was well centered. The pressure was adjusted in the eye to normal pressure. The 4-0 black silk sutures and lid speculum were removed. The eye was shielded after Besivance drops were placed. The patient tolerated the procedure well and was sent to the recovery room in good condition. DICTATING PHYSICIAN: KG LAWRENCE M.D. [id number] PHY#: [id number] ID: [id number] JOB#: [id number] ACCT: [id number] cc:KG LAWRENCE M.D. >
--- NOTE | 2018-10-23 08:43 | [facility] DISCHARGE SUMMARY E ---
[facility] Discharge Summary NAME: CHARY HUSTON AGE: 48Y ADMITTED: 10/23/2018 DISCHARGED: 10/23/2018 FINAL DIAGNOSIS: Cataract, left eye. HOSPITAL COURSE: The patient is a 47-year-old gentleman who underwent uneventful cataract extraction with intraocular lens implant, left eye, on 10/23/2018. He will be discharged to home. He was instructed to resume preoperative medications; to take Tylenol as needed for discomfort; to keep his eye shielded; to use Durezol, Ilevro, and Vigamox at 3 p.m. and 8 p.m.; and to follow up in my office in 1 day. DICTATING PHYSICIAN: KG LAWRENCE M.D. [id number] Y#: [id number] ID: [id number] JOB#: [id number] ACCT: [id number] cc:KG LAWRENCE M.D. >
== END 2018-10-23 08:45 | disposition home or self-care (01) ==
LOC: SC 06:17
PROVIDERS: ATTEND Ophthalmology
DX: H25.812 Combined forms of age-related cataract, left eye (principal); Z96.1 Presence of intraocular lens; H57.03 Miosis; E11.9 Type 2 diabetes mellitus without complications; I10 Essential (primary) hypertension; N40.0 Benign prostatic hyperplasia without lower urinary tract symptoms; J80 Acute respiratory distress syndrome; R01.1 Cardiac murmur, unspecified; G47.33 Obstructive sleep apnea (adult) (pediatric); D64.9 Anemia, unspecified; E66.9 Obesity, unspecified; Z68.42 Body mass index [BMI] 45.0-49.9, adult; Z79.84 Long term (current) use of oral hypoglycemic drugs; Z79.899 Other long term (current) drug therapy; Z79.82 Long term (current) use of aspirin
CPT/HCPCS: 66984; 82962; V2632; J2250; J3490 ×6; J0171; J3010; J2370; 142

== ENCOUNTER 2018-11-19 23:25 | Inpatient (IN) | payer MEDICAID, OTHER ==
--- NOTE | 2018-11-20 01:11 | ER Document Report ---
ED General - General Chief Complaint: Breathing Difficulty Stated Complaint: DIFFICULTY BREATHING Time Seen by Provider: 11/20/18 01:10 Primary Care Provider: SORAIDA BULL MD [Primary Care Provider] - Follow up as needed Notes: Patient is a 48-year-old male who presents with complaint of difficulty breathing and becoming very short of breath with exertion. History of atrial fibrillation. August 2017 he developed A. fib and ARDS. He was transferred [facility]. He was on Eliquis, but eventually converted and has stayed out of A. fib since and therefore was taken off the Eliquis. He takes metoprolol 12.5 mg twice a day. No fevers. No vomiting. No chest pain. No other complaints at this time. His primary care physician is Dr. Bull. His environmental engineering intern is Dr. Krause. TRAVEL OUTSIDE OF THE [place] IN LAST 30 DAYS: No - Related Data Allergies/Adverse Reactions: No Known Allergies Allergy (Verified 10/23/18 06:52) Past Medical History - Social History Smoking Status: Never Smoker Frequency of alcohol use: None Drug Abuse: None Family History: Reviewed & Not Pertinent, DM, Hypertension, Malignancy - Past Medical History Cardiac Medical History: Reports: Hx Atrial Fibrillation - 2018, Hx Hypercholesterolemia, Hx Hypertension, Hx Heart Murmur - Mitral regurgitation on recent echocardiogram Denies: Hx Congestive Heart Failure, Hx Coronary Artery Disease, Hx Heart Attack Pulmonary Medical History: Reports: Hx Asthma, Hx Pneumonia - Atypical, ARDS, Hx Intubation, Hx Respiratory Failure, Hx Sleep Apnea Neurological Medical History: Denies: Hx Cerebrovascular Accident, Hx Seizures Endocrine Medical History: Denies: Hx Diabetes Mellitus Type 1, Hx Hyperthyroidism, Hx Hypothyroidism Renal/ Medical History: Denies: Hx End Stage Renal Disease, Hx Peritoneal Dialysis GI Medical History: Denies: Hx Cirrhosis, Hx Crohn's Disease, Hx Hepatitis, Hx Hiatal Hernia, Hx Ulcer, Hx Ulcerative Colitis Musculoskeletal Medical History: Denies Hx Fibromyalgia, Reports Hx Musculoskeletal Deformity, Reports Hx Musculoskeletal Trauma Skin Medical History: Denies Hx Psoriasis Psychiatric Medical History: Reports: Hx Anxiety, Hx Depression, Hx Post Traumatic Stress Disorder Traumatic Medical History: Reports: Hx Fractures. Denies: Hx Pneumothorax, Hx Traumatic Brain Injury Infectious Medical History: Denies: Hx C-Diff, Hx Hepatitis Past Surgical History: Reports: Hx Abdominal Surgery - GBP, Hx Cholecystectomy, Hx Gastric Bypass Surgery, Hx Nose Surgery, Hx Orthopedic Surgery - ACL, fingers, Hx Tonsillectomy. Denies: Hx Open Heart Surgery, Hx Pacemaker - Immunizations Immunizations up to date: Yes Hx Diphtheria, Pertussis, Tetanus Vaccination: No Review of Systems - Review of Systems Notes: My Normal Review Basic REVIEW OF SYSTEMS: CONSTITUTIONAL : Denies fever, chills, or sweats. Denies recent illness. EENT: Denies eye, ear, throat, or mouth pain or symptoms. Denies nasal or sinus congestion. CARDIOVASCULAR: Denies chest pain. RESPIRATORY: Difficulty breathing worse on exertion. GASTROINTESTINAL: Denies abdominal pain. Denies nausea, vomiting, or diarrhea. MUSCULOSKELETAL: Denies neck or back pain or joint pain or swelling. SKIN: Denies rash or skin lesions. NEUROLOGICAL: Denies altered mental status or loss of consciousness. Denies headache. Denies weakness or paralysis or loss of use of either side. Denies problems with gait or speech. Denies sensory or motor loss. ALL OTHER SYSTEMS REVIEWED AND NEGATIVE. Physical Exam - Vital signs Vitals: Temp Pulse Resp BP Pulse Ox 98.1 F 89 18 114/61 93 11/19/18 23:30 11/19/18 23:30 11/19/18 23:30 11/19/18 23:30 11/19/18 23:30 - Notes Notes: General Appearance: Well nourished, alert, cooperative, no acute distress, no obvious discomfort. Well-appearing. Vitals: reviewed, See vital signs table. Head: no swelling or tenderness to the head Eyes: PERRL, EOMI, Conjuctiva clear Neck: Supple, no neck tenderness, No thyromegaly Lungs: No wheezing, No rales, No rhonci, No accessory muscle use, good air exchange bilaterally. Heart: Mildly tachycardic rate, Irregular rythm, No murmur, no rub Abdomen: Normal BS, soft, No rigidity, No abdominal tenderness, No guarding, no rebound, no abdominal masses, no organomegaly Extremities: strength 5/5 in all extremities, good pulses in all extremities, no swelling or tenderness in the extremities, 1+ bilateral lower extremity edema. Skin: warm, dry, appropriate color, no rash Neuro: speech clear, oriented x 3, normal affect, responds appropriately to questions. Course - Re-evaluation Re-evalutation: 11/20/18 02:58 Patient's heart rate was initially doing better in the 80s and 90s but now started fluctuating and will go up into the 1 teens in the 120s. I would infiltrate back down into the 90s. He still has O2 saturations anywhere from 89-92% while laying at room air. I did ambulate him. Upon ambulation his oxygen saturations remained about the same; however, he said he felt dizzy and lightheaded when he is ambulating did not feel well. Denies any chest pain. He does have some edema in his legs and therefore I have given dose of Lasix. His BNP is elevated. I will give him a dose of Eliquis being that he is back in atrial fibrillation. I have placed him on 2 L nasal cannula which is helped him feel better. I did discuss the case with the hospitalist, Dr. Dobbins, who agrees to come evaluate the patient. Dictation of this chart was performed using voice recognition software; th erefore, there may be some unintended grammatical errors. - Vital Signs Vital signs: Temp Pulse Resp BP Pulse Ox 98.1 F 89 18 114/61 93 11/19/18 23:30 11/19/18 23:30 11/19/18 23:30 11/19/18 23:30 11/19/18 23:30 - Laboratory Result Diagrams: 11/20/18 01:32 11/20/18 01:32 Laboratory results interpreted by me: 11/20/18 11/20/18 11/20/18 01:32 01:32 01:32 WBC 11.6 H Hgb 11.6 L Hct 37.3 L MCV 71 L MCH 22.0 L MCHC 31.2 L RDW 16.8 H Seg Neutrophils % 80.9 H Lymphocytes % 9.8 L Absolute Neutrophils 9.3 H Glucose 151 H NT-Pro-B Natriuret Pep 3220 H Total Protein 6.0 L - EKG Interpretation by Me Additional EKG results interpreted by me: 11/20/18 01:10 EKG is reviewed and interpreted by me. EKG shows A. fib with a rate of [address] segment elevation or depression. No ischemic T wave inversions. QRS duration is within normal range. QT interval slightly prolonged. Discharge - Discharge Clinical Impression: Hypoxemia CHF (congestive heart failure) Qualifiers: Heart failure type: unspecified Heart failure chronicity: unspecified Qualified Code(s): I50.9 - Heart failure, unspecified Atrial fibrillation Qualifiers: Atrial fibrillation type: unspecified Qualified Code(s): I48.91 - Unspecified atrial fibrillation Condition: Stable Disposition: ADMITTED OBSERVATION Admitting Provider: Hospitalist Unit Admitted: Telemetry Referrals: SORAIDA BULL MD [Primary Care Provider] - Follow up as needed
[2018-11-20] MEDS ORDERED: METOPROLOL TARTRATE 25 MG TABLET PO ONE (01:24)
[2018-11-20 01:43] LABS: ABSOLUTE BASOPHILS # (AUTO) 0.1 10^3/uL (0.0-0.2); ABSOLUTE EOSINOPHILS # (AUTO) 0.1 10^3/uL (0.0-0.6); ABSOLUTE LYMPHOCYTES (AUTO) 1.1 10^3/uL (0.5-4.7); ABSOLUTE MONOCYTES (AUTO) 0.9 10^3/uL (0.1-1.4); ABSOLUTE NEUT (AUTO) 9.3 10^3/uL (1.7-8.2); BASOPHILS % (AUTO) 0.5 % (0-2); EOSINOPHILS % (AUTO) 0.8 % (0-6); HEMATOCRIT 37.3 % (37.9-51.0); HEMOGLOBIN 11.6 g/dL (13.5-17.0); LYMPHOCYTES % (AUTO) 9.8 % (13-45); MEAN CORPUSCULAR HGB CONC 31.2 g/dL (32.0-36.0); MEAN CORPUSCULAR VOLUME 71 fl (80-97); PLATELET COUNT 295 10^3/uL (150-450); RED BLOOD COUNT 5.29 10^6/uL (4.35-5.55); RED CELL DISTRIBUTION WIDTH 16.8 % (11.5-14.0); SEGMENTED NEUTROPHILS % (AUTO) 80.9 % (42-78); TOTAL CELLS COUNTED % (AUTO) 100 %; WHITE BLOOD COUNT 11.6 10^3/uL (4.0-10.5)
[2018-11-20 02:01] LABS: ALANINE AMINOTRANSFERASE 43 U/L (21-72); ALBUMIN 3.6 g/dL (3.5-5.0); ALKALINE PHOSPHATASE 109 U/L (38-126); ANION GAP 9 (5-19); ASPARTATE AMINO TRANSFERASE 28 U/L (17-59); BILIRUBIN,DIRECT 0.1 mg/dL (0.0-0.4); BILIRUBIN,TOTAL 0.5 mg/dL (0.2-1.3); BLOOD UREA NITROGEN 18 mg/dL (7-20); CALCIUM 9.3 mg/dL (8.4-10.2); CARBON DIOXIDE 25 mmol/L (22-30); CHLORIDE 104 mmol/L (98-107); GLUCOSE 151 mg/dL (75-110); POTASSIUM 4.7 mmol/L (3.6-5.0); SODIUM 137.5 mmol/L (137-145)
[2018-11-20 02:15] LABS: TROPONIN I 0.022 ng/mL
--- NOTE | 2018-11-20 02:17 | RADIOLOGY REPORT (SQ) ---
EXAM DESCRIPTION: XR CHEST 1 VIEW COMPLETED DATE/TME: 11/20/2018 01:25 CLINICAL HISTORY: 48 years, Male, dyspnea, a. fib Comparison: January 10, 2018 FINDINGS: No focal lung consolidation. No pleural effusion. No pneumothorax. The cardiac silhouette is enlarged. No acute osseous abnormality. Soft tissues are unremarkable. IMPRESSION: No acute findings. No focal lung consolidation.
[2018-11-20] MEDS ORDERED: FUROSEMIDE INJ/PF 20 MG/2 ML SDV IV ONE (02:50)
[2018-11-20] MEDS ORDERED: APIXABAN 5 MG TABLET PO ONE (02:55)
[2018-11-20] MEDS ORDERED: MAGNESIUM HYDROXIDE SUSP 30 ML UDCUP PO PRN (03:38)
[2018-11-20] MEDS ORDERED: TEMAZEPAM 15 MG CAPSULE PO PRN (03:38)
[2018-11-20] MEDS ORDERED: MAG HYDROX/AL HYDROX/SIMETH SUSP 30 ML UDCUP PO PRN (03:38)
[2018-11-20] MEDS ORDERED: ONDANSETRON 4 MG TAB.RAPDIS PO PRN (03:38)
[2018-11-20] MEDS ORDERED: ONDANSETRON HCL INJ/PF 4 MG/2 ML SDV IV PRN (03:38)
--- NOTE | 2018-11-20 05:59 | PDOC H&P ---
History of Present Illness Admission Date/PCP: 11/20/2018 SORAIDA ORNELAS MD Patient complains of: Dyspnea History of Present Illness: CHARY HUSTON is a 48 year old male who presented to the emergency room with acute dyspnea. He admits that he developed shortness of breath which is been gr adually worsening since its onset early in the afternoon of (11/19/2018). He currently classifies his dyspnea as moderate to severe and it was severe at the time of his presentation. His dyspnea is accompanied by mildly increased edema of his bilateral lower extremities, is exacerbated by exertion and partially relieved by rest and is accompanied by dizziness and lightheadedness with greater exertion. He associates his mild to moderate generalized weakness and moderate fatigue with his dyspnea. He admits prior similar episodes associated with his atrial fibrillation and congestive heart failure. He has not identified any additional aggravating or ameliorating factors for his dyspnea. In the emergency room he was found to have an elevated BNP as well as a clinical exam consistent with congestive heart failure. He did not respond adequately to therapy in the emergency room to be released home as he remained dyspneic and hypoxic with exertion. He was subsequently admitted to the emergency room for further evaluation and treatment. Past Medical History Cardiac Medical History: Reports: Atrial Fibrillation - 2018, Congestive Heart Failure, Hyperlipidema, Hypertension, Heart Murmur - Mitral regurgitation on recent echocardiogram Denies: Coronary Artery Disease, Myocardial Infarction Pulmonary Medical History: Reports: Bronchitis, Intubation, Pneumonia - Atypical, ARDS, Respiratory Failure, Sleep Apnea Denies: Asthma, Chronic Obstructive Pulmonary Disease (COPD), Tuberculosis EENT Medical History: Denies: Cataracts, Nose - Nasal polyps Neurological Medical History: Denies: Hemorrhagic CVA, Ischemic CVA, Multiple Sclerosis, Seizures Endocrine Medical History: Reports: Diabetes Mellitus Type 2, Obesity Denies: Diabetes Mellitus Type 1, Hyperthyroidism, Hypothyroidism Renal/ Medical History: Denies: Chronic Kidney Disease, Nephrolithiasis Malignancy Medical History: Reports: None GI Medical History: Denies: Cirrhosis, Crohn's Disease, Hepatitis, Hiatal Hernia, Ulcerative Colitis Musculoskeltal Medical History: Denies: Fibromyalgia Skin Medical History: Denies: Eczema, Psoriasis Psychiatric Medical History: Reports: Depression, General Anxiety Disorder, Post Traumatic Stress Disorder Denies: Alcohol Dependency, Substance Abuse, Tobacco Dependency Traumatic Medical History: Reports: None Hematology: Reports: Anemia Denies: Bleeding Tendencies Infectious Medical History: Reports: None Past Surgical History Past Surgical History: Reports: Cholecystectomy, Gastric Bypass Surgery, Orthopedic Surgery - ACL, fingers, Tonsillectomy Social History Information Source: Patient Lives with: Parents Smoking Status: Never Smoker Frequency of Alcohol Use: None Hx Recreational Drug Use: No Drugs: None Hx Prescription Drug Abuse: No - Advance Directive Resuscitation Status: Full Code Surrogate healthcare decision maker:: Mother Family History Family History: DM, Hypertension, Malignancy Parental Family History Reviewed: Yes Children Family History Reviewed: No Sibling(s) Family History Reviewed.: Yes Medication/Allergy Home Medications: Citalopram Hydrobromide [Celexa 40 mg Tablet] 1 tab PO DAILY 08/22/17 Aspirin [Aspirin 325 mg Tablet] 325 mg PO DAILY tablet 01/14/18 Metoprolol Tartrate [Lopressor 50 mg Tablet] 50 mg PO DAILY tablet 01/14/18 Difluprednate [Durezol] 5 ml OP ASDIR PRN 10/19/18 Ferrous Sulfate [Feosol] 325 mg PO DAILY 10/19/18 Lisinopril [Prinivil 40 mg Tablet] 40 mg PO DAILY 10/19/18 Metformin HCl [Metformin ER Osmotic] 500 mg PO DAILY 10/19/18 Moxifloxacin HCl [Vigamox 0.5% Oph Soln 3 ml] 1 drop OP ASDIR PRN 10/19/18 Nepafenac [Ilevro] 1.7 ml OP ASDIR PRN 10/19/18 Tamsulosin HCl [Flomax 0.4 mg Cap.sr] 0.4 mg PO DAILY 10/19/18 Allergies/Adverse Reactions: No Known Allergies Allergy (Verified 10/23/18 06:52) Review of Systems Constitutional: PRESENT: as per HPI, fatigue, weakness. ABSENT: chills, fever (s) Eyes: ABSENT: visual disturbances, other - Eye pain Ears: ABSENT: hearing changes, other - Ear pain Nose, Mouth, and Throat: ABSENT: mouth pain, sore throat Cardiovascular: PRESENT: as per HPI, dyspnea on exertion, edema. ABSENT: chest pain, orthropnea, palpitations Respiratory: PRESENT: as per HPI, dyspnea. ABSENT: cough Gastrointestinal: ABSENT: abdominal pain, constipation, diarrhea, nausea, vomiting Genitourinary: ABSENT: dysuria, hematuria Musculoskeletal: ABSENT: back pain, joint swelling Integumentary: ABSENT: pruritus, rash Neurological: PRESENT: as per HPI, dizziness - With lightheadedness sometimes with extensive exertion today.. ABSENT: confusion, convulsions, focal weakness, memory loss Psychiatric: ABSENT: anxiety, depression Endocrine: ABSENT: cold intolerance, heat intolerance Hematologic/Lymphatic: ABSENT: easy bleeding, easy bruising Physical Exam Vital Signs: Temp Pulse Resp BP Pulse Ox 98.1 F 89 18 114/61 93 11/19/18 23:30 11/19/18 23:30 11/19/18 23:30 11/19/18 23:30 11/19/18 23:30 Intake & Output 11/18/18 11/19/18 11/20/18 23:59 23:59 23:59 Weight 122.47 kg General appearance: PRESENT: no acute distress, cooperative, morbidly obese Head exam: PRESENT: atraumatic, normocephalic Eye exam: PRESENT: conjunctiva pink. ABSENT: scleral icterus Ear exam: PRESENT: normal external ear exam. ABSENT: bleeding Mouth exam: PRESENT: dry mucosa, neck supple Neck exam: ABSENT: thyromegaly, tracheal deviation Respiratory exam: PRESENT: rales - Bibasilar fine rales, symmetrical, unlabored Cardiovascular exam: PRESENT: gallop - Faint S4 gallop, irregular rhythm - Irregularly irregular rate and rhythm, tachycardia. ABSENT: clicks, rubs Pulses: PRESENT: normal radial pulses, normal dorsalis pedis pul Vascular exam: PRESENT: normal capillary refill. ABSENT: pallor GI/Abdominal exam: PRESENT: normal bowel sounds, soft Rectal exam: PRESENT: deferred Extremities exam: PRESENT: pedal edema, +1 edema - Bilateral lower extremities. ABSENT: joint swelling Musculoskeletal exam: ABSENT: deformity, dislocation Neurological exam: PRESENT: alert, oriented to person, oriented to place, oriented to time, oriented to situation, CN II-XII grossly intact. ABSENT: motor sensory deficit Psychiatric exam: PRESENT: appropriate affect, normal mood Skin exam: PRESENT: dry, intact, warm. ABSENT: jaundice, rash, urticaria Results Laboratory Results: 11/20/18 01:32 11/20/18 01:32 11/20/18 11/20/18 01:32 01:32 WBC 11.6 H RBC 5.29 Hgb 11.6 L Hct 37.3 L MCV 71 L MCH 22.0 L MCHC 31.2 L RDW 16.8 H Plt Count 295 Seg Neutrophils % 80.9 H Lymphocytes % 9.8 L Monocytes % 8.0 Eosinophils % 0.8 Basophils % 0.5 Absolute Neutrophils 9.3 H Absolute Lymphocytes 1.1 Absolute Monocytes 0.9 Absolute Eosinophils 0.1 Absolute Basophils 0.1 Sodium 137.5 Potassium 4.7 Chloride 104 Carbon Dioxide 25 Anion Gap 9 BUN 18 Creatinine 0.97 Est GFR ( Amer) > 60 Est GFR (Non-Af Amer) > 60 Glucose 151 H Calcium 9.3 Magnesium 1.7 Total Bilirubin 0.5 AST 28 ALT 43 Alkaline Phosphatase 109 Total Protein 6.0 L Albumin 3.6 11/20/18 01:32 Troponin I 0.022 NT-Pro-B Natriuret Pep 3220 H Impressions: Chest X-Ray 11/20/18 01:25 IMPRESSION: No acute findings. No focal lung consolidation. Assessment & Plan - Diagnosis (1) Acute respiratory failure with hypoxia Is this a current diagnosis for this admission?: Yes Plan: Patient was treated with supplemental oxygen early in his ER course. He is significantly improved after treatment and may be able to be off oxygen with periods of rest however he becomes hypoxic with any exertion. He will be maintained on the O2 protocol during his hospitalization. (2) Atrial fibrillation with rapid ventricular response Is this a current diagnosis for this admission?: Yes Plan: Patient's atrial fibrillation is slightly better controlled after an additional dose of metoprolol given in the ER. Given his size and despite his blood pressure I believe he may require a significantly higher dose of metoprolol to control his heart rate, hypertension and congestive heart failure. Additionally the patient is been started back on Eliquis in the emergency room. (3) CHF (congestive heart failure) Qualifiers: Heart failure type: unspecified Heart failure chronicity: unspecified Qualified Code(s): I50.9 - Heart failure, unspecified Is this a current diagnosis for this admission?: Yes Plan: Patient's congestive heart failure will be treated initially by controlling his heart rate. Additionally spironolactone 12.5 mg p.o. daily will be added and his metoprolol will be converted to metoprolol succinate and will be dosed at 100 mg p.o. daily. A small dose of an TIFFANY or an ARB may be added if patient tolerates the current therapy. Additionally his electrolytes will be followed on a regular basis and his lipid profile will be evaluated as will his hemoglobin A1c and thyroid function studies. (4) Hypertension Qualifiers: Hypertension type: essential hypertension Qualified Code(s): I10 - Essential (primary) hypertension Is this a current diagnosis for this admission?: Yes Plan: Patient's blood pressures been well controlled throughout his hospital course h owever it will be necessary to increase his metoprolol in order to control his heart rate. Patient's blood pressure be closely monitored throughout the process of adjusting his medications to better control his congestive heart failure as well as his atrial fibrillation with rapid ventricular response. - Time Time Spent: 30 to 50 Minutes Critical Time spent with patient: Less than 15 minutes Medications reviewed and adjusted accordingly: Yes Anticipated discharge: Home - Inpatient Certification Based on my medical assessment, after consideration of the patient's comorbidities, presenting symptoms, or acuity I expect that the services needed warrant INPATIENT care.: Yes I certify that my determination is in accordance with my understanding of Medicare's requirements for reasonable and necessary INPATIENT services [42 CFR 412.3e].: Yes Medical Necessity: Need Close Monitoring Due to Risk of Patient Decompensation, Need For Continuous Telemetry Monitoring, Risk of Complication if Not Cared For in Hospital
[2018-11-20 08:48] LABS: APPEARANCE,URINE CLEAR; BILIRUBIN,URINE NEGATIVE (NEGATIVE); COLOR,URINE YELLOW; GLUCOSE, URINE NEGATIVE (NEGATIVE); KETONES,URINE NEGATIVE (NEGATIVE); LEUKOCYTE ESTERASE,URINE NEGATIVE (NEGATIVE); NITRITE,URINE NEGATIVE (NEGATIVE); PROTEIN,URINE NEGATIVE (NEGATIVE); URINE SPECIFIC GRAVITY 1.014; UROBILINOGEN,URINE NEGATIVE mg/dL (<2.0)
[2018-11-20 09:19] LABS: CREATINE KINASE MB 2.46 ng/mL (<4.55); TROPONIN I 0.016 ng/mL
[2018-11-20] MEDS ORDERED: TAMSULOSIN HCL 0.4 MG CAP.SR.24H PO SCH (10:00)
[2018-11-20] MEDS ORDERED: METFORMIN HCL 500 MG TABLET PO SCH (10:00)
[2018-11-20] MEDS ORDERED: APIXABAN 5 MG TABLET PO SCH (10:00)
[2018-11-20] MEDS ORDERED: CITALOPRAM HYDROBROMIDE 20 MG TABLET PO SCH (10:00)
[2018-11-20] MEDS ORDERED: SPIRONOLACTONE 25 MG TABLET PO SCH (10:00)
[2018-11-20] MEDS ORDERED: FAMOTIDINE 20 MG TABLET PO SCH (10:00)
[2018-11-20] MEDS ORDERED: DOCUSATE SODIUM 100 MG/10 ML UDC PO SCH (10:00)
[2018-11-20] MEDS ORDERED: METOPROLOL SUCCINATE 50 MG TAB.SR.24H PO SCH ×2 (10:00)
[2018-11-20 14:19] LABS: CREATINE KINASE MB 2.12 ng/mL (<4.55)
[2018-11-20 14:21] LABS: TROPONIN I < 0.012 ng/mL
--- NOTE | 2018-11-20 15:28 | PDOC DISCHARGE SUMMARY ---
General - Admit/Disc Date/PCP Admission Date/Primary Care Provider: 11/20/18 03:29 SORAIDA ORNELAS MD Discharge Date: 11/20/18 - Discharge Diagnosis (1) Atrial fibrillation with rapid ventricular response Is this a current diagnosis for this admission?: Yes Summary: Has been rate controlled even with ambulation. Feels he is aback at his baseline. No shortness of breath or chest pain. (2) CHF (congestive heart failure) Is this a current diagnosis for this admission?: Yes Summary: Has acute on chronic diastolic dysfunction. His JVP is not elevated. his peripheral edema has resolved. He does not get short of breath with ambulation. He will need to remain on furosemide and have a BMP in 102 weeks to assess his electrolyte status (3) Hypertension Is this a current diagnosis for this admission?: Yes Summary: BP has been well controlled during his admission. His medications have been adjusted. I have stopped his lisinopril due to increasing his BB and starting furosemide. This will need to be monitored by his PCP - Additional Information Resuscitation Status: Full Code Discharge Diet: Cardiac, Diabetic Discharge Activity: Activity As Tolerated, Balance Activity w/Rest, Weigh Daily Prescriptions: Apixaban [Eliquis 5 mg Tablet] 5 mg PO BID 30 Days #60 tablet Citalopram Hydrobromide [Celexa 20 mg Tablet] 40 mg PO DAILY 30 Days #30 tablet Citalopram Hydrobromide [Celexa 40 mg Tablet] 40 mg PO DAILY 30 Days #30 tablet Furosemide [Lasix 20 mg Tablet] 20 mg PO QAM #30 tablet Metoprolol Tartrate [Lopressor 50 mg Tablet] 50 mg PO Q12H #60 tablet Home Medications: Ferrous Sulfate [Feosol] 325 mg PO DAILY 10/19/18 Metformin HCl [Metformin ER Osmotic] 500 mg PO DAILY 10/19/18 Tamsulosin HCl [Flomax 0.4 mg Cap.sr] 0.4 mg PO DAILY 10/19/18 Apixaban [Eliquis 5 mg Tablet] 5 mg PO BID 30 Days #60 tablet 11/20/18 Citalopram Hydrobromide [Celexa 20 mg Tablet] 40 mg PO DAILY 30 Days #30 tablet 11/20/18 Citalopram Hydrobromide [Celexa 40 mg Tablet] 40 mg PO DAILY 30 Days #30 tablet 11/20/18 Furosemide [Lasix 20 mg Tablet] 20 mg PO QAM #30 tablet 11/20/18 Metoprolol Tartrate [Lopressor 50 mg Tablet] 50 mg PO Q12H #60 tablet 11/20/18 Temazepam [Restoril 15 mg Capsule] 15 mg PO HSP PRN capsule 11/20/18 History of Present Illness History of Present Illness: CHARY HUSTON is a 48 year old male admitted for atrial fib with RVR and acute on chronic diastolic heart failure. He presented to the ER with sudden onset shortness of breath and the feelinghis heart was racing. He has history of atrial fib and so he felt he was back in atrial fib. He was correct as proven when he presented to the ER Hospital Course Hospital Course: During his admission he has progressed well. He has been started on anticoagulation with eliquis for his atrial fib given he has a CHADs-VASc =3. His BB has been adjusted. He has been started on furosemide. Given his medication changes, his lisinopril has been jheld and this will need to be f/u on by his PCP. He will also need a BMP in 1-2 weeks to assess his electrolyte status. Physical Exam Vital Signs: Temp Pulse Resp BP Pulse Ox 98.5 F 101 H 18 100/75 95 11/20/18 11:30 11/20/18 11:30 11/20/18 11:30 11/20/18 11:30 11/20/18 11:30 Intake & Output 11/19/18 11/20/18 11/21/18 06:59 06:59 06:59 Intake Total 532 Balance 532 Weight 111.3 kg General appearance: PRESENT: no acute distress, cooperative, obese Eye exam: ABSENT: scleral icterus Mouth exam: PRESENT: moist, neck supple Neck exam: PRESENT: full ROM. ABSENT: JVD, tenderness, thyromegaly, tracheal deviation Respiratory exam: PRESENT: clear to auscultation soo, unlabored Cardiovascular exam: PRESENT: irregular rhythm. ABSENT: gallop, rubs GI/Abdominal exam: PRESENT: normal bowel sounds, soft. ABSENT: tenderness Musculoskeletal exam: PRESENT: ambulatory Neurological exam: PRESENT: alert, oriented to person, oriented to place, oriented to time, oriented to situation Psychiatric exam: ABSENT: agitated Skin exam: PRESENT: dry, warm Results Laboratory Results: 11/20/18 01:32 11/20/18 01:32 11/20/18 11/20/18 11/20/18 01:32 01:32 08:00 WBC 11.6 H RBC 5.29 Hgb 11.6 L Hct 37.3 L MCV 71 L MCH 22.0 L MCHC 31.2 L RDW 16.8 H Plt Count 295 Seg Neutrophils % 80.9 H Lymphocytes % 9.8 L Monocytes % 8.0 Eosinophils % 0.8 Basophils % 0.5 Absolute Neutrophils 9.3 H Absolute Lymphocytes 1.1 Absolute Monocytes 0.9 Absolute Eosinophils 0.1 Absolute Basophils 0.1 Sodium 137.5 Potassium 4.7 Chloride 104 Carbon Dioxide 25 Anion Gap 9 BUN 18 Creatinine 0.97 Est GFR ( Amer) > 60 Est GFR (Non-Af Amer) > 60 Glucose 151 H Calcium 9.3 Magnesium 1.7 Total Bilirubin 0.5 AST 28 ALT 43 Alkaline Phosphatase 109 Total Protein 6.0 L Albumin 3.6 Urine Color YELLOW Urine Appearance CLEAR Urine pH 5.0 Ur Specific Christopher 1.014 Urine Protein NEGATIVE Urine Glucose (UA) NEGATIVE Urine Ketones NEGATIVE Urine Blood NEGATIVE Urine Nitrite NEGATIVE Ur Leukocyte Esterase NEGATIVE Urine WBC (Auto) 0 11/20/18 11/20/18 11/20/18 01:32 08:15 08:15 Creatine Kinase 83 CK-MB (CK-2) 2.46 Troponin I 0.022 0.016 NT-Pro-B Natriuret Pep 3220 H 11/20/18 11/20/18 13:36 13:36 Creatine Kinase 68 CK-MB (CK-2) 2.12 Troponin I < 0.012 NT-Pro-B Natriuret Pep Impressions: Chest X-Ray 11/20/18 01:25 IMPRESSION: No acute findings. No focal lung consolidation. Qualifiers - * PATIENT BEING DISCHARGED WITH ANY OF THE FOLLOWING DIAGNOSIS: No HF Pt with Afib discharged with Warfarin?: Yes HF Pt discharged on evidence-based Beta Soledad:: Yes Plan Discharge Plan: d/c home Time Spent: Greater than 30 Minutes
[2018-11-20 16:23] VITALS: BP 100/65
--- NOTE | 2018-11-20 17:11 | EKG REPORT ---
SEVERITY:- ABNORMAL ECG - ATRIAL FIBRILLATION, V-RATE 85-132 BORDERLINE PROLONGED QT INTERVAL : Confirmed by: Beny Ko 20-Nov-2018 17:10:05
--- NOTE | 2018-11-20 22:00 | Progress Note ---
Provider Note Provider Note: I was asked to consult this patient. The patient was briefly seen morning around 9:30 AM. I had to have told the patient that I would come back and talk to him further and do a formal consult. By the time he came back in the evening the patient has been discharged. The patient is a patient of mine who follows u p in the office. I have called the patient on the phone and a follow-up with me in the office. Hence formal consult not rendered at this time. On speaking to the patient he is stable, and is having a sleep study on Monday night.
== END 2018-11-20 17:31 | disposition home or self-care (01) | DRG 308 ==
LOC: ER 23:25 → OBSVTOIN 11-20 03:29 → EH 11-20 03:29 → 4S 11-20 04:51
PROVIDERS: ADMIT Emergency Medicine; ATTEND Emergency Medicine
DX: I48.2 Chronic atrial fibrillation (principal); I50.33 Acute on chronic diastolic (congestive) heart failure; I11.0 Hypertensive heart disease with heart failure; E78.5 Hyperlipidemia, unspecified; E11.9 Type 2 diabetes mellitus without complications; E66.9 Obesity, unspecified; G47.30 Sleep apnea, unspecified; I34.0 Nonrheumatic mitral (valve) insufficiency; F41.1 Generalized anxiety disorder; F32.9 Major depressive disorder, single episode, unspecified; F43.10 Post-traumatic stress disorder, unspecified; D64.9 Anemia, unspecified; Z90.49 Acquired absence of other specified parts of digestive tract; Z98.84 Bariatric surgery status; Z79.84 Long term (current) use of oral hypoglycemic drugs; Z79.82 Long term (current) use of aspirin; Z79.899 Other long term (current) drug therapy; Z83.3 Family history of diabetes mellitus; Z82.49 Family history of ischemic heart disease and other diseases of the circulatory system; Z80.9 Family history of malignant neoplasm, unspecified
CPT/HCPCS: 36415; 71045; 80053; 81001; 82550; 82553; 83735; 83880; 84484; 85025; 93005; 93010; 96374; 99285; J1940

== ENCOUNTER → 2018-11-29 | Outpatient (CLI) | payer MEDICAID, OTHER ==
[2018-11-29 08:26] LABS: ABSOLUTE EOSINOPHILS # (AUTO) 0.2 10^3/uL (0.0-0.6); ABSOLUTE LYMPHOCYTES (AUTO) 0.6 10^3/uL (0.5-4.7); ABSOLUTE MONOCYTES (AUTO) 0.5 10^3/uL (0.1-1.4); ABSOLUTE NEUT (AUTO) 3.8 10^3/uL (1.7-8.2); BASOPHILS % (AUTO) 0.8 % (0-2); EOSINOPHILS % (AUTO) 4.3 % (0-6); HEMOGLOBIN 11.1 g/dL (13.5-17.0); LYMPHOCYTES % (AUTO) 11.6 % (13-45); MEAN CORPUSCULAR HEMOGLOBIN 21.9 pg (27.0-33.4); MEAN CORPUSCULAR HGB CONC 31.7 g/dL (32.0-36.0); MEAN CORPUSCULAR VOLUME 69 fl (80-97); MONOCYTES % (AUTO) 10.5 % (3-13); PLATELET COUNT 260 10^3/uL (150-450); RED BLOOD COUNT 5.05 10^6/uL (4.35-5.55); RED CELL DISTRIBUTION WIDTH 16.3 % (11.5-14.0); SEGMENTED NEUTROPHILS % (AUTO) 72.8 % (42-78); TOTAL CELLS COUNTED % (AUTO) 100 %; WHITE BLOOD COUNT 5.2 10^3/uL (4.0-10.5)
[2018-11-29 08:50] LABS: ALANINE AMINOTRANSFERASE 38 U/L (21-72); ANION GAP 8 (5-19); BLOOD UREA NITROGEN 16 mg/dL (7-20); CALCIUM 9.1 mg/dL (8.4-10.2); CARBON DIOXIDE 28 mmol/L (22-30); CHLORIDE 102 mmol/L (98-107); GLUCOSE 133 mg/dL (75-110); SODIUM 138.4 mmol/L (137-145); TRIGLYCERIDES 62 mg/dL (<150)
[2018-11-29 09:01] LABS: DIRECT LDL 77 mg/dL (<100)
== END ==
LOC: OD 07:02
PROVIDERS: ATTEND Family Medicine Geriatric Medicine
DX: E11.8 Type 2 diabetes mellitus with unspecified complications (principal); I10 Essential (primary) hypertension; Z79.899 Other long term (current) drug therapy
CPT/HCPCS: 36415; 80048; 80061; 83036; 84460; 85025

== ENCOUNTER 2019-01-14 10:44 | Inpatient (IN) | payer MEDICAID ==
[2019-01-14] MEDS ORDERED: ASPIRIN 81 MG TABLET, CHEWABLE PO ONE (11:45)
--- NOTE | 2019-01-14 11:46 | ER Document Report ---
ED Medical Screen (RME) - General Chief Complaint: Shortness Of Breath Stated Complaint: DIFFICULTY BREATHING/FEVER/SWEATS Time Seen by Provider: 01/14/19 11:44 Primary Care Provider: SORAIDA ORNELAS MD [Primary Care Provider] - Follow up as needed Mode of Arrival: Ambulatory Information source: Patient Notes: 48-year-old male presented to ED for complaint of shortness of breath cough congestion cold sweats with chest pain. He states he has a history of pneumonia A. fib and tachycardia. He states he is getting a cold sweats like he has when he has A. fib but his EKG is sinus rhythm. 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 Lungs are clear to auscultation at this time respirations are regular nonlabored. I have greeted and performed a rapid initial assessment of this patient. A comprehensive ED assessment and evaluation of the patient, analysis of test results and completion of medical decision making process will be conducted by an additional ED providers. Dictation of this chart was performed using voice recognition software; therefore, there may be some unintended grammatical er rors. TRAVEL OUTSIDE OF THE [place] IN LAST 30 DAYS: No - Related Data Allergies/Adverse Reactions: No Known Allergies Allergy (Verified 01/14/19 10:47) Past Medical History - Social History Frequency of alcohol use: None Drug Abuse: None - Past Medical History Cardiac Medical History: Reports: Hx Atrial Fibrillation - 2018, Hx Congestive Heart Failure, Hx Hypercholesterolemia, Hx Hypertension, Hx Heart Murmur - Mitral regurgitation on recent echocardiogram Denies: Hx Coronary Artery Disease, Hx Heart Attack Pulmonary Medical History: Reports: Hx Bronchitis, Hx Pneumonia - Atypical, ARDS, Hx Intubation, Hx Respiratory Failure, Hx Sleep Apnea Denies: Hx Asthma, Hx COPD, Hx Tuberculosis Neurological Medical History: Denies: Hx Cerebrovascular Accident, Hx Seizures Endocrine Medical History: Reports: Hx Diabetes Mellitus Type 2. Denies: Hx Diabetes Mellitus Type 1, Hx Hyperthyroidism, Hx Hypothyroidism Renal/ Medical History: Denies: Hx End Stage Renal Disease, Hx Peritoneal Dialysis GI Medical History: Denies: Hx Cirrhosis, Hx Crohn's Disease, Hx Hepatitis, Hx Hiatal Hernia, Hx Ulcer, Hx Ulcerative Colitis Musculoskeltal Medical History: Denies Hx Fibromyalgia, Reports Hx Musculoskeletal Deformity, Reports Hx Musculoskeletal Trauma Skin Medical History: Denies Hx Eczema, Denies Hx Psoriasis Psychiatric Medical History: Reports: Hx Anxiety, Hx Depression, Hx Post Traumatic Stress Disorder Traumatic Medical History: Reports: Hx Fractures. Denies: Hx Pneumothorax, Hx Traumatic Brain Injury Infectious Medical History: Denies: Hx C-Diff, Hx Hepatitis Past Surgical History: Reports: Hx Abdominal Surgery - GBP, Hx Bowel Surgery - gastric bypass, Hx Cholecystectomy, Hx Gastric Bypass Surgery, Hx Nose Surgery, Hx Orthopedic Surgery - ACL, fingers, Hx Tonsillectomy. Denies: Hx Open Heart Surgery, Hx Pacemaker - Immunizations Immunizations up to date: Yes Hx Diphtheria, Pertussis, Tetanus Vaccination: No History of Influenza Vaccine for 06/2017 - 11/2017 Season: No Physical Exam - Vital signs Vitals: Temp Pulse Resp BP Pulse Ox 100.2 F 66 16 127/58 H 96 01/14/19 11:01 01/14/19 11:01 01/14/19 11:01 01/14/19 11:01 01/14/19 11:01 Course - Vital Signs Vital signs: Temp Pulse Resp BP Pulse Ox 100.2 F 66 16 127/58 H 96 01/14/19 11:01 01/14/19 11:01 01/14/19 11:01 01/14/19 11:01 01/14/19 11:01 Doctor's Discharge - Discharge Referrals: SORAIDA ORNELAS MD [Primary Care Provider] - Follow up as needed
--- NOTE | 2019-01-14 12:12 | RADIOLOGY REPORT (SQ) ---
EXAM DESCRIPTION: CHEST 2 VIEWS COMPLETED DATE/TIME: 01/14/2019 12:00 pm REASON FOR STUDY: cough short of breath COMPARISON: 11/20/2018 EXAM PARAMETERS: NUMBER OF VIEWS: two views TECHNIQUE: Digital Frontal and Lateral radiographic views of the chest acquired. RADIATION DOSE: NA LIMITATIONS: none FINDINGS: LUNGS AND PLEURA: No opacities, masses or pneumothorax. No pleural effusion. MEDIASTINUM AND HILAR STRUCTURES: No masses or contour abnormalities. HEART AND VASCULAR STRUCTURES: Heart size is borderline. No pulmonary edema. BONES: No acute findings. HARDWARE: None in the chest. OTHER: No other significant finding. IMPRESSION: Borderline cardiomegaly without pulmonary edema. TECHNICAL DOCUMENTATION: JOB ID: [id number] [employer]- All Rights Reserved Reading location - IP/workstation name: [email or web address]
[2019-01-14 12:41] LABS: APPEARANCE,URINE CLEAR; BILIRUBIN,URINE NEGATIVE (NEGATIVE); COLOR,URINE YELLOW; GLUCOSE, URINE NEGATIVE (NEGATIVE); KETONES,URINE NEGATIVE (NEGATIVE); LEUKOCYTE ESTERASE,URINE NEGATIVE (NEGATIVE); NITRITE,URINE NEGATIVE (NEGATIVE); PROTEIN,URINE NEGATIVE (NEGATIVE); URINE SPECIFIC GRAVITY 1.017; UROBILINOGEN,URINE NEGATIVE mg/dL (<2.0)
[2019-01-14 12:59] LABS: ALANINE AMINOTRANSFERASE 22 U/L (21-72); ALBUMIN 3.4 g/dL (3.5-5.0); ALKALINE PHOSPHATASE 86 U/L (38-126); ANION GAP 10 (5-19); ASPARTATE AMINO TRANSFERASE 30 U/L (17-59); BILIRUBIN,DIRECT 0.3 mg/dL (0.0-0.4); BILIRUBIN,TOTAL 0.5 mg/dL (0.2-1.3); BLOOD UREA NITROGEN 14 mg/dL (7-20); CALCIUM 8.7 mg/dL (8.4-10.2); CARBON DIOXIDE 26 mmol/L (22-30); CHLORIDE 105 mmol/L (98-107); GLUCOSE 105 mg/dL (75-110); LIPASE 97.9 U/L (23-300); POTASSIUM 5.2 mmol/L (3.6-5.0); TOTAL PROTEIN 5.9 g/dL (6.3-8.2)
--- NOTE | 2019-01-14 13:04 | EKG REPORT ---
SEVERITY:- NORMAL ECG - SINUS RHYTHM : Confirmed by: Rashaun Negron MD 14-Jan-2019 13:03:48
[2019-01-14 13:09] LABS: CREATINE KINASE MB 1.49 ng/mL (<4.55)
[2019-01-14 13:11] LABS: TROPONIN I < 0.012 ng/mL
[2019-01-14 14:19] LABS: ABSOLUTE EOSINOPHILS # (AUTO) 0.2 10^3/uL (0.0-0.6); ABSOLUTE LYMPHOCYTES (AUTO) 0.8 10^3/uL (0.5-4.7); ABSOLUTE MONOCYTES (AUTO) 0.8 10^3/uL (0.1-1.4); ABSOLUTE NEUT (AUTO) 5.6 10^3/uL (1.7-8.2); BASOPHILS % (AUTO) 0.3 % (0-2); EOSINOPHILS % (AUTO) 2.4 % (0-6); LYMPHOCYTES % (AUTO) 10.7 % (13-45); MEAN CORPUSCULAR HEMOGLOBIN 18.5 pg (27.0-33.4); MEAN CORPUSCULAR HGB CONC 29.9 g/dL (32.0-36.0); MONOCYTES % (AUTO) 11.2 % (3-13); PLATELET COUNT 261 10^3/uL (150-450); RED CELL DISTRIBUTION WIDTH 18.2 % (11.5-14.0); SEGMENTED NEUTROPHILS % (AUTO) 75.4 % (42-78); TOTAL CELLS COUNTED % (AUTO) 100 %; WHITE BLOOD COUNT 7.4 10^3/uL (4.0-10.5)
[2019-01-14 14:23] LABS: MEAN CORPUSCULAR VOLUME 62 fl (80-97)
[2019-01-14 14:24] LABS: HEMOGLOBIN 7.8 g/dL (13.5-17.0)
[2019-01-14] MEDS ORDERED: NORMAL SALINE 250 ML IV PRN ×2 (14:37)
[2019-01-14 14:40] LABS: ANISOCYTOSIS 1+; HYPOCHROMASIA 2+; OVALOCYTES 1+; PLATELET COMMENT ADEQUATE; PLATELET LARGE PRESENT; POIKILOCYTOSIS SLIGHT; POLYCHROMASIA 1+; SCHISTOCYTES SLIGHT; TEAR DROP CELLS SLIGHT; TOXIC GRANULATION 1+
--- NOTE | 2019-01-14 15:03 | ER Document Report ---
ED General - General Chief Complaint: Shortness Of Breath Stated Complaint: DIFFICULTY BREATHING/FEVER/SWEATS Time Seen by Provider: 01/14/19 11:44 Primary Care Provider: SORAIDA ORNELAS MD [Primary Care Provider] - Follow up as needed Mode of Arrival: Ambulatory TRAVEL OUTSIDE OF THE [place] IN LAST 30 DAYS: No - HPI Notes: Patient is a 48-year-old male that presents to the emergency department for chief complaint of palpitations, shortness of breath and lightheadedness. Patient states starting 4 days ago he started to have increasing frequency of hi s atrial fibrillation. He reports the symptoms last for 1 to 2 minutes at a time and he has a heart rate generally in the 140s. He does feel palpitations when the atrial fibrillation is present and increasing shortness of breath. Patient states that even when his atrial fibrillation is not flared up he has been having progressive shortness of breath and dyspnea with exertion. He reports a cough with no sputum production. He does endorse a history of anemia since gastric bypass surgery in 1999 but has never required a blood transfusion. He denies any hemoptysis, hematemesis, black or bloody stools, abdominal pain, nausea/vomiting and diarrhea. Patient does take Eliquis for his atrial f ibrillation and reports taking it as directed. He denies any associated chest pain. Past Medical History: Diabetes, atrial fibrillation, CHF Past Surgical History: Gastric bypass Social History: Denies drugs alcohol and tobacco Family History: Reviewed and noncontributory for presenting illness Allergies: Reviewed, see documented allergy list. REVIEW OF SYSTEMS: CONSTITUTIONAL : No fever No chills No diaphoresis No recent illness EENT: No vision changes congestion sore throat CARDIOVASCULAR: No chest pain palpitations RESPIRATORY: shortness of breath cough No difficulty breathing GASTROINTESTINAL: No abdominal pain No nausea No vomiting No diarrhea GENITOURINARY: No dysuria No hematuria No difficulty urinating MUSCULOSKELETAL: No back pain No leg pain No arm pain SKIN: No rashes No lesions LYMPHATIC: No swollen, enlarged glands. NEUROLOGICAL: lightheadedness No headache No weakness No paresthesias PSYCHIATRIC: No anxiety No depression PHYSICAL EXAMINATION: Vital signs reviewed, nursing noted reviewed. GENERAL: Well-appearing, obese and in no acute distress. HEAD: Atraumatic, normocephalic. EYES: Eyes appear normal, extraocular movements intact, sclera anicteric, conjunctiva are normal. ENT: nares patent, oropharynx clear without exudates. Moist mucous membranes. NECK: Normal range of motion, supple without lymphadenopathy LUNGS: Breath sounds clear to auscultation bilaterally and equal. No wheezes rales or rhonchi. HEART: Regular rate and rhythm without murmurs ABDOMEN: Soft, nontender, normoactive bowel sounds. No rebound, guarding, or rigidity. No masses appreciated. EXTREMITIES: Nontender, good range of motion, +2 pitting edema bilateral and symmetric. NEUROLOGICAL: No focal neurological deficits. Moves all extremities spontaneously Motor and sensory grossly intact on exam. PSYCH: Normal mood, normal affect. SKIN: Warm, Dry, normal turgor, no rashes or lesions noted on exposed skin - Related Data Allergies/Adverse Reactions: No Known Allergies Allergy (Verified 01/14/19 10:47) Past Medical History - General Information source: Patient - Social History Smoking Status: Never Smoker Frequency of alcohol use: None Drug Abuse: None Family History: DM, Hypertension, Malignancy Patient has suicidal ideation: No Patient has homicidal ideation: No - Past Medical History Cardiac Medical History: Reports: Hx Atrial Fibrillation - 2018, Hx Congestive Heart Failure, Hx Hypercholesterolemia, Hx Hypertension, Hx Heart Murmur - Mitral regurgitation on recent echocardiogram Denies: Hx Coronary Artery Disease, Hx Heart Attack Pulmonary Medical History: Reports: Hx Bronchitis, Hx Pneumonia - Atypical, ARDS, Hx Intubation, Hx Respiratory Failure, Hx Sleep Apnea Denies: Hx Asthma, Hx COPD, Hx Tuberculosis Neurological Medical History: Denies: Hx Cerebrovascular Accident, Hx Seizures Endocrine Medical History: Reports: Hx Diabetes Mellitus Type 2. Denies: Hx Diabetes Mellitus Type 1, Hx Hyperthyroidism, Hx Hypothyroidism Renal/ Medical History: Denies: Hx End Stage Renal Disease, Hx Peritoneal Dialysis GI Medical History: Denies: Hx Cirrhosis, Hx Crohn's Disease, Hx Hepatitis, Hx Hiatal Hernia, Hx Ulcer, Hx Ulcerative Colitis Musculoskeletal Medical History: Denies Hx Fibromyalgia, Reports Hx Musculoskeletal Deformity, Reports Hx Musculoskeletal Trauma Skin Medical History: Denies Hx Eczema, Denies Hx Psoriasis Psychiatric Medical History: Reports: Hx Anxiety, Hx Depression, Hx Post Traumatic Stress Disorder Traumatic Medical History: Reports: Hx Fractures. Denies: Hx Pneumothorax, Hx Traumatic Brain Injury Infectious Medical History: Denies: Hx C-Diff, Hx Hepatitis Past Surgical History: Reports: Hx Abdominal Surgery - GBP, Hx Bowel Surgery - gastric bypass, Hx Cholecystectomy, Hx Gastric Bypass Surgery, Hx Nose Surgery, Hx Orthopedic Surgery - ACL, fingers, Hx Tonsillectomy. Denies: Hx Open Heart Surgery, Hx Pacemaker - Immunizations Immunizations up to date: Yes Hx Diphtheria, Pertussis, Tetanus Vaccination: No Hx Pneumococcal Vaccination: 09/18/18 Physical Exam - Vital signs Vitals: Temp Pulse Resp BP Pulse Ox 100.2 F 66 16 127/58 H 96 01/14/19 11:01 01/14/19 11:01 01/14/19 11:01 01/14/19 11:01 01/14/19 11:01 Course - Re-evaluation Re-evalutation: 01/14/19 15:01 Vitals reviewed. Nursing notes reviewed. Patient's chest x-ray shows cardiomegaly with no pulmonary edema. There is no underlying pneumonia. He is oxygenating well on room air and in no acute respiratory distress. EKG shows normal sinus rhythm without ectopy. Patient does have a hemoglobin of 7.8 which is a significant change from November 2018 which was 11.1. He denies any active GI bleeding. He has never received a blood transfusion in the past but is lightheaded with position changes and having increased frequency of his A. fib a s well as shortness of breath and will be given 2 units packed red blood cells for his acute anemia. Patient will be admitted to the hospital for further telemetry monitoring and blood transfusion. Case discussed with Dr. Jefferson who requested Hemoccult. Laboratory 01/14/19 01/14/19 01/14/19 12:15 12:15 12:15 WBC Cancelled RBC Cancelled Hgb Cancelled Hct Cancelled MCV Cancelled MCH Cancelled MCHC Cancelled RDW Cancelled Plt Count Cancelled Seg Neutrophils % Cancelled Lymphocytes % Cancelled Monocytes % Cancelled Eosinophils % Cancelled Basophils % Cancelled Absolute Neutrophils Cancelled Absolute Lymphocytes Cancelled Absolute Monocytes Cancelled Absolute Eosinophils Cancelled Absolute Basophils Cancelled Toxic Granulation Platelet Estimate Cancelled Large Platelets Platelet Comment Polychromasia Hypochromasia Poikilocytosis Anisocytosis Microcytosis Tear Drop Cells Ovalocytes Schistocytes Sodium 141.0 Potassium 5.2 H Chloride 105 Carbon Dioxide 26 Anion Gap 10 BUN 14 Creatinine 0.81 Est GFR ( Amer) > 60 Est GFR (Non-Af Amer) > 60 Glucose 105 Calcium 8.7 Total Bilirubin 0.5 Direct Bilirubin 0.3 Neonat Total Bilirubin Not Reportable Neonat Direct Bilirubin Not Reportable Neonat Indirect Bili Not Reportable AST 30 ALT 22 Alkaline Phosphatase 86 CK-MB (CK-2) 1.49 Troponin I < 0.012 Total Protein 5.9 L Albumin 3.4 L Lipase 97.9 Urine Color Urine Appearance Urine pH Ur Specific [place] Urine Protein Urine Glucose (UA) Urine Ketones Urine Blood Urine Nitrite Urine Bilirubin Urine Urobilinogen Ur Leukocyte Esterase Urine WBC (Auto) Urine RBC (Auto) U Hyaline Cast (Auto) Squamous Epi Cells Auto Urine Mucus (Auto) Urine Ascorbic Acid Slides for Path Review Cancelled 01/14/19 01/14/19 12:15 13:44 WBC 7.4 RBC 4.20 L Hgb 7.8 L Hct 26.0 L MCV 62 L MCH 18.5 L MCHC 29.9 L RDW 18.2 H Plt Count 261 Seg Neutrophils % 75.4 Lymphocytes % 10.7 L Monocytes % 11.2 Eosinophils % 2.4 Basophils % 0.3 Absolute Neutrophils 5.6 Absolute Lymphocytes 0.8 Absolute Monocytes 0.8 Absolute Eosinophils 0.2 Absolute Basophils 0.0 Toxic Granulation 1+ Platelet Estimate Large Platelets PRESENT Platelet Comment ADEQUATE Polychromasia 1+ Hypochromasia 2+ Poikilocytosis SLIGHT Anisocytosis 1+ Microcytosis 3+ Tear Drop Cells SLIGHT Ovalocytes 1+ Schistocytes SLIGHT Sodium Potassium Chloride Carbon Dioxide Anion Gap BUN Creatinine Est GFR ( Amer) Est GFR (Non-Af Amer) Glucose Calcium Total Bilirubin Direct Bilirubin Neonat Total Bilirubin Neonat Direct Bilirubin Neonat Indirect Bili AST ALT Alkaline Phosphatase CK-MB (CK-2) Troponin I Total Protein Albumin Lipase Urine Color YELLOW Urine Appearance CLEAR Urine pH 5.0 Ur Specific [place] 1.017 Urine Protein NEGATIVE Urine Glucose (UA) NEGATIVE Urine Ketones NEGATIVE Urine Blood NEGATIVE Urine Nitrite NEGATIVE Urine Bilirubin NEGATIVE Urine Urobilinogen NEGATIVE Ur Leukocyte Esterase NEGATIVE Urine WBC (Auto) 2 Urine RBC (Auto) 0 U Hyaline Cast (Auto) 1 Squamous Epi Cells Auto <1 Urine Mucus (Auto) FEW Urine Ascorbic Acid NEGATIVE Slides for Path Review Chest X-Ray 01/14/19 11:45 IMPRESSION: Borderline cardiomegaly without pulmonary edema. 01/14/19 15:15 01/14/19 16:19 Patient is Hemoccult positive with brown stool. He will be admitted for further evaluation by Dr. Gilmore - Vital Signs Vital signs: Temp Pulse Resp BP Pulse Ox 100.2 F 66 28 H 118/66 97 01/14/19 11:01 01/14/19 11:01 01/14/19 16:00 01/14/19 15:02 01/14/19 16:00 - Laboratory Result Diagrams: 01/14/19 13:44 01/14/19 12:15 Laboratory results interpreted by me: 01/14/19 01/14/19 01/14/19 12:15 13:44 15:01 RBC 4.20 L Hgb 7.8 L Hct 26.0 L MCV 62 L MCH 18.5 L MCHC 29.9 L RDW 18.2 H Lymphocytes % 10.7 L Potassium 5.2 H Total Protein 5.9 L Albumin 3.4 L Crossmatch See Detail - EKG Interpretation by Me Additional EKG results interpreted by me: 01/14/19 15:03 Interpreted by myself [id number]: Normal sinus rhythm, rate 66, normal axis, no ectopy, no STEMI Discharge - Discharge Clinical Impression: Acute anemia, Paroxysmal A-fib, Shortness of breath, Lightheadedness GI bleed Qualifiers: GI bleed type/associated pathology: unspecified gastrointestinal hemorrhage type Qualified Code(s): K92.2 - Gastrointestinal hemorrhage, unspecified Condition: Stable Disposition: ADMITTED INPATIENT Admitting Provider: Li (Hospitalist) Unit Admitted: Telemetry Referrals: SORAIDA ORNELAS MD [Primary Care Provider] - Follow up as needed
[2019-01-14] MEDS ORDERED: ONDANSETRON HCL INJ/PF 4 MG/2 ML SDV IV PRN (16:50)
--- NOTE | 2019-01-14 16:50 | PDOC H&P ---
History of Present Illness Admission Date/PCP: 01/14/19 16:29 SORAIDA ORNELAS MD History of Present Illness: CHARY HUSTON is a 48 year old male patient was past medical history of hyperlipidemia, hypertension type 2 diabetes mellitus, atrial fibrillation diagnosed in 2016 and on Eliquis for anticoagulation, history of gastric bypass surgery in 1999 morbid obesity and depression resented with 4-day history of palpitation shortness of breath and lightheadedness. Patient denies any chest pain fever and chills. Endorses dry cough. He does not have any history of external bleeding in the form of hematochezia, hematuria or melanotic stool. His blood work shows hemoglobin of 7.8. His hemoglobin was 12.5 in November 2018. He is still for occult blood is positive. Past Medical History Cardiac Medical History: Reports: Atrial Fibrillation - 2018, Congestive Heart Failure, Hyperlipidema, Hypertension, Heart Murmur - Mitral regurgitation on recent echocardiogram Denies: Coronary Artery Disease, Myocardial Infarction Pulmonary Medical History: Reports: Bronchitis, Intubation, Pneumonia - Atypical, ARDS, Respiratory Failure, Sleep Apnea Denies: Asthma, Chronic Obstructive Pulmonary Disease (COPD), Tuberculosis Neurological Medical History: Denies: Seizures Endocrine Medical History: Reports: Diabetes Mellitus Type 2 Denies: Diabetes Mellitus Type 1, Hyperthyroidism, Hypothyroidism Renal/ Medical History: Denies: End Stage Renal Disease GI Medical History: Denies: Cirrhosis, Crohn's Disease, Hepatitis, Hiatal Hernia, Ulcerative Colitis Musculoskeltal Medical History: Denies: Fibromyalgia Skin Medical History: Denies: Eczema, Psoriasis Psychiatric Medical History: Reports: Depression, Post Traumatic Stress Disorder Traumatic Medical History: Denies: Pneumothorax, Traumatic Brain Injury Hematology: Reports: Anemia Denies: Hemophilia, Sickle Cell Disease, Bleeding Tendencies Infectious Medical History: Denies: Clostridium Difficile Past Surgical History Past Surgical History: Reports: Cholecystectomy, Gastric Bypass Surgery, Orthopedic Surgery - ACL, fingers, Tonsillectomy Denies: Pacemaker Social History Smoking Status: Never Smoker Frequency of Alcohol Use: None Hx Recreational Drug Use: No Drugs: None Hx Prescription Drug Abuse: No - Advance Directive Resuscitation Status: Full Code Family History Family History: DM, Hypertension, Malignancy Parental Family History Reviewed: Yes Children Family History Reviewed: Yes Sibling(s) Family History Reviewed.: Yes Medication/Allergy Home Medications: Ferrous Sulfate [Feosol] 325 mg PO DAILY 10/19/18 Metformin HCl [Metformin ER Osmotic] 500 mg PO DAILY 10/19/18 Tamsulosin HCl [Flomax 0.4 mg Cap.sr] 0.4 mg PO DAILY 10/19/18 Apixaban [Eliquis 5 mg Tablet] 5 mg PO BID 30 Days #60 tablet 11/20/18 Citalopram Hydrobromide [Celexa 20 mg Tablet] 40 mg PO DAILY 30 Days #30 tablet 11/20/18 Citalopram Hydrobromide [Celexa 40 mg Tablet] 40 mg PO DAILY 30 Days #30 tablet 11/20/18 Furosemide [Lasix 20 mg Tablet] 20 mg PO QAM #30 tablet 11/20/18 Metoprolol Tartrate [Lopressor 50 mg Tablet] 50 mg PO Q12H #60 tablet 11/20/18 Temazepam [Restoril 15 mg Capsule] 15 mg PO HSP PRN capsule 11/20/18 Allergies/Adverse Reactions: No Known Allergies Allergy (Verified 01/14/19 10:47) Review of Systems Constitutional: ABSENT: chills, fever(s), headache(s), weight gain, weight loss Eyes: ABSENT: visual disturbances Ears: ABSENT: hearing changes Cardiovascular: PRESENT: dyspnea on exertion, palpitations Respiratory: PRESENT: cough Gastrointestinal: ABSENT: abdominal pain, constipation, diarrhea, hematemesis, hematochezia, nausea, vomiting Genitourinary: ABSENT: dysuria, hematuria Musculoskeletal: ABSENT: joint swelling Integumentary: ABSENT: rash, wounds Neurological: PRESENT: dizziness Psychiatric: ABSENT: anxiety, depression, homidical ideation, suicidal ideation Endocrine: ABSENT: cold intolerance, heat intolerance, polydipsia, polyuria Hematologic/Lymphatic: ABSENT: easy bleeding, easy bruising Physical Exam Vital Signs: Temp Pulse Resp BP Pulse Ox 100.2 F 66 28 H 118/66 97 01/14/19 11:01 01/14/19 11:01 01/14/19 16:00 01/14/19 15:02 01/14/19 16:00 Intake & Output 01/13/19 01/14/19 01/15/19 06:59 06:59 06:59 Weight 124.6 kg General appearance: PRESENT: no acute distress, morbidly obese Eye exam: PRESENT: conjunctiva pink Neck exam: ABSENT: carotid bruit, JVD, lymphadenopathy, thyromegaly Respiratory exam: PRESENT: clear to auscultation soo. ABSENT: rales, rhonchi, wheezes Cardiovascular exam: PRESENT: irregular rhythm GI/Abdominal exam: PRESENT: normal bowel sounds, soft. ABSENT: distended, guarding, mass, organolmegaly, rebound, tenderness Neurological exam: PRESENT: alert, awake, oriented to time, oriented to situation Results Laboratory Results: 01/14/19 13:44 01/14/19 12:15 01/14/19 01/14/19 01/14/19 12:15 12:15 12:15 WBC Cancelled RBC Cancelled Hgb Cancelled Hct Cancelled MCV Cancelled MCH Cancelled MCHC Cancelled RDW Cancelled Plt Count Cancelled Seg Neutrophils % Cancelled Lymphocytes % Cancelled Monocytes % Cancelled Eosinophils % Cancelled Basophils % Cancelled Absolute Neutrophils Cancelled Absolute Lymphocytes Cancelled Absolute Monocytes Cancelled Absolute Eosinophils Cancelled Absolute Basophils Cancelled Sodium 141.0 Potassium 5.2 H Chloride 105 Carbon Dioxide 26 Anion Gap 10 BUN 14 Creatinine 0.81 Est GFR ( Amer) > 60 Est GFR (Non-Af Amer) > 60 Glucose 105 Calcium 8.7 Total Bilirubin 0.5 AST 30 ALT 22 Alkaline Phosphatase 86 Total Protein 5.9 L Albumin 3.4 L Lipase 97.9 Urine Color YELLOW Urine Appearance CLEAR Urine pH 5.0 Ur Specific [place] 1.017 Urine Protein NEGATIVE Urine Glucose (UA) NEGATIVE Urine Ketones NEGATIVE Urine Blood NEGATIVE Urine Nitrite NEGATIVE Ur Leukocyte Esterase NEGATIVE Urine WBC (Auto) 2 Urine RBC (Auto) 0 Blood Type Antibody Screen 01/14/19 01/14/19 13:44 15:01 WBC 7.4 RBC 4.20 L Hgb 7.8 L Hct 26.0 L MCV 62 L MCH 18.5 L MCHC 29.9 L RDW 18.2 H Plt Count 261 Seg Neutrophils % 75.4 Lymphocytes % 10.7 L Monocytes % 11.2 Eosinophils % 2.4 Basophils % 0.3 Absolute Neutrophils 5.6 Absolute Lymphocytes 0.8 Absolute Monocytes 0.8 Absolute Eosinophils 0.2 Absolute Basophils 0.0 Sodium Potassium Chloride Carbon Dioxide Anion Gap BUN Creatinine Est GFR ( Amer) Est GFR (Non-Af Amer) Glucose Calcium Total Bilirubin AST ALT Alkaline Phosphatase Total Protein Albumin Lipase Urine Color Urine Appearance Urine pH Ur Specific [place] Urine Protein Urine Glucose (UA) Urine Ketones Urine Blood Urine Nitrite Ur Leukocyte Esterase Urine WBC (Auto) Urine RBC (Auto) Blood Type O POSITIVE Antibody Screen NEGATIVE 01/14/19 12:15 CK-MB (CK-2) 1.49 Troponin I < 0.012 Impressions: Chest X-Ray 01/14/19 11:45 IMPRESSION: Borderline cardiomegaly without pulmonary edema. Assessment and Plan - Diagnosis (1) Acute blood loss anemia Is this a current diagnosis for this admission?: Yes Plan: Hemoglobin 7.8 now. His hemoglobin was 12.5 in November 2018. Most probably due to GI bleeding. (2) GI bleeding Is this a current diagnosis for this admission?: Yes Plan: Stool for occult blood is positive. I will hold Eliquis. We will transfuse 1 unit of blood. Surgical consultation. (3) Type 2 diabetes mellitus Is this a current diagnosis for this admission?: Yes Plan: We will continue his metformin. We will put him on sliding scale. We will check his hemoglobin A1c. (4) Atrial fibrillation Qualifiers: Atrial fibrillation type: paroxysmal Qualified Code(s): I48.0 - Paroxysmal atrial fibrillation Is this a current diagnosis for this admission?: Yes Plan: Rate controlled. I will hold his Eliquis due to GI bleeding. (5) Hypertension Qualifiers: Hypertension type: essential hypertension Qualified Code(s): I10 - Essential (primary) hypertension Is this a current diagnosis for this admission?: Yes Plan: Continue his home medication (6) Hyperlipidemia Qualifiers: Hyperlipidemia type: unspecified Qualified Code(s): E78.5 - Hyperlipidemia, unspecified Is this a current diagnosis for this admission?: Yes Plan: Continue his home medication (7) Morbid obesity with BMI of 45.0-49.9, adult Is this a current diagnosis for this admission?: Yes Plan: Lifestyle advised. - Inpatient Certification Medical Necessity: Need Close Monitoring Due to Risk of Patient Decompensation, Risk of Diagnosis Which Will Require Inpatient Eval/Care/Monitoring
[2019-01-14] MEDS ORDERED: DEXTROSE 50%-WATER 25 GM/50 ML DISP.SYRIN IV PRN ×4 (16:54→18:54)
[2019-01-14] MEDS ORDERED: DEXTROSE 40% GEL 15 GM TUBE PO PRN ×4 (16:54→18:54)
[2019-01-14] MEDS ORDERED: GLUCAGON,HUMAN RECOMB 1 MG INJ IM PRN (16:54)
[2019-01-14] MEDS ORDERED: DOCUSATE SODIUM 100 MG CAPSULE PO SCH (18:00)
[2019-01-14] MEDS ORDERED: GLUCAGON,HUMAN RECOMB 1 MG INJ SUBCUT PRN (18:54)
[2019-01-14] MEDS ORDERED: BISACODYL 5 MG TABEC PO ONE ×3 (18:56→23:36)
[2019-01-14] MEDS ORDERED: POLYETHYLENE GLYCOL 3350 POWDER 17 GM/1 PACKET PO ONE (20:00)
[2019-01-14] MEDS: TEMAZEPAM 15 MG CAPSULE PO SCH (22:01)
[2019-01-14] MEDS: PANTOPRAZOLE SODIUM 40 MG VIAL IV SCH (22:01)
[2019-01-14] MEDS: INSULIN LISPRO 100 UNIT/ML 3 ML VIAL SUBCUT SCH (23:16)
--- NOTE | 2019-01-15 01:59 | PDOC CONSULTATION ---
Consultation Consult Date: 01/14/19 Provider Consulted: SURGICAL SURGICALIST Consult reason:: Anemia, rule out GI source. History of Present Illness Admission Date/PCP: 01/14/19 16:29 SORAIDA ORNELAS MD Patient complains of: Weakness, fatigue, palpitations. History of Present Illness: CHARY HUSTON is a 48 year old male with a history of gastric bypass and known chronic anemia. He is seen in consultation at the request of the hospitalist service. The patient reports today with complaints of fatigue, malaise, and palpitations. His symptoms have been progressive over the last several weeks. Lab work was performed, and the patient was found to have a hemoglobin of 7.8. His last measured hemoglobin was approximately 12. Patient has been on Xarelto for atrial fibrillation. He denies any melena, hematemesis, or hematochezia. The patient carries a diagnosis of chronic anemia, likely due to his gastric bypass. His current level of hemoglobin and symptoms of fatigue are new. Nothing makes his symptoms better. Activity makes his fatigue and palpitations worse. Past Medical History Cardiac Medical History: Reports: Atrial Fibrillation - 2018, Congestive Heart Failure, Hyperlipidema, Hypertension, Heart Murmur - Mitral regurgitation on recent echocardiogram Denies: Coronary Artery Disease, Myocardial Infarction Pulmonary Medical History: Reports: Bronchitis, Intubation, Pneumonia - Atypical, ARDS, Respiratory Failure, Sleep Apnea Denies: Asthma, Chronic Obstructive Pulmonary Disease (COPD), Tuberculosis Neurological Medical History: Denies: Seizures Endocrine Medical History: Reports: Diabetes Mellitus Type 2 Denies: Diabetes Mellitus Type 1, Hyperthyroidism, Hypothyroidism Renal/ Medical History: Denies: End Stage Renal Disease GI Medical History: Denies: Cirrhosis, Crohn's Disease, Hepatitis, Hiatal Hernia, Ulcerative Colitis Musculoskeltal Medical History: Denies: Fibromyalgia Skin Medical History: Denies: Eczema, Psoriasis Psychiatric Medical History: Reports: Depression, Post Traumatic Stress Disorder Traumatic Medical History: Denies: Pneumothorax, Traumatic Brain Injury Hematology: Reports: Anemia Denies: Hemophilia, Sickle Cell Disease, Bleeding Tendencies Infectious Medical History: Denies: Clostridium Difficile Past Surgical History Past Surgical History: Reports: Cholecystectomy, Gastric Bypass Surgery, Orthopedic Surgery - ACL, fingers, Tonsillectomy Denies: Pacemaker Social History Smoking Status: Never Smoker Frequency of Alcohol Use: None Hx Recreational Drug Use: No Drugs: None Hx Prescription Drug Abuse: No - Advance Directive Resuscitation Status: Full Code Family History Family History: DM, Hypertension, Malignancy Parental Family History Reviewed: Yes Children Family History Reviewed: Yes Sibling(s) Family History Reviewed.: Yes Medication/Allergy Home Medications: Ferrous Sulfate [Feosol] 325 mg PO DAILY 10/19/18 Tamsulosin HCl [Flomax 0.4 mg Cap.sr] 0.4 mg PO DAILY 10/19/18 Apixaban [Eliquis 5 mg Tablet] 5 mg PO BID 30 Days #60 tablet 11/20/18 Citalopram Hydrobromide [Celexa 40 mg Tablet] 40 mg PO DAILY 30 Days #30 tablet 11/20/18 Furosemide [Lasix 20 mg Tablet] 20 mg PO QAM #30 tablet 11/20/18 Metoprolol Tartrate [Lopressor 50 mg Tablet] 50 mg PO Q12H #60 tablet 11/20/18 Metformin HCl [Metformin HCl ER] 500 mg PO DAILY 01/14/19 Allergies/Adverse Reactions: No Known Allergies Allergy (Verified 01/14/19 10:47) Review of Systems Constitutional: PRESENT: fatigue, weakness. ABSENT: anorexia, chills, fever(s), headache(s), night sweats Eyes: ABSENT: visual disturbances Ears: ABSENT: hearing changes Nose, Mouth, and Throat: ABSENT: sore throat Cardiovascular: PRESENT: chest pain, dyspnea on exertion Respiratory: ABSENT: cough Gastrointestinal: ABSENT: abdominal pain, bloating, coffee ground emesis, hematemesis, hematochezia, melena, nausea, vomiting Musculoskeletal: ABSENT: back pain Integumentary: ABSENT: pruritus, rash Neurological: PRESENT: weakness. ABSENT: confusion, convulsions, dizziness Psychiatric: ABSENT: anxiety, depression Endocrine: ABSENT: cold intolerance Hematologic/Lymphatic: PRESENT: easy bleeding, easy bruising Physical Exam Vital Signs: Temp Pulse Resp BP Pulse Ox 98.5 F 63 18 126/58 H 100 01/14/19 18:37 01/14/19 18:37 01/14/19 18:37 01/14/19 18:37 01/14/19 18:37 Intake & Output 01/13/19 01/14/19 01/15/19 06:59 06:59 06:59 Intake Total 0 Balance 0 Weight 124.6 kg General appearance: PRESENT: no acute distress, obese Head exam: PRESENT: atraumatic, normocephalic Eye exam: PRESENT: EOMI, PERRLA. ABSENT: scleral icterus Mouth exam: PRESENT: moist Teeth exam: ABSENT: poor dentation Neck exam: ABSENT: meningismus, tenderness, thyromegaly, tracheal deviation Respiratory exam: PRESENT: clear to auscultation soo, unlabored. ABSENT: chest wall tenderness, tachypnea, wheezes Cardiovascular exam: PRESENT: irregular rhythm Pulses: PRESENT: normal radial pulses Vascular exam: PRESENT: pallor - Mild GI/Abdominal exam: PRESENT: soft. ABSENT: distended, firm, guarding, tenderness Rectal exam: PRESENT: deferred Musculoskeletal exam: ABSENT: deformity Neurological exam: PRESENT: alert, awake, oriented to person, oriented to place, oriented to time, oriented to situation, CN II-XII grossly intact Psychiatric exam: ABSENT: agitated, anxious, depressed Focused psych exam: ABSENT: delusional Skin exam: ABSENT: cyanosis, erythema, jaundice Results Laboratory Results: 01/14/19 13:44 01/14/19 12:15 01/14/19 01/14/19 01/14/19 12:15 12:15 12:15 WBC Cancelled RBC Cancelled Hgb Cancelled Hct Cancelled MCV Cancelled MCH Cancelled MCHC Cancelled RDW Cancelled Plt Count Cancelled Seg Neutrophils % Cancelled Lymphocytes % Cancelled Monocytes % Cancelled Eosinophils % Cancelled Basophils % Cancelled Absolute Neutrophils Cancelled Absolute Lymphocytes Cancelled Absolute Monocytes Cancelled Absolute Eosinophils Cancelled Absolute Basophils Cancelled Sodium 141.0 Potassium 5.2 H Chloride 105 Carbon Dioxide 26 Anion Gap 10 BUN 14 Creatinine 0.81 Est GFR ( Amer) > 60 Est GFR (Non-Af Amer) > 60 Glucose 105 Calcium 8.7 Total Bilirubin 0.5 AST 30 ALT 22 Alkaline Phosphatase 86 Total Protein 5.9 L Albumin 3.4 L Lipase 97.9 Urine Color YELLOW Urine Appearance CLEAR Urine pH 5.0 Ur Specific [place] 1.017 Urine Protein NEGATIVE Urine Glucose (UA) NEGATIVE Urine Ketones NEGATIVE Urine Blood NEGATIVE Urine Nitrite NEGATIVE Ur Leukocyte Esterase NEGATIVE Urine WBC (Auto) 2 Urine RBC (Auto) 0 Blood Type Antibody Screen 01/14/19 01/14/19 13:44 15:01 WBC 7.4 RBC 4.20 L Hgb 7.8 L Hct 26.0 L MCV 62 L MCH 18.5 L MCHC 29.9 L RDW 18.2 H Plt Count 261 Seg Neutrophils % 75.4 Lymphocytes % 10.7 L Monocytes % 11.2 Eosinophils % 2.4 Basophils % 0.3 Absolute Neutrophils 5.6 Absolute Lymphocytes 0.8 Absolute Monocytes 0.8 Absolute Eosinophils 0.2 Absolute Basophils 0.0 Sodium Potassium Chloride Carbon Dioxide Anion Gap BUN Creatinine Est GFR ( Amer) Est GFR (Non-Af Amer) Glucose Calcium Total Bilirubin AST ALT Alkaline Phosphatase Total Protein Albumin Lipase Urine Color Urine Appearance Urine pH Ur Specific [place] Urine Protein Urine Glucose (UA) Urine Ketones Urine Blood Urine Nitrite Ur Leukocyte Esterase Urine WBC (Auto) Urine RBC (Auto) Blood Type O POSITIVE Antibody Screen NEGATIVE 01/14/19 12:15 CK-MB (CK-2) 1.49 Troponin I < 0.012 Impressions: Chest X-Ray 01/14/19 11:45 IMPRESSION: Borderline cardiomegaly without pulmonary edema. Assessment & Plan - Diagnosis (1) Acute anemia Is this a current diagnosis for this admission?: Yes - Plan Summary Plan Summary: This is a 48-year-old male with anemia. He is symptomatic. He has never had a colonoscopy. Surgery has been consulted to rule out a GI source of his bleeding. Plan for colonoscopy in the next 24 to 48 hours. His last dose of Eliquis was 5 AM on 01/14/2019. Start bowel prep today. Will follow.
[2019-01-15 06:58] LABS: HEMATOCRIT 29.8 % (37.9-51.0); HEMOGLOBIN 9.3 g/dL (13.5-17.0); MEAN CORPUSCULAR HEMOGLOBIN 20.1 pg (27.0-33.4); MEAN CORPUSCULAR HGB CONC 31.1 g/dL (32.0-36.0); MEAN CORPUSCULAR VOLUME 64 fl (80-97); RED BLOOD COUNT 4.62 10^6/uL (4.35-5.55); RED CELL DISTRIBUTION WIDTH 22.4 % (11.5-14.0); WHITE BLOOD COUNT 6.5 10^3/uL (4.0-10.5)
[2019-01-15 07:07] LABS: ANION GAP 7 (5-19); BLOOD UREA NITROGEN 15 mg/dL (7-20); CALCIUM 8.6 mg/dL (8.4-10.2); CARBON DIOXIDE 26 mmol/L (22-30); CHLORIDE 106 mmol/L (98-107); GLUCOSE 108 mg/dL (75-110); POTASSIUM 4.6 mmol/L (3.6-5.0); SODIUM 139.3 mmol/L (137-145)
[2019-01-15 07:27] LABS: PLATELET COUNT 178 10^3/uL (150-450)
[2019-01-15] MEDS: INSULIN LISPRO 100 UNIT/ML 3 ML VIAL SUBCUT SCH ×4 (07:38→22:05)
[2019-01-15] MEDS ORDERED: PEG 3350/NA SULF,BICARB,CL/KCL 4000 ML PO ONE ×2 (09:00→18:00)
[2019-01-15] MEDS: POTASSI CL 20 MEQ/1/2NS 1L 1000 ML IV PRN (09:45)
[2019-01-15] MEDS: PANTOPRAZOLE SODIUM 40 MG VIAL IV SCH ×2 (09:54→22:41)
[2019-01-15 12:23] LABS: PATH REVIEW PATHOLOGIST REVIEWED
--- NOTE | 2019-01-15 13:07 | PDOC PROGRESS REPORT ---
Subjective Progress Note for:: 01/15/19 Subjective:: No c/o Reason For Visit: ACUTE BLOOD LOSS ANEMIA DUE TO GI BLEEDING Physical Exam Vital Signs: Temp Pulse Resp BP Pulse Ox 97.3 F 64 16 135/62 H 93 01/15/19 09:50 01/15/19 09:50 01/15/19 09:50 01/15/19 09:50 01/15/19 09:50 Intake & Output 01/14/19 01/15/19 01/16/19 06:59 06:59 06:59 Intake Total 1050 Output Total 400 Balance 650 Weight 124.4 kg General appearance: PRESENT: no acute distress Respiratory exam: PRESENT: clear to auscultation soo Cardiovascular exam: PRESENT: irregular rhythm GI/Abdominal exam: PRESENT: normal bowel sounds, soft Results Laboratory Results: 01/15/19 06:20 01/15/19 06:20 01/14/19 01/14/19 01/15/19 13:44 15:01 06:20 WBC 7.4 6.5 RBC 4.20 L 4.62 Hgb 7.8 L 9.3 L Hct 26.0 L 29.8 L MCV 62 L 64 L MCH 18.5 L 20.1 L MCHC 29.9 L 31.1 L RDW 18.2 H 22.4 H Plt Count 261 178 Seg Neutrophils % 75.4 Lymphocytes % 10.7 L Monocytes % 11.2 Eosinophils % 2.4 Basophils % 0.3 Absolute Neutrophils 5.6 Absolute Lymphocytes 0.8 Absolute Monocytes 0.8 Absolute Eosinophils 0.2 Absolute Basophils 0.0 Sodium Potassium Chloride Carbon Dioxide Anion Gap BUN Creatinine Est GFR ( Amer) Est GFR (Non-Af Amer) Glucose Calcium Blood Type O POSITIVE Antibody Screen NEGATIVE 01/15/19 06:20 WBC RBC Hgb Hct MCV MCH MCHC RDW Plt Count Seg Neutrophils % Lymphocytes % Monocytes % Eosinophils % Basophils % Absolute Neutrophils Absolute Lymphocytes Absolute Monocytes Absolute Eosinophils Absolute Basophils Sodium 139.3 Potassium 4.6 Chloride 106 Carbon Dioxide 26 Anion Gap 7 BUN 15 Creatinine 0.72 Est GFR ( Amer) > 60 Est GFR (Non-Af Amer) > 60 Glucose 108 Calcium 8.6 Blood Type Antibody Screen 01/14/19 12:15 CK-MB (CK-2) 1.49 Troponin I < 0.012 Impressions: Chest X-Ray 01/14/19 11:45 IMPRESSION: Borderline cardiomegaly without pulmonary edema. Assessment & Plan - Diagnosis (1) Acute anemia Is this a current diagnosis for this admission?: Yes (2) Atrial fibrillation Qualifiers: Atrial fibrillation type: paroxysmal Qualified Code(s): I48.0 - Paroxysmal atrial fibrillation Is this a current diagnosis for this admission?: Yes (3) Status post gastric bypass for obesity Is this a current diagnosis for this admission?: Yes - Plan Summary Plan Summary: A/ Obese male with acute anemia (H/H = 9.3/29.8) S/P RY gastric bypass 17 years ago No hx of GI bleeding by patient Patient not compliant in terms of Fe, Vit B12, and Folate supplementation after bypass Atrial fibrillation on ELiquis (off since 01/14/19 AM) P/ EGD and colonoscopy with bx with intravenous sedation tomorrow Clear liquid diet today, then NPO after midnight Second gallon of Golytely bowel preparation with oral Dulcolax today Procedure, risks, benefits, complications have been discussed with the patient, his questions were answered and he decides to proceed
[2019-01-15] MEDS ORDERED: GLUCAGON,HUMAN RECOMB 1 MG INJ SUBCUT PRN ×2 (13:08→17:24)
[2019-01-15] MEDS ORDERED: DEXTROSE 40% GEL 15 GM TUBE PO PRN ×4 (13:08→17:24)
[2019-01-15] MEDS ORDERED: DEXTROSE 50%-WATER 25 GM/50 ML DISP.SYRIN IV PRN ×4 (13:08→17:24)
--- NOTE | 2019-01-15 16:20 | PDOC PROGRESS REPORT ---
Subjective Progress Note for:: 01/15/19 Subjective:: The patient is resting comfortably. He is still not passing [place] per rectum with his bowel prep. Reason For Visit: ACUTE BLOOD LOSS ANEMIA DUE TO GI BLEEDING Physical Exam Vital Signs: Temp Pulse Resp BP Pulse Ox 97.4 F 66 18 152/63 H 96 01/15/19 11:46 01/15/19 11:46 01/15/19 11:46 01/15/19 11:46 01/15/19 11:46 Intake & Output 01/14/19 01/15/19 01/16/19 06:59 06:59 06:59 Intake Total 1050 Output Total 400 Balance 650 Weight 124.4 kg General appearance: PRESENT: no acute distress, cooperative, morbidly obese Head exam: PRESENT: atraumatic, normocephalic Eye exam: PRESENT: conjunctiva pale Ear exam: PRESENT: normal external ear exam Respiratory exam: PRESENT: clear to auscultation soo, symmetrical, unlabored. ABSENT: accessory muscle use, rales, rhonchi, tachypnea, wheezes Cardiovascular exam: PRESENT: RRR, +S1, +S2, systolic murmur - 1/6 GI/Abdominal exam: PRESENT: normal bowel sounds, soft, other - Protuberant abdomen. ABSENT: guarding, tenderness Rectal exam: PRESENT: deferred Neurological exam: PRESENT: alert, awake, oriented to person, oriented to place, oriented to time, oriented to situation, CN II-XII grossly intact. ABSENT: motor sensory deficit Psychiatric exam: PRESENT: appropriate affect, normal mood. ABSENT: agitated, anxious Focused psych exam: ABSENT: delusional, restlessness Results Laboratory Results: 01/15/19 06:20 01/15/19 06:20 01/14/19 01/15/19 01/15/19 15:01 06:20 06:20 WBC 6.5 RBC 4.62 Hgb 9.3 L Hct 29.8 L MCV 64 L MCH 20.1 L MCHC 31.1 L RDW 22.4 H Plt Count 178 Sodium 139.3 Potassium 4.6 Chloride 106 Carbon Dioxide 26 Anion Gap 7 BUN 15 Creatinine 0.72 Est GFR ( Amer) > 60 Est GFR (Non-Af Amer) > 60 Glucose 108 Calcium 8.6 Blood Type O POSITIVE Antibody Screen NEGATIVE 05/13/19 12:15 CK-MB (CK-2) 1.49 Troponin I < 0.012 Impressions: Chest X-Ray 01/14/19 11:45 IMPRESSION: Borderline cardiomegaly without pulmonary edema. Assessment and Plan - Diagnosis (1) Acute blood loss anemia Is this a current diagnosis for this admission?: Yes Plan: Hemoglobin 7.8 now. His hemoglobin was 12.5 in November 2018. Most probably due to GI bleeding. 01/15/2019-patient received 2 units of packed red blood cells. His hemoglobin is 9.8 this evening. He still exhibits pallor. We will repeat hemoglobin tomorrow. The patient reports no further evidence of blood in the stool. (2) GI bleeding Qualifiers: GI bleed type/associated pathology: unspecified gastrointestinal hemorrhage type Qualified Code(s): K92.2 - Gastrointestinal hemorrhage, unspecified Is this a current diagnosis for this admission?: Yes Plan: Stool for occult blood is positive. I will hold Eliquis. We will transfuse 1 unit of blood. Surgical consultation. 01/15/2019-the patient is feeling better with the transfusion. He is currently preparing with bowel prep. He is down to one quarter of the volume and still passing discolored liquid. I will administer a bottle of citrate of magnesia as there is extremely limited supply of bowel prep in the pharmacy. If necessary he can receive a second bottle of mag citrate. Hemoglobin is 9.8. Will recheck hemoglobin in the morning. (3) Atrial fibrillation Qualifiers: Atrial fibrillation type: paroxysmal Qualified Code(s): I48.0 - Paroxysmal atrial fibrillation Is this a current diagnosis for this admission?: Yes Plan: Rate controlled. I will hold his Eliquis due to GI bleeding. 01/15/2019-excellent rate control on current regimen. Holding anticoagulation because of GI bleeding. (4) Hypertension Qualifiers: Hypertension type: essential hypertension Qualified Code(s): I10 - Essential (primary) hypertension Is this a current diagnosis for this admission?: Yes (5) Type 2 diabetes mellitus Qualifiers: Diabetes mellitus station tender insulin use: without station tender use Diabetes mellitus complication status: without complication Qualified Code(s): E11.9 - Type 2 diabetes mellitus without complications Is this a current diagnosis for this admission?: Yes Plan: We will continue his metformin. We will put him on sliding scale. We will check his hemoglobin A1c. 01/15/2019-currently n.p.o. because of bowel prep however will resume metformin post colonoscopy. His hemoglobin A1c was excellent at 6.3. (6) Morbid obesity with BMI of 45.0-49.9, adult Is this a current diagnosis for this admission?: Yes Plan: Lifestyle advised. - Time Time Spent with patient: 15-24 minutes Medications reviewed and adjusted accordingly: Yes Anticipated discharge: Home
[2019-01-15] MEDS ORDERED: MAGNESIUM CITRATE 296 ML BOTTLE PO ONE (16:45)
[2019-01-15] MEDS ORDERED: BISACODYL 5 MG TABEC PO ONE (18:00)
[2019-01-15] MEDS ORDERED: ACETAMINOPHEN 325 MG TABLET PO PRN (20:02)
[2019-01-15] MEDS: TEMAZEPAM 15 MG CAPSULE PO SCH (22:41)
[2019-01-16 07:05] LABS: HEMATOCRIT 29.2 % (37.9-51.0); HEMOGLOBIN 9.1 g/dL (13.5-17.0); MEAN CORPUSCULAR HEMOGLOBIN 19.8 pg (27.0-33.4); MEAN CORPUSCULAR VOLUME 64 fl (80-97); PLATELET COUNT 216 10^3/uL (150-450); RED BLOOD COUNT 4.57 10^6/uL (4.35-5.55); RED CELL DISTRIBUTION WIDTH 22.2 % (11.5-14.0); WHITE BLOOD COUNT 5.6 10^3/uL (4.0-10.5)
[2019-01-16] MEDS ORDERED: FLUMAZENIL INJ 0.5 MG/5 ML VIAL ONE (07:26)
[2019-01-16] MEDS ORDERED: DIPHENHYDRAMINE HCL 50 MG/ML VIAL ONE (07:26)
[2019-01-16] MEDS ORDERED: EPINEPHRINE INJ 1 MG/10 ML DISP.SYRIN ONE (07:26)
[2019-01-16] MEDS ORDERED: ONDANSETRON HCL INJ/PF 4 MG/2 ML SDV ONE (07:26)
[2019-01-16] MEDS ORDERED: GLUCAGON,HUMAN RECOMB 1 MG INJ ONE (07:26)
[2019-01-16] MEDS ORDERED: NALOXONE HCL INJ/PF 0.4 MG/1 ML SDV ONE (07:26)
[2019-01-16] MEDS: POTASSI CL 20 MEQ/1/2NS 1L 1000 ML IV PRN (07:28)
[2019-01-16] MEDS: MIDAZOLAM 2 MG/2 ML INJ ONE ×4 (08:12→08:29)
[2019-01-16] MEDS: FENTANYL CITRATE INJ/PF 100 MCG/2 ML AMPUL ONE ×3 (08:14→08:30)
--- NOTE | 2019-01-16 08:51 | Operative Report ---
Nonrecallable Operative Report DATE OF SURGERY: 01/16/19 PREOPERATIVE DIAGNOSIS: anemia unknown cause. s/p gastric bypass. morbid obesity POSTOPERATIVE DIAGNOSIS: same. Normal EGD. Normal colonosocpy to cecum OPERATION: EGD. Colonoscopy to cecum SURGEON: ANGELO COLLINS ANESTHESIA: Moderate Sedation - provided by Dr. Collins: Versed 5 mg IVP; Fentanyl 100 mcg IVP TISSUE REMOVED OR ALTERED: n/a COMPLICATIONS: none ESTIMATED BLOOD LOSS: n/a INTRAOPERATIVE FINDINGS: normal EGD; dilated gastric pouch;. Normal colonoscopy to cecum PROCEDURE: see dictation
--- NOTE | 2019-01-16 08:53 | Progress Note ---
Provider Note Provider Note: EGD and colonoscopy to cecum are both negative for causes of anemia, most likely due to his RY-Gastric bypass and malabsorption. He will need to be placed on lifetime replacement of vitamins, folate, Fe, Ca. I will sign off. Please, call me with questions.
[2019-01-16] MEDS: INSULIN LISPRO 100 UNIT/ML 3 ML VIAL SUBCUT SCH ×4 (09:00→22:11)
--- NOTE | 2019-01-16 09:34 | OPERATIVE REPORT E ---
Operative Report NAME: CHARY HUSTON : 1970 AGE: 48Y DATE OF SURGERY: 01/16/2019 ROOM: 529 PREOPERATIVE DIAGNOSIS: ANEMIA STATUS POST DEBBIE-EN-Y GASTRIC BYPASS, MORBID OBESITY. POSTOPERATIVE DIAGNOSIS: ANEMIA STATUS POST DEBBIE-EN-Y GASTRIC BYPASS, MORBID OBESITY. NEGATIVE UPPER ENDOSCOPY AND NEGATIVE COLONOSCOPY TO THE CECUM. SURGEON: ANGELO PIERSON M.D. PAYROLL ACCOUNTANT: None. ANESTHESIA: General. IV sedation provided by Dr. Pierson (5 mg IV push of Versed and 100 mcg IV push of fentanyl). ESTIMATED BLOOD LOSS: None. COMPLICATIONS: None. INDICATION AND FINDINGS: This is an obese 48-year-old male with a history of anemia. Seen in the emergency room and referred for upper and lower endoscopy to find the cause of the anemia. The patient underwent a Debbie-En-Y gastric bypass several years ago, however, he has presented with weight gain from the procedure. A decision was made to perform an upper and lower endoscopy in attempt to find the possible cause of the anemia. PROCEDURE: The procedure was done in the operating room. The patient was placed in lateral decubitus position. IV sedation provided as above by Dr. Pierson. The gastroscope was inserted through the mouth into the esophagus and the gastric pouch. No abnormalities of the esophagus or gastroesophageal junction were identified. The gastric pouch appeared to be somewhat stretched. The gastrojejunal anastomosis appeared to be normal without evidence of ulcerations. The scope was then advanced into the proximal portion of the jejunum distal to the gastrojejunostomy. No evidence of ulcerations were seen. At this point, the scope was slowly withdrawn. Again, no lesions were identified in the gastric pouch and in the gastroesophageal junction as well. This was removed from the patients mouth without difficulty. The colonoscopy was then performed by inserting a scope through the patient's anus and rectum. The scope was advanced through the colon up to the cecum. Preparation was good. No mass or polyp or cecal indentations or mucosal changes, or diverticula were noted. No abnormalities were seen. The instrument was slowly withdrawn from the cecum through the multiple colon segments and no lesions were identified. The instrument was removed; the patient tolerated the procedure well and transferred to recovery room in satisfactory condition. DICTATING PHYSICIAN: ANGELO PIERSON M.D. [id number] PHY#: [id number] ID: [id number] JOB#: [id number] ACCT: [id number] cc:ANGELO PIERSON M.D. > [facility]
[2019-01-16] MEDS ORDERED: (PENDING PHARMACY ID) (Citalopram Hydrobromide [Celexa 40 Mg Tablet] 40 MG) PO SCH (10:30)
--- NOTE | 2019-01-16 10:39 | PDOC PROGRESS REPORT ---
Subjective Progress Note for:: 01/16/19 Subjective:: CHARY HUSTON is a 48 year old male patient was past medical history of hyperlipidemia, hypertension type 2 diabetes mellitus, atrial fibrillation diagnosed in 2016 and on Eliquis for anticoagulation, history of gastric bypass surgery in 1999 morbid obesity and depression resented with 4-day history of palpitation shortness of breath and lightheadedness. Patient denies any chest pain fever and chills. Endorses dry cough. He does not have any history of external bleeding in the form of hematochezia, hematuria or melanotic stool. His blood work shows hemoglobin of 7.8. His hemoglobin was 12.5 in November 2018. He is still for occult blood is positive. 01/16/2019. No acute events overnight. Status post upper GI and lower GI endoscopy. As per surgery report no signs of active bleeding was identified. Patient denies any fever, chills, nausea, vomiting, diarrhea, constipation or any urinary symptoms. Reason For Visit: ACUTE BLOOD LOSS ANEMIA DUE TO GI BLEEDING Physical Exam Vital Signs: Temp Pulse Resp BP Pulse Ox 97.6 F 80 22 H 135/75 H 90 L 01/16/19 01:00 01/16/19 09:00 01/16/19 09:00 01/16/19 09:00 01/16/19 09:00 Intake & Output 01/15/19 01/16/19 01/17/19 06:59 06:59 06:59 Intake Total 1350 2770 Output Total 400 1400 Balance 950 1370 Weight 124.4 kg 123.2 kg General appearance: PRESENT: obese Head exam: PRESENT: atraumatic, normocephalic Neck exam: ABSENT: carotid bruit, JVD, lymphadenopathy, thyromegaly Respiratory exam: PRESENT: clear to auscultation soo. ABSENT: rales, rhonchi, wheezes Cardiovascular exam: PRESENT: RRR. ABSENT: diastolic murmur, rubs, systolic murmur GI/Abdominal exam: PRESENT: normal bowel sounds, soft. ABSENT: distended, guarding, mass, organolmegaly, rebound, tenderness Neurological exam: PRESENT: alert, awake, oriented to person, oriented to place, oriented to time, oriented to situation, CN II-XII grossly intact. ABSENT: motor sensory deficit Results Laboratory Results: 01/16/19 06:34 01/15/19 06:20 01/16/19 06:34 WBC 5.6 RBC 4.57 Hgb 9.1 L Hct 29.2 L MCV 64 L MCH 19.8 L MCHC 31.0 L RDW 22.2 H Plt Count 216 01/14/19 12:15 CK-MB (CK-2) 1.49 Troponin I < 0.012 Impressions: Chest X-Ray 01/14/19 11:45 IMPRESSION: Borderline cardiomegaly without pulmonary edema. Assessment and Plan - Diagnosis (1) Acute blood loss anemia Is this a current diagnosis for this admission?: Yes Plan: Multifactorial. Acute on chronic. History of gastric bypass, A. fib on Xarelto. 01/16/2019: Status post upper/lower GI endoscopy. Negative for any active bleeding. 01/16/2019: WBC 5.6, hemoglobin 9.1 up from 7.8 on admission status post 2 PRBC transfusion, MCV 64, platelets 216. We will give 1 dose of Injectafer as patient has history of gastric bypass and may not be able to absorb p.o. ferrous sulfate very well. H&H tomorrow. Monitor for any signs of bleeding. Transfuse if hemoglobin less than 7, actively bleeding, or symptomatic. Continue supplemental ferrous sulfate, B12, folic acid, vitamin C. (2) Atrial fibrillation Qualifiers: Atrial fibrillation type: paroxysmal Qualified Code(s): I48.0 - Paroxysmal atrial fibrillation Is this a current diagnosis for this admission?: Yes Plan: Rate controlled. Eliquis on hold due to GI bleed. Patient was counseled on possibly switching to Coumadin as Eliquis may have contributed to his GI bleed. Stated that he will follow-up with his PCP and will make a decision on that. We will hold Eliquis for right now. Continue metoprolol. (3) GI bleeding Qualifiers: GI bleed type/associated pathology: unspecified gastrointestinal hemorrhage type Qualified Code(s): K92.2 - Gastrointestinal hemorrhage, unspecified Is this a current diagnosis for this admission?: Yes Plan: As per #1. (4) Hypertension Qualifiers: Hypertension type: essential hypertension Qualified Code(s): I10 - Essential (primary) hypertension Is this a current diagnosis for this admission?: Yes Plan: Controlled: 01/16/2019: SBP 388851, T-max 97.6, pulse 80s, RR 18-22, SPO2 90 to 97% FiO2 2 L NC. Continue metoprolol and Lasix. (5) Type 2 diabetes mellitus Qualifiers: Diabetes mellitus longterm insulin use: without longterm use Diabetes mellitus complication status: without complication Qualified Code(s): E11.9 - Type 2 diabetes mellitus without complications Is this a current diagnosis for this admission?: Yes Plan: Controlled. Hemoglobin A1c 6.9, FBG 108, POC glucose [id number]. Continue long-acting insulin, sliding scale, pre-meal insulin, diabetic diet. Hold metformin. Restart on discharge. Outpatient PCP follow-up. (6) Depression Is this a current diagnosis for this admission?: No Plan: Chronic. Denies any suicidal, homicidal or self-harm ideation. Start home meds. Outpatient PCP follow-up. (7) BPH (benign prostatic hyperplasia) Qualifiers: Lower urinary tract symptom presence: symptoms present Is this a current diagnosis for this admission?: No Plan: Restart home meds.
[2019-01-16] MEDS ORDERED: FERRIC CARBOXYMALTOSE INJ 750 MG/15 ML VIAL IV PRN (10:41)
[2019-01-16] MEDS: FAMOTIDINE 20 MG TABLET PO SCH ×2 (10:49→22:16)
[2019-01-16] MEDS: FERROUS SULFATE 325 MG TABLET PO SCH (10:49)
[2019-01-16] MEDS: CITALOPRAM HYDROBROMIDE 20 MG TABLET PO SCH (10:49)
[2019-01-16] MEDS: MULTIVITAMIN TABLET PO SCH (10:49)
[2019-01-16] MEDS: METOPROLOL TARTRATE 50 MG TABLET PO SCH ×2 (10:49→22:16)
[2019-01-16] MEDS ORDERED: CYANOCOBALAMIN (VITAMIN B-12) INJ 1000 MCG/1 ML VIAL IM ONE (11:00)
[2019-01-16] MEDS ORDERED: FERRIC CARBOXYMALTOSE 750 MG in NORMAL SALINE 250 ML IV ONE (12:00)
[2019-01-16] MEDS: PANTOPRAZOLE SODIUM 40 MG VIAL IV SCH (13:04)
[2019-01-16] MEDS ORDERED: TAMSULOSIN HCL 0.4 MG CAP.SR.24H PO SCH (18:00)
[2019-01-16] MEDS: TEMAZEPAM 15 MG CAPSULE PO SCH (22:16)
[2019-01-17 06:57] LABS: ABSOLUTE EOSINOPHILS # (AUTO) 0.2 10^3/uL (0.0-0.6); ABSOLUTE LYMPHOCYTES (AUTO) 0.6 10^3/uL (0.5-4.7); ABSOLUTE MONOCYTES (AUTO) 0.7 10^3/uL (0.1-1.4); ABSOLUTE NEUT (AUTO) 4.1 10^3/uL (1.7-8.2); BASOPHILS % (AUTO) 0.5 % (0-2); EOSINOPHILS % (AUTO) 3.4 % (0-6); HEMATOCRIT 29.6 % (37.9-51.0); LYMPHOCYTES % (AUTO) 10.5 % (13-45); MEAN CORPUSCULAR HEMOGLOBIN 19.8 pg (27.0-33.4); MEAN CORPUSCULAR HGB CONC 30.5 g/dL (32.0-36.0); MEAN CORPUSCULAR VOLUME 65 fl (80-97); MONOCYTES % (AUTO) 11.9 % (3-13); PLATELET COUNT 193 10^3/uL (150-450); RED BLOOD COUNT 4.54 10^6/uL (4.35-5.55); RED CELL DISTRIBUTION WIDTH 22.7 % (11.5-14.0); SEGMENTED NEUTROPHILS % (AUTO) 73.7 % (42-78); TOTAL CELLS COUNTED % (AUTO) 100 %; WHITE BLOOD COUNT 5.6 10^3/uL (4.0-10.5)
[2019-01-17] MEDS ORDERED: FUROSEMIDE 20 MG TABLET PO SCH (08:00)
[2019-01-17] MEDS: INSULIN LISPRO 100 UNIT/ML 3 ML VIAL SUBCUT SCH (09:29)
[2019-01-17] MEDS: CITALOPRAM HYDROBROMIDE 20 MG TABLET PO SCH (09:32)
[2019-01-17] MEDS: FAMOTIDINE 20 MG TABLET PO SCH (09:32)
[2019-01-17] MEDS: METOPROLOL TARTRATE 50 MG TABLET PO SCH (09:32)
[2019-01-17] MEDS: MULTIVITAMIN TABLET PO SCH (09:33)
[2019-01-17] MEDS: FERROUS SULFATE 325 MG TABLET PO SCH (09:33)
[2019-01-17 09:43] VITALS: BP 109/53
--- NOTE | 2019-01-17 10:16 | PDOC DISCHARGE SUMMARY ---
General - Admit/Disc Date/PCP Admission Date/Primary Care Provider: 01/14/19 16:29 SORAIDA ORNELAS MD Discharge Date: 01/17/19 - Discharge Diagnosis (1) Acute blood loss anemia Is this a current diagnosis for this admission?: Yes (2) Atrial fibrillation Is this a current diagnosis for this admission?: Yes (3) GI bleeding Is this a current diagnosis for this admission?: Yes (4) Hypertension Is this a current diagnosis for this admission?: Yes (5) Type 2 diabetes mellitus Is this a current diagnosis for this admission?: Yes (6) Depression Is this a current diagnosis for this admission?: No (7) BPH (benign prostatic hyperplasia) Is this a current diagnosis for this admission?: No - Additional Information Resuscitation Status: Full Code Discharge Activity: Activity As Tolerated, Balance Activity w/Rest Prescriptions: Cyanocobalamin (Vitamin B-12) [Vitamin B12] 2,500 mcg SL DAILY 30 Days #30 tablet Multivit-Min/Folic/Vit K/Lycop [Men's Multivitamin Tablet] 1 each PO DAILY 30 Days #30 tablet Home Medications: Ferrous Sulfate [Feosol] 325 mg PO DAILY 10/19/18 Tamsulosin HCl [Flomax 0.4 mg Cap.sr] 0.4 mg PO DAILY 10/19/18 Citalopram Hydrobromide [Celexa 40 mg Tablet] 40 mg PO DAILY 30 Days #30 tablet 11/20/18 Furosemide [Lasix 20 mg Tablet] 20 mg PO QAM #30 tablet 11/20/18 Metoprolol Tartrate [Lopressor 50 mg Tablet] 50 mg PO Q12H #60 tablet 11/20/18 Metformin HCl [Metformin HCl ER] 500 mg PO DAILY 01/14/19 Cyanocobalamin (Vitamin B-12) [Vitamin B12] 2,500 mcg SL DAILY 30 Days #30 tablet 01/17/19 Multivit-Min/Folic/Vit K/Lycop [Men's Multivitamin Tablet] 1 each PO DAILY 30 Days #30 tablet 01/17/19 History of Present Illness History of Present Illness: CHARY HUSTON is a 48 year old male patient was past medical history of hyperlipidemia, hypertension type 2 diabetes mellitus, atrial fibrillation diagnosed in 2017 and on Eliquis for anticoagulation, history of gastric bypass surgery in 1999 morbid obesity and depression resented with 4-day history of palpitation shortness of breath and lightheadedness. Patient denies any chest pain fever and chills. Endorses dry cough. He does not have any history of external bleeding in the form of hematochezia, hematuria or melanotic stool. His blood work shows hemoglobin of 7.8. His hemoglobin was 12.5 in November 2018. He is still for occult blood is positive. Hospital Course Hospital Course: (1) Acute blood loss anemia Stable. Hemoglobin 9.1 on day of discharge. Multifactorial. Acute on chronic. History of gastric bypass, A. fib on Xarelto. 01/16/2019: Status post upper/lower GI endoscopy. Negative for any active bleeding. Received 1 transfusion of Injectafer while inpatient. Was discharged on supplemental iron, B12, multivitamins. Appointment was made for him to see Dr. Anaya staff counselor as outpatient for co ntinuation of iron transfusion in the future. (2) Atrial fibrillation Rate controlled. Eliquis on hold due to GI bleed. Patient was to follow-up with PCP before restarting Eliquis. Patient was counseled on possibly switching to Coumadin as Eliquis may have contributed to his GI bleed. Stated that he will follow-up with his PCP and will make a decision on that. Eliquis was held during hospitalization. Continued metoprolol. (3) GI bleeding As per #1. (4) Hypertension Controlled: Continue metoprolol and Lasix. (5) Type 2 diabetes mellitus Controlled. Hemoglobin A1c 6.9, FBG 108, POC glucose [id number]. Continue long-acting insulin, sliding scale, pre-meal insulin, diabetic diet. Hold metformin. Restart on discharge. Outpatient PCP follow-up. (6) Depression Chronic. Denies any suicidal, homicidal or self-harm ideation. Start home meds. Outpatient PCP follow-up. (7) BPH (benign prostatic hyperplasia) Restart home meds. Physical Exam Vital Signs: Temp Pulse Resp BP Pulse Ox 98.5 F 63 18 109/53 L 94 01/17/19 09:38 01/17/19 09:38 01/17/19 09:38 01/17/19 09:38 01/17/19 09:38 Intake & Output 01/16/19 01/17/19 01/18/19 06:59 06:59 06:59 Intake Total 2770 1065 Output Total 1400 Balance 1370 1065 Weight 123.2 kg 123.2 kg General appearance: PRESENT: no acute distress, morbidly obese, well-developed, well-nourished Head exam: PRESENT: atraumatic, normocephalic Eye exam: PRESENT: conjunctiva pink, EOMI, PERRLA. ABSENT: scleral icterus Ear exam: PRESENT: normal external ear exam Mouth exam: PRESENT: moist, tongue midline Neck exam: ABSENT: carotid bruit, JVD, lymphadenopathy, thyromegaly Respiratory exam: PRESENT: clear to auscultation soo. ABSENT: rales, rhonchi, wheezes Cardiovascular exam: PRESENT: RRR. ABSENT: diastolic murmur, rubs, systolic murmur Pulses: PRESENT: normal dorsalis pedis pul Vascular exam: PRESENT: normal capillary refill GI/Abdominal exam: PRESENT: normal bowel sounds, soft. ABSENT: distended, guarding, mass, organolmegaly, rebound, tenderness Rectal exam: PRESENT: deferred Extremities exam: PRESENT: full ROM. ABSENT: calf tenderness, clubbing, pedal edema Neurological exam: PRESENT: alert, awake, oriented to person, oriented to place, oriented to time, oriented to situation, CN II-XII grossly intact. ABSENT: motor sensory deficit Psychiatric exam: PRESENT: appropriate affect, normal mood. ABSENT: homicidal ideation, suicidal ideation Skin exam: PRESENT: dry, intact, warm. ABSENT: cyanosis, rash Results Laboratory Results: 01/17/19 05:57 01/15/19 06:20 01/17/19 05:57 WBC 5.6 RBC 4.54 Hgb 9.0 L Hct 29.6 L MCV 65 L MCH 19.8 L MCHC 30.5 L RDW 22.7 H Plt Count 193 Seg Neutrophils % 73.7 Lymphocytes % 10.5 L Monocytes % 11.9 Eosinophils % 3.4 Basophils % 0.5 Absolute Neutrophils 4.1 Absolute Lymphocytes 0.6 Absolute Monocytes 0.7 Absolute Eosinophils 0.2 Absolute Basophils 0.0 01/14/19 12:15 CK-MB (CK-2) 1.49 Troponin I < 0.012 Impressions: Chest X-Ray 01/14/19 11:45 IMPRESSION: Borderline cardiomegaly without pulmonary edema. Qualifiers - * PATIENT BEING DISCHARGED WITH ANY OF THE FOLLOWING DIAGNOSIS: No Acute Heart Failure Is this a Heart Failure Patient?: No
== END 2019-01-17 09:58 | disposition home or self-care (01) | DRG 812 ==
LOC: ER 10:44 → EH 16:29 → 5 18:30
PROVIDERS: ADMIT Internal Medicine; ATTEND Internal Medicine
PROC: 30233N1 Transfusion of Nonautologous Red Blood Cells into Peripheral Vein, Percutaneous Approach (ICD-10-PCS; principal; 2019-01-14)
PROC: 0DJD8ZZ Inspection of Lower Intestinal Tract, Via Natural or Artificial Opening Endoscopic (ICD-10-PCS; 2019-01-16)
PROC: 0DJ08ZZ Inspection of Upper Intestinal Tract, Via Natural or Artificial Opening Endoscopic (ICD-10-PCS; 2019-01-16 08:00)
DX: D62 Acute posthemorrhagic anemia (principal); K95.89 Other complications of other bariatric procedure; K92.2 Gastrointestinal hemorrhage, unspecified; K91.2 Postsurgical malabsorption, not elsewhere classified; Y83.2 Surgical operation with anastomosis, bypass or graft as the cause of abnormal reaction of the patient, or of later complication, without mention of misadventure at the time of the procedure; E11.9 Type 2 diabetes mellitus without complications; I48.0 Paroxysmal atrial fibrillation; I50.9 Heart failure, unspecified; E78.00 Pure hypercholesterolemia, unspecified; I11.0 Hypertensive heart disease with heart failure; I34.0 Nonrheumatic mitral (valve) insufficiency; F41.8 Other specified anxiety disorders; F43.10 Post-traumatic stress disorder, unspecified; N40.0 Benign prostatic hyperplasia without lower urinary tract symptoms; E66.01 Morbid (severe) obesity due to excess calories; Z98.84 Bariatric surgery status; Z79.01 Long term (current) use of anticoagulants; Z79.84 Long term (current) use of oral hypoglycemic drugs; Z79.899 Other long term (current) drug therapy
CPT/HCPCS: 36415; 36430; 43235; 45378; 71046; 80048; 80053; 81001; 82553; 82962; 83036; 83690; 84484; 85025; 85027; 86850; 86900; 86901; 86920; 93005; 93010; 99285; J0171; J1200; J1439; J1610; J2250; J2310; J2405; J3010; J3420; J3480; J3490; J7050; P9016; S0164

== ENCOUNTER 2019-03-06 19:36 | Emergency (ER) | payer MEDICAID ==
[2019-03-06 20:23] LABS: ABSOLUTE BASOPHILS # (AUTO) 0.1 10^3/uL (0.0-0.2); ABSOLUTE EOSINOPHILS # (AUTO) 0.3 10^3/uL (0.0-0.6); ABSOLUTE MONOCYTES (AUTO) 0.8 10^3/uL (0.1-1.4); ABSOLUTE NEUT (AUTO) 6.8 10^3/uL (1.7-8.2); BASOPHILS % (AUTO) 0.8 % (0-2); EOSINOPHILS % (AUTO) 2.9 % (0-6); HEMATOCRIT 40.8 % (37.9-51.0); HEMOGLOBIN 13.1 g/dL (13.5-17.0); LYMPHOCYTES % (AUTO) 10.8 % (13-45); MEAN CORPUSCULAR HEMOGLOBIN 22.9 pg (27.0-33.4); MEAN CORPUSCULAR HGB CONC 32.1 g/dL (32.0-36.0); MEAN CORPUSCULAR VOLUME 71 fl (80-97); MONOCYTES % (AUTO) 8.6 % (3-13); PLATELET COUNT 234 10^3/uL (150-450); RED BLOOD COUNT 5.71 10^6/uL (4.35-5.55); RED CELL DISTRIBUTION WIDTH 27.2 % (11.5-14.0); SEGMENTED NEUTROPHILS % (AUTO) 76.9 % (42-78); TOTAL CELLS COUNTED % (AUTO) 100 %; WHITE BLOOD COUNT 8.9 10^3/uL (4.0-10.5)
[2019-03-06] MEDS ORDERED: ACTIVATED CHARCOAL 25 GM BOTTLE PO ONE (20:23)
[2019-03-06 20:38] LABS: ALANINE AMINOTRANSFERASE 28 U/L (21-72); ALBUMIN 3.7 g/dL (3.5-5.0); ALKALINE PHOSPHATASE 114 U/L (38-126); ANION GAP 8 (5-19); ASPARTATE AMINO TRANSFERASE 24 U/L (17-59); BILIRUBIN,DIRECT 0.2 mg/dL (0.0-0.4); BILIRUBIN,TOTAL 0.2 mg/dL (0.2-1.3); BLOOD UREA NITROGEN 11 mg/dL (7-20); CALCIUM 8.7 mg/dL (8.4-10.2); CARBON DIOXIDE 26 mmol/L (22-30); CHLORIDE 104 mmol/L (98-107); GLUCOSE 167 mg/dL (75-110); SODIUM 138.3 mmol/L (137-145); TOTAL PROTEIN 6.3 g/dL (6.3-8.2)
[2019-03-06 20:39] LABS: ACETAMINOPHEN < 10 ug/mL (10-30); ALCOHOL < 10 mg/dL (NONE DETECTED); SALICYLATE < 1.0 mg/dL (2.0-20.0)
[2019-03-06] MEDS ORDERED: GLUCAGON,HUMAN RECOMB 1 MG INJ IV ONE (20:47)
[2019-03-06 20:48] LABS: ANISOCYTOSIS 3+; HYPOCHROMASIA 1+; OVALOCYTES 2+; PLATELET COMMENT ADEQUATE; POIKILOCYTOSIS 2+
[2019-03-06] MEDS ORDERED: INSULIN REG, HUMAN 100 UNIT/ML 3 ML VIAL (PYX) IV ONE (20:49)
[2019-03-06] MEDS ORDERED: DEXTROSE 50%-WATER 25 GM/50 ML DISP.SYRIN IV ONE ×2 (20:50)
--- NOTE | 2019-03-06 21:05 | ER Document Report ---
ED Psych Disorder / Suicide - General Chief Complaint: Overdose Stated Complaint: SUICIDE IDEATIONS Time Seen by Provider: 03/06/19 19:49 Primary Care Provider: SORAIDA ORNELAS MD [Primary Care Provider] - Follow up as needed Information source: Patient TRAVEL OUTSIDE OF THE [place] IN LAST 30 DAYS: No - HPI Patient complains to provider of: Overdose, Suicidal attempt Onset: Other - 18:00 today Onset was: Sudden Quality of pain: No pain Suicide Attempt Method: Overdose Overdose of: Other - 60 tablets of 5mg Eliquis and 60 tablets of 5mg Metoprolol ingested at 6pm today. Associated symptoms: Depressed Recently seen / treated by doctor: No - Related Data Allergies/Adverse Reactions: No Known Allergies Allergy (Verified 01/14/19 10:47) Past Medical History - General Information source: Patient - Social History Smoking Status: Unknown if Ever Smoked Family History: DM, Hypertension, Malignancy - Past Medical History Cardiac Medical History: Reports: Hx Atrial Fibrillation - 2018, Hx Congestive Heart Failure, Hx Hypercholesterolemia, Hx Hypertension, Hx Heart Murmur - Mitral regurgitation on recent echocardiogram Denies: Hx Coronary Artery Disease, Hx Heart Attack Pulmonary Medical History: Reports: Hx Bronchitis, Hx Pneumonia - Atypical, ARDS, Hx Intubation, Hx Respiratory Failure, Hx Sleep Apnea Denies: Hx Asthma, Hx COPD, Hx Tuberculosis Neurological Medical History: Denies: Hx Cerebrovascular Accident, Hx Seizures Endocrine Medical History: Reports: Hx Diabetes Mellitus Type 2. Denies: Hx Diabetes Mellitus Type 1, Hx Hyperthyroidism, Hx Hypothyroidism Renal/ Medical History: Denies: Hx End Stage Renal Disease, Hx Peritoneal Dialysis GI Medical History: Denies: Hx Cirrhosis, Hx Crohn's Disease, Hx Hepatitis, Hx Hiatal Hernia, Hx Ulcer, Hx Ulcerative Colitis Musculoskeletal Medical History: Denies Hx Fibromyalgia, Reports Hx Musculoskeletal Deformity, Reports Hx Musculoskeletal Trauma Skin Medical History: Denies Hx Eczema, Denies Hx Psoriasis Psychiatric Medical History: Reports: Hx Anxiety, Hx Depression, Hx Post Traumatic Stress Disorder Traumatic Medical History: Reports: Hx Fractures. Denies: Hx Pneumothorax, Hx Traumatic Brain Injury Infectious Medical History: Denies: Hx C-Diff, Hx Hepatitis Past Surgical History: Reports: Hx Abdominal Surgery - GBP, Hx Bowel Surgery - gastric bypass, Hx Cholecystectomy, Hx Gastric Bypass Surgery, Hx Nose Surgery, Hx Orthopedic Surgery - ACL, fingers, Hx Tonsillectomy. Denies: Hx Open Heart Surgery, Hx Pacemaker - Immunizations Immunizations up to date: Yes Hx Diphtheria, Pertussis, Tetanus Vaccination: No Hx Pneumococcal Vaccination: 09/18/18 Review of Systems - Review of Systems Constitutional: No symptoms reported EENT: No symptoms reported Cardiovascular: No symptoms reported Respiratory: No symptoms reported Gastrointestinal: No symptoms reported Genitourinary: No symptoms reported Male Genitourinary: No symptoms reported Musculoskeletal: No symptoms reported Skin: No symptoms reported Hematologic/Lymphatic: No symptoms reported Neurological/Psychological: No symptoms reported -: Yes All other systems reviewed and negative Physical Exam - Vital signs Vitals: Resp Pulse Ox 31 H 99 03/06/19 19:55 03/06/19 19:55 Interpretation: Normal - General General appearance: Appears well, Alert - HEENT Head: Normocephalic, Atraumatic Eyes: Normal Pupils: PERRL - Respiratory Respiratory status: No respiratory distress Chest status: Nontender Breath sounds: Normal Chest palpation: Normal - Cardiovascular Rhythm: Regular Heart sounds: Normal auscultation Murmur: No - Abdominal Inspection: Normal Distension: No distension Bowel sounds: Normal Tenderness: Nontender Organomegaly: No organomegaly - Back Back: Normal, Nontender - Extremities General upper extremity: Normal inspection, Nontender, Normal color, Normal ROM, Normal temperature General lower extremity: Normal inspection, Nontender, Normal color, Normal ROM, Normal temperature, Normal weight bearing. No: Zev's sign - Neurological Neuro grossly intact: Yes Cognition: Normal Orientation: AAOx4 [place] Coma Scale Eye Opening: Spontaneous [place] Coma Scale Verbal: Oriented [place] Coma Scale Motor: Obeys Commands [place] Coma Scale Total: 15 Speech: Normal Motor strength normal: LUE, RUE, LLE, RLE Sensory: Normal - Psychological Associated symptoms: Normal affect, Normal mood - Skin Skin Temperature: Warm Skin Moisture: Dry Skin Color: Normal Course - Vital Signs Vital signs: Temp Pulse Resp BP Pulse Ox 98.5 F 24 H 112/48 L 99 03/06/19 22:56 03/06/19 23:07 03/06/19 23:07 03/06/19 23:07 - Laboratory Result Diagrams: 03/06/19 20:05 03/06/19 20:05 Laboratory results interpreted by me: 03/06/19 03/06/19 03/06/19 20:05 20:05 22:40 RBC 5.71 H Hgb 13.1 L MCV 71 L MCH 22.9 L RDW 27.2 H Lymphocytes % 10.8 L Glucose 167 H Urine Protein 30 H Urine Glucose (UA) >=500 H Salicylates < 1.0 L Acetaminophen < 10 L - Transfer of Care Notes: 03/07/19 23:56 Poison control was called and they recommend charcoal and other medical treatments. Patient was transferred to another facility for higher level of care. Critical Care Note - Critical Care Note Total time excluding time spent on procedures (mins): 50 Comments: Multiple evaluations and consults. Review of labs. Discharge - Discharge Clinical Impression: Suicide attempt Suicide attempt by beta paul overdose Qualifiers: Encounter type: initial encounter Qualified Code(s): T44.7X2A - Poisoning by beta-adrenoreceptor antagonists, intentional self-harm, initial encounter Drug overdose, intentional Qualifiers: Encounter type: initial encounter Qualified Code(s): T50.902A - Poisoning by unspecified drugs, medicaments and biological substances, intentional self-harm, initial encounter Condition: Serious Disposition: [facility] Referrals: SORAIDA ORNELAS MD [Primary Care Provider] - Follow up as needed
[2019-03-06] MEDS ORDERED: NORMAL SALINE 1000 ML 1,000 ML IV ONE (21:28)
[2019-03-06] MEDS: NORMAL SALINE 1000 ML 1,000 ML IV ONE ×2 (21:47→22:50)
[2019-03-06 23:18] VITALS: BP 112/48
[2019-03-06 23:22] LABS: APPEARANCE,URINE CLEAR; BILIRUBIN,URINE NEGATIVE (NEGATIVE); COLOR,URINE YELLOW; GLUCOSE, URINE >=500 mg/dL (NEGATIVE); KETONES,URINE NEGATIVE (NEGATIVE); LEUKOCYTE ESTERASE,URINE NEGATIVE (NEGATIVE); NITRITE,URINE NEGATIVE (NEGATIVE); PROTEIN,URINE 30 mg/dL (NEGATIVE); URINE SPECIFIC GRAVITY 1.013; UROBILINOGEN,URINE NEGATIVE mg/dL (<2.0)
[2019-03-06 23:26] LABS: URINE AMPHETAMINES SCREEN NEGATIVE; URINE BARBITURATES SCREEN NEGATIVE; URINE BENZODIAZEPINES SCREEN NEGATIVE; URINE COCAINE SCREEN UNCONFIRMED POSITIVE; URINE MARIJUANA (THC) SCREEN NEGATIVE; URINE METHADONE SCREEN NEGATIVE; URINE PHENCYCLIDINE SCREEN NEGATIVE
--- NOTE | 2019-03-06 23:38 | EKG REPORT ---
SEVERITY:- NORMAL ECG - SINUS RHYTHM : Confirmed by: Beny Ko 06-Mar-2019 23:37:47
== END 2019-03-06 23:27 | disposition short-term general hospital (02) ==
LOC: ER 19:36
DX: T44.7X2A Poisoning by beta-adrenoreceptor antagonists, intentional self-harm, initial encounter (principal); T45.512A Poisoning by anticoagulants, intentional self-harm, initial encounter; Y92.9 Unspecified place or not applicable; I50.9 Heart failure, unspecified; I11.0 Hypertensive heart disease with heart failure; E11.9 Type 2 diabetes mellitus without complications; Z79.899 Other long term (current) drug therapy; Z79.84 Long term (current) use of oral hypoglycemic drugs
CPT/HCPCS: 93005; 99291; 96361; 96374; 96375; 36415; 82962; 80307 ×4; 85025; 80053; 81001; 93010; J3490 ×2; J1610; J1815; J7030